=== PATIENT | female | born 1935 | race Caucasian/White ===

== ENCOUNTER 2016-12-04 13:57 | Outpatient (CLI) | payer MEDICARE ==
[~2016-12-04] VITALS: Ht 152.4 cm; Wt 69.0 kg
[~2016-12-04 13:57] MED LIST: /PANT40TA; ACET50TA PO; ACET650T12 PO; ACET650T2 PO; ACETAMINOPHEN TAB 650MG DOSE (2X325MG) PO ONE; ALLO100T PO; ALLOPURINAL; AMLO5TAB2 PO; ASPI81TA83 PO; ASPI81TA85 PO; ATEN25TA; ATEN50TA2 PO; BACITAB3 PO; BENA20TA2; BENA40TA2 PO; BISAC5TA PO; BRIN1OPH OS; CIPR500T19 PO; COLA100C PO; COLA50CA3 PO; COLC1TAB5 PO; COMB0.2S OS; DELZ400C PO; DEMA20TA6 PO; DICY10CA13 PO; FENO1TAB41 PO; FENO200C PO; FERR325T PO; FIBER LAXATIVE PO; FIRS1SOL3 PO; FLAG500T PO; FLAXOIL3 PO; FURO20TA2 PO; FURO40TA2 PO; GLIM2TAB PO; GLUC1TAB6 PO; GLUC500T; GLUC500T PO; HYDR12.56 PO; IMOD2TAB14 PO; LASI40TA PO; LATA5OPD OS; LEVO75TA3 PO; LEVO75TA4 PO; LEVOTHYROXINE; LUMIGAN OU; OMEP40CA2 PO; ONDA1TAB15 PO; ONDA4TAB6 PO; PRED20TA PO; PRED20TAB PO; PRED25TA PO; PRED5PAK PO; PRED5TA PO; PROB1TAB PO; RANI150T PO; RANITAB PO; SPIR25TA2 PO; STOO100C PO; SUCR1TA PO; TYLE500T78 PO; VANC250C2 PO; VICO5TAB; VITA100066 PO; ZYLO300T4 PO; [UNRECOGNIZED DRUG - OTHER] PO; allopurinol PO; creon PO; diphenhydrAMINE 25 MG CAP PO ONE; fenofibrate PO; motrin
[2016-12-04] MEDS ORDERED: VEDOLIZUMAB 300 MG in NS 250 ML IV ONE (14:00)
== END 2016-12-04 15:00 | disposition home or self-care (01) ==
LOC: M INFU 13:57
PROVIDERS: ATTEND Internal Medicine Gastroenterology
DX: K51.90 Ulcerative colitis, unspecified, without complications (principal); Z79.899 Other long term (current) drug therapy; Z79.82 Long term (current) use of aspirin; Z88.0 Allergy status to penicillin; Z88.2 Allergy status to sulfonamides; Z88.8 Allergy status to other drugs, medicaments and biological substances; Z79.52 Long term (current) use of systemic steroids
CPT/HCPCS: 96413; J3380

== ENCOUNTER → 2016-12-11 | Outpatient (REF) | payer MEDICARE ==
[~2016-12-11] MED LIST changes: -ACETAMINOPHEN TAB 650MG DOSE (2X325MG) PO ONE; -IMOD2TAB14 PO; +IMOD2TAB16 PO; -diphenhydrAMINE 25 MG CAP PO ONE
[2016-12-11 18:46] LABS: URIC ACID 5.8 MG/DL (2.6-6.0)
== END ==
LOC: M LAB REF 16:38
PROVIDERS: ATTEND Internal Medicine
DX: D50.9 Iron deficiency anemia, unspecified (principal); M10.9 Gout, unspecified

== ENCOUNTER 2017-01-24 12:57 | Outpatient (CLI) | payer MEDICARE ==
[~2017-01-24 12:57] MED LIST changes: +ACETAMINOPHEN TAB 650MG DOSE (2X325MG) PO ONE; +VEDOLIZUMAB 300 MG in NS 250 ML IV ONE; +diphenhydrAMINE 25 MG CAP PO ONE
== END 2017-01-24 14:00 | disposition home or self-care (01) ==
LOC: M INFU 12:57
PROVIDERS: ATTEND Internal Medicine Gastroenterology
DX: K51.90 Ulcerative colitis, unspecified, without complications (principal); Z79.899 Other long term (current) drug therapy; Z88.8 Allergy status to other drugs, medicaments and biological substances; Z88.1 Allergy status to other antibiotic agents; Z88.2 Allergy status to sulfonamides; Z91.013 Allergy to seafood; Z88.0 Allergy status to penicillin; Z91.048 Other nonmedicinal substance allergy status
CPT/HCPCS: 96365; J3380

== ENCOUNTER 2017-03-11 09:05 | Inpatient (IN) | payer MEDICARE ==
[~2017-03-11] VITALS: Ht 152.4 cm; Wt 78.0 kg
[~2017-03-11 09:05] MED LIST changes: -ACETAMINOPHEN TAB 650MG DOSE (2X325MG) PO ONE; -COLA100C PO; +COLA100C3 PO; -VEDOLIZUMAB 300 MG in NS 250 ML IV ONE; -diphenhydrAMINE 25 MG CAP PO ONE
[2017-03-11] MEDS ORDERED: RANI150T PO (09:24)
[2017-03-11] MEDS ORDERED: FURO20TA2 PO (09:24)
[2017-03-11] MEDS ORDERED: LOSA100T36 PO (09:25)
[2017-03-11] MEDS ORDERED: ZOLO25TA PO (09:26)
[2017-03-11] MEDS ORDERED: ZOFR20TA PO (09:27)
[2017-03-11] MEDS ORDERED: ENTY1INJ IV (09:29)
[2017-03-11] MEDS ORDERED: MECLIZINE 25 MG TABLET PO ONE (10:15)
[2017-03-11 10:40] LABS: BASO % 0.4 % (0.0-1.0); EOS # 0.2 K/mm3 (0.0-0.50); EOS % 2.9 % (0.0-3.0); LARGE UNSTAINED CELL # 0.1 K/mm3 (0.0-0.4); LARGE UNSTAINED CELL % 0.9 % (0.0-4.0); LYMPH # 1.6 K/mm3 (1.5-4.5); LYMPH % 17.2 % (24.0-44.0); MEAN CORPUSCULAR HEMOGLOBIN 31.4 pg (27.0-33.0); MEAN CORPUSCULAR HGB CONC 31.7 g/dl (32.0-36.5); MEAN CORPUSCULAR VOLUME 99.1 fl (80.0-96.0); MONO # 0.4 K/mm3 (0.0-0.8); MONO % 4.4 % (0.0-5.0); NEUTROPHILS # 6.4 K/mm3 (1.8-7.7); NEUTROPHILS % 74.1 % (36.0-66.0); PLATELET COUNT, AUTOMATED 222 k/mm3 (150-450); RED CELL DISTRIBUTION WIDTH 14.4 % (11.5-14.5); WHITE BLOOD COUNT 8.6 K/mm3 (4.0-10.0)
--- NOTE | 2017-03-11 11:02 | REP ---
CT HEAD WITHOUT CONTRAST: HISTORY: Dizziness. COMPARISON: 02/25/2013 An area of decreased attenuation is present in the posterior limb of the left internal capsule. This represents an old lacunar infarction. Areas of decreased attenuation are present in the periventricular and subcortical white matter. This represents small vessel ischemic disease. There is no intraparenchymal hemorrhage, mass, or midline shift. The ventricular system and cortical sulci as well as subarachnoid space in the posterior fossa are dilated consistent with mild volume loss. There is no extracerebral collection. The visualized sinuses are clear. IMPRESSION: 1. 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 2. Small vessel ischemic disease. 3. Mild volume loss. Signed by Edenilson Ellington MD 03/11/2017 11:03 A
[2017-03-11 11:03] LABS: ANION GAP 7 MEQ/L (8-16); BLOOD UREA NITROGEN 20 MG/DL (7-18); CALCIUM LEVEL 9.4 MG/DL (8.8-10.2); CARBON DIOXIDE LEVEL 31 MEQ/L (21-32); CHLORIDE LEVEL 106 MEQ/L (98-107); CREATININE FOR GFR 0.83 MG/DL (0.55-1.02); GLOMERULAR FILTRATION RATE > 60.0 (>32); GLUCOSE, FASTING 128 MG/DL (83-110); POTASSIUM SERUM 3.9 MEQ/L (3.5-5.1); SODIUM LEVEL 144 MEQ/L (136-145)
[2017-03-11] MEDS ORDERED: FUROSEMIDE 20 MG TAB PO ONE (11:15)
[2017-03-11] MEDS ORDERED: ASPIRIN 325 MG TAB PO ONE (11:15)
[2017-03-11] MEDS ORDERED: ATENOLOL 50 MG TAB PO ONE (11:15)
[2017-03-11] MEDS ORDERED: ASPIRIN 81 MG CHEW TABLET PO ONE (12:00)
[2017-03-11] MEDS ORDERED: NS 500 ML IV ONE (12:00)
[2017-03-11] MEDS ORDERED: hydrALAZINE INJ 20 MG/ML VIAL IV ONE (17:15)
[2017-03-11] MEDS ORDERED: GLUCAGON FOR INJ 1 MG VIAL (J1610) SC PRN (17:30)
[2017-03-11] MEDS: HumaLOG INSULIN (NovoLOG) PER UNIT SC SCH ×2 (17:30→21:00)
[2017-03-11] MEDS ORDERED: DEXTROSE 50% 50 ML SYRINGE IV PRN (17:30)
[2017-03-11] MEDS ORDERED: GLUCOSE 4 GM CHEW TABLET PO PRN (17:30)
[2017-03-11] MEDS ORDERED: ATEN50TA2 PO (17:32)
[2017-03-11] MEDS ORDERED: ONDANSETRON 4MG/2ML VIAL (J2405) IV PRN (18:00)
[2017-03-11] MEDS ORDERED: MECLIZINE 25 MG TABLET PO PRN (19:00)
--- NOTE | 2017-03-11 19:19 | REP ---
MR BRAIN WITHOUT CONTRAST: HISTORY: Vertigo. COMPARISON: 03/11/2017 A punctate focus of increased signal intensity on diffusion weighted images is present in the sub insular cortex of the right temporal lobe. This is decreased in signal intensity on ADC images and is consistent with an acute infarction. A small area of increased signal intensity on T2 weighted images is present in the posterior limb of the left internal capsule. This represents an old lacunar infarction. Areas of increased signal intensity on T2 weighted images are present in the periventricular and subcortical white matter, francisco and left cerebellum. This represents small vessel ischemic disease. There is no intraparenchymal hemorrhage, mass, or midline shift. The ventricular system and cortical sulci are dilated consistent with mild volume loss. There is no extracerebral collection. The sinuses are clear. IMPRESSION: 1. Small acute right temporal lobe infarction. 2. 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 3. Small vessel ischemic disease. 4. Mild volume loss. Signed by Edenilson Ellington MD 03/11/2017 07:24 P
--- NOTE | 2017-03-11 20:15 | ECGEPIP ---
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
[2017-03-11] MEDS ORDERED: ASPIRIN 81 MG ENTERIC TAB PO SCH (21:00)
[2017-03-11] MEDS: FAMOTIDINE 20 MG TAB PO SCH (21:00)
--- NOTE | 2017-03-11 22:06 | HPE ---
DATE OF ADMISSION: 03/11/2017 PRIMARY CARE PROVIDER: Gely Grewal MD CHIEF COMPLAINT: Dizziness. HISTORY OF PRESENT ILLNESS: Ms. Simons is an 82-year-old female with past medical history of dizziness and lightheadedness who presented to the emergency department (ED) this morning due to worsening dizziness compared to her baseline. States that when she got out of bed this morning, after barely walking 10 feet from her bedroom to the bathroom, she immediately felt lightheadedness and dizziness and had to hold onto the railing at home. Episode is described as more severe because it was lasting for more than 4 hours. Associated with diplopia, blurred vision, but no transient vision loss. In the ED, after being given meclizine, her dizziness improved. However, while ambulating with staff, she reported persistent dizziness along with diplopia and blurred vision. Also incidentally reported one episode of chest heaviness that started earlier today while she was lying down and attempted to sit up. Episode lasted approximately 2 minutes. No nausea, vomiting, or dizziness with the episode. Resolved on its own. In the ED was given meclizine and Valium pre-MRI. Reaction to these is unknown as she was taken to MRI after imaging. The patient recently had her losartan increased from 50 mg daily to 100 mg daily and Zoloft was added for depression, though she was only taking this three times a week. PAST MEDICAL HISTORY: 1. Clostridium (C) difficile colitis. 2. Ulcerative colitis. 3. Type 2 diabetes. 4. Gout. 5. Hypertension. 6. Hyperlipidemia. 7. Chronic kidney disease. 8. Hypothyroidism. 9. Anemia. 10. Iron deficiency anemia. 11. Depression. 12. Chronic dizziness. PAST SURGICAL HISTORY: Cholecystectomy Hysterectomy Appendectomy OUTPATIENT MEDICATIONS: - Tylenol 650 mg every 8 hours - allopurinol 200 mg twice a day - aspirin 81 mg nightly - atenolol 50 mg by mouth daily - Azopt one drop left eye daily - Azopt one drop at night - vitamin D 2000 units by mouth daily - Combivent 0.2-0.5% twice a day - Entyvio 300 mg subcutaneous - ferrous sulfate 325 mg by mouth daily - latanoprost one drop left eye nightly - Synthroid 75 mcg by mouth daily - losartan 100 mg by mouth nightly - omeprazole 40 mg by mouth daily - Zoloft 25 mg by mouth daily ALLERGIES: 1. BENZALKONIUM. 2. BRINZOLAMIDE. 3. CLAVULANIC ACID- Rash 4. IV CONTRAST. 5. DOXYCYCLINE- Rash 6. GEMFIBROZIL. 7. IODINE. 8. METOPROLOL. 9. PENICILLIN- Rash 10. SHELLFISH. 11. STATINS- Myositis 12. DILTIAZEM- Dizziness 13. PREDNISONE. 14. SULFA- Rash 15. SULFASALAZINE- Difficulty breathing. FAMILY HISTORY: Father in his 50s from complication of alcoholism. Mother at the age of 77 from alcohol disease. SOCIAL HISTORY: Patient is an ex-smoker for a 40-pack year, quit 20 years ago. No alcohol or drug use. No travel outside of the state or country. No numbness and tingling. Lives at home with and their daughter. Has one cat and one dog. REVIEW OF SYSTEMS: CONSTITUTIONAL: Positive for dizziness, lightheadedness, as mentioned above. HEENT: No difficulty with speech and swallow. No epistaxis. Eyes positive for blurred vision, diplopia, but no transient vision loss. CARDIOVASCULAR: As above. No paroxysmal nocturnal dyspnea, pillow orthopnea, lower extremity edema. PULMONARY: Denies shortness of breath, productive cough, hemoptysis. GASTROINTESTINAL (GI): Positive for ulcerative colitis and prior history of C. difficile colitis. GENITOURINARY (): No dysuria, frequency or hematuria. MUSCULOSKELETAL: Positive for chronic back pain. NEUROLOGICAL: No paralysis, paresthesia, headaches. ENDOCRINE: Positive for diabetes and thyroid disease. LYMPHATICS: No lumps, bumps, or swelling anywhere in neck, axilla, or groin. HEMATOLOGY: No abnormal bleeding or bruising. PSYCHIATRIC: Positive for depression. PHYSICAL EXAMINATION: VITAL SIGNS: Blood pressure 204/98, temperature 98.2, respiration rate 20, heart rate 70, pulse oximetry 98% on room air. GENERAL: Patient is lying in bed, flat angle, comfortable, in no acute distress. She is alert, awake, oriented times three. Very talkative. Family at bedside. HEENT: Normocephalic, atraumatic. Moist oral mucosa. Tongue is midline without asymmetry. Eyes: Extraocular movements intact, pupils equal and reactive to light. NECK: Supple, trachea midline, no jugular venous distention (JVD). CHEST: Symmetric chest rise, no accessory muscle use. HEART: Heart sounds are regular. Did not appreciate murmurs, rubs, or gallops. LUNGS: Clear to auscultation bilaterally. ABDOMEN: Soft, mildly tender to palpation left lower quadrant. No guarding. No rebound. No peritoneal signs. BACK: No costovertebral angle (CVA) tenderness. EXTREMITIES: No pedal edema. Pedal pulses present bilaterally. NEUROLOGIC: Sensory is intact. Strength is decreased on the left side compared to right which she attributes to her pain in her back. LABORATORY DATA: WBC 8.6, hemoglobin 12.6, hematocrit 39.6, platelets 222. Sodium 144, potassium 3.9, chloride 106, carbon dioxide 31, BUN 20, creatinine 0.98, fasting glucose 128, calcium 9.4. EKG showed sinus arrhythmia with ventricular rate of 66, QTc is 420. CT head reports old left internal capsule lacunar infarction, small vessel ischemic disease. IMPRESSION AND PLAN: Ms. Simons is an 82-year-old female with past medical history of hypertension who presented with severe dizziness and lightheadedness. 1. Dizziness. Likely secondary to effect of medication and/or vestibular disease. Will followup with result of MRI. Check orthostatic blood pressure. We will add meclizine. Discontinue Zoloft. Have decreased her losartan from 100 mg back to her previous dose of 50 mg. Monitor her closely in the progressive care unit (PCU). 2. Hypertensive urgency. Continue losartan 50 mg daily. Continue home dose Lasix, atenolol 50 mg daily. Have added Norvasc 10 mg daily and hydralazine 10 mg every 6 hours with hold parameters. 3. Chest pain. Etiology unclear. EKG was without evidence of ST changes. Will trend cardiac markers. 4. Type 2 diabetes. Start carbohydrate consistency. Insulin sliding scale. 5. Gout. Continue home dose allopurinol. 6. Hyperlipidemia. Patient does not appear to be on statin due to adverse effect and she is also allergic to GEMFIBROZIL. 7. Vitamin D deficiency. Continue vitamin D supplementation. 8. Chronic kidney disease. Her renal function appears to be at baseline. 9. Hypothyroidism. Continue home dose levothyroxine. Have checked her thyroid stimulating hormone (TSH). 10. Gastroesophageal reflux disease (GERD). Continue home dose ranitidine. 11. Ulcerative colitis. She receives Entyvio 300 mg IV every 3 months. 12. Deep venous thrombosis (DVT) prophylaxis. Sequential compression device (SCD), thromboembolism deterrents (TEDs) and heparin. DISPOSITION: Due to patient's condition, we expect her stay to be greater than two midnights. My preceptor for this patient encounter was Dr. Mikal Pete. The preceptor was physically present in the building during the encounter and was fully available. As needed, all aspects of the patient interview, examination, medical decision making process, and medical care plan development were reviewed and approved by the preceptor. The preceptor is aware and concurs with the plan as stated in the body of this note and will attest to such by his cosignature. PB
[2017-03-11 22:15] VITALS: BP 185/70
[2017-03-11] MEDS: ACETAMINOPHEN TAB 650MG DOSE (2X325MG) PO PRN (22:20)
[2017-03-11] MEDS: VITAMIN D 1,000 INTERNATIONAL UNITS TABLET PO SCH (22:21)
[2017-03-11] MEDS: ALLOPURINOL 100 MG TAB PO SCH (22:21)
[2017-03-11] MEDS: LATANOPROST 0.005% OPHTH SOLN 2.5 ML OS SCH (22:22)
[2017-03-11] MEDS: LOSARTAN 50 MG TAB PO SCH (22:22)
[2017-03-11] MEDS: BRINZOLAMIDE 1 % OPHTH SUSP (AZOPT) 10ML OS SCH (22:22)
[2017-03-11 23:59] VITALS: BP_SYST 133; BP_SYST 140; BP_DIAS 63; BP_DIAS 64
[2017-03-12] MEDS ORDERED: SLF 3 ML SYR IV PRN (01:00)
[2017-03-12] MEDS: ACETAMINOPHEN TAB 650MG DOSE (2X325MG) PO PRN ×2 (03:22→22:36)
[2017-03-12 04:00] VITALS: BP 141/63
[2017-03-12 05:57] LABS: MEAN CORPUSCULAR HEMOGLOBIN 30.5 pg (27.0-33.0); MEAN CORPUSCULAR HGB CONC 31.1 g/dl (32.0-36.5); MEAN CORPUSCULAR VOLUME 97.9 fl (80.0-96.0); RED CELL DISTRIBUTION WIDTH 14.6 % (11.5-14.5); WHITE BLOOD COUNT 13.1 K/mm3 (4.0-10.0)
[2017-03-12] MEDS: **hydrALAZINE** 10 MG TAB PO SCH ×2 (06:00)
[2017-03-12] MEDS: LEVOTHYROXINE 0.075 MG TAB (75 MCG) PO SCH (06:02)
[2017-03-12] MEDS: SLF 3 ML SYR IV SCH ×3 (06:04→20:40)
[2017-03-12 06:12] LABS: ANION GAP 7 MEQ/L (8-16); BLOOD UREA NITROGEN 22 MG/DL (7-18); CALCIUM LEVEL 9.3 MG/DL (8.8-10.2); CARBON DIOXIDE LEVEL 30 MEQ/L (21-32); CHLORIDE LEVEL 106 MEQ/L (98-107); CREATININE FOR GFR 1.13 MG/DL (0.55-1.02); GLOMERULAR FILTRATION RATE 49.2 (>32); GLUCOSE, FASTING 120 MG/DL (83-110); POTASSIUM SERUM 3.6 MEQ/L (3.5-5.1); SODIUM LEVEL 143 MEQ/L (136-145)
[2017-03-12 08:00] VITALS: BP 114/58
[2017-03-12] MEDS: HumaLOG INSULIN (NovoLOG) PER UNIT SC SCH ×4 (08:12→20:28)
[2017-03-12] MEDS: BRINZOLAMIDE 1 % OPHTH SUSP (AZOPT) 10ML OS SCH ×3 (08:47→20:40)
[2017-03-12] MEDS: ALLOPURINOL 100 MG TAB PO SCH ×2 (08:48→20:39)
[2017-03-12] MEDS: FAMOTIDINE 20 MG TAB PO SCH ×2 (08:49→20:39)
[2017-03-12] MEDS: FERROUS SULFATE 325MG TAB PO SCH (08:49)
[2017-03-12] MEDS: ATENOLOL 50 MG TAB PO SCH (08:49)
[2017-03-12] MEDS ORDERED: amLODIPine 10 MG TAB PO SCH (09:00)
[2017-03-12] MEDS ORDERED: ALLOPURINOL 100 MG TAB PO SCH (09:00)
[2017-03-12] MEDS ORDERED: ASPIRIN 325 MG TAB PO SCH (09:00)
[2017-03-12] MEDS ORDERED: FUROSEMIDE 40 MG TAB PO SCH (09:00)
--- NOTE | 2017-03-12 12:06 | REP ---
REASON: CVA. COMPARISON: 12/17/2013 which showed 0 to 14% stenosis internal carotid artery bilaterally. Once again, there is evidence of echogenic material along the carotid arterial [place], a small portion of which appears to cast a slight acoustic shadow. RIGHT LEFT CCA systolic 40.6 cm/s 54.9 cm/s CCA diastolic 8.5 cm/s 8.9 cm/s ICA systolic 34.0 cm/s 37.2 cm/s ICA diastolic 7.7 cm/s 9.4 cm/s ICA/CCA ratio 0.84 0.68 Analysis of the spectral wave form shows no significant spectral broadening. There is antegrade flow seen in both vertebral arteries. IMPRESSION: There is mild predominantly soft plaque formation but seen with minimal calcified plaque formation in both carotid arteries. According to the NASCET consensus criteria, there is less than 50% stenosis in both right and left internal carotid artery. Signed by Oli Hawkins DO 03/12/2017 02:43 P
[2017-03-12 12:46] VITALS: BP 144/73
[2017-03-12] MEDS: CLOPIDOGREL 75 MG TAB PO SCH (15:21)
[2017-03-12 16:01] VITALS: BP 147/70
--- NOTE | 2017-03-12 17:29 | IPN ---
DATE: 03/12/2017 SUBJECTIVE: This is an 82-year-old female who was seen and examined at bedside. Yesterday, she was admitted for dizziness. Because of diplopia, she underwent MRI, which unfortunately showed the patient to have a small acute infarct. This morning, states that her dizziness is significantly better. Nausea persists but it is improved. No longer reports diplopia. Still reports blurred vision. No chest pain, shortness of breath, palpitations, fevers, chills, diarrhea, constipation, weakness, paresthesias, paralysis. Has been ambulating to the bathroom with assistance without any difficulty. OBJECTIVE: VITAL SIGNS: Blood pressure 114/58, heart rate 79, temperature 98.1, respiration rate 16, pulse oximetry 97% on room air. Intake and output in the last 24 hours is 125 and 1575, one bowel movement documented. Weight is 72.1. GENERAL: The patient is sitting in bed comfortable. No acute distress. She is alert, awake, oriented times three. Pleasant, cooperative. HEENT: Normocephalic, atraumatic. Moist oral mucosa. Tongue is midline. No thrush or lesions appreciated. No facial weakness. CHEST: No accessory muscle use. Breath sounds are clear to auscultation bilaterally. HEART: Regular rate and rhythm. Normal S1, S2. Could not appreciate murmurs, rubs or gallops. ABDOMEN: Obese but nontender. Nondistended. Bowel sounds present. No guarding. No rebound. EXTREMITIES: No pedal edema. Pedal pulses present bilaterally. NEUROLOGIC: Sensory is intact. Strength is 5/5 in all extremities. Negative Babinski. Intact finger to nose. Did not assess gait. Otherwise, no focal deficits appreciated. PSYCHIATRIC: Normal affect. LABORATORY DATA: WBC 13.1, hemoglobin 12.6, hematocrit 40.5, platelets 458. Sodium 143, potassium 3.6, chloride 106, carbon dioxide 30, BUN 22, creatinine 1.13. Glucose 120. Cardiac markers are negative times four. MRI showed small acute right temporal lobe infarct, old left internal capsular lacunar infarct, small vessel ischemic changes, mild volume loss. Vascular ultrasound showed less than 50% stenosis in both right and left internal carotid arteries. IMPRESSION/PLAN: Ms. Simons is an 82-year-old female with a past medical history of hypertension, hyperlipidemia, multifocal atrial tachycardia, who presented to the emergency department yesterday for severe dizziness and hypertensive urgency and found to have temporal lobe infarct. 1. CVA. The patient developed CVA despite being on aspirin. Previously was on aspirin 81 mg daily. We have increased her to aspirin 325 mg daily. Have also added Plavix due to her developing CVA despite being on aspirin. Unfortunately, because of side effects from statin therapy, she could not be on statin at this time. Because of the CVA, we will allow for permissive hypertension. Have discontinued her Norvasc, hydralazine and have also held her Lasix. Her blood pressure did improve significantly overnight, but at this time, we will try to maintain her blood pressure anywhere from 140 to 180 due to new found stroke. We have also consulted Dr. Corrales. Will followup with his recommendations. Because of her stroke, we have requested for MRA of brain. Unfortunately, the patient is adamant against having this performed. She declined this offer this morning despite knowing its importance. CTA of brain also could not be performed due to her allergic reaction to contrast dye. 2. Hypertensive urgency. Blood pressure improved significantly overnight. However, because of her CVA found on MRI, we have held some of her antihypertensive regimen as discussed above. 3. History of multifocal tachycardia. This was documented in previous visits. The patient somehow believes that she has a history of atrial fibrillation though we do not have documentation of this. I have requested records from Dr. Jara' s office. 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 At this time because there is no atrial fibrillation documented in records and not observed on telemetry, it is recommended that she have an event monitor or a loop recorder whenever she is discharged. 4. Dizziness. It is significantly improved compared to admission. Have requested physical therapy (PT) to work with her, especially for vestibular rehabilitation. Dizziness is is likely secondary to an effect of medication. We will continue holding her SSRI and continue current dose of losartan at 50 mg rather than increasing losartan dose as previously scheduled outpatient. 5. Type 2 diabetes. Continue carbohydrate consistent diet and insulin sliding scale. 6. Gout. Continue home dose allopurinol. 7. Hyperlipidemia. Unfortunately, cannot be on statin due to body aches. 8. Vitamin D deficiency. Continue vitamin D supplementation. 9. Chronic kidney disease. Her renal function appears to be at baseline. No further intervention needed at this time. 10. Hypothyroidism. Continue levothyroxine. TSH level was checked and was normal. 11. Gastroesophageal reflux disease (GERD). Continue home dose of ranitidine. 12. Ulcerative colitis. She receives intravenous injections every three months , no active issues at this time. 13. Iron deficiency anemia. Continue iron supplementation. 14. Deep vein thrombosis (DVT) prophylaxis. Sequential compression device (SCD), thromboembolic compression stockings (TEDS) and heparin. My preceptor for this patient encounter was Dr. Will. The preceptor was physically present in the building during the encounter and was fully available. As needed, all aspects of the patient interview, examination, medical decision making process, and medical care plan development were reviewed and approved by the preceptor. The preceptor is aware and concurs with the plan as stated in the body of this note and will attest to such by his/her cosignature. PB
[2017-03-12 19:36] VITALS: BP 146/66
--- NOTE | 2017-03-12 19:55 | ECGEPIP ---
Stationary ECG Study 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
[2017-03-12] MEDS: LOSARTAN 50 MG TAB PO SCH (20:39)
[2017-03-12] MEDS: VITAMIN D 1,000 INTERNATIONAL UNITS TABLET PO SCH (20:39)
[2017-03-12] MEDS: HEPARIN SOD (PORCINE) 5000 UNITS/ML VIAL SQ SCH (20:40)
[2017-03-12] MEDS: LATANOPROST 0.005% OPHTH SOLN 2.5 ML OS SCH (20:40)
[2017-03-13 03:19] VITALS: BP 168/77
[2017-03-13] MEDS: LEVOTHYROXINE 0.075 MG TAB (75 MCG) PO SCH (05:23)
[2017-03-13] MEDS: SLF 3 ML SYR IV SCH ×3 (05:23→21:38)
[2017-03-13 05:54] LABS: MEAN CORPUSCULAR HEMOGLOBIN 31.7 pg (27.0-33.0); MEAN CORPUSCULAR VOLUME 99.2 fl (80.0-96.0); RED CELL DISTRIBUTION WIDTH 14.5 % (11.5-14.5); WHITE BLOOD COUNT 9.1 K/mm3 (4.0-10.0)
[2017-03-13 06:21] LABS: CALCIUM LEVEL 8.7 MG/DL (8.8-10.2); CREATININE FOR GFR 1.25 MG/DL (0.55-1.02); GLOMERULAR FILTRATION RATE 43.8 (>32); POTASSIUM SERUM 3.5 MEQ/L (3.5-5.1)
[2017-03-13] MEDS: ACETAMINOPHEN TAB 650MG DOSE (2X325MG) PO PRN ×3 (07:09→21:23)
--- NOTE | 2017-03-13 07:24 | CR ---
DATE OF CONSULTATION: 03/12/2017 REFERRING PHYSICIAN: Dr. Mikal Pete. REASON FOR CONSULTATION: Dizziness. HISTORY OF PRESENT ILLNESS: The patient is an 82-year-old woman who was admitted at [facility] due to sudden worsening of dizziness yesterday morning. The patient states that she woke up yesterday morning and felt extremely dizzy. She had incoordination and trouble walking. There was no problem with her speech, numbness, weakness of her arms and legs. She felt nauseated. She did not lose consciousness. Her blood pressure was 202/95. She came to [facility] around 10:00 a.m. yesterday morning. Her MRI scan of brain reportedly showed a small right temporal lobe ischemic stroke. I was consulted today about this patient due to presence of stroke on her MRI scan of brain. She denies any new headaches or neck pain. She has history of chronic low back pain due to spinal stenosis. PAST MEDICAL HISTORY: Ulcerative colitis. Type 2 diabetes. Gout. Hypertension. Dyslipidemia. Chronic kidney disease. Hypothyroidism. Anemia. Iron-deficiency anemia. History of Clostridium difficile colitis. HOME MEDICATIONS: - aspirin 81 mg by mouth daily - atenolol 50 mg by mouth daily - Azopt eye drops - Vitamin D2, 2000 units by mouth daily - Combivent inhaler twice daily - Entyvio mg subcutaneous - ferrous sulfate 325 mg by mouth daily - Synthroid 75 mcg by mouth daily - losartan 100 mg by mouth daily - omeprazole 40 mg by mouth daily - allopurinol 20 mg by mouth twice daily ALLERGIES: SULFA, BENZALKONIUM, ALL STATINS. FAMILY HISTORY: Father of alcoholism. Mother also of alcoholism. SOCIAL HISTORY: She is an ex-smoker. She denies alcohol or illicit drugs. REVIEW OF SYSTEMS: All systems were reviewed and were found to be noncontributory except as mentioned in history of present illness. PHYSICAL EXAMINATION: Blood pressure 204/98, temperature 98.2, respiratory 20, pulse 70. Heart: Regular rate and rhythm. Lungs: Clear to auscultation. Abdomen: Soft, nontender, nondistended. Neurologic examination: The patient is awake, alert, oriented to place, person and time. Normal speech, comprehension and interpretation. Extraocular muscles are intact. No facial weakness. Tongue and uvula are midline. 5/5 strength in all four extremities. Deep tendon flexes 1+ in arms and knees and absent at ankles. She has decreased cold, pinprick, vibration sensation in her feet. Her gait is mildly unsteady. She uses a cane for ambulation. Ear, nose, throat examination is within normal limits. There is no carotid bruit. Her pupils are 4 mm bilaterally reactive to light. There is no pedal edema. DIAGNOSTIC STUDIES: Her MRI scan of brain showed small right temporal lobe ischemic stroke. Carotid ultrasound showed less than 50% internal carotid artery stenosis. ASSESSMENT: 1. Small right temporal lobe ischemic stroke. 2. Less than 50% bilateral carotid artery stenosis. 3. History of diabetes, chronic kidney disease and hypertension. PLAN: 1. Plavix 75 mg by mouth daily. 2. Aspirin 81 mg by mouth daily for 1 week and then discontinue. Due to her ulcerative colitis, she will be at high risk of gastrointestinal bleeding with dual antiplatelet therapy. 3. She is allergic to most of the statins as they caused myalgias and muscle weakness. 4. Physical and occupational therapy. 5. Echocardiogram. 6. Follow with our office in 2 weeks after hospital discharge.
[2017-03-13 07:30] VITALS: BP 141/64
[2017-03-13] MEDS: HumaLOG INSULIN (NovoLOG) PER UNIT SC SCH ×4 (08:20→20:13)
[2017-03-13] MEDS: ALLOPURINOL 100 MG TAB PO SCH ×2 (08:21→21:20)
[2017-03-13] MEDS: ATENOLOL 50 MG TAB PO SCH (08:21)
[2017-03-13] MEDS: ASPIRIN 81 MG ENTERIC TAB PO SCH (08:21)
[2017-03-13] MEDS: FAMOTIDINE 20 MG TAB PO SCH ×2 (08:22→21:20)
[2017-03-13] MEDS: amLODIPine 5 MG TAB PO SCH (08:22)
[2017-03-13] MEDS: FERROUS SULFATE 325MG TAB PO SCH (08:22)
[2017-03-13] MEDS: CLOPIDOGREL 75 MG TAB PO SCH (08:22)
[2017-03-13] MEDS: HEPARIN SOD (PORCINE) 5000 UNITS/ML VIAL SQ SCH ×2 (08:23→21:20)
[2017-03-13] MEDS: BRINZOLAMIDE 1 % OPHTH SUSP (AZOPT) 10ML OS SCH ×3 (08:24→21:21)
[2017-03-13] MEDS ORDERED: FUROSEMIDE 40 MG TAB PO SCH (09:00)
[2017-03-13] MEDS: NS 1,000 ML IV SCH ×2 (09:23→21:00)
[2017-03-13 12:00] VITALS: BP 152/72
[2017-03-13 16:00] VITALS: BP 168/74
[2017-03-13] MEDS ORDERED: DOCUSATE SODIUM 100 MG CAP PO PRN (18:00)
--- NOTE | 2017-03-13 18:26 | IPN ---
DATE: 03/13/2017 SUBJECTIVE: This is an 82-year-old female who was seen and examined at bedside. Overnight, she was evaluated by Dr. Corrales. Yesterday, we had ordered an MRA; however, the patient refused further MR testing because of her chronic back pain. Despite our offer to give her pain medication, she continued to decline. She was evaluated by occupational therapy and was cleared from their standpoint. She was also evaluated by physical therapy and, at this time, it is recommended that the patient will require home with home services. This morning, she feels a lot better. Dizziness occurs intermittently but very short-lived, only 4-5 minutes compared to hours that prompted her admission. No nausea, vomiting, headache, lightheadedness, dizziness, blurry vision, diplopia, weakness, or paresthesia. Reports constipation which she attributes to her iron supplementation. States that despite her medication reconciliation listed as her taking iron supplementation everyday that she only takes it maybe once or twice a week. Otherwise, she feels well. OBJECTIVE: VITAL SIGNS: Blood pressure 141/64, heart rate 66, temperature 98.3, respiration rate 24, pulse oximetry 94% on room air. Intake and output in the last 24 hours is 1230 and 875, one bowel movement documented in the last 34 hours. GENERAL: The patient is sitting in the chair, comfortable, in no acute distress. She is alert, awake and oriented times three, pleasant and cooperative. HEENT: Normocephalic, atraumatic. Moist oral mucosa. Dentures in place. No facial weakness. Eyes: Extraocular movement intact. Pupils are equal and reactive to light. NECK: Supple. Trachea midline. No jugular venous distention (JVD). CHEST: Symmetric chest rise. No accessory muscle use. Breath sounds are clear to auscultation bilaterally. HEART: Regular rate and rhythm with normal S1, S2. ABDOMEN: Obese but nontender, nondistended. Bowel sounds present. No guarding. No rebound. EXTREMITIES: No pedal edema. Pedal pulses present bilaterally. NEUROLOGIC: Strength 5/5 in all extremities. Sensory intact. Negative Babinski. Intact [id number]. No focal deficits appreciated. PSYCHIATRIC: Normal affect. LABORATORY DATA: WBC 9.1, hemoglobin 11.8, hematocrit 36.8, platelets 225. Sodium 141, potassium 3.5, chloride 106, carbon dioxide 26, BUN 38, creatinine 1.25. Fasting glucose 108, calcium 8.7. Fingerstick glucoses have been ranging anywhere from 111-194. No new imaging performed. IMPRESSION AND PLAN: Ms. Simons is an 82-year-old female with a past medical history of hypertension, hyperlipidemia, multifocal atrial tachycardia, who presented to the emergency department (ED) with severe vertigo, hypertensive urgency, and found to have a temporal lobe infarct. 1. Cerebrovascular accident (CVA). She was evaluate by Dr. Corrales last night and, at this time, it is recommended that the patient continue Plavix and taper down aspirin. It is recommended that the patient be on Plavix ocean transportation intermediary. Therefore, we will continue aspirin for another week and discontinue thereafter due to concern of her history of ulcerative colitis putting her at risk for bleeding. Because she is now outside of the permissive hypertension window, we have resumed her Norvasc. Her blood pressure is reasonable at this time. 2. Hypertensive urgency. Her blood pressure is improved. We will continue with atenolol, losartan, and Norvasc. We will hold Lasix for today. She appeared to be in negative balance since admission and was given one liter hydration today. 3. History of multifocal atrial tachycardia. Oupatient records requested from supervisor home restoration service's office. In her lifetime, it appears that this is her second episode of CVA. Though she reported episodes of palpitations, there has been no documentation of atrial fibrillation. She will likely require either an event monitor or a loop recorder whenever she is discharged. 4. Dizziness. This is significantly improved compared to admission. We will continue recommending physical therapy with vestibular rehabilitation. Her symptoms are also improving now that we have held her Zoloft and decreased her losartan from 100 mg to 50 mg daily. 5. Type 2 diabetes. Continue carbohydrate consistent diet and insulin sliding scale. 6. Gout. Continue home dose allopurinol. 7. Hyperlipidemia. Cannot be on statin therapy due to body aches. 8. Vitamin D deficiency. Continue vitamin D supplementation. 9. Chronic kidney disease. Her renal function is at baseline. No further intervention needed at this time. 10. Hypothyroidism. Continue levothyroxine. 11. Gastroesophageal reflux disease (GERD). Continue ranitidine. 12. Ulcerative colitis. She receives injections with gastroenterology every three months. 13. Iron deficiency anemia. She takes iron supplementation but, per patient, she only takes this once or twice a week. We have adjusted her iron dosing. 14. Constipation. Likely secondary to iron supplementation. We have added Colace. 15. Obesity. Body mass index (BMI) of 32. Will complicate medical management. 16. Deep vein thrombosis (DVT) prophylaxis. Sequential compression device (SCD), thromboembolic compression stockings (TEDS) and heparin. DISPOSITION: If she continues to be improving and pending echocardiogram, we hope to have discharge planning within the next 24-48 hours. My preceptor for this patient encounter was Dr. Will. The preceptor was physically present in the building during the encounter and was fully available. As needed, all aspects of the patient interview, examination, medical decision making process, and medical care plan development were reviewed and approved by the preceptor. The preceptor is aware and concurs with the plan as stated in the body of this note and will attest to such by his/her cosignature. PB
[2017-03-13 20:00] VITALS: BP 165/82
[2017-03-13] MEDS: VITAMIN D 1,000 INTERNATIONAL UNITS TABLET PO SCH (21:20)
[2017-03-13] MEDS: LOSARTAN 50 MG TAB PO SCH (21:20)
[2017-03-13] MEDS: LATANOPROST 0.005% OPHTH SOLN 2.5 ML OS SCH (21:21)
[2017-03-13 23:59] VITALS: BP 157/70
[2017-03-14 04:00] VITALS: BP 168/73
[2017-03-14] MEDS: LEVOTHYROXINE 0.075 MG TAB (75 MCG) PO SCH (05:16)
[2017-03-14] MEDS: SLF 3 ML SYR IV SCH ×3 (05:17→20:49)
[2017-03-14 06:08] LABS: MEAN CORPUSCULAR HEMOGLOBIN 31.9 pg (27.0-33.0); MEAN CORPUSCULAR HGB CONC 32.3 g/dl (32.0-36.5); MEAN CORPUSCULAR VOLUME 98.5 fl (80.0-96.0); RED CELL DISTRIBUTION WIDTH 14.3 % (11.5-14.5); WHITE BLOOD COUNT 6.8 K/mm3 (4.0-10.0)
[2017-03-14 06:23] LABS: ANION GAP 6 MEQ/L (8-16); BLOOD UREA NITROGEN 29 MG/DL (7-18); CALCIUM LEVEL 8.7 MG/DL (8.8-10.2); CARBON DIOXIDE LEVEL 27 MEQ/L (21-32); CHLORIDE LEVEL 110 MEQ/L (98-107); CREATININE FOR GFR 0.89 MG/DL (0.55-1.02); GLOMERULAR FILTRATION RATE > 60.0 (>32); GLUCOSE, FASTING 107 MG/DL (83-110); POTASSIUM SERUM 3.5 MEQ/L (3.5-5.1); SODIUM LEVEL 143 MEQ/L (136-145)
[2017-03-14 08:00] VITALS: BP 158/78
[2017-03-14] MEDS: HumaLOG INSULIN (NovoLOG) PER UNIT SC SCH ×4 (09:04→20:42)
[2017-03-14] MEDS: HEPARIN SOD (PORCINE) 5000 UNITS/ML VIAL SQ SCH ×2 (09:04→20:49)
[2017-03-14] MEDS: CLOPIDOGREL 75 MG TAB PO SCH (09:04)
[2017-03-14] MEDS: ALLOPURINOL 100 MG TAB PO SCH ×2 (09:04→20:48)
[2017-03-14] MEDS: ASPIRIN 81 MG ENTERIC TAB PO SCH (09:05)
[2017-03-14] MEDS: FAMOTIDINE 20 MG TAB PO SCH ×2 (09:05→20:48)
[2017-03-14] MEDS: amLODIPine 5 MG TAB PO SCH (09:05)
[2017-03-14] MEDS: BRINZOLAMIDE 1 % OPHTH SUSP (AZOPT) 10ML OS SCH ×3 (09:05→20:48)
[2017-03-14] MEDS: ATENOLOL 50 MG TAB PO SCH (09:05)
[2017-03-14 12:00] VITALS: BP 140/74
[2017-03-14] MEDS ORDERED: amLODIPine 5 MG TAB PO ONE (15:30)
[2017-03-14] MEDS: FUROSEMIDE 20 MG TAB PO SCH (15:59)
[2017-03-14 16:00] VITALS: BP 136/76
--- NOTE | 2017-03-14 16:39 | IPN ---
DATE: 03/14/2017 SUBJECTIVE: This is an 82-year-old female who is seen and examined at bedside. Overnight, no reported acute events. She was evaluated by physical therapy and recommended home services. This morning feels well. Denies any chest pain, palpitations, shortness of breath, nausea, vomiting, fever, chills. Had one episode of dizziness after she got out of bed today which resolved immediately. OBJECTIVE: VITAL SIGNS: Blood pressure 158/78, heart rate 72, temperature 98, respiratory rate 18, pulse oximetry 97% on room air. Intake and output last 24 hours: 780 and 1525. GENERAL: The patient is sitting in bed comfortable. No acute distress. She is alert, awake, oriented times three. Pleasant, cooperative. HEENT: Normocephalic, atraumatic. Moist oral mucosa. Eyes: Extraocular movement intact. Pupils and reactive to light. NECK: Supple. Trachea midline. No jugular venous distention (JVD). CHEST: Symmetric chest rise. No accessory muscle use. Breath sounds were diminished but clear bilaterally. HEART: Regular rate and rhythm with normal S1, S2. ABDOMEN: Soft, nontender, nondistended. Bowel sounds present. No guarding, no rebound. EXTREMITIES: No pedal edema. Pedal pulses present bilaterally. NEUROLOGIC: Cranial nerves II through XII grossly intact. Strength 5/5 in all extremities. Negative Babinski. Intact [id number]. No focal deficits appreciated. PSYCHIATRIC: Normal affect, pleasant. LABORATORY DATA: WBC 6.8, hemoglobin 11.1, hematocrit 34.3, platelets 192. Sodium 143, potassium 3.5, chloride 111, carbon dioxide 27, BUN 29, creatinine 0.89 improved from yesterday 39 and 1.25. Glucose 107. Fingerstick glucose has been ranging anywhere from 163 to 214. IMPRESSION AND PLAN: Ms. Simons is a pleasant 82-year-old female with past medical history of hypertension, hyperlipidemia, multifocal atrial tachycardia, who presents to the emergency department (ED) with severe vertigo, hypertensive urgency, found to have temporal lobe infarction. 1. Cerebrovascular accident (CVA). Will continue aspirin taper for a total of one week per Dr. Corrales's recommendations. Continue Plavix 75 mg by mouth daily. 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 Blood pressure is reasonable. Continue current regimen without change. We have asked physical therapy to work with her regarding stairs as she does have stairs to enter her home. She will likely require home services. 2. Hypertensive urgency, resolved. Continue atenolol 50 mg by mouth daily, losartan 50 mg daily. Increase Norvasc to 10 mg. Will also restart her Lasix but at a decreased dose of 20 mg. 3. History of multifocal atrial tachycardia. Reportedly was recommended to be on Diltiazem but could not tolerate it. 4. Dizziness, improved significantly after holding her Zoloft and decreasing her home dose of losartan. 5. Type 2 diabetes. Continue consistent carbohydrate diet and insulin sliding scale. 6. Continue home dose of allopurinol. 7. Hyperlipidemia. 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 8. Vitamin D deficiency. Continue vitamin D supplementation. 9. Chronic kidney disease. Renal function improved today compared to yesterday. 10. Hypothyroidism. Continue levothyroxine. 11. Gastroesophageal reflux disease (GERD). Continue home dose ranitidine. 12. Ulcerative colitis. Not an active issue at this time. 13. Iron-deficiency anemia. We have adjusted her iron supplementation to twice a day, which is her home dose. 14. Obesity, body mass index (BMI) of 32 will complicate medical management. 15. Deep venous thrombosis (DVT) prophylaxis. Sequential compression devices (SCDs), thromboembolism deterrent stockings (TEDs), and heparin. DISPOSITION: Depending on physical therapy and echocardiogram results. We hope to have discharge planning within the next 24-48 hours. My preceptor for this patient encounter was Dr. Dakota Will. . The preceptor was physically present in the building during the encounter and was fully available as needed. All aspects of the patient interview, examination, medical decision making process, and medical care plan development were reviewed and approved by the preceptor. The preceptor is aware and concurs with the plan as stated in the body of this note and will attest to such by his/her co-signature. PB
[2017-03-14] MEDS ORDERED: FURO20TA2 PO (16:49)
[2017-03-14] MEDS ORDERED: CLOP75TA2 PO (16:49)
[2017-03-14] MEDS ORDERED: COZA50TA PO (16:49)
[2017-03-14] MEDS ORDERED: ASPI81TAEC PO (16:49)
[2017-03-14] MEDS ORDERED: MECL-68 PO (16:49)
[2017-03-14] MEDS ORDERED: AMLO10TA2 PO (16:49)
[2017-03-14 20:00] VITALS: BP 161/69
[2017-03-14] MEDS: VITAMIN D 1,000 INTERNATIONAL UNITS TABLET PO SCH (20:48)
[2017-03-14] MEDS: LATANOPROST 0.005% OPHTH SOLN 2.5 ML OS SCH (20:48)
[2017-03-14] MEDS: LOSARTAN 50 MG TAB PO SCH (20:48)
[2017-03-14] MEDS ORDERED: ONDANSETRON 4 MG TAB (S0181) PO PRN (21:00)
[2017-03-15] VITALS: BP 155/70
[2017-03-15 04:00] VITALS: BP 152/69
[2017-03-15] MEDS: LEVOTHYROXINE 0.075 MG TAB (75 MCG) PO SCH (05:00)
[2017-03-15 05:36] LABS: MEAN CORPUSCULAR HEMOGLOBIN 31.2 pg (27.0-33.0); MEAN CORPUSCULAR HGB CONC 31.1 g/dl (32.0-36.5); MEAN CORPUSCULAR VOLUME 100.5 fl (80.0-96.0); RED CELL DISTRIBUTION WIDTH 14.2 % (11.5-14.5)
[2017-03-15 05:44] LABS: ANION GAP 8 MEQ/L (8-16); BLOOD UREA NITROGEN 22 MG/DL (7-18); CALCIUM LEVEL 9.4 MG/DL (8.8-10.2); CARBON DIOXIDE LEVEL 28 MEQ/L (21-32); CHLORIDE LEVEL 111 MEQ/L (98-107); CREATININE FOR GFR 0.84 MG/DL (0.55-1.02); GLOMERULAR FILTRATION RATE > 60.0 (>32); GLUCOSE, FASTING 107 MG/DL (83-110); POTASSIUM SERUM 3.6 MEQ/L (3.5-5.1); SODIUM LEVEL 147 MEQ/L (136-145)
[2017-03-15] MEDS: HumaLOG INSULIN (NovoLOG) PER UNIT SC SCH ×2 (07:30→12:30)
[2017-03-15 08:00] VITALS: BP 148/72
--- NOTE | 2017-03-15 08:12 | ECHO ---
DATE OF PROCEDURE: 03/13/2017 REASON FOR THE ECHOCARDIOGRAM: Cerebrovascular accident. 2D MEASUREMENTS: IVS: 1.2 cm LV: 4.6 cm LVPW: 1.2 cm LA: 3.4 cm Aorta: 3.1 cm IVC: 1.7 cm DOPPLER MEASUREMENTS: Peak velocity across the aortic valve: 1.5 m/s Peak velocity across the LVOT: 0.66 m/s Mitral E: 0.59, mitral A 0.80 with a ratio of 0.7 Maximum tricuspid valve velocity: 2.1 m/s 2D COMMENTS: 1. Normal left ventricular size, wall thickness and left ventricular systolic function. The estimated global left ventricular systolic ejection fraction is 60-65%. 2. Normal left atrium. Normal right atrium and left ventricle. 3. The atrial septum appeared to be normal without evidence of defect or shunt. 4. Normal aortic root. 5. No pericardial effusion seen. 6. Normal aortic valve. Mildly calcified mitral annulus with normal anterior mitral valve leaflet motion. Normal tricuspid valve. The pulmonic valve and proximal pulmonary artery branches were not well visualized. 7. The inferior vena cava was mildly enlarged, central venous pressure is most likely normal. DOPPLER: It detects trace to mild tricuspid regurgitation and moderate eccentric mitral regurgitation. The calculated pulmonary artery systolic pressure was normal, less than 30 mmHg. Abnormal relaxation pattern was noted across the mitral valve leaflet consistent with grade 1 left ventricular diastolic dysfunction. IMPRESSION: 1. Normal global left ventricular systolic function. There are some features of left ventricular diastolic dysfunction manifested by abnormal relaxation. 2. Mitral annulus calcification with moderate mitral regurgitation. 3. Trace to mild tricuspid regurgitation with a normal calculated pulmonary artery systolic pressure.
[2017-03-15] MEDS ORDERED: D5W 1,000 ML IV ONE (08:30)
[2017-03-15] MEDS ORDERED: AMLO10TA2 PO (08:39)
[2017-03-15] MEDS ORDERED: CLOP75TA2 PO (08:39)
[2017-03-15] MEDS ORDERED: ASPI81TA85 PO (08:39)
[2017-03-15] MEDS ORDERED: COZA50TA PO (08:39)
[2017-03-15] MEDS ORDERED: MECL-68 PO (08:39)
[2017-03-15] MEDS: FUROSEMIDE 20 MG TAB PO SCH (09:00)
[2017-03-15] MEDS: FERROUS SULFATE 325MG TAB PO SCH ×2 (09:00→09:21)
[2017-03-15] MEDS ORDERED: amLODIPine 10 MG TAB PO SCH (09:00)
[2017-03-15] MEDS: ALLOPURINOL 100 MG TAB PO SCH (09:19)
[2017-03-15] MEDS: FAMOTIDINE 20 MG TAB PO SCH (09:19)
[2017-03-15] MEDS: ASPIRIN 81 MG ENTERIC TAB PO SCH (09:19)
[2017-03-15] MEDS: CLOPIDOGREL 75 MG TAB PO SCH (09:19)
[2017-03-15] MEDS: HEPARIN SOD (PORCINE) 5000 UNITS/ML VIAL SQ SCH (09:19)
[2017-03-15 09:21] VITALS: BP 148/72
[2017-03-15] MEDS: ATENOLOL 50 MG TAB PO SCH (09:21)
[2017-03-15] MEDS: BRINZOLAMIDE 1 % OPHTH SUSP (AZOPT) 10ML OS SCH (09:22)
[2017-03-15 12:16] LABS: ANION GAP 5 MEQ/L (8-16); BLOOD UREA NITROGEN 20 MG/DL (7-18); CALCIUM LEVEL 8.8 MG/DL (8.8-10.2); CARBON DIOXIDE LEVEL 28 MEQ/L (21-32); CHLORIDE LEVEL 107 MEQ/L (98-107); CREATININE FOR GFR 0.81 MG/DL (0.55-1.02); GLOMERULAR FILTRATION RATE > 60.0 (>32); GLUCOSE, FASTING 251 MG/DL (83-110); POTASSIUM SERUM 3.7 MEQ/L (3.5-5.1); SODIUM LEVEL 140 MEQ/L (136-145)
--- NOTE | 2017-03-15 14:58 | DSES ---
DATE OF ADMISSION: 03/11/2017 DATE OF DISCHARGE: 03/15/2017 PRIMARY CARE PROVIDER: Dr. Gely Mancera CONSULTANTS: Dr. Corrales of neurology. PROCEDURES: None. COMPLICATIONS: None. DIAGNOSTIC IMAGING: CT of the head showed old left internal capsular lacunar infarct. MRI of the brain showed small acute right temporal lobe infarct, old left internal capsular lacunar infarct. Small vessel ischemic disease. Mild volume loss. Vascular ultrasound showed less than 50% stenosis in both right and left internal carotid arteries. The patient declined MRA of the brain. Echocardiogram showed normal global left ventricular systolic function, some features of left ventricular diastolic function, mitral annulus calcification, moderate mitral regurgitation, trace to mild tricuspid regurgitation with normal pulmonary artery systolic pressure, ejection fraction of 60 to 65%. DISCHARGE DIAGNOSES: 1. Acute CVA 2. Hypertensive urgency. 3. Dizziness. 4. Hypernatremia. 5. Acute kidney injury. 6. Palpitations. SECONDARY ADMITTING DIAGNOSES: 1. Multifocal atrial tachycardia. 2. Type 2 diabetes. 3. Hyperlipidemia. 4. Vitamin D deficiency. 5. Chronic kidney disease. 6. Hypothyroidism. 7. Gastroesophageal reflux disease (GERD). 8. Ulcerative colitis. 9. Iron deficiency anemia. 10. Obesity, Body Mass Index (BMI) 32. 11. History of depression. 12. History of Clostridium (C.) difficile colitis. 13. Ulcerative colitis. 14. Gout. 15. Hypothyroidism. 16. Depression. BRIEF HOSPITAL COURSE: Ms. Simons is a pleasant 82-year-old female with a past medical history as mentioned above, who presented to the emergency department on the day of admission with complaint of worsening dizziness on the morning of admission. The patient reportedly was getting out of bed and after barely walking 10 ft from her bedroom to the bathroom she immediately felt lightheaded, dizziness. Episode lasted for more than 4 hours. Associated with diplopia, blurred vision, but no vision loss. She also reported occasional episodes of palpitations a few days prior to admission. In the emergency department, she was found to be hypertensive with a systolic as high as 204. The patient reports that recently her losartan was increased from 50 to 100 mg daily and was started on Zoloft for depression. She states that since her adjustment in her medications, noticed worsening of her dizziness. Because of her symptoms, she was admitted to telemetry for close monitoring. She was found to have a CVA. Since she had a second stroke despite Aspirin therapy, it was recommended by Dr. Corrales to taper off Aspirin and start Plavix. Combination therapy was not recommended due to concern that it will increase her risk of bleeding with her history of ulcerative colitis. Unfortunately, because of her history of allergy to statin, she could not be started on statin therapy. Also, the case was briefly discussed over the phone with feed project engineer configuration management architect and it is recommended that she undergo either an event monitor or a loop recorder to evaluate for possible underlying paroxysmal atrial fibrillation that might contribute to her ischemic CVAs. For her hypertension, her blood pressure improved with addition of Norvasc. Her dizziness was believed to be secondary to increased dose of losartan and also addition of Zoloft. Therefore, losartan was decreased back to her previous dose of 50 mg and Zoloft was discontinued. Her acute kidney injury was secondary to dehydration and she was started on gentle hydration. Lasix was held due to hypernatremia and dehydration. PHYSICAL EXAMINATION: At the time of discharge, vital signs: Blood pressure 148/72, heart rate 75, temperature 98, respiratory rate 18, pulse oximetry 98% on room air. Intake and output the last 24 hours: 1000 and 2275. GENERAL: The patient was sitting in bed comfortable. No acute distress. Alert , awake, oriented times three. Pleasant, cooperative. HEENT: Normocephalic, atraumatic. Moist oral mucosa. Dentures in place. Eyes: Extraocular movements intact. Pupils are equal and reactive to light. NECK: Supple. Trachea midline. No jugular venous distention (JVD). CHEST: Symmetric chest rise. No accessory muscle use. Breath sounds were diminished but clear bilaterally. HEART: Regular rate and rhythm. Normal S1, S2. ABDOMEN: Soft, nontender, nondistended. Bowel sounds present. No guarding. No rebound. EXTREMITIES: No pedal edema. Pedal pulses present bilaterally. NEUROLOGIC: Cranial nerves II through XII grossly intact. Strength 5/5 in all extremities. Negative Babinski. Sensory intact. No focal deficits appreciated. She walked with a steady gait using her walker. PSYCHIATRIC: Normal affect, pleasant. LABORATORY DATA: Sodium 140, potassium 3.7, chloride 107, carbon dioxide 28, BUN 20, creatinine 0.81, glucose 251, calcium 8.8. WBC 7, hemoglobin 11, hematocrit 35.5, platelets 207. DISPOSITION: Home with home services for further physical therapy (PT) training. CONDITION: Stable. ACTIVITY: As tolerated with a walker. DIET: 2 gm sodium DISCHARGE MEDICATIONS: New medications: - Norvasc 10 mg daily - Plavix 75 mg daily - meclizine 25 mg every 8 hours as needed Medication change: - aspirin 81 mg daily for another 2 days and then stop - losartan 50 mg daily Continue the following home medications: - Tylenol 650 mg every 8 hours as needed - allopurinol 200 mg by mouth twice a day - atenolol 50 mg by mouth daily - brinzolamide one drop OS three times a day - vitamin D 2000 by mouth at night - Combigan one drop OS twice a day - Entivio 300 mg IV every 3 months - ferrous sulfate 325 mg by mouth written as daily but reportedly was only taking twice a week - Latanoprost one drop both eyes at night - Synthroid 75 mcg by mouth daily - Zofran 4 mg as needed for nausea - probiotic one tablet by mouth daily - ranitidine 150 mg by mouth twice a day Stop the following home medications until evaluated by primary care provider: - Lasix 40 mg by mouth daily - sertraline 25 mg by mouth daily - Losartan 100 mg by mouth daily Patient should hold her Lasix until follow up with PCP, weigh daily and notify provider if weight is greater than [address]. [address] Mancera next week, Dr. Jara's office in 2 weeks, Dr. Corrales in 2 weeks. DISCHARGE INSTRUCTIONS: Please check blood pressure every day and weight daily. If weight is greater than 2 pounds, the patient should notify her primary care provider for recommendation in restarting her Lasix. She was instructed to return to the hospital if she has worsening recurrent symptoms or anything else concerning to the patient and family. All of this was explained to the patient at the time of discharge and all questions were answered. Time spent: 50 minutes. My preceptor for this patient encounter was Dr. Will. The preceptor was physically present in the building during the encounter and was fully available. As needed, all aspects of the patient interview, examination, medical decision making process, and medical care plan development were reviewed and approved by the preceptor. The preceptor is aware and concurs with the plan as stated in the body of this note and will attest to such by his/her cosignature. cc: Dr. Gely AMBRIZ
== END 2017-03-15 14:37 | disposition home health service (06) | DRG 65 ==
LOC: EDBD 09:05 → M ED 09:30 → M ED INP 18:28 → M PCU 21:49
PROVIDERS: ADMIT Internal Medicine; ATTEND Internal Medicine
DX: I63.59 Cerebral infarction due to unspecified occlusion or stenosis of other cerebral artery (principal); K51.90 Ulcerative colitis, unspecified, without complications; I47.1 Supraventricular tachycardia; E87.0 Hyperosmolality and hypernatremia; N17.9 Acute kidney failure, unspecified; R42 Dizziness and giddiness; E11.9 Type 2 diabetes mellitus without complications; M10.9 Gout, unspecified; I12.9 Hypertensive chronic kidney disease with stage 1 through stage 4 chronic kidney disease, or unspecified chronic kidney disease; E78.5 Hyperlipidemia, unspecified; I16.0 Hypertensive urgency; N18.9 Chronic kidney disease, unspecified; E03.9 Hypothyroidism, unspecified; R07.9 Chest pain, unspecified; K21.9 Gastro-esophageal reflux disease without esophagitis; Z66 Do not resuscitate; E66.9 Obesity, unspecified; D50.9 Iron deficiency anemia, unspecified; T44.5X5A Adverse effect of predominantly beta-adrenoreceptor agonists, initial encounter; T43.225A Adverse effect of selective serotonin reuptake inhibitors, initial encounter; F32.9 Major depressive disorder, single episode, unspecified; E86.0 Dehydration; H53.2 Diplopia; H53.8 Other visual disturbances; E55.9 Vitamin D deficiency, unspecified; Z79.899 Other long term (current) drug therapy; Z88.0 Allergy status to penicillin; Z88.8 Allergy status to other drugs, medicaments and biological substances; Z91.013 Allergy to seafood; Z88.1 Allergy status to other antibiotic agents; Z88.2 Allergy status to sulfonamides; Z87.891 Personal history of nicotine dependence; Z79.82 Long term (current) use of aspirin; Z81.1 Family history of alcohol abuse and dependence; Z68.32 Body mass index [BMI] 32.0-32.9, adult

== ENCOUNTER 2017-03-20 07:26 | Emergency (ER) | payer MEDICARE ==
[~2017-03-20] VITALS: Ht 152.4 cm; Wt 71.2 kg
[~2017-03-20 07:26] MED LIST changes: +AMLO10TA2 PO; +ASPI81TAEC PO; +CLOP75TA2 PO; +COZA50TA PO; +ENTY1INJ IV; +LOSA100T36 PO; +MECL-68 PO; +ZOFR20TA PO; +ZOLO25TA PO
[2017-03-20 08:52] LABS: MEAN CORPUSCULAR HGB CONC 32.3 g/dl (32.0-36.5); MEAN CORPUSCULAR VOLUME 99.1 fl (80.0-96.0); PLATELET COUNT, AUTOMATED 235 k/mm3 (150-450); RED CELL DISTRIBUTION WIDTH 14.3 % (11.5-14.5); WHITE BLOOD COUNT 9.8 K/mm3 (4.0-10.0)
[2017-03-20 08:53] LABS: ANION GAP 9 MEQ/L (8-16); BASO % 0.4 % (0.0-1.0); BLOOD UREA NITROGEN 19 MG/DL (7-18); CALCIUM LEVEL 9.3 MG/DL (8.8-10.2); CARBON DIOXIDE LEVEL 27 MEQ/L (21-32); CHLORIDE LEVEL 106 MEQ/L (98-107); CREATININE FOR GFR 0.95 MG/DL (0.55-1.02); EOS # 0.6 K/mm3 (0.0-0.50); EOS % 5.8 % (0.0-3.0); GLOMERULAR FILTRATION RATE > 60.0 (>32); GLUCOSE, FASTING 162 MG/DL (83-110); LYMPH # 1.8 K/mm3 (1.5-4.5); LYMPH % 18.6 % (24.0-44.0); MONO # 0.5 K/mm3 (0.0-0.8); NEUTROPHILS # 6.8 K/mm3 (1.8-7.7); NEUTROPHILS % 69.1 % (36.0-66.0); POTASSIUM SERUM 4.1 MEQ/L (3.5-5.1); SODIUM LEVEL 142 MEQ/L (136-145)
[2017-03-20 08:54] LABS: DIFF SLIDE NUMBER 143; LARGE UNSTAINED CELL # 0.1 K/mm3 (0.0-0.4)
[2017-03-20 08:57] LABS: INR 1.11
--- NOTE | 2017-03-20 09:06 | REP ---
PORTABLE CHEST: Single portable view of the chest is performed and compared to prior study of 07/16/2016. There is no acute infiltrate. There is cardiomegaly unchanged. Mediastinal silhouette is unchanged. There is some calcification and tortuosity of the thoracic aorta. There are degenerative changes of the spine. IMPRESSION: Cardiomegaly with no evidence of acute infiltrate or pulmonary edema. Signed by Balta Green MD 03/20/2017 04:47 P
--- NOTE | 2017-03-20 09:24 | REP ---
CT HEAD WITHOUT CONTRAST: HISTORY: Infarction. COMPARISON: 03/11/2017 An area of decreased attenuation is present in the posterior limb of the left internal capsule. This represents an old lacunar infarction. Areas of decreased attenuation are present in the periventricular and subcortical white matter. This represents small vessel ischemic disease. There is no intraparenchymal hemorrhage, mass or midline shift. The ventricular system and cortical sulci as well as subarachnoid space in the posterior fossa are dilated consistent with mild volume loss. There is no extracerebral collection. The visualized sinuses are clear. A 1.5 mm metallic density is present in the anterior right globe. IMPRESSION: 1. 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 2. Small vessel ischemic disease. 3. Mild volume loss. 4. There is a 1.5 mm metallic density in the anterior right globe. This patient should not undergo any type of magnetic resonance imaging. Signed by Edenilson Ellington MD 03/20/2017 09:37 A
--- NOTE | 2017-03-20 09:31 | ECGEPIP ---
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
[2017-03-20] MEDS ORDERED: LORazepam 2 MG/ML VIAL (J2060) IV STA ×2 (10:22→11:12)
[2017-03-20] MEDS ORDERED: ONDANSETRON 4MG/2ML VIAL (J2405) IV ONE (10:45)
--- NOTE | 2017-03-20 13:27 | REP ---
MRI BRAIN WITHOUT CONTRAST: HISTORY: Dizziness. COMPARISON: 03/11/2017. A small focus of increased signal intensity on diffusion and T2-weighted images is present in the insular cortex of the right temporal lobe. This is isointense in signal intensity on ADC images and is consistent with a subacute infarction. An area of increased signal intensity on T2-weighted images is present in the posterior limb of the left internal capsule. This represents an old lacunar infarction. Areas of increased signal intensity on T2-weighted images are present in the periventricular and subcortical white matter, francisco and left cerebellum. This represents small vessel ischemic disease. A punctate focus of decreased signal intensity on T2-gradient echo images is present in the francisco. This represents calcification or hemosiderin secondary to chronic microhemorrhage. There is no acute intraparenchymal hemorrhage, acute infarct, mass or midline shift. The ventricular system and cortical sulci are dilated consistent with mild volume loss. There is no extracerebral collection. IMPRESSION: 1. Small subacute right temporal lobe infarction. 2. 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 3. Small vessel ischemic disease. 4. Mild volume loss. Signed by Edenilson Ellington MD 03/20/2017 01:43 P
--- NOTE | 2017-03-20 13:35 | REP ---
MRA BRAIN WITHOUT CONTRAST: HISTORY: Dizziness. 3D [id number] MR angiography was performed at the level of the [place]. The examination is very limited secondary to motion. There is no definite aneurysm or arteriovenous malformation. Mild atherosclerotic disease involves the cavernous and supraclinoid internal carotid arteries. At least mild atherosclerotic disease involves the middle cerebral artery trifurcations, A1 segments of the anterior cerebral arteries and posterior cerebral arteries. Impression1. Very limited examination demonstrating no definite aneurysm or arteriovenous malformation.2. Atherosclerotic disease as described above. Signed by Edenilson Ellington MD 03/20/2017 01:44 P
[2017-03-20 14:18] VITALS: BP 140/64
== END 2017-03-20 14:25 | disposition home or self-care (01) ==
LOC: EDBD 07:26 → M ED 08:59
DX: R42 Dizziness and giddiness (principal); I10 Essential (primary) hypertension; I25.2 Old myocardial infarction; R06.02 Shortness of breath
CPT/HCPCS: 70450; 70544; 70551; 71010; 80048; 82550; 82553; 84484; 85025; 85610; 85730; 93005; 93041; 94760; 96374; 96375; 96376; 99285; J2060; J2405

== ENCOUNTER → 2017-04-01 | Outpatient (REF) | payer MEDICARE ==
[2017-04-01 18:48] LABS: BASO % 0.4 % (0.0-1.0); EOS # 0.6 K/mm3 (0.0-0.50); EOS % 4.9 % (0.0-3.0); LARGE UNSTAINED CELL # 0.2 K/mm3 (0.0-0.4); LARGE UNSTAINED CELL % 1.2 % (0.0-4.0); LYMPH # 2.9 K/mm3 (1.5-4.5); LYMPH % 21.2 % (24.0-44.0); MEAN CORPUSCULAR HEMOGLOBIN 32.4 pg (27.0-33.0); MEAN CORPUSCULAR HGB CONC 32.4 g/dl (32.0-36.5); MEAN CORPUSCULAR VOLUME 100.2 fl (80.0-96.0); MONO # 0.7 K/mm3 (0.0-0.8); MONO % 5.2 % (0.0-5.0); NEUTROPHILS # 8.7 K/mm3 (1.8-7.7); PLATELET COUNT, AUTOMATED 301 k/mm3 (150-450); RED CELL DISTRIBUTION WIDTH 14.4 % (11.5-14.5); WHITE BLOOD COUNT 12.9 K/mm3 (4.0-10.0)
[2017-04-01 20:35] LABS: ALBUMIN 3.5 GM/DL (3.2-5.2); ALBUMIN/GLOBULIN RATIO 1.06 (1.00-1.93); BILIRUBIN,TOTAL 0.5 MG/DL (0.2-1.0); CALCIUM LEVEL 9.8 MG/DL (8.8-10.2); CREATININE FOR GFR 0.98 MG/DL (0.55-1.02); POTASSIUM SERUM 4.4 MEQ/L (3.5-5.1); TOTAL PROTEIN 6.8 GM/DL (6.4-8.2)
== END ==
LOC: M LABNEURO 16:52
PROVIDERS: ATTEND Psychiatry & Neurology Neurology
DX: Z11.59 Encounter for screening for other viral diseases (principal)

== ENCOUNTER → 2017-04-24 | Outpatient (REF) | payer MEDICARE ==
[2017-04-29 08:07] LABS: Lyme Disease IgG Ab 18 kDa Ban Present (.); Lyme Disease IgG Ab 23 kDa Ban Absent (.); Lyme Disease IgG Ab 28 kDa Ban Absent (.); Lyme Disease IgG Ab 30 kDa Ban Absent (.); Lyme Disease IgG Ab 39 kDa Ban Absent (.); Lyme Disease IgG Ab 41 kDa Ban Present (.); Lyme Disease IgG Ab 45 kDa Ban Absent (.); Lyme Disease IgG Ab 58 kDa Ban Present (.); Lyme Disease IgG Ab 66 kDa Ban Absent (.); Lyme Disease IgG Ab 93 kDa Ban Absent (.); Lyme Disease IgG West Blot Int Negative (.); Lyme Disease IgG/IgM Antibodie 0.94 ISR (0.00-0.90); Lyme Disease IgM Ab 23 kDa Ban Present (.); Lyme Disease IgM Ab 39 kDa Ban Absent (.); Lyme Disease IgM Ab 41 kDa Ban Absent (.); Lyme Disease IgM Ab Quantitati <0.80 index (0.00-0.79); Lyme Disease IgM West Blot Int Negative (.)
== END ==
LOC: M LAB REF 16:48
PROVIDERS: ATTEND Internal Medicine
DX: A69.20 Lyme disease, unspecified (principal)

== ENCOUNTER 2017-05-21 14:58 | Outpatient (CLI) | payer MEDICARE ==
[~2017-05-21] VITALS: Ht 152.4 cm; Wt 69.0 kg
[~2017-05-21 14:58] MED LIST changes: -ACET650T2 PO; +ACET650T3 PO; +ACETAMINOPHEN TAB 650MG DOSE (2X325MG) PO ONE; +BACITAB PO; -BACITAB3 PO; -COLA100C3 PO; +COLA100C5 PO; +COLC1TAB14 PO; -COLC1TAB5 PO; +FERR1TAB8 PO; -FERR325T PO; -LATA5OPD OS; +LATA5OPD OU; -ONDA1TAB15 PO; +ONDA4TAB5 PO; +VEDOLIZUMAB 300 MG in NS 250 ML IV ONE; +diphenhydrAMINE 25 MG CAP PO ONE
== END 2017-05-21 16:00 | disposition home or self-care (01) ==
LOC: M INFU 14:58
PROVIDERS: ATTEND Internal Medicine Gastroenterology
DX: K51.90 Ulcerative colitis, unspecified, without complications (principal); Z79.899 Other long term (current) drug therapy; Z79.82 Long term (current) use of aspirin; Z88.8 Allergy status to other drugs, medicaments and biological substances; Z88.1 Allergy status to other antibiotic agents; Z91.013 Allergy to seafood; Z88.0 Allergy status to penicillin
CPT/HCPCS: 96413; J3380

== ENCOUNTER → 2017-06-19 | Outpatient (REF) | payer MEDICARE ==
[~2017-06-19] MED LIST changes: -ACETAMINOPHEN TAB 650MG DOSE (2X325MG) PO ONE; +ATEN25TA PO; +COMB0.2S OU; +LOSA50TA20 PO; +MACR100C43 PO; +MECL-86 PO; +PANT40TA2 PO; +PLAV1TAB2 PO; -VEDOLIZUMAB 300 MG in NS 250 ML IV ONE; -diphenhydrAMINE 25 MG CAP PO ONE
== END ==
LOC: M LAB REF 12:45
PROVIDERS: ATTEND Internal Medicine
DX: R42 Dizziness and giddiness (principal); R11.0 Nausea

== ENCOUNTER → 2017-07-01 | Outpatient (REF) | payer MEDICARE | LOC: M LAB REF 16:41 | PROVIDERS: ATTEND Nurse Practitioner Family | DX: N76.0 Acute vaginitis (principal) ==

== ENCOUNTER 2017-07-06 06:59 | Inpatient (IN) | payer MEDICARE ==
[~2017-07-06] VITALS: Ht 152.4 cm; Wt 73.6 kg
[2017-07-06] MEDS: LEVOTHYROXINE 75MCG TABLET (0.075MG) PO SCH (06:00)
[~2017-07-06 06:59] MED LIST changes: -ATEN25TA PO; -COMB0.2S OU; -LOSA50TA20 PO; -MACR100C43 PO; -MECL-86 PO; -PANT40TA2 PO; -PLAV1TAB2 PO
[2017-07-06] MEDS: NS 1,000 ML IV SCH ×3 (07:12→09:45)
[2017-07-06] MEDS ORDERED: GLIM2TAB PO (07:27)
[2017-07-06] MEDS ORDERED: FURO20TA2 PO (07:27)
[2017-07-06] MEDS ORDERED: ATEN25TA PO ×2 (07:27→09:05)
[2017-07-06] MEDS ORDERED: PANT40TA2 PO (07:27)
[2017-07-06] MEDS ORDERED: PLAV1TAB2 PO (07:27)
--- NOTE | 2017-07-06 07:34 | ECGEPIP ---
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
[2017-07-06 07:45] LABS: BASO # 0.1 K/mm3 (0.0-0.2); BASO % 0.5 % (0.0-1.0); EOS # 0.3 K/mm3 (0.0-0.50); EOS % 1.2 % (0.0-3.0); LARGE UNSTAINED CELL # 0.1 K/mm3 (0.0-0.4); LARGE UNSTAINED CELL % 0.2 % (0.0-4.0); LYMPH # 0.3 K/mm3 (1.5-4.5); LYMPH % 1.4 % (24.0-44.0); MEAN CORPUSCULAR HEMOGLOBIN 31.6 pg (27.0-33.0); MEAN CORPUSCULAR HGB CONC 32.3 g/dl (32.0-36.5); MEAN CORPUSCULAR VOLUME 97.7 fl (80.0-96.0); MONO # 0.3 K/mm3 (0.0-0.8); MONO % 1.6 % (0.0-5.0); NEUTROPHILS # 19.9 K/mm3 (1.8-7.7); PLATELET COUNT, AUTOMATED 266 k/mm3 (150-450); RED CELL DISTRIBUTION WIDTH 14.2 % (11.5-14.5); WHITE BLOOD COUNT 20.9 K/mm3 (4.0-10.0)
[2017-07-06 08:04] LABS: ALBUMIN 2.8 GM/DL (3.2-5.2); ALBUMIN/GLOBULIN RATIO 0.7 (1.00-1.93); BILIRUBIN,DIRECT 0.2 MG/DL (0.0-0.2); BILIRUBIN,TOTAL 0.9 MG/DL (0.2-1.0); CALCIUM LEVEL 8.6 MG/DL (8.8-10.2); CREATININE FOR GFR 1.3 MG/DL (0.55-1.02); GLOMERULAR FILTRATION RATE 41.9 (>32); POTASSIUM SERUM 4.1 MEQ/L (3.5-5.1); TOTAL PROTEIN 6.8 GM/DL (6.4-8.2)
--- NOTE | 2017-07-06 08:21 | REP ---
Acute abdominal series three views including PA chest and supine upright abdomen: Comparison is 03/28/2016. PA chest: Lung evangelista are clear. There is cardiomegaly, unchanged. The carie, mediastinum, and bony thorax are unremarkable. There is no free subdiaphragmatic air. Impression: There is no interval change. Abdomen, supine upright views: The bowel gas pattern is normal. There are no calcifications. Skeletal structures and soft tissues are otherwise unremarkable. Impression: Normal bowel gas pattern. Signed by Balta Hensley MD 07/06/2017 08:12 A
[2017-07-06] MEDS ORDERED: ACETAMINOPHEN TAB 650MG DOSE (2X325MG) PO ONE (09:00)
[2017-07-06] MEDS ORDERED: LOSA50TA20 PO (09:05)
[2017-07-06] MEDS ORDERED: MECL-86 PO (09:05)
--- NOTE | 2017-07-06 09:05 | REP ---
CT of the abdomen and pelvis without IV and oral contrast: Comparison is 2015. The visualized lung evangelista are unchanged. There are focal zones of parenchymal scarring. The unenhanced hepatic parenchyma is homogeneous. Surgical clips are again identified in the gallbladder fossa. The pancreas and spleen are normal size and unchanged. The kidneys are unchanged. There are calcifications in the renal carie bilaterally compatible with vascular atheroma. There is no hydronephrosis. There are multiple renal cysts bilaterally, unchanged. The abdominal aorta is unremarkable except for calcified atheroma. There is wall thickening of the distal descending colon and sigmoid colon, similar to the prior study. There is wall thickening of the cecum and ascending colon, similar to the prior study. This is compatible with colitis in the appropriate clinical setting. There is no ascites or adenopathy. Pelvis: There is a hysterectomy. The vaginal cuff and adnexa are unremarkable. There is no pelvic ascites or adenopathy. The bladder is unremarkable. Impression: Wall thickening of the cecum and ascending colon and wall thickening of the descending colon and sigmoid colon. The appearance is similar to the prior study and compatible with colitis in the appropriate clinical setting. There is no adenopathy or ascites. There is no bowel distension or obstruction. Multiple bilateral renal cysts are again identified. There is a cholecystectomy and hysterectomy. A fat-containing umbilical hernia is again identified, unchanged. Signed by Balta Hensley MD 07/06/2017 08:57 A
[2017-07-06] MEDS ORDERED: MACR100C43 PO (09:06)
[2017-07-06] MEDS ORDERED: COMB0.2S OU (09:06)
[2017-07-06] MEDS ORDERED: GENTAMICIN 80 MG in D5W 50 ML IV ONE (09:15)
[2017-07-06] MEDS ORDERED: GENTAMICIN 80 MG in APPROPRIATE DILUENT 1 EA IV ONE (09:15)
[2017-07-06] MEDS ORDERED: MECLIZINE 25 MG TABLET PO PRN (09:15)
--- NOTE | 2017-07-06 09:50 | HPEPDOC ---
General Date of Admission 07/06/17 Chief Complaint The patient is a 82-year-old female admitted with a reason for visit of N/V. Source: Patient Exam Limitations: No limitations Timing/Duration: Week(s) Associated Symptoms: Nausea, Vomiting History of Present Illness 82 yo female for one day history of nausea, non-bilious, non-bloody vomiting. History goes back for 2-3 weeks for UTI. Completed 7 days Cipro one week ago. Symptoms persisted. Returned to PCP on 07/01/17, repeat UA/UCx obtained, results brought in with patient. Started new antibiotic, patient does not recall name but possibly nitrofurantoin. Patient states was not able to obtain medication until 2 days ago (07/04/17). Denies any other complaints. Home Medications Scheduled (Probiotic) 1 Tab Tab, 1 TAB PO BIDPC, (Reported) (Entyvio) 300 Mg Inj, 300 MG IV ASDIRECTED, (Reported) RECEIVES EVERY 8 WEEKS, DUE ON 07/16/17 (Combigan 0.2-0.5 %) 1 Lilly Lilly, 1 DROP OU BID, (Reported) Allopurinol (Allopurinol) 100 Mg Tab, 200 MG PO BID, (Reported) Atenolol (Atenolol) 25 Mg Tab, 12.5 MG PO QAM, (Reported) Atenolol (Atenolol) 25 Mg Tab, 50 MG PO QPM, (Reported) Cholecalciferol (Vitamin D) 1,000 Unit Tab, 2,000 UNIT PO DAILY, (Reported) Clopidogrel Bisulfate (Plavix) 75 Mg Tab, 75 MG PO DAILY, (Reported) Ferrous Sulfate (Ferrous Sulfate) 325 Mg Tab, 325 MG PO 2XW, (Reported) Furosemide (Furosemide) 20 Mg Tab, 40 MG PO QAM, (Reported) Glimepiride (Glimepiride) 2 Mg Tab, 2 MG PO DAILY, (Reported) Latanoprost (Latanoprost) 50 Drop/2.5 Ml Soln, 1 DROP OU BID, (Reported) Levothyroxine Sodium (Synthroid) 75 Mcg Tab, 75 MCG PO DAILY, (Reported) Losartan Potassium (Losartan Potassium) 50 Mg Tab, 50 MG PO DAILY, (Reported) Nitrofurantoin Monohydrate Mac (Macrobid) 100 Mg Cap, 100 MG PO BID, (Reported) STARTED 07/04 FOR 7 DAYS Ranitidine HCl (Ranitidine HCl) 150 Mg Tab, 1 TAB PO BIDPC, (Reported) Scheduled PRN Acetaminophen (Acetaminophen ER) 650 Mg Tab, 650 MG PO Q8H PRN for PAIN, ( Reported) Meclizine HCl (Meclizine 25) 25 Mg Tab, 25 MG PO Q8H PRN for DIZZINESS, ( Reported) Ondansetron (Ondansetron Odt) 4 Mg Tab, 4 MG PO for NAUSEA OR VOMITING, ( Reported) Pantoprazole Sodium (Pantoprazole Sodium) 40 Mg Tab, 40 MG PO DAILY PRN for HEARTBURN, (Reported) Allergies Coded Allergies: Penicillins (Verified Allergy, Severe, SWELLING/RASH, 03/20/17) Sulfasalazine (Verified Allergy, Severe, hives, hematemesis,difficulty breathing, 12/25/15) Doxycycline (Verified Allergy, Intermediate, RASH, 03/20/17) Benzalkonium Chloride (Verified Allergy, Unknown, 08/10/14) Brinzolamide (Verified Allergy, Unknown, 08/10/14) Clavulanic Acid (Unverified Allergy, Unknown, PRURITIS, 02/25/13) Replaces AUGMENTIN Contrast Media (Verified Allergy, Unknown, 08/10/14) Shellfish Allergy (Verified Allergy, Unknown, 08/10/14) Sulfa Antibiotics (Unverified Allergy, Unknown, RASH, 07/16/16) TAPE (Verified Allergy, Unknown, BANDAIDS, 08/10/14) Timolol (Verified Allergy, Unknown, 08/10/14) Travoprost (Verified Allergy, Unknown, 08/10/14) Diltiazem (Verified Adverse Reaction, Intermediate, N/V/D, 07/21/16) Gemfibrozil (Verified Adverse Reaction, Intermediate, PAIN, 02/25/13) Prednisone (Verified Adverse Reaction, Intermediate, INCREASED EYE PRESSURE, 02/25/13) Statins (Verified Adverse Reaction, Intermediate, BODY ACHES, 02/25/13) Iodine (Verified Adverse Reaction, Mild, ABDOMINAL PAIN: ORAL GRAFIN TABS , 02/25/13) Metoprolol (Verified Adverse Reaction, Mild, DIZZINESS, 02/25/13) Past Medical History Medical History 1. History of CVA. 2. Diabetes 3. CKD 4. Hypothyroidism 5. GERD 6. Ulcerative Colitis 7. iron deficiency anemia 8. obesity 9. depression 10. gout Social History * Smoker: Denies Alcohol: Denies Drugs: denies Recent Travel/Sick Contacts: Denies: Recent travel, Recent sick contacts Review of Symptoms Constitutional: Reports: Chills, Malaise, Denies: Fever, Night Sweats, Weakness, Fatigue, Weight Loss, Lethargy, Other Eyes: Denies: Pain, Vision change, Conjunctivae inflammation, Eyelid inflammation, Redness, Other ENT: Denies: Head Aches, Ear Pain, Dysphagia, Sinus Congestion, Post Nasal Drip , Sore Throat, Epistaxis, Other Symptoms Skin: Denies: Rash, Lesions, Jaundice, Bruising, Itching, Dry, Breakdown, Nail Changes, Other Pulmonary: Denies: Dyspnea, Cough, Pleuritic Chest Pain, Other Symptoms Cardiovascular: Denies: Chest Pain, Palpitations, Orthopnea, Paroxysmal Noc. Dyspnea, Edema, Lt Headedness, Other Symptoms Gastrointestinal: Reports: Nausea, Vomiting, Denies: Abdominal Pain, Diarrhea, Constipation, Melena, Hematochezia, Other Symptoms Genitourinary: Reports: Dysuria (original symptom was dysuria but has resolved) , Denies: Frequency, Incontinence, Hematuria, Retention, Other Symptoms Physical Examination General Exam: Positive: Alert, Cooperative, No Acute Distress Eye Exam: Positive: Conjunctiva & lids normal, Negative: Sclera icteric ENT Exam: Positive: Atraumatic Chest Exam: Positive: Clear to auscultation, Normal air movement Heart Exam: Positive: Rate Normal, Regular Rhythm Telemetry: Positive: No significant arrhythmia, Sinus Abdomen Exam: Positive: Normal bowel sounds, Soft, Tenderness (suprapubic tenderness) Psych Exam: Positive: Mood NL, Oriented x 3 Vital Signs Vital Signs Date Time Temp Pulse Resp B/P (MAP) Pulse Ox O2 Delivery O2 Flow Rate FiO2 07/06/17 08:52 164/77 (106) 07/06/17 08:45 84 95 07/06/17 07:14 97.7 20 Room Air Laboratory Data Labs 24H Laboratory Tests 2 07/06/17 07:35: White Blood Count 20.9H, Red Blood Count 4.08, Hemoglobin 12.9, Hematocrit 39.9 , Mean Corpuscular Volume 97.7H, Mean Corpuscular Hemoglobin 31.6, Mean Corpuscular Hemoglobin Concent 32.3, Red Cell Distribution Width 14.2, Platelet Count 266, Neutrophils (%) (Auto) 95.0H, Lymphocytes (%) (Auto) 1.4L, Monocytes (%) (Auto) 1.6, Eosinophils (%) (Auto) 1.2, Basophils (%) (Auto) 0.5, Neutrophils # (Auto) 19.9H, Lymphocytes # (Auto) 0.3L, Monocytes # (Auto) 0.3, Eosinophils # (Auto) 0.3, Basophils # (Auto) 0.1, Large Unclassified Cells % 0.2 , Large Unclassified Cells # 0.1, Anion Gap 9, Glomerular Filtration Rate 41.9, Calcium Level 8.6L, Aspartate Amino Transf (AST/SGOT) 20, Alanine Aminotransferase (ALT/SGPT) 22, Alkaline Phosphatase 95, Total Bilirubin 0.9, Direct Bilirubin 0.2, Total Protein 6.8, Albumin 2.8L, Albumin/Globulin Ratio 0.70L, Lipase 177 07/06/17 08:33: Lactic Acid Level 2.3*H CBC/BMP Laboratory Tests 07/06/17 07:35 Red Blood Count 4.08, Mean Corpuscular Volume 97.7 H, Mean Corpuscular Hemoglobin 31.6, Mean Corpuscular Hemoglobin Concent 32.3, Red Cell Distribution Width 14.2, Neutrophils (%) (Auto) 95.0 H, Lymphocytes (%) (Auto) 1.4 L, Monocytes (%) (Auto) 1.6, Eosinophils (%) (Auto) 1.2, Basophils (%) (Auto ) 0.5, Neutrophils # (Auto) 19.9 H, Lymphocytes # (Auto) 0.3 L, Monocytes # ( Auto) 0.3, Eosinophils # (Auto) 0.3, Basophils # (Auto) 0.1 Microbiology Microbiology 07/06/17 Blood Culture, Received Pending 07/06/17 Blood Culture, Received Pending Problems (1) UTI (urinary tract infection) Status: Acute Response to Treatment: Progressing Discussed With: Patient Problem Specific Plan: Monitor Clinically, Repeat Labs, Repeat Tests (2) REID (acute kidney injury) Status: Acute Discussed With: Patient Problem Specific Plan: Monitor Clinically, Repeat Labs Problem Text: Likely secondary to UTI. IV fluids. Plan / VTE VTE Prophylaxis Ordered?: Yes Plan Plan Start azactam for UTI. Multiple drug allergies, outpatient cultures/ sensitivities noted Continue iv fluids. IVF: Continue Diet: Continue Current Activity: Continue Current Medications: Start Antibiotics Diagnostics: Obtain Cultures GLENIS ARMSTRONG MD Jul 06, 2017 09:50
[2017-07-06] MEDS: CLOPIDOGREL 75 MG TAB PO SCH (11:06)
[2017-07-06] MEDS: FUROSEMIDE 40 MG TAB PO SCH (11:06)
[2017-07-06] MEDS: HEPARIN SOD (PORCINE) 5000 UNITS/ML VIAL SQ SCH ×2 (11:06→20:07)
[2017-07-06 11:43] VITALS: BP 127/60
[2017-07-06 14:00] VITALS: BP 131/60
[2017-07-06] MEDS: ALLOPURINOL 100 MG TAB PO SCH ×2 (15:05→20:07)
[2017-07-06] MEDS: AZTREONAM 1 GM in D5W MINI-BAG PLUS 50 ML IV SCH ×2 (15:05→20:06)
[2017-07-06] MEDS: GLIMEPIRIDE 2 MG TAB PO SCH (15:06)
[2017-07-06] MEDS: ATENOLOL 12.5MG PER 1/2 TABLET PO SCH (15:06)
[2017-07-06] MEDS: LATANOPROST 0.005% OPHTH SOLN 2.5 ML OU SCH ×2 (15:06→20:11)
[2017-07-06] MEDS: LOSARTAN 50 MG TAB PO SCH (15:06)
[2017-07-06] MEDS: VITAMIN D 1,000 INTERNATIONAL UNITS TABLET PO SCH (15:07)
[2017-07-06] MEDS: ACETAMINOPHEN 650MG ER TAB (TYLENOL ARTHRITIS) PO PRN (20:07)
[2017-07-06] MEDS: ATENOLOL 50 MG TAB PO SCH (20:10)
[2017-07-06 22:00] VITALS: BP 162/70
[2017-07-07] MEDS: NS 1,000 ML IV SCH
[2017-07-07 06:00] VITALS: BP 180/72
[2017-07-07] MEDS: LEVOTHYROXINE 75MCG TABLET (0.075MG) PO SCH (06:06)
[2017-07-07] MEDS: ACETAMINOPHEN 650MG ER TAB (TYLENOL ARTHRITIS) PO PRN ×2 (06:06→22:46)
[2017-07-07] MEDS: AZTREONAM 1 GM in D5W MINI-BAG PLUS 50 ML IV SCH ×3 (06:07→21:52)
--- NOTE | 2017-07-07 07:43 | IPNPDOC ---
Subjective Date Seen The patient was seen on 07/07/17. Subjective Chief Complaint/HPI The patient is a 82-year-old female admitted with a reason for visit of UTI. General: Reports: Malaise, Denies: ROS Unobtainable, Chills, Night Sweats, Fatigue, Normal Appetite, Other Symptoms Constitutional: Reports: Malaise, Denies: Chills, Fever, Night Sweats, Weakness, Fatigue, Weight Loss, Lethargy , Other Eyes: Denies: Pain, Vision change, Conjunctivae inflammation, Eyelid inflammation, Redness, Other ENT: Denies: Head Aches, Ear Pain, Dysphagia, Sinus Congestion, Post Nasal Drip , Sore Throat, Epistaxis, Other Symptoms Skin: Denies: Rash, Lesions, Jaundice, Bruising, Itching, Dry, Breakdown, Nail Changes, Other Pulmonary: Denies: Dyspnea, Cough, Pleuritic Chest Pain, Other Symptoms Cardiovascular: Denies: Chest Pain, Palpitations, Orthopnea, Paroxysmal Noc. Dyspnea, Edema, Lt Headedness, Other Symptoms Gastrointestinal: Denies: Nausea, Vomiting, Abdominal Pain, Diarrhea, Constipation, Melena, Hematochezia, Other Symptoms Musculoskeletal: Reports: Leg Pain Objective Physical Examination General Exam: Positive: Alert, Cooperative, No Acute Distress Eye Exam: Positive: Conjunctiva & lids normal, Negative: Sclera icteric ENT Exam: Positive: Atraumatic Chest Exam: Positive: Clear to auscultation, Normal air movement Heart Exam: Positive: Rate Normal, Regular Rhythm Abdomen Exam: Positive: Normal bowel sounds, Soft, Tenderness (suprapubic tenderness) Psych Exam: Positive: Mood NL, Oriented x 3 Assessment /Plan Problems (1) UTI (urinary tract infection) Status: Acute Response to Treatment: Progressing Discussed With: Patient Problem Specific Plan: Monitor Clinically, Repeat Labs, Repeat Tests Problem Text: Continue IV antibiotics, cultures pending. (2) REID (acute kidney injury) Status: Acute Discussed With: Patient Problem Specific Plan: Monitor Clinically, Repeat Labs Problem Text: Likely secondary to UTI. Continue IV fluids pending results of BMP. Labs still pending. (3) HTN (hypertension) Status: Chronic Discussed With: Patient Problem Specific Plan: Monitor Clinically Problem Text: Consider discontinuing fluids, pending results of BMP. Plan/VTE VTE Prophylaxis Ordered?: Yes Plan IVF: Continue Diet: Advance Activity: Continue Current Medications: Start Antibiotics Diagnostics: Obtain Cultures VS, I&O, 24H, Fishbone Vital Signs/I&O Vital Signs Date Time Temp Pulse Resp B/P (MAP) Pulse Ox O2 Delivery O2 Flow Rate FiO2 07/07/17 06:00 97.7 66 18 180/72 (108) 96 Room Air I&O- Last 24 Hours up to 6 AM 07/07/17 05:59 Intake Total 1389 ml Balance 1389 ml Laboratory Data 24H LABS Laboratory Tests 2 07/06/17 08:33: Lactic Acid Level 2.3*H 07/06/17 12:45: Lactic Acid Followup at 4 Hours 1.1 Microbiology Microbiology 07/06/17 Blood Culture, Received Pending 07/06/17 Blood Culture, Received Pending GLENIS ARMSTRONG MD Jul 07, 2017 07:43
[2017-07-07 08:06] LABS: BASO % 0.1 % (0.0-1.0); EOS # 0.4 K/mm3 (0.0-0.50); EOS % 5.5 % (0.0-3.0); LARGE UNSTAINED CELL # 0.1 K/mm3 (0.0-0.4); LARGE UNSTAINED CELL % 1.3 % (0.0-4.0); LYMPH # 0.9 K/mm3 (1.5-4.5); MEAN CORPUSCULAR HEMOGLOBIN 31.3 pg (27.0-33.0); MEAN CORPUSCULAR HGB CONC 30.8 g/dl (32.0-36.5); MEAN CORPUSCULAR VOLUME 101.6 fl (80.0-96.0); MONO # 0.5 K/mm3 (0.0-0.8); MONO % 5.9 % (0.0-5.0); NEUTROPHILS # 6.3 K/mm3 (1.8-7.7); NEUTROPHILS % 77.1 % (36.0-66.0); PLATELET COUNT, AUTOMATED 228 k/mm3 (150-450); RED CELL DISTRIBUTION WIDTH 14.8 % (11.5-14.5); WHITE BLOOD COUNT 8.2 K/mm3 (4.0-10.0)
[2017-07-07 08:18] LABS: ANION GAP 9 MEQ/L (8-16); BLOOD UREA NITROGEN 24 MG/DL (7-18); CALCIUM LEVEL 7.8 MG/DL (8.8-10.2); CARBON DIOXIDE LEVEL 28 MEQ/L (21-32); CHLORIDE LEVEL 110 MEQ/L (98-107); CREATININE FOR GFR 0.95 MG/DL (0.55-1.02); GLOMERULAR FILTRATION RATE > 60.0 (>32); GLUCOSE, FASTING 77 MG/DL (83-110); POTASSIUM SERUM 3.7 MEQ/L (3.5-5.1); SODIUM LEVEL 147 MEQ/L (136-145)
[2017-07-07 08:45] VITALS: BP 146/85
[2017-07-07] MEDS: LATANOPROST 0.005% OPHTH SOLN 2.5 ML OU SCH ×2 (09:00→21:53)
[2017-07-07] MEDS: FUROSEMIDE 40 MG TAB PO SCH (09:00)
[2017-07-07] MEDS: LOSARTAN 50 MG TAB PO SCH (09:00)
[2017-07-07] MEDS: FERROUS SULFATE 325MG TAB PO SCH (09:00)
[2017-07-07] MEDS: ALLOPURINOL 100 MG TAB PO SCH ×2 (09:00→21:50)
[2017-07-07] MEDS: CLOPIDOGREL 75 MG TAB PO SCH (09:00)
[2017-07-07] MEDS: GLIMEPIRIDE 2 MG TAB PO SCH (09:00)
[2017-07-07] MEDS: HEPARIN SOD (PORCINE) 5000 UNITS/ML VIAL SQ SCH ×2 (09:00→21:52)
[2017-07-07 14:00] VITALS: BP 135/68
--- NOTE | 2017-07-07 14:50 | REP ---
Bilateral lower extremity Duplex Doppler venous ultrasound: Real time compression and duplex Doppler interrogation of the bilateral lower extremity deep venous system is performed. Bilaterally, the common femoral, superficial femoral and popliteal veins are fully compressible with transducer pressure and demonstrate normal spontaneous and phasic flow, without evidence of deep venous thrombosis. Impression: No evidence of deep venous thrombosis of the bilateral lower extremity femoral popliteal venous system. Left popliteal cyst measures 4.9 x 4.7 x 1.6 cm. Signed by Balta Green MD 07/07/2017 02:41 P
[2017-07-07] MEDS: ATENOLOL 50 MG TAB PO SCH (21:51)
[2017-07-07 22:00] VITALS: BP 144/65
[2017-07-08] MEDS: ONDANSETRON 4 MG ORAL DISINTEGRATING TAB (S0181) PO PRN (00:47)
[2017-07-08] MEDS: AZTREONAM 1 GM in D5W MINI-BAG PLUS 50 ML IV SCH ×3 (04:41→20:17)
[2017-07-08 06:00] VITALS: BP 140/64
[2017-07-08] MEDS: LEVOTHYROXINE 75MCG TABLET (0.075MG) PO SCH (06:27)
[2017-07-08 07:10] LABS: BASO % 0.4 % (0.0-1.0); EOS # 0.6 K/mm3 (0.0-0.50); EOS % 6.1 % (0.0-3.0); LARGE UNSTAINED CELL # 0.2 K/mm3 (0.0-0.4); LARGE UNSTAINED CELL % 1.6 % (0.0-4.0); LYMPH # 1.9 K/mm3 (1.5-4.5); MEAN CORPUSCULAR HEMOGLOBIN 31.8 pg (27.0-33.0); MEAN CORPUSCULAR VOLUME 102.5 fl (80.0-96.0); MONO # 0.5 K/mm3 (0.0-0.8); MONO % 5.7 % (0.0-5.0); NEUTROPHILS # 6.3 K/mm3 (1.8-7.7); NEUTROPHILS % 67.1 % (36.0-66.0); PLATELET COUNT, AUTOMATED 265 k/mm3 (150-450); RED CELL DISTRIBUTION WIDTH 14.6 % (11.5-14.5); WHITE BLOOD COUNT 9.4 K/mm3 (4.0-10.0)
[2017-07-08 07:25] LABS: ANION GAP 11 MEQ/L (8-16); BLOOD UREA NITROGEN 22 MG/DL (7-18); CALCIUM LEVEL 8.7 MG/DL (8.8-10.2); CARBON DIOXIDE LEVEL 24 MEQ/L (21-32); CHLORIDE LEVEL 113 MEQ/L (98-107); CREATININE FOR GFR 0.86 MG/DL (0.55-1.02); GLOMERULAR FILTRATION RATE > 60.0 (>32); GLUCOSE, FASTING 79 MG/DL (83-110); POTASSIUM SERUM 3.8 MEQ/L (3.5-5.1); SODIUM LEVEL 148 MEQ/L (136-145)
[2017-07-08] MEDS ORDERED: D5W 1,000 ML IV SCH (08:00)
[2017-07-08] MEDS: LOSARTAN 50 MG TAB PO SCH ×2 (10:41→10:50)
[2017-07-08] MEDS: ALLOPURINOL 100 MG TAB PO SCH ×2 (10:41→20:17)
[2017-07-08] MEDS: CLOPIDOGREL 75 MG TAB PO SCH ×2 (10:42→10:51)
[2017-07-08] MEDS: GLIMEPIRIDE 2 MG TAB PO SCH ×2 (10:42→10:51)
[2017-07-08] MEDS: HEPARIN SOD (PORCINE) 5000 UNITS/ML VIAL SQ SCH ×2 (10:42→20:22)
[2017-07-08] MEDS: VITAMIN D 1,000 INTERNATIONAL UNITS TABLET PO SCH ×2 (10:42→10:48)
[2017-07-08] MEDS: FUROSEMIDE 40 MG TAB PO SCH ×2 (10:43→10:50)
[2017-07-08] MEDS: LATANOPROST 0.005% OPHTH SOLN 2.5 ML OU SCH ×2 (10:43→20:23)
[2017-07-08] MEDS: ATENOLOL 12.5MG PER 1/2 TABLET PO SCH ×3 (10:44→10:50)
[2017-07-08 14:00] VITALS: BP 146/76
[2017-07-08 15:18] LABS: CALCIUM LEVEL 8.8 MG/DL (8.8-10.2); CREATININE FOR GFR 1.07 MG/DL (0.55-1.02); GLOMERULAR FILTRATION RATE 52.4 (>32); POTASSIUM SERUM 3.6 MEQ/L (3.5-5.1)
--- NOTE | 2017-07-08 17:48 | IPNPDOC ---
Text Note Date of Service The patient was seen on 07/08/17. NOTE Subjective: Patient is an 82 year old female with a PMHx of CVA, DM2, CKD, Hypothyroidism, UC, Iron deficiency, Depression, Gout and GERD who presented to the ER with nausea and vomiting. Patient had recently completed 7 days of Ciprofloxacin for UTI but her symptoms persisted. On 07/01 she followed up with her PCP, who performed a urine culture and started nitrofurantoin. She failed to get medications and presented to ER. Patient was seen and examined at the bedside. Currently she notes improvement in her symptoms. No nausea, vomiting, abdominal pain or dysuria. Objective: Vitals (See below) General: Lying in bed, no acute distress, comfortable, AAOx3 HEENT: NC, AT CVS: RRR, +S1S2 Lungs: Fair air entry b/l, -w/r/r Abdomen: Soft, ND, NT, +BSx4 Extremities: - Edema, - Calf tenderness Assessment and plan: 1. Urinary tract infection - Failed outpatient treatment - Clinically is improving, resolution of nausea, vomiting, and dysuira - Physical unrevealing - Urine culture 07/01: E. coli - c/w Aztreonam (Day #3) 2. Positive blood cultures - 1 of 2 bottles - likely 2/2 contaminant - Blood cultures on 07/06 1 of 2 positive: Gram positive rods - Repeat blood cultures on 07/08: currently negative 3. Elevation in Cr - Cr baseline of 0.8-1.0 - Cr has been trending down from admission (Cr of 1.30) - c/w IV fluid hydration 4. CVA - c/w Plavix 5. HTN - c/w Losartan, Furosemide and Atenolol 6. DM2 - c/w Glimepiride 7. Hypothyroidism - c/w Levothyroxine 8. Ulcerative colitis 9. Iron deficiency - c/w Ferrous sulfate 10. Depression 11. Gout - c/w Allopurinol 12. DVT prophylaxis - c/w Heparin VS,Fishbone, I+O VS, Fishbone, I+O Laboratory Tests 07/08/17 06:39 Red Blood Count 3.60 L, Mean Corpuscular Volume 102.5 H, Mean Corpuscular Hemoglobin 31.8, Mean Corpuscular Hemoglobin Concent 31.0 L, Red Cell Distribution Width 14.6 H, Neutrophils (%) (Auto) 67.1 H, Lymphocytes (%) (Auto ) 19.0 L, Monocytes (%) (Auto) 5.7 H, Eosinophils (%) (Auto) 6.1 H, Basophils (% ) (Auto) 0.4, Neutrophils # (Auto) 6.3, Lymphocytes # (Auto) 1.9, Monocytes # ( Auto) 0.5, Eosinophils # (Auto) 0.6 H, Basophils # (Auto) 0.0, Calcium Level 8.7 L 07/08/17 14:17 Calcium Level 8.8 Vital Signs Date Time Temp Pulse Resp B/P (MAP) Pulse Ox O2 Delivery O2 Flow Rate FiO2 07/08/17 10:50 140/64 07/08/17 10:50 63 07/08/17 06:00 98.3 20 91 Room Air I&O- Last 24 Hours up to 6 AM 07/08/17 06:00 Intake Total 1435 ml Output Total 3400 ml Balance -1965 ml RON ZAMORA MD Jul 08, 2017 17:48
[2017-07-08] MEDS ORDERED: D5W/0.45% SODIUM CHLORIDE 1,000 ML IV SCH (19:00)
[2017-07-08] MEDS: ATENOLOL 50 MG TAB PO SCH (20:17)
[2017-07-08] MEDS: ACETAMINOPHEN 650MG ER TAB (TYLENOL ARTHRITIS) PO PRN (20:21)
[2017-07-08 22:00] VITALS: BP 160/68
[2017-07-09] MEDS: ONDANSETRON 4 MG ORAL DISINTEGRATING TAB (S0181) PO PRN (02:47)
[2017-07-09] MEDS: AZTREONAM 1 GM in D5W MINI-BAG PLUS 50 ML IV SCH ×3 (03:39→20:55)
[2017-07-09] MEDS: LEVOTHYROXINE 75MCG TABLET (0.075MG) PO SCH (05:38)
[2017-07-09 06:00] VITALS: BP 170/64
[2017-07-09 07:14] LABS: BASO % 0.4 % (0.0-1.0); EOS # 0.5 K/mm3 (0.0-0.50); EOS % 5.1 % (0.0-3.0); LARGE UNSTAINED CELL # 0.2 K/mm3 (0.0-0.4); LARGE UNSTAINED CELL % 1.8 % (0.0-4.0); LYMPH # 2.1 K/mm3 (1.5-4.5); LYMPH % 21.8 % (24.0-44.0); MEAN CORPUSCULAR HEMOGLOBIN 31.8 pg (27.0-33.0); MEAN CORPUSCULAR HGB CONC 31.8 g/dl (32.0-36.5); MEAN CORPUSCULAR VOLUME 99.9 fl (80.0-96.0); MONO # 0.5 K/mm3 (0.0-0.8); MONO % 5.1 % (0.0-5.0); NEUTROPHILS # 5.9 K/mm3 (1.8-7.7); NEUTROPHILS % 65.8 % (36.0-66.0); PLATELET COUNT, AUTOMATED 257 k/mm3 (150-450); RED CELL DISTRIBUTION WIDTH 14.4 % (11.5-14.5)
[2017-07-09 07:33] LABS: ANION GAP 9 MEQ/L (8-16); BLOOD UREA NITROGEN 23 MG/DL (7-18); CALCIUM LEVEL 8.7 MG/DL (8.8-10.2); CARBON DIOXIDE LEVEL 25 MEQ/L (21-32); CHLORIDE LEVEL 111 MEQ/L (98-107); CREATININE FOR GFR 0.92 MG/DL (0.55-1.02); GLOMERULAR FILTRATION RATE > 60.0 (>32); GLUCOSE, FASTING 86 MG/DL (83-110); POTASSIUM SERUM 3.4 MEQ/L (3.5-5.1); SODIUM LEVEL 145 MEQ/L (136-145)
[2017-07-09] MEDS ORDERED: POTASSIUM CHLORIDE 10 MEQ SR TABLET PO ONE (07:45)
[2017-07-09] MEDS: LATANOPROST 0.005% OPHTH SOLN 2.5 ML OU SCH ×2 (09:00→21:07)
[2017-07-09] MEDS: ALLOPURINOL 100 MG TAB PO SCH ×2 (09:58→20:55)
[2017-07-09] MEDS: VITAMIN D 1,000 INTERNATIONAL UNITS TABLET PO SCH (09:59)
[2017-07-09] MEDS: ATENOLOL 12.5MG PER 1/2 TABLET PO SCH (09:59)
[2017-07-09] MEDS: GLIMEPIRIDE 2 MG TAB PO SCH (09:59)
[2017-07-09] MEDS: CLOPIDOGREL 75 MG TAB PO SCH (09:59)
[2017-07-09] MEDS: FUROSEMIDE 40 MG TAB PO SCH (10:00)
[2017-07-09] MEDS: LOSARTAN 50 MG TAB PO SCH (10:00)
[2017-07-09] MEDS: HEPARIN SOD (PORCINE) 5000 UNITS/ML VIAL SQ SCH ×2 (10:01→21:07)
[2017-07-09 14:00] VITALS: BP 152/87
--- NOTE | 2017-07-09 14:28 | IPNPDOC ---
Text Note Date of Service The patient was seen on 07/09/17. NOTE Subjective: Patient is an 82 year old female with a PMHx of CVA, DM2, CKD, Hypothyroidism, UC, Iron deficiency, Depression, Gout and GERD who presented to the ER with nausea and vomiting. Patient had recently completed 7 days of Ciprofloxacin for UTI but her symptoms persisted. On 07/01 she followed up with her PCP, who performed a urine culture and started nitrofurantoin. She failed to get medications and presented to ER. Patient was seen and examined at the bedside. She notes improvement in her symptoms. No dysuria, fever / chills. Notes no abdominal pain. Objective: Vitals (See below) General: Lying in bed, no acute distress, comfortable, AAOx3 HEENT: NC, AT CVS: RRR, +S1S2 Lungs: Fair air entry b/l, -w/r/r Abdomen: Soft, ND, NT, +BSx4 Extremities: - Edema, - Calf tenderness Assessment and plan: 1. Urinary tract infection - Failed outpatient treatment - Clinically is improving, resolution of nausea, vomiting, and dysuria - Physical unrevealing - Urine culture 07/01: E. coli - c/w Aztreonam (Day #4); will discontinue antibiotics tomorrow (07/10) 2. Positive blood cultures - 1 of 2 bottles - likely 2/2 contaminant - Blood cultures on 07/06 1 of 2 positive: Gram positive rods - Repeat blood cultures on 07/08: currently negative at 24 hours 3. Elevation in Cr - Cr baseline of 0.8-1.0 - Cr has been trending down from admission (Cr of 1.30) - c/w IV fluid hydration 4. CVA - c/w Plavix 5. HTN - c/w Losartan, Furosemide and Atenolol 6. DM2 - c/w Glimepiride 7. Hypothyroidism - c/w Levothyroxine 8. Ulcerative colitis 9. Iron deficiency - c/w Ferrous sulfate 10. Depression 11. Gout - c/w Allopurinol 12. DVT prophylaxis - c/w Heparin Disposition: - will plan on discharge tomorrow; will transition to Nitrofurantoin for home use VS,Fishbone, I+O VS, Fishbone, I+O Laboratory Tests 07/09/17 06:33 Red Blood Count 3.33 L, Mean Corpuscular Volume 99.9 H, Mean Corpuscular Hemoglobin 31.8, Mean Corpuscular Hemoglobin Concent 31.8 L, Red Cell Distribution Width 14.4, Neutrophils (%) (Auto) 65.8, Lymphocytes (%) (Auto) 21.8 L, Monocytes (%) (Auto) 5.1 H, Eosinophils (%) (Auto) 5.1 H, Basophils (%) (Auto) 0.4, Neutrophils # (Auto) 5.9, Lymphocytes # (Auto) 2.1, Monocytes # ( Auto) 0.5, Eosinophils # (Auto) 0.5, Basophils # (Auto) 0.0, Calcium Level 8.7 L Vital Signs Date Time Temp Pulse Resp B/P (MAP) Pulse Ox O2 Delivery O2 Flow Rate FiO2 07/09/17 09:59 72 170/64 07/09/17 06:00 98.3 18 99 Room Air I&O- Last 24 Hours up to 6 AM 07/09/17 06:00 Intake Total 1060 ml Output Total 2825 ml Balance -1765 ml RON ZAMORA MD Jul 09, 2017 14:28
[2017-07-09] MEDS ORDERED: MACR100C43 PO (16:24)
[2017-07-09] MEDS ORDERED: MIRALAX *UNIT DOSE* 17GM PACKET PO PRN (16:30)
[2017-07-09] MEDS: DOCUSATE SODIUM 100 MG CAP PO SCH (17:08)
[2017-07-09] MEDS: ATENOLOL 50 MG TAB PO SCH (21:06)
[2017-07-09] MEDS: ACETAMINOPHEN 650MG ER TAB (TYLENOL ARTHRITIS) PO PRN (21:08)
[2017-07-09 22:00] VITALS: BP 142/60
[2017-07-10] MEDS: AZTREONAM 1 GM in D5W MINI-BAG PLUS 50 ML IV SCH (04:59)
[2017-07-10] MEDS: LEVOTHYROXINE 75MCG TABLET (0.075MG) PO SCH (05:54)
[2017-07-10 06:00] VITALS: BP 154/70
[2017-07-10 07:13] LABS: BASO % 0.4 % (0.0-1.0); EOS # 0.5 K/mm3 (0.0-0.50); EOS % 4.8 % (0.0-3.0); LARGE UNSTAINED CELL # 0.2 K/mm3 (0.0-0.4); LARGE UNSTAINED CELL % 1.5 % (0.0-4.0); LYMPH % 24.7 % (24.0-44.0); MEAN CORPUSCULAR VOLUME 99.8 fl (80.0-96.0); MONO # 0.5 K/mm3 (0.0-0.8); MONO % 4.2 % (0.0-5.0); NEUTROPHILS # 7.3 K/mm3 (1.8-7.7); NEUTROPHILS % 64.5 % (36.0-66.0); PLATELET COUNT, AUTOMATED 275 k/mm3 (150-450); RED CELL DISTRIBUTION WIDTH 14.5 % (11.5-14.5); WHITE BLOOD COUNT 11.3 K/mm3 (4.0-10.0)
[2017-07-10 07:20] LABS: ANION GAP 9 MEQ/L (8-16); BLOOD UREA NITROGEN 27 MG/DL (7-18); CALCIUM LEVEL 8.9 MG/DL (8.8-10.2); CARBON DIOXIDE LEVEL 25 MEQ/L (21-32); CHLORIDE LEVEL 112 MEQ/L (98-107); CREATININE FOR GFR 0.91 MG/DL (0.55-1.02); GLOMERULAR FILTRATION RATE > 60.0 (>32); GLUCOSE, FASTING 89 MG/DL (83-110); POTASSIUM SERUM 3.7 MEQ/L (3.5-5.1); SODIUM LEVEL 146 MEQ/L (136-145)
[2017-07-10] MEDS: HEPARIN SOD (PORCINE) 5000 UNITS/ML VIAL SQ SCH (09:00)
[2017-07-10] MEDS: DOCUSATE SODIUM 100 MG CAP PO SCH (09:38)
[2017-07-10] MEDS: CLOPIDOGREL 75 MG TAB PO SCH (09:39)
[2017-07-10] MEDS: VITAMIN D 1,000 INTERNATIONAL UNITS TABLET PO SCH (09:39)
[2017-07-10] MEDS: ATENOLOL 12.5MG PER 1/2 TABLET PO SCH (09:39)
[2017-07-10] MEDS: FERROUS SULFATE 325MG TAB PO SCH (09:39)
[2017-07-10] MEDS: FUROSEMIDE 40 MG TAB PO SCH (09:39)
[2017-07-10] MEDS: GLIMEPIRIDE 2 MG TAB PO SCH (09:39)
[2017-07-10 09:40] VITALS: BP 159/71
[2017-07-10] MEDS: LATANOPROST 0.005% OPHTH SOLN 2.5 ML OU SCH (09:40)
[2017-07-10] MEDS: ALLOPURINOL 100 MG TAB PO SCH (09:40)
[2017-07-10] MEDS: LOSARTAN 50 MG TAB PO SCH (09:40)
--- NOTE | 2017-07-10 16:31 | DSES ---
DATE OF ADMISSION: 07/06/2017 DATE OF DISCHARGE: 07/10/2017 ATTENDING PHYSICIAN: Dr. Daniel Melara and Dr. Edenilson Ramirez PRIMARY CARE PROVIDER: Dr. Gely Mancera CONSULTING PHYSICIANS: None. CONDITION ON DISCHARGE: Stable. FINAL DIAGNOSIS: Urinary tract infection, failed outpatient therapy. PROCEDURES: None. HISTORY OF PRESENT ILLNESS: The patient is an 82-year-old female with a past medical history of cerebrovascular accident (CVA), diabetes mellitus type 2, chronic kidney disease (CKD), hypothyroidism, ulcerative colitis, iron deficiency, depression, gout, and gastroesophageal reflux disease (GERD) who presented to the emergency room (ER) with nausea and vomiting. The patient had recently completed seven days of ciprofloxacin for a urinary tract infection but her symptoms persisted. On 07/01/2017, she followed up with her primary care provider who performed a urine culture and started nitrofurantoin. She failed to get the medication and presented to the emergency room, HOSPITAL COURSE: 1. Urinary tract infection, failed outpatient therapy. Clinically has been improving throughout the hospital course. She had resolution of her nausea and vomiting and dysuria. Physical is unrevealing and her urine culture from 07/01/2017 was positive for Escherichia (E) coli. She was put on antibiotics based on susceptibilities and she has completed five days of aztreonam as an inpatient. Upon discharge, she has been given a prescription for nitrofurantoin for which she will complete an additional three days. 2. Positive blood cultures, one out of two bottles were positive, likely a contaminate. Blood cultures were positive for Gram-positive rods on 07/06/2017. Blood cultures showed that it was positive for Bacillus species which has little or no pathologic potential, common environmental contaminant but very rarely associated with disease in humans. Only one out of two bottles was positive. Repeat blood cultures done on 07/08/2017 remain negative throughout hospital course. 3. Elevation of creatinine. Creatinine baseline of 0.8 to 1.0. Creatinine has been trending down from admission. Creatinine on admission was 1.30. She has been put on IV fluid hydration. 4. Cerebrovascular accident (CVA). Continue with Plavix. 5. Hypertension. Continue with losartan, furosemide and atenolol. 6. Diabetes mellitus, type 2. Continue with glimepiride. 7. Hypothyroidism. Continue with levothyroxine. 8. Ulcerative colitis. 9. Iron deficiency. Continue with ferrous sulfate. 10. Depression. 11. Gout. Continue with allopurinol. 12. Deep vein thrombosis (DVT) prophylaxis. Continue with heparin. DISCHARGE MEDICATIONS: The patient has been discharged home with the following medication list: - acetaminophen 650 mg by mouth every eight hours as needed for pain - allopurinol 200 mg by mouth twice a day - atenolol 12.5 mg by mouth every morning - atenolol 50 mg by mouth every evening - vitamin D 2000 units by mouth daily - Plavix 75 mg daily - Combigan one drop in each eye twice a day - Entyvio 300 mg IV as directed. - ferrous sulfate 325 mg by mouth two times a week - furosemide 40 mg by mouth every morning - glimepiride 2 mg by mouth daily - latanoprost one drop in each eye twice a day - levothyroxine 75 mcg by mouth daily - losartan 50 mg by mouth daily - meclizine 25 mg by mouth every eight hours as needed for dizziness - ondansetron 4 mg by mouth as needed for nausea and vomiting - Protonix 40 mg by mouth daily as needed for heartburn - probiotic one tablet by mouth twice a day - ranitidine one tablet by mouth twice a day - nitrofurantoin has been changed to the following 100 mg by mouth twice a day for the next three days DISCHARGE INSTRUCTIONS: The patient has been advised to followup with her primary care provider within the next seven days. She has been advised to remain compliant with treatment plan and medications and return to the emergency room if she experiences any problems. TIME SPENT ON DISCHARGE: 35 minutes.
== END 2017-07-10 11:19 | disposition home or self-care (01) | DRG 690 ==
LOC: M ED 06:59 → EDBD 06:59 → M ED INP 09:14 → M MS5PR 11:33
PROVIDERS: ADMIT Internal Medicine; ATTEND Internal Medicine
DX: N39.0 Urinary tract infection, site not specified (principal); N17.9 Acute kidney failure, unspecified; K51.90 Ulcerative colitis, unspecified, without complications; R11.2 Nausea with vomiting, unspecified; E11.9 Type 2 diabetes mellitus without complications; N18.9 Chronic kidney disease, unspecified; E03.9 Hypothyroidism, unspecified; K21.9 Gastro-esophageal reflux disease without esophagitis; D50.9 Iron deficiency anemia, unspecified; E66.9 Obesity, unspecified; B96.20 Unspecified Escherichia coli [E. coli] as the cause of diseases classified elsewhere; F32.9 Major depressive disorder, single episode, unspecified; M10.9 Gout, unspecified; Z88.0 Allergy status to penicillin; Z88.2 Allergy status to sulfonamides; Z88.8 Allergy status to other drugs, medicaments and biological substances; Z91.041 Radiographic dye allergy status; Z91.013 Allergy to seafood; Z91.048 Other nonmedicinal substance allergy status; Z79.84 Long term (current) use of oral hypoglycemic drugs; Z79.899 Other long term (current) drug therapy; Z86.73 Personal history of transient ischemic attack (TIA), and cerebral infarction without residual deficits; Z68.31 Body mass index [BMI] 31.0-31.9, adult

== ENCOUNTER 2017-07-14 11:56 | Outpatient (CLI) | payer MEDICARE ==
[~2017-07-14] VITALS: Ht 152.4 cm; Wt 69.0 kg
[~2017-07-14 11:56] MED LIST changes: +ATEN25TA PO; +COMB0.2S OU; +LOSA50TA20 PO; +MACR100C43 PO; +MECL-86 PO; +PANT40TA2 PO; +PLAV1TAB2 PO
[2017-07-14] MEDS ORDERED: ACETAMINOPHEN TAB 650MG DOSE (2X325MG) PO ONE (12:00)
[2017-07-14] MEDS ORDERED: diphenhydrAMINE 25 MG CAP PO ONE (12:00)
[2017-07-14] MEDS ORDERED: VEDOLIZUMAB 300 MG in NS 250 ML IV ONE (12:00)
== END 2017-07-14 13:00 | disposition home or self-care (01) ==
LOC: M INFU 11:56
PROVIDERS: ATTEND Internal Medicine Gastroenterology
DX: K51.90 Ulcerative colitis, unspecified, without complications (principal); Z79.899 Other long term (current) drug therapy; Z79.82 Long term (current) use of aspirin; Z91.041 Radiographic dye allergy status; Z88.1 Allergy status to other antibiotic agents; Z88.2 Allergy status to sulfonamides; Z88.8 Allergy status to other drugs, medicaments and biological substances; Z91.013 Allergy to seafood; Z88.0 Allergy status to penicillin; L23.1 Allergic contact dermatitis due to adhesives
CPT/HCPCS: 96413; J3380

== ENCOUNTER → 2017-07-15 | Outpatient (REF) | payer MEDICARE | LOC: M LAB REF 13:42 | PROVIDERS: ATTEND Internal Medicine | DX: K51.90 Ulcerative colitis, unspecified, without complications (principal) ==

== ENCOUNTER → 2017-08-12 | Outpatient (REF) | payer MEDICARE | LOC: M LAB REF 16:24 | PROVIDERS: ATTEND Internal Medicine | DX: N39.0 Urinary tract infection, site not specified (principal) ==

== ENCOUNTER 2017-10-27 11:32 | Outpatient (CLI) | payer MEDICARE ==
[~2017-10-27 11:32] MED LIST changes: +ACETAMINOPHEN TAB 650MG DOSE (2X325MG) PO ONE; +VEDOLIZUMAB 300 MG in NS 250 ML IV ONE; +diphenhydrAMINE 25 MG CAP PO ONE
== END 2017-10-27 12:35 | disposition home or self-care (01) ==
LOC: M INFU 11:32
PROVIDERS: ATTEND Internal Medicine Gastroenterology
DX: K51.90 Ulcerative colitis, unspecified, without complications (principal); I10 Essential (primary) hypertension; K21.9 Gastro-esophageal reflux disease without esophagitis; E11.9 Type 2 diabetes mellitus without complications; M54.2 Cervicalgia; E07.9 Disorder of thyroid, unspecified; R06.83 Snoring; Z79.899 Other long term (current) drug therapy; Z88.0 Allergy status to penicillin; Z88.1 Allergy status to other antibiotic agents; Z88.8 Allergy status to other drugs, medicaments and biological substances; Z91.040 Latex allergy status; Z91.013 Allergy to seafood; Z91.048 Other nonmedicinal substance allergy status
CPT/HCPCS: 96365; J3380

== ENCOUNTER 2017-10-29 11:11 | Emergency (ER) | payer MEDICARE ==
[~2017-10-29] VITALS: Ht 152.4 cm; Wt 73.6 kg
[~2017-10-29 11:11] MED LIST changes: -ACETAMINOPHEN TAB 650MG DOSE (2X325MG) PO ONE; -VEDOLIZUMAB 300 MG in NS 250 ML IV ONE; -diphenhydrAMINE 25 MG CAP PO ONE
[2017-10-29] MEDS ORDERED: FUROSEMIDE 40 MG TAB PO ONE (11:30)
[2017-10-29] MEDS ORDERED: ATENOLOL 50 MG TAB PO ONE (11:30)
[2017-10-29] MEDS ORDERED: LOSARTAN 50 MG TAB PO ONE (11:30)
[2017-10-29] MEDS ORDERED: ASPI1TAB PO (11:31)
[2017-10-29] MEDS ORDERED: SERT50TA PO (11:31)
[2017-10-29] MEDS ORDERED: ENTY1INJ IV (11:31)
[2017-10-29] MEDS ORDERED: AMLO2.5T PO (11:31)
[2017-10-29 11:46] VITALS: BP 219/94
[2017-10-29 12:09] LABS: BASO % 0.3 % (0.0-1.0); EOS # 0.3 10^3/uL (0.0-0.50); EOS % 2.7 % (0.0-3.0); IMMATURE GRANULOCYTE % 0.3 % (0-0); LYMPH # 1.8 10^3/uL (1.5-4.5); LYMPH % 14.9 % (24.0-44.0); MEAN CORPUSCULAR HEMOGLOBIN 31.3 pg (27.0-33.0); MEAN CORPUSCULAR HGB CONC 31.9 g/dl (32.0-36.5); MEAN CORPUSCULAR VOLUME 98.2 fl (80.0-96.0); MONO # 0.6 10^3/uL (0.0-0.8); MONO % 5.3 % (0.0-5.0); NEUTROPHILS % 76.5 % (36.0-66.0); PLATELET COUNT, AUTOMATED 247 10^3/uL (150-450); RED CELL DISTRIBUTION WIDTH 13.9 % (11.5-14.5); WHITE BLOOD COUNT 11.7 10^3/uL (4.0-10.0)
[2017-10-29] MEDS ORDERED: ACETAMINOPHEN 325 MG TAB PO ONE (12:15)
[2017-10-29 12:32] LABS: ANION GAP 5 MEQ/L (8-16); BLOOD UREA NITROGEN 15 MG/DL (7-18); CALCIUM LEVEL 9.4 MG/DL (8.8-10.2); CARBON DIOXIDE LEVEL 33 MEQ/L (21-32); CHLORIDE LEVEL 103 MEQ/L (98-107); CREATININE FOR GFR 0.74 MG/DL (0.55-1.02); GLOMERULAR FILTRATION RATE > 60.0 (>32); GLUCOSE, FASTING 111 MG/DL (83-110); POTASSIUM SERUM 3.5 MEQ/L (3.5-5.1); SODIUM LEVEL 141 MEQ/L (136-145)
[2017-10-29 14:36] VITALS: BP 174/78
--- NOTE | 2017-10-29 19:01 | ECGEPIP ---
Stationary ECG Study [facility] - ED Test Date: 2017-10-29 Pat Name: ARTURO OCASIO Department: Room: - Gender: F [employer]: sheldon : [id number] Requested By: Monique Shau Order Number: [id number] Reading MD: Kareem Puckett Measurements Intervals [place] Rate: 75 P: 39 MN: 185 QRS: 72 QRSD: 106 T: 61 QT: 410 QTc: 459 Interpretive Statements SINUS RHYTHM NSTTW ABNORMALITIES SIMILAR TO 07/06/17 Electronically Signed On 10-29-2017 19:00:49 EST by Kareem Puckett
== END 2017-10-29 15:07 | disposition home or self-care (01) ==
LOC: EDBD 11:11 → M ED 11:11
DX: I12.9 Hypertensive chronic kidney disease with stage 1 through stage 4 chronic kidney disease, or unspecified chronic kidney disease (principal); E11.9 Type 2 diabetes mellitus without complications; N18.9 Chronic kidney disease, unspecified; Z86.73 Personal history of transient ischemic attack (TIA), and cerebral infarction without residual deficits; F41.9 Anxiety disorder, unspecified; Z79.899 Other long term (current) drug therapy; Z79.82 Long term (current) use of aspirin; Z79.01 Long term (current) use of anticoagulants; Z88.0 Allergy status to penicillin; Z88.1 Allergy status to other antibiotic agents; Z88.2 Allergy status to sulfonamides; Z88.8 Allergy status to other drugs, medicaments and biological substances; Z91.013 Allergy to seafood; Z91.041 Radiographic dye allergy status

== ENCOUNTER 2017-11-10 13:46 | Outpatient (CLI) | payer MEDICARE ==
[~2017-11-10] VITALS: Ht 152.4 cm; Wt 69.4 kg
[~2017-11-10 13:46] MED LIST changes: +AMLO2.5T PO; +ASPI1TAB PO; +SERT50TA PO
[2017-11-10] MEDS ORDERED: ACETAMINOPHEN TAB 650MG DOSE (2X325MG) PO ONE (14:00)
[2017-11-10] MEDS ORDERED: VEDOLIZUMAB 300 MG in NS 250 ML IV ONE (14:00)
[2017-11-10] MEDS ORDERED: diphenhydrAMINE 25 MG CAP PO ONE (14:00)
== END 2017-11-10 15:00 | disposition home or self-care (01) ==
LOC: M INFU 13:46
PROVIDERS: ATTEND Internal Medicine Gastroenterology
DX: K51.90 Ulcerative colitis, unspecified, without complications (principal); Z88.8 Allergy status to other drugs, medicaments and biological substances; Z88.3 Allergy status to other anti-infective agents; Z91.041 Radiographic dye allergy status; Z88.1 Allergy status to other antibiotic agents; Z88.0 Allergy status to penicillin; Z88.2 Allergy status to sulfonamides; Z91.013 Allergy to seafood; Z91.048 Other nonmedicinal substance allergy status; Z79.82 Long term (current) use of aspirin; Z79.899 Other long term (current) drug therapy
CPT/HCPCS: 96365; J3380

== ENCOUNTER 2017-12-08 12:39 | Outpatient (CLI) | payer MEDICARE ==
[2017-12-08] MEDS: diphenhydrAMINE 25 MG CAP PO (12:57)
[2017-12-08] MEDS: ACETAMINOPHEN TAB 650MG DOSE (2X325MG) PO (12:58)
[2017-12-08] MEDS: VEDOLIZUMAB 300 MG in NS 250 ML IV (12:59)
== END 2017-12-08 13:45 | disposition home or self-care (01) ==
LOC: M INFU 12:39
DX: K51.90 Ulcerative colitis, unspecified, without complications (principal); Z88.8 Allergy status to other drugs, medicaments and biological substances; Z88.2 Allergy status to sulfonamides; Z91.013 Allergy to seafood; Z88.0 Allergy status to penicillin; Z91.048 Other nonmedicinal substance allergy status; Z88.3 Allergy status to other anti-infective agents; Z79.82 Long term (current) use of aspirin; Z79.899 Other long term (current) drug therapy
CPT/HCPCS: 96365

== ENCOUNTER 2018-02-11 14:55 | Outpatient (CLI) | payer MEDICARE ==
[2018-02-11] MEDS: diphenhydrAMINE 25 MG CAP PO (15:30)
[2018-02-11] MEDS: ACETAMINOPHEN TAB 650MG DOSE (2X325MG) PO (15:35)
[2018-02-11] MEDS: VEDOLIZUMAB 300 MG in NS 250 ML IV (15:49)
== END 2018-02-11 16:30 | disposition home or self-care (01) ==
LOC: M INFU 14:55
DX: K50.90 Crohn's disease, unspecified, without complications (principal); Z91.040 Latex allergy status; Z88.8 Allergy status to other drugs, medicaments and biological substances; Z88.3 Allergy status to other anti-infective agents; Z88.2 Allergy status to sulfonamides; Z88.0 Allergy status to penicillin; Z88.1 Allergy status to other antibiotic agents; Z91.048 Other nonmedicinal substance allergy status
CPT/HCPCS: J3380

== ENCOUNTER 2018-02-16 17:07 | Emergency (ER) | payer MEDICARE ==
[2018-02-16 18:56] LABS: BASO # 0.1 10^3/uL (0.0-0.2); BASO % 0.3 % (0.0-1.0); EOS # 0.5 10^3/uL (0.0-0.50); EOS % 3.5 % (0.0-3.0); HEMATOCRIT 37.8 % (36.0-47.0); IMMATURE GRANULOCYTE % 0.3 % (0-3.0); LYMPH # 2.3 10^3/uL (1.5-4.5); LYMPH % 15.6 % (24.0-44.0); MEAN CORPUSCULAR HEMOGLOBIN 30.6 pg (27.0-33.0); MEAN CORPUSCULAR HGB CONC 31.7 g/dl (32.0-36.5); MEAN CORPUSCULAR VOLUME 96.4 fl (80.0-96.0); MONO # 0.9 10^3/uL (0.0-0.8); NEUTROPHILS # 10.7 10^3/uL (1.8-7.7); NEUTROPHILS % 74.3 % (36.0-66.0); PLATELET COUNT, AUTOMATED 304 10^3/uL (150-450); RED BLOOD COUNT 3.92 10^6/uL (4.00-5.40); RED CELL DISTRIBUTION WIDTH 14.5 % (11.5-14.5); WHITE BLOOD COUNT 14.4 10^3/uL (4.0-10.0)
[2018-02-16] MEDS: METOCLOPRAMIDE INJ 10MG/2ML VIAL (J2765) IV (19:01)
[2018-02-16 19:06] LABS: INR 1.03; PROTHROMBIN TIME 13.6 SECONDS (12.4-14.5)
[2018-02-16 19:18] LABS: ALBUMIN/GLOBULIN RATIO 0.86 (1.00-1.93); ALKALINE PHOSPHATASE 80 U/L (45-117); ALT/SGPT 18 U/L (12-78); ANION GAP 5 MEQ/L (8-16); AST/SGOT 16 U/L (7-37); BILIRUBIN,DIRECT 0.1 MG/DL (0.0-0.2); BILIRUBIN,TOTAL 0.4 MG/DL (0.2-1.0); BLOOD UREA NITROGEN 30 MG/DL (7-18); CALCIUM LEVEL 9.4 MG/DL (8.8-10.2); CARBON DIOXIDE LEVEL 30 MEQ/L (21-32); CHLORIDE LEVEL 107 MEQ/L (98-107); CPK CREATINE PHOSPHOKINASE 22 U/L (26-192); CREATININE FOR GFR 1.13 MG/DL (0.55-1.30); GLOMERULAR FILTRATION RATE 49.1 (>32); GLUCOSE, FASTING 91 MG/DL (70-100); POTASSIUM SERUM 4.6 MEQ/L (3.5-5.1); SODIUM LEVEL 142 MEQ/L (136-145); TOTAL PROTEIN 6.5 GM/DL (6.4-8.2); TROPONIN I < 0.02 NG/ML (< 0.10)
[2018-02-16 19:23] LABS: MB/CK RELATIVE INDEX 4.54 (< OR =4)
== END 2018-02-16 20:28 | disposition home or self-care (01) ==
LOC: M ED 17:07
DX: M54.12 Radiculopathy, cervical region (principal); R94.31 Abnormal electrocardiogram [ECG] [EKG]; R11.0 Nausea; R51 Headache; I10 Essential (primary) hypertension; E11.9 Type 2 diabetes mellitus without complications; K21.9 Gastro-esophageal reflux disease without esophagitis; E07.9 Disorder of thyroid, unspecified; Z88.8 Allergy status to other drugs, medicaments and biological substances; Z91.041 Radiographic dye allergy status; Z88.1 Allergy status to other antibiotic agents; Z88.2 Allergy status to sulfonamides; Z88.0 Allergy status to penicillin; Z91.013 Allergy to seafood; Z91.048 Other nonmedicinal substance allergy status; Z79.899 Other long term (current) drug therapy; Z79.02 Long term (current) use of antithrombotics/antiplatelets; Z79.82 Long term (current) use of aspirin
CPT/HCPCS: J2765

== ENCOUNTER 2018-04-08 13:46 | Outpatient (CLI) | payer MEDICARE ==
[2018-04-08] MEDS: VEDOLIZUMAB 300 MG in NS 250 ML IV (14:27)
[2018-04-08] MEDS: diphenhydrAMINE 25 MG CAP PO (15:00)
[2018-04-08] MEDS: ACETAMINOPHEN TAB 650MG DOSE (2X325MG) PO (15:00)
== END 2018-04-08 15:20 | disposition home or self-care (01) ==
LOC: M INFU 13:46
DX: K50.90 Crohn's disease, unspecified, without complications (principal); E11.9 Type 2 diabetes mellitus without complications; K21.9 Gastro-esophageal reflux disease without esophagitis; M54.2 Cervicalgia; Z79.82 Long term (current) use of aspirin; Z79.84 Long term (current) use of oral hypoglycemic drugs; Z79.899 Other long term (current) drug therapy; Z90.710 Acquired absence of both cervix and uterus
CPT/HCPCS: J3380

== ENCOUNTER → 2018-05-04 | Outpatient (REF) | payer MEDICARE ==
[2018-05-04 17:45] LABS: TOTAL PROTEIN 6.9 GM/DL (6.4-8.2)
[2018-05-04 18:39] LABS: TOTAL PROTEIN,RANDOM URINE 990.1 MG/DL (0.0-12.0); URINE TOTAL PROTEIN 990.1 MG/DL (0-12)
[2018-05-05 10:22] LABS: ALBUMIN 3.68 GM/DL (3.29-5.55); ALBUMIN % 53.4 % (55.8-66.1); ALPHA-1-GLOBULINS 0.35 GM/DL (0.17-0.41); ALPHA-2-GLOBULINS 1.21 GM/DL (0.42-0.99); ALPHA-2-GLOBULINS % 17.5 % (7.1-11.8); BETA-1-GLOBULINS 0.51 GM/DL (0.28-0.60); BETA-1-GLOBULINS % 7.4 % (4.7-7.2); BETA-2-GLOBULINS 0.42 GM/DL (0.19-0.55); BETA-2-GLOBULINS % 6.1 % (3.2-6.5); GAMMA GLOBULIN % 10.6 % (11.1-18.8); GAMMA GLOBULINS 0.73 GM/DL (0.65-1.58)
[2018-05-07 13:56] LABS: UPEP INTERPRETATION NO M-SPIKE NOTED; URINE VOLUME RANDOM ML
[2018-05-09 00:07] LABS: ANCA-ATYPICAL <1:20 titer (Neg:<1:20); ANTI DOUBLE STRAND-DNA AB <1 IU/mL (0-9); ANTI-GLOMERULAR BASEMENT MEMB 3 units (0-20); ANTINUCLEAR ANTIBODIES DIRECT Negative (Negative); CYTOPLASMIC NEUTROP AB ANCA-C <1:20 titer (Neg:<1:20); PERINUCLEAR AB ANCA-P <1:20 titer (Neg:<1:20)
== END ==
LOC: M LAB REF 16:59
DX: R80.9 Proteinuria, unspecified (principal)
CPT/HCPCS: 84165

== ENCOUNTER 2018-06-03 15:25 | Outpatient (CLI) | payer MEDICARE ==
[2018-06-03] MEDS: diphenhydrAMINE 25 MG CAP PO (15:45)
[2018-06-03] MEDS: ACETAMINOPHEN TAB 650MG DOSE (2X325MG) PO (15:45)
[2018-06-03] MEDS: VEDOLIZUMAB 300 MG in NS 250 ML IV (15:56)
== END 2018-06-03 16:45 | disposition home or self-care (01) ==
LOC: M INFU 15:25
DX: K50.90 Crohn's disease, unspecified, without complications (principal); Z91.041 Radiographic dye allergy status; Z88.8 Allergy status to other drugs, medicaments and biological substances; Z88.1 Allergy status to other antibiotic agents; Z88.2 Allergy status to sulfonamides; Z88.3 Allergy status to other anti-infective agents; Z88.0 Allergy status to penicillin; Z91.013 Allergy to seafood; Z91.048 Other nonmedicinal substance allergy status; Z79.82 Long term (current) use of aspirin; Z79.899 Other long term (current) drug therapy; Z79.84 Long term (current) use of oral hypoglycemic drugs
CPT/HCPCS: J3380

== ENCOUNTER → 2018-06-23 | Outpatient (REF) | payer MEDICARE | LOC: M LAB REF 16:51 | DX: R19.7 Diarrhea, unspecified (principal); K51.90 Ulcerative colitis, unspecified, without complications ==

== ENCOUNTER 2018-06-26 06:17 | Inpatient (IN) | payer MEDICARE ==
[2018-06-26] MEDS: LEVOTHYROXINE 75MCG TABLET (0.075MG) PO (06:00)
[2018-06-26] MEDS: ATENOLOL 50 MG TAB PO ×2 (07:45→21:13)
[2018-06-26 08:04] LABS: BASO % 0.2 % (0.0-1.0); EOS # 0.6 10^3/uL (0.0-0.50); EOS % 4.1 % (0.0-3.0); HEMATOCRIT 38.7 % (36.0-47.0); HEMOGLOBIN 12.2 g/dl (12.0-15.5); IMMATURE GRANULOCYTE % 0.6 % (0-3.0); LYMPH # 1.5 10^3/uL (1.5-4.5); LYMPH % 10.1 % (24.0-44.0); MEAN CORPUSCULAR HEMOGLOBIN 30.3 pg (27.0-33.0); MEAN CORPUSCULAR HGB CONC 31.5 g/dl (32.0-36.5); MONO # 0.6 10^3/uL (0.0-0.8); MONO % 3.8 % (0.0-5.0); NEUTROPHILS # 12.3 10^3/uL (1.8-7.7); NEUTROPHILS % 81.2 % (36.0-66.0); PLATELET COUNT, AUTOMATED 234 10^3/uL (150-450); RED BLOOD COUNT 4.03 10^6/uL (4.00-5.40); RED CELL DISTRIBUTION WIDTH 14.8 % (11.5-14.5); WHITE BLOOD COUNT 15.2 10^3/uL (4.0-10.0)
[2018-06-26 08:08] LABS: KETONE, URINE AUTO RFX NEGATIVE (NEGATIVE); LEUKOCYTE ESTERASE UR AUTO RFX NEGATIVE (NEGATIVE); NITRITE, URINE AUTO RFX NEGATIVE (NEGATIVE); RBC, URINE AUTO RFX 1 /HPF (0-3); SPECIFIC GRAVITY UR AUTO RFX 1.008 (1.002-1.035); SQUAM EPITHELIAL CELL UR AURFX 0 /HPF (0-6); WBC, URINE AUTO RFX 0 /HPF (0-3)
[2018-06-26 08:33] LABS: AMPHETAMINES LEVEL URINE NEGATIVE (NEGATIVE); BARBITURATES URINE NEGATIVE (NEGATIVE); BENZODIAZEPINES URINE NEGATIVE (NEGATIVE); CANNABINOIDS URINE NEGATIVE (NEGATIVE); COCAINE METABOLITE URINE NEGATIVE (NEGATIVE); METHADONE URINE NEGATIVE (NEGATIVE); OPIATES URINE NEGATIVE (NEGATIVE); PHENCYCLIDINE URINE NEGATIVE (NEGATIVE)
[2018-06-26] MEDS: VITAMIN D 1,000 INTERNATIONAL UNITS TABLET PO (09:00)
[2018-06-26] MEDS: ALLOPURINOL 100 MG TAB PO ×2 (09:00→21:12)
[2018-06-26] MEDS: LOSARTAN 50 MG TAB PO ×2 (09:00→21:12)
[2018-06-26] MEDS: SERTRALINE HCL 25 MG TABLET PO ×2 (09:00→21:12)
[2018-06-26 09:08] LABS: BEDSIDE GLUCOSE 213 MG/DL (83-110)
[2018-06-26 09:20] LABS: AMMONIA 16 uMOL/L (<32)
[2018-06-26 09:27] LABS: ALBUMIN 2.9 GM/DL (3.2-5.2); ALBUMIN/GLOBULIN RATIO 0.81 (1.00-1.93); ALKALINE PHOSPHATASE 82 U/L (45-117); ALT/SGPT 15 U/L (12-78); ANION GAP 7 MEQ/L (8-16); AST/SGOT 13 U/L (7-37); BILIRUBIN,DIRECT 0.2 MG/DL (0.0-0.2); BILIRUBIN,TOTAL 0.8 MG/DL (0.2-1.0); BLOOD UREA NITROGEN 20 MG/DL (7-18); CALCIUM LEVEL 9.1 MG/DL (8.8-10.2); CARBON DIOXIDE LEVEL 31 MEQ/L (21-32); CHLORIDE LEVEL 102 MEQ/L (98-107); CPK CREATINE PHOSPHOKINASE 34 U/L (26-192); CREATININE FOR GFR 1.23 MG/DL (0.55-1.30); GLOMERULAR FILTRATION RATE 44.5 (>32); GLUCOSE, FASTING 208 MG/DL (70-100); POTASSIUM SERUM 4.1 MEQ/L (3.5-5.1); SODIUM LEVEL 140 MEQ/L (136-145); TOTAL PROTEIN 6.5 GM/DL (6.4-8.2); TROPONIN I < 0.02 NG/ML (< 0.10)
[2018-06-26 09:32] LABS: CK-MB VALUE MASS < 1.0 NG/ML (<3.6); MB/CK RELATIVE INDEX 2.94 (< OR =4)
[2018-06-26 09:36] LABS: ETHYL ALCOHOL (ETHANOL) < 0.003 % (0.000-0.010)
[2018-06-26] MEDS ORDERED: DEXTROSE 50% 50 ML SYRINGE IV (10:45)
[2018-06-26] MEDS ORDERED: GLUCOSE 4 GM CHEW TABLET PO (10:45)
[2018-06-26] MEDS ORDERED: GLUCAGON FOR INJ 1 MG VIAL (J1610) SC (10:45)
[2018-06-26] MEDS: HumaLOG INSULIN (NovoLOG) PER UNIT SC ×3 (12:00→21:11)
[2018-06-26 12:15] LABS: ERYTHROCYTE SEDIMENTATION RATE 62 mm/hr (0-30)
[2018-06-26 13:33] LABS: BEDSIDE GLUCOSE 167 MG/DL (83-110)
[2018-06-26 14:09] LABS: MAGNESIUM LEVEL 1.8 MG/DL (1.8-2.4)
[2018-06-26] MEDS: FIDAXOMICIN 200 MG TAB (DIFICID) PO ×2 (14:37→21:31)
[2018-06-26] MEDS: NS 1,000 ML IV (14:37)
[2018-06-26] MEDS: HEPARIN SOD (PORCINE) 5000 UNITS/ML VIAL SC ×2 (14:39→21:11)
[2018-06-26 14:58] LABS: LACTIC ACID SEPSIS PROTOCOL 1.2 MMOL/L (0.4-2.0)
[2018-06-26 16:42] LABS: BEDSIDE GLUCOSE 128 MG/DL (83-110)
[2018-06-26 20:14] LABS: BEDSIDE GLUCOSE 102 MG/DL (83-110)
[2018-06-26] MEDS: amLODIPine 10 MG TAB PO (21:11)
[2018-06-26] MEDS: CLOPIDOGREL 75 MG TAB PO (21:12)
[2018-06-26] MEDS: LATANOPROST 0.005% OPHTH SOLN 2.5 ML OS (21:31)
[2018-06-27] MEDS: NS 1,000 ML IV (03:44)
[2018-06-27 05:34] LABS: BASO % 0.1 % (0.0-1.0); EOS # 0.8 10^3/uL (0.0-0.50); EOS % 5.5 % (0.0-3.0); HEMATOCRIT 35.6 % (36.0-47.0); HEMOGLOBIN 11.2 g/dl (12.0-15.5); IMMATURE GRANULOCYTE % 0.5 % (0-3.0); LYMPH # 3.1 10^3/uL (1.5-4.5); LYMPH % 21.3 % (24.0-44.0); MEAN CORPUSCULAR HEMOGLOBIN 30.3 pg (27.0-33.0); MEAN CORPUSCULAR HGB CONC 31.5 g/dl (32.0-36.5); MEAN CORPUSCULAR VOLUME 96.2 fl (80.0-96.0); MONO % 6.7 % (0.0-5.0); NEUTROPHILS # 9.5 10^3/uL (1.8-7.7); NEUTROPHILS % 65.9 % (36.0-66.0); PLATELET COUNT, AUTOMATED 234 10^3/uL (150-450); RED CELL DISTRIBUTION WIDTH 14.7 % (11.5-14.5); WHITE BLOOD COUNT 14.4 10^3/uL (4.0-10.0)
[2018-06-27] MEDS: HEPARIN SOD (PORCINE) 5000 UNITS/ML VIAL SC ×3 (06:02→21:00)
[2018-06-27] MEDS: LEVOTHYROXINE 75MCG TABLET (0.075MG) PO (06:02)
[2018-06-27 06:10] LABS: ALBUMIN 2.4 GM/DL (3.2-5.2); ALBUMIN/GLOBULIN RATIO 0.69 (1.00-1.93); ALKALINE PHOSPHATASE 67 U/L (45-117); ALT/SGPT 14 U/L (12-78); ANION GAP 7 MEQ/L (8-16); AST/SGOT 14 U/L (7-37); BILIRUBIN,TOTAL 0.9 MG/DL (0.2-1.0); BLOOD UREA NITROGEN 18 MG/DL (7-18); C REACTIVE PROTEIN QUANTITATIV 0.61 MG/DL (0.00-0.30); CALCIUM LEVEL 8.5 MG/DL (8.8-10.2); CARBON DIOXIDE LEVEL 29 MEQ/L (21-32); CHLORIDE LEVEL 107 MEQ/L (98-107); CREATININE FOR GFR 1.17 MG/DL (0.55-1.30); GLOMERULAR FILTRATION RATE 47.1 (>32); GLUCOSE, FASTING 107 MG/DL (70-100); MAGNESIUM LEVEL 1.6 MG/DL (1.8-2.4); POTASSIUM SERUM 3.3 MEQ/L (3.5-5.1); SODIUM LEVEL 143 MEQ/L (136-145); TOTAL PROTEIN 5.9 GM/DL (6.4-8.2)
[2018-06-27] MEDS: HumaLOG INSULIN (NovoLOG) PER UNIT SC ×4 (08:25→21:00)
[2018-06-27] MEDS: FIDAXOMICIN 200 MG TAB (DIFICID) PO ×2 (08:26→21:01)
[2018-06-27] MEDS: POTASSIUM CHLORIDE 10 MEQ SR TABLET PO (08:26)
[2018-06-27] MEDS: LOSARTAN 50 MG TAB PO ×2 (08:26→21:00)
[2018-06-27] MEDS: ALLOPURINOL 100 MG TAB PO ×2 (08:26→21:00)
[2018-06-27] MEDS: VITAMIN D 1,000 INTERNATIONAL UNITS TABLET PO (08:26)
[2018-06-27] MEDS: SERTRALINE HCL 25 MG TABLET PO ×2 (08:27→21:00)
[2018-06-27] MEDS: ATENOLOL 50 MG TAB PO ×2 (08:27→21:00)
[2018-06-27] MEDS: MAG SULF 1GM/100ML (MAG RUN) 1 GM in APPROPRIATE DILUENT 1 EA IV (08:27)
[2018-06-27] MEDS ORDERED: BISACODYL 5 MG TAB PO (09:00)
[2018-06-27] MEDS ORDERED: PERCOCET 5MG/325MG TAB PO ×2 (09:00)
[2018-06-27] MEDS ORDERED: SENOKOT S TAB PO (09:00)
[2018-06-27 11:31] LABS: BEDSIDE GLUCOSE 130 MG/DL (83-110)
[2018-06-27] MEDS: NYSTATIN 100,000 UNITS/GM TOPICAL PWD 15 GM TOP (12:42)
[2018-06-27 16:37] LABS: BEDSIDE GLUCOSE 103 MG/DL (83-110)
[2018-06-27 20:53] LABS: BEDSIDE GLUCOSE 125 MG/DL (83-110)
[2018-06-27] MEDS: amLODIPine 10 MG TAB PO (21:00)
[2018-06-27] MEDS: CLOPIDOGREL 75 MG TAB PO (21:00)
[2018-06-27] MEDS: LATANOPROST 0.005% OPHTH SOLN 2.5 ML OS (21:00)
[2018-06-28] MEDS: ONDANSETRON 4MG/2ML VIAL (J2405) IV (04:38)
[2018-06-28 05:09] LABS: BASO % 0.2 % (0.0-1.0); EOS % 7.6 % (0.0-3.0); HEMATOCRIT 35.3 % (36.0-47.0); HEMOGLOBIN 11.1 g/dl (12.0-15.5); IMMATURE GRANULOCYTE % 0.5 % (0-3.0); LYMPH # 2.4 10^3/uL (1.5-4.5); LYMPH % 18.4 % (24.0-44.0); MEAN CORPUSCULAR HEMOGLOBIN 30.8 pg (27.0-33.0); MEAN CORPUSCULAR HGB CONC 31.4 g/dl (32.0-36.5); MEAN CORPUSCULAR VOLUME 98.1 fl (80.0-96.0); MONO # 0.8 10^3/uL (0.0-0.8); MONO % 6.5 % (0.0-5.0); NEUTROPHILS # 8.6 10^3/uL (1.8-7.7); NEUTROPHILS % 66.8 % (36.0-66.0); PLATELET COUNT, AUTOMATED 235 10^3/uL (150-450); RED CELL DISTRIBUTION WIDTH 14.7 % (11.5-14.5); WHITE BLOOD COUNT 12.8 10^3/uL (4.0-10.0)
[2018-06-28 05:30] LABS: ALBUMIN 2.4 GM/DL (3.2-5.2); ALBUMIN/GLOBULIN RATIO 0.67 (1.00-1.93); ALKALINE PHOSPHATASE 68 U/L (45-117); ALT/SGPT 17 U/L (12-78); ANION GAP 9 MEQ/L (8-16); AST/SGOT 17 U/L (7-37); BILIRUBIN,TOTAL 0.6 MG/DL (0.2-1.0); BLOOD UREA NITROGEN 16 MG/DL (7-18); C REACTIVE PROTEIN QUANTITATIV 0.65 MG/DL (0.00-0.30); CALCIUM LEVEL 8.6 MG/DL (8.8-10.2); CARBON DIOXIDE LEVEL 24 MEQ/L (21-32); CHLORIDE LEVEL 110 MEQ/L (98-107); CREATININE FOR GFR 1.12 MG/DL (0.55-1.30); GLOMERULAR FILTRATION RATE 49.6 (>32); GLUCOSE, FASTING 124 MG/DL (70-100); MAGNESIUM LEVEL 2.1 MG/DL (1.8-2.4); POTASSIUM SERUM 3.7 MEQ/L (3.5-5.1); SODIUM LEVEL 143 MEQ/L (136-145)
[2018-06-28] MEDS: HEPARIN SOD (PORCINE) 5000 UNITS/ML VIAL SC ×3 (06:12→21:21)
[2018-06-28] MEDS: LEVOTHYROXINE 75MCG TABLET (0.075MG) PO (06:12)
[2018-06-28] MEDS: ALLOPURINOL 100 MG TAB PO ×2 (08:54→21:19)
[2018-06-28] MEDS: HumaLOG INSULIN (NovoLOG) PER UNIT SC ×4 (08:54→21:00)
[2018-06-28] MEDS: SERTRALINE HCL 25 MG TABLET PO ×2 (08:54→21:19)
[2018-06-28] MEDS: VITAMIN D 1,000 INTERNATIONAL UNITS TABLET PO (08:54)
[2018-06-28] MEDS: ATENOLOL 50 MG TAB PO ×2 (08:54→21:00)
[2018-06-28] MEDS: LOSARTAN 50 MG TAB PO ×2 (08:54→21:20)
[2018-06-28] MEDS ORDERED: DICYCLOMINE 10 MG CAP PO (11:00)
[2018-06-28] MEDS: FIDAXOMICIN 200 MG TAB (DIFICID) PO ×2 (11:09→21:18)
[2018-06-28] MEDS: PANTOPRAZOLE 40MG TAB (PROTONIX) PO (11:10)
[2018-06-28 12:39] LABS: BEDSIDE GLUCOSE 102 MG/DL (83-110)
[2018-06-28] MEDS: CLOPIDOGREL 75 MG TAB PO (21:19)
[2018-06-28] MEDS: FAMOTIDINE 20 MG TAB PO (21:19)
[2018-06-28] MEDS: ACETAMINOPHEN TAB 650MG DOSE (2X325MG) PO (21:20)
[2018-06-28] MEDS: amLODIPine 10 MG TAB PO (21:21)
[2018-06-28] MEDS: LATANOPROST 0.005% OPHTH SOLN 2.5 ML OS (21:54)
[2018-06-28 22:08] LABS: BEDSIDE GLUCOSE 123 MG/DL (83-110)
[2018-06-29] MEDS: LEVOTHYROXINE 75MCG TABLET (0.075MG) PO (05:27)
[2018-06-29] MEDS: HEPARIN SOD (PORCINE) 5000 UNITS/ML VIAL SC ×3 (05:27→22:40)
[2018-06-29] MEDS: HumaLOG INSULIN (NovoLOG) PER UNIT SC ×4 (07:30→21:00)
[2018-06-29 07:36] LABS: BASO % 0.4 % (0.0-1.0); EOS # 0.7 10^3/uL (0.0-0.50); EOS % 7.7 % (0.0-3.0); HEMATOCRIT 34.4 % (36.0-47.0); HEMOGLOBIN 10.6 g/dl (12.0-15.5); IMMATURE GRANULOCYTE % 0.5 % (0-3.0); LYMPH # 2.2 10^3/uL (1.5-4.5); LYMPH % 22.9 % (24.0-44.0); MEAN CORPUSCULAR HEMOGLOBIN 30.4 pg (27.0-33.0); MEAN CORPUSCULAR HGB CONC 30.8 g/dl (32.0-36.5); MEAN CORPUSCULAR VOLUME 98.6 fl (80.0-96.0); MONO # 0.7 10^3/uL (0.0-0.8); MONO % 7.4 % (0.0-5.0); NEUTROPHILS # 5.8 10^3/uL (1.8-7.7); NEUTROPHILS % 61.1 % (36.0-66.0); PLATELET COUNT, AUTOMATED 217 10^3/uL (150-450); RED BLOOD COUNT 3.49 10^6/uL (4.00-5.40); RED CELL DISTRIBUTION WIDTH 14.9 % (11.5-14.5); WHITE BLOOD COUNT 9.5 10^3/uL (4.0-10.0)
[2018-06-29 07:55] LABS: ALBUMIN 2.4 GM/DL (3.2-5.2); ALBUMIN/GLOBULIN RATIO 0.71 (1.00-1.93); ALKALINE PHOSPHATASE 65 U/L (45-117); ALT/SGPT 15 U/L (12-78); ANION GAP 7 MEQ/L (8-16); AST/SGOT 15 U/L (7-37); BILIRUBIN,TOTAL 0.5 MG/DL (0.2-1.0); BLOOD UREA NITROGEN 13 MG/DL (7-18); C REACTIVE PROTEIN QUANTITATIV 0.53 MG/DL (0.00-0.30); CALCIUM LEVEL 9.4 MG/DL (8.8-10.2); CARBON DIOXIDE LEVEL 29 MEQ/L (21-32); CHLORIDE LEVEL 108 MEQ/L (98-107); CREATININE FOR GFR 1.08 MG/DL (0.55-1.30); GLOMERULAR FILTRATION RATE 51.7 (>32); GLUCOSE, FASTING 96 MG/DL (70-100); MAGNESIUM LEVEL 2.1 MG/DL (1.8-2.4); POTASSIUM SERUM 4.1 MEQ/L (3.5-5.1); SODIUM LEVEL 144 MEQ/L (136-145); TOTAL PROTEIN 5.8 GM/DL (6.4-8.2)
[2018-06-29] MEDS: PANTOPRAZOLE 40MG TAB (PROTONIX) PO (09:46)
[2018-06-29] MEDS: SERTRALINE HCL 25 MG TABLET PO ×2 (09:46→22:39)
[2018-06-29] MEDS: LOSARTAN 50 MG TAB PO ×2 (09:47→22:38)
[2018-06-29] MEDS: VITAMIN D 1,000 INTERNATIONAL UNITS TABLET PO (09:47)
[2018-06-29] MEDS: ALLOPURINOL 100 MG TAB PO ×2 (09:47→22:39)
[2018-06-29] MEDS: ATENOLOL 50 MG TAB PO ×2 (09:47→22:38)
[2018-06-29] MEDS: FIDAXOMICIN 200 MG TAB (DIFICID) PO ×2 (10:25→22:39)
[2018-06-29 11:39] LABS: BEDSIDE GLUCOSE 134 MG/DL (83-110)
[2018-06-29 16:39] LABS: BEDSIDE GLUCOSE 137 MG/DL (83-110)
[2018-06-29 22:22] LABS: BEDSIDE GLUCOSE 136 MG/DL (83-110)
[2018-06-29] MEDS: amLODIPine 10 MG TAB PO (22:37)
[2018-06-29] MEDS: ACETAMINOPHEN TAB 650MG DOSE (2X325MG) PO (22:38)
[2018-06-29] MEDS: CLOPIDOGREL 75 MG TAB PO (22:39)
[2018-06-29] MEDS: LATANOPROST 0.005% OPHTH SOLN 2.5 ML OS (22:40)
[2018-06-30] MEDS: LEVOTHYROXINE 75MCG TABLET (0.075MG) PO (05:36)
[2018-06-30] MEDS: HEPARIN SOD (PORCINE) 5000 UNITS/ML VIAL SC ×3 (05:36→21:46)
[2018-06-30] MEDS: ACETAMINOPHEN TAB 650MG DOSE (2X325MG) PO (05:39)
[2018-06-30 06:08] LABS: BASO % 0.3 % (0.0-1.0); EOS # 0.6 10^3/uL (0.0-0.50); EOS % 6.4 % (0.0-3.0); HEMATOCRIT 36.8 % (36.0-47.0); HEMOGLOBIN 11.7 g/dl (12.0-15.5); IMMATURE GRANULOCYTE % 0.6 % (0-3.0); LYMPH # 2.6 10^3/uL (1.5-4.5); LYMPH % 26.8 % (24.0-44.0); MEAN CORPUSCULAR HEMOGLOBIN 31.1 pg (27.0-33.0); MEAN CORPUSCULAR HGB CONC 31.8 g/dl (32.0-36.5); MEAN CORPUSCULAR VOLUME 97.9 fl (80.0-96.0); MONO # 0.7 10^3/uL (0.0-0.8); MONO % 6.8 % (0.0-5.0); NEUTROPHILS # 5.6 10^3/uL (1.8-7.7); NEUTROPHILS % 59.1 % (36.0-66.0); PLATELET COUNT, AUTOMATED 211 10^3/uL (150-450); RED BLOOD COUNT 3.76 10^6/uL (4.00-5.40); RED CELL DISTRIBUTION WIDTH 14.9 % (11.5-14.5); WHITE BLOOD COUNT 9.5 10^3/uL (4.0-10.0)
[2018-06-30 06:42] LABS: ALBUMIN 2.5 GM/DL (3.2-5.2); ALBUMIN/GLOBULIN RATIO 0.68 (1.00-1.93); ALKALINE PHOSPHATASE 76 U/L (45-117); ALT/SGPT 19 U/L (12-78); ANION GAP 7 MEQ/L (8-16); AST/SGOT 37 U/L (7-37); BILIRUBIN,TOTAL 0.6 MG/DL (0.2-1.0); BLOOD UREA NITROGEN 15 MG/DL (7-18); CARBON DIOXIDE LEVEL 26 MEQ/L (21-32); CHLORIDE LEVEL 108 MEQ/L (98-107); CREATININE FOR GFR 1.28 MG/DL (0.55-1.30); GLOMERULAR FILTRATION RATE 42.5 (>32); GLUCOSE, FASTING 106 MG/DL (70-100); MAGNESIUM LEVEL 2.1 MG/DL (1.8-2.4); POTASSIUM SERUM 5.1 MEQ/L (3.5-5.1); SODIUM LEVEL 141 MEQ/L (136-145); TOTAL PROTEIN 6.2 GM/DL (6.4-8.2)
[2018-06-30] MEDS: HumaLOG INSULIN (NovoLOG) PER UNIT SC ×4 (07:30→21:00)
[2018-06-30] MEDS: ALLOPURINOL 100 MG TAB PO ×2 (08:50→21:40)
[2018-06-30] MEDS: SERTRALINE HCL 25 MG TABLET PO ×2 (08:50→21:40)
[2018-06-30] MEDS: VITAMIN D 1,000 INTERNATIONAL UNITS TABLET PO (08:50)
[2018-06-30] MEDS: FIDAXOMICIN 200 MG TAB (DIFICID) PO ×2 (08:50→21:41)
[2018-06-30] MEDS: PANTOPRAZOLE 40MG TAB (PROTONIX) PO (08:50)
[2018-06-30] MEDS: ATENOLOL 50 MG TAB PO ×2 (08:51→21:41)
[2018-06-30] MEDS: ONDANSETRON 4MG/2ML VIAL (J2405) IV (11:25)
[2018-06-30 11:38] LABS: BEDSIDE GLUCOSE 156 MG/DL (83-110)
[2018-06-30 17:36] LABS: BEDSIDE GLUCOSE 151 MG/DL (83-110)
[2018-06-30] MEDS: LATANOPROST 0.005% OPHTH SOLN 2.5 ML OS (21:41)
[2018-06-30] MEDS: amLODIPine 10 MG TAB PO (21:41)
[2018-06-30] MEDS: CLOPIDOGREL 75 MG TAB PO (21:41)
[2018-07-01] MEDS: HEPARIN SOD (PORCINE) 5000 UNITS/ML VIAL SC ×3 (05:12→21:38)
[2018-07-01] MEDS: LEVOTHYROXINE 75MCG TABLET (0.075MG) PO (05:45)
[2018-07-01 06:54] LABS: BASO # 0.1 10^3/uL (0.0-0.2); BASO % 0.4 % (0.0-1.0); EOS # 0.7 10^3/uL (0.0-0.50); EOS % 5.5 % (0.0-3.0); HEMATOCRIT 36.3 % (36.0-47.0); HEMOGLOBIN 11.4 g/dl (12.0-15.5); IMMATURE GRANULOCYTE % 0.7 % (0-3.0); LYMPH # 2.6 10^3/uL (1.5-4.5); LYMPH % 20.7 % (24.0-44.0); MEAN CORPUSCULAR HEMOGLOBIN 30.9 pg (27.0-33.0); MEAN CORPUSCULAR HGB CONC 31.4 g/dl (32.0-36.5); MEAN CORPUSCULAR VOLUME 98.4 fl (80.0-96.0); MONO # 0.8 10^3/uL (0.0-0.8); MONO % 6.3 % (0.0-5.0); NEUTROPHILS # 8.3 10^3/uL (1.8-7.7); NEUTROPHILS % 66.4 % (36.0-66.0); PLATELET COUNT, AUTOMATED 272 10^3/uL (150-450); RED BLOOD COUNT 3.69 10^6/uL (4.00-5.40); RED CELL DISTRIBUTION WIDTH 14.8 % (11.5-14.5); WHITE BLOOD COUNT 12.4 10^3/uL (4.0-10.0)
[2018-07-01 07:11] LABS: C REACTIVE PROTEIN QUANTITATIV 0.46 MG/DL (0.00-0.30)
[2018-07-01 07:20] LABS: ALBUMIN 2.8 GM/DL (3.2-5.2); ALKALINE PHOSPHATASE 78 U/L (45-117); ALT/SGPT 19 U/L (12-78); ANION GAP 8 MEQ/L (8-16); AST/SGOT 17 U/L (7-37); BILIRUBIN,TOTAL 0.4 MG/DL (0.2-1.0); BLOOD UREA NITROGEN 18 MG/DL (7-18); CALCIUM LEVEL 9.3 MG/DL (8.8-10.2); CARBON DIOXIDE LEVEL 28 MEQ/L (21-32); CHLORIDE LEVEL 106 MEQ/L (98-107); CREATININE FOR GFR 1.28 MG/DL (0.55-1.30); GLOMERULAR FILTRATION RATE 42.5 (>32); GLUCOSE, FASTING 122 MG/DL (70-100); MAGNESIUM LEVEL 1.9 MG/DL (1.8-2.4); POTASSIUM SERUM 4.4 MEQ/L (3.5-5.1); SODIUM LEVEL 142 MEQ/L (136-145); TOTAL PROTEIN 6.3 GM/DL (6.4-8.2)
[2018-07-01] MEDS: HumaLOG INSULIN (NovoLOG) PER UNIT SC ×4 (07:30→20:20)
[2018-07-01 08:18] LABS: BEDSIDE GLUCOSE 173 MG/DL (83-110)
[2018-07-01] MEDS: VITAMIN D 1,000 INTERNATIONAL UNITS TABLET PO (08:28)
[2018-07-01] MEDS: SERTRALINE HCL 25 MG TABLET PO ×2 (08:28→20:19)
[2018-07-01] MEDS: PANTOPRAZOLE 40MG TAB (PROTONIX) PO (08:28)
[2018-07-01] MEDS: ATENOLOL 50 MG TAB PO ×2 (08:28→20:20)
[2018-07-01] MEDS: ALLOPURINOL 100 MG TAB PO ×2 (08:28→20:19)
[2018-07-01] MEDS: FIDAXOMICIN 200 MG TAB (DIFICID) PO ×2 (09:21→20:18)
[2018-07-01 11:36] LABS: BEDSIDE GLUCOSE 174 MG/DL (83-110)
[2018-07-01 16:30] LABS: BEDSIDE GLUCOSE 169 MG/DL (83-110)
[2018-07-01] MEDS: amLODIPine 10 MG TAB PO (20:19)
[2018-07-01] MEDS: CLOPIDOGREL 75 MG TAB PO (20:19)
[2018-07-01] MEDS: LATANOPROST 0.005% OPHTH SOLN 2.5 ML OS (20:20)
[2018-07-01 22:03] LABS: BEDSIDE GLUCOSE 198 MG/DL (83-110)
[2018-07-02] MEDS: LEVOTHYROXINE 75MCG TABLET (0.075MG) PO (05:18)
[2018-07-02] MEDS: HEPARIN SOD (PORCINE) 5000 UNITS/ML VIAL SC ×3 (05:48→22:13)
[2018-07-02 06:18] LABS: BASO % 0.4 % (0.0-1.0); EOS # 0.7 10^3/uL (0.0-0.50); EOS % 6.5 % (0.0-3.0); HEMATOCRIT 33.7 % (36.0-47.0); HEMOGLOBIN 10.6 g/dl (12.0-15.5); IMMATURE GRANULOCYTE % 0.8 % (0-3.0); LYMPH # 2.2 10^3/uL (1.5-4.5); LYMPH % 21.1 % (24.0-44.0); MEAN CORPUSCULAR HEMOGLOBIN 30.9 pg (27.0-33.0); MEAN CORPUSCULAR HGB CONC 31.5 g/dl (32.0-36.5); MEAN CORPUSCULAR VOLUME 98.3 fl (80.0-96.0); MONO # 0.8 10^3/uL (0.0-0.8); MONO % 7.3 % (0.0-5.0); NEUTROPHILS # 6.6 10^3/uL (1.8-7.7); NEUTROPHILS % 63.9 % (36.0-66.0); PLATELET COUNT, AUTOMATED 214 10^3/uL (150-450); RED BLOOD COUNT 3.43 10^6/uL (4.00-5.40); RED CELL DISTRIBUTION WIDTH 14.7 % (11.5-14.5); WHITE BLOOD COUNT 10.4 10^3/uL (4.0-10.0)
[2018-07-02 06:41] LABS: ALBUMIN 2.4 GM/DL (3.2-5.2); ALBUMIN/GLOBULIN RATIO 0.71 (1.00-1.93); ALKALINE PHOSPHATASE 65 U/L (45-117); ALT/SGPT 17 U/L (12-78); ANION GAP 9 MEQ/L (8-16); AST/SGOT 12 U/L (7-37); BILIRUBIN,TOTAL 0.3 MG/DL (0.2-1.0); BLOOD UREA NITROGEN 20 MG/DL (7-18); CALCIUM LEVEL 8.7 MG/DL (8.8-10.2); CARBON DIOXIDE LEVEL 27 MEQ/L (21-32); CHLORIDE LEVEL 110 MEQ/L (98-107); CREATININE FOR GFR 1.35 MG/DL (0.55-1.30); GLUCOSE, FASTING 108 MG/DL (70-100); MAGNESIUM LEVEL 1.9 MG/DL (1.8-2.4); POTASSIUM SERUM 4.4 MEQ/L (3.5-5.1); SODIUM LEVEL 146 MEQ/L (136-145); TOTAL PROTEIN 5.8 GM/DL (6.4-8.2)
[2018-07-02] MEDS: HumaLOG INSULIN (NovoLOG) PER UNIT SC ×4 (08:40→21:00)
[2018-07-02] MEDS: PANTOPRAZOLE 40MG TAB (PROTONIX) PO (08:42)
[2018-07-02] MEDS: ATENOLOL 50 MG TAB PO ×2 (08:42→22:12)
[2018-07-02] MEDS: FIDAXOMICIN 200 MG TAB (DIFICID) PO ×2 (08:42→22:13)
[2018-07-02] MEDS: ALLOPURINOL 100 MG TAB PO ×2 (08:43→22:11)
[2018-07-02] MEDS: SERTRALINE HCL 25 MG TABLET PO ×2 (08:43→22:11)
[2018-07-02] MEDS: VITAMIN D 1,000 INTERNATIONAL UNITS TABLET PO (08:43)
[2018-07-02] MEDS: D5W/0.45% SODIUM CHLORIDE 1,000 ML IV ×2 (09:44→22:11)
[2018-07-02 11:55] LABS: BEDSIDE GLUCOSE 164 MG/DL (83-110)
[2018-07-02 16:55] LABS: BEDSIDE GLUCOSE 189 MG/DL (83-110)
[2018-07-02 20:05] LABS: BEDSIDE GLUCOSE 155 MG/DL (83-110)
[2018-07-02] MEDS: CLOPIDOGREL 75 MG TAB PO (22:11)
[2018-07-02] MEDS: amLODIPine 10 MG TAB PO (22:12)
[2018-07-02] MEDS: LATANOPROST 0.005% OPHTH SOLN 2.5 ML OS (22:13)
[2018-07-03] MEDS: LEVOTHYROXINE 75MCG TABLET (0.075MG) PO (05:41)
[2018-07-03] MEDS: HEPARIN SOD (PORCINE) 5000 UNITS/ML VIAL SC ×3 (05:42→20:50)
[2018-07-03] MEDS: ACETAMINOPHEN TAB 650MG DOSE (2X325MG) PO (05:44)
[2018-07-03 06:35] LABS: BASO # 0.1 10^3/uL (0.0-0.2); BASO % 0.5 % (0.0-1.0); EOS # 0.7 10^3/uL (0.0-0.50); EOS % 5.8 % (0.0-3.0); HEMATOCRIT 34.9 % (36.0-47.0); IMMATURE GRANULOCYTE % 0.8 % (0-3.0); LYMPH # 2.6 10^3/uL (1.5-4.5); LYMPH % 20.6 % (24.0-44.0); MEAN CORPUSCULAR HEMOGLOBIN 30.6 pg (27.0-33.0); MEAN CORPUSCULAR HGB CONC 31.5 g/dl (32.0-36.5); MEAN CORPUSCULAR VOLUME 97.2 fl (80.0-96.0); MONO # 0.7 10^3/uL (0.0-0.8); MONO % 5.7 % (0.0-5.0); NEUTROPHILS # 8.6 10^3/uL (1.8-7.7); NEUTROPHILS % 66.6 % (36.0-66.0); PLATELET COUNT, AUTOMATED 248 10^3/uL (150-450); RED BLOOD COUNT 3.59 10^6/uL (4.00-5.40); RED CELL DISTRIBUTION WIDTH 14.8 % (11.5-14.5); WHITE BLOOD COUNT 12.8 10^3/uL (4.0-10.0)
[2018-07-03 07:00] LABS: ALBUMIN 2.6 GM/DL (3.2-5.2); ALKALINE PHOSPHATASE 70 U/L (45-117); ALT/SGPT 19 U/L (12-78); ANION GAP 8 MEQ/L (8-16); AST/SGOT 16 U/L (7-37); BILIRUBIN,TOTAL 0.4 MG/DL (0.2-1.0); BLOOD UREA NITROGEN 19 MG/DL (7-18); CALCIUM LEVEL 8.8 MG/DL (8.8-10.2); CARBON DIOXIDE LEVEL 28 MEQ/L (21-32); CHLORIDE LEVEL 109 MEQ/L (98-107); CREATININE FOR GFR 1.27 MG/DL (0.55-1.30); GLOMERULAR FILTRATION RATE 42.9 (>32); GLUCOSE, FASTING 116 MG/DL (70-100); MAGNESIUM LEVEL 1.7 MG/DL (1.8-2.4); POTASSIUM SERUM 4.1 MEQ/L (3.5-5.1); SODIUM LEVEL 145 MEQ/L (136-145); TOTAL PROTEIN 6.3 GM/DL (6.4-8.2)
[2018-07-03] MEDS: HumaLOG INSULIN (NovoLOG) PER UNIT SC ×4 (08:51→20:52)
[2018-07-03] MEDS: FIDAXOMICIN 200 MG TAB (DIFICID) PO ×2 (08:52→20:50)
[2018-07-03] MEDS: PANTOPRAZOLE 40MG TAB (PROTONIX) PO (08:53)
[2018-07-03] MEDS: ALLOPURINOL 100 MG TAB PO ×2 (08:54→20:51)
[2018-07-03] MEDS: ATENOLOL 50 MG TAB PO ×2 (08:54→20:51)
[2018-07-03] MEDS: VITAMIN D 1,000 INTERNATIONAL UNITS TABLET PO (08:54)
[2018-07-03] MEDS: SERTRALINE HCL 25 MG TABLET PO ×2 (08:54→20:52)
[2018-07-03] MEDS: MAG SULF 1GM/100ML (MAG RUN) 1 GM in APPROPRIATE DILUENT 1 EA IV ×2 (09:15→10:44)
[2018-07-03 09:59] LABS: C REACTIVE PROTEIN QUANTITATIV 0.44 MG/DL (0.00-0.30)
[2018-07-03 11:51] LABS: BEDSIDE GLUCOSE 194 MG/DL (83-110)
[2018-07-03 16:24] LABS: BEDSIDE GLUCOSE 150 MG/DL (83-110)
[2018-07-03 20:23] LABS: BEDSIDE GLUCOSE 162 MG/DL (83-110)
[2018-07-03] MEDS: amLODIPine 10 MG TAB PO (20:51)
[2018-07-03] MEDS: CLOPIDOGREL 75 MG TAB PO (20:51)
[2018-07-03] MEDS: LATANOPROST 0.005% OPHTH SOLN 2.5 ML OS (20:52)
[2018-07-04] MEDS: ACETAMINOPHEN TAB 650MG DOSE (2X325MG) PO ×2 (03:54→21:53)
[2018-07-04] MEDS: HEPARIN SOD (PORCINE) 5000 UNITS/ML VIAL SC ×3 (06:17→21:54)
[2018-07-04] MEDS: LEVOTHYROXINE 75MCG TABLET (0.075MG) PO (06:17)
[2018-07-04 06:33] LABS: BEDSIDE GLUCOSE 108 MG/DL (83-110)
[2018-07-04] MEDS: ONDANSETRON 4MG/2ML VIAL (J2405) IV (06:58)
[2018-07-04] MEDS: HumaLOG INSULIN (NovoLOG) PER UNIT SC ×4 (07:30→21:00)
[2018-07-04 09:22] LABS: HEMATOCRIT 35.7 % (36.0-47.0); HEMOGLOBIN 11.4 g/dl (12.0-15.5); MEAN CORPUSCULAR HEMOGLOBIN 30.8 pg (27.0-33.0); MEAN CORPUSCULAR HGB CONC 31.9 g/dl (32.0-36.5); MEAN CORPUSCULAR VOLUME 96.5 fl (80.0-96.0); PLATELET COUNT, AUTOMATED 281 10^3/uL (150-450); RED CELL DISTRIBUTION WIDTH 14.8 % (11.5-14.5); WHITE BLOOD COUNT 13.8 10^3/uL (4.0-10.0)
[2018-07-04 09:55] LABS: ANION GAP 7 MEQ/L (8-16); BLOOD UREA NITROGEN 19 MG/DL (7-18); C REACTIVE PROTEIN QUANTITATIV 0.45 MG/DL (0.00-0.30); CALCIUM LEVEL 8.6 MG/DL (8.8-10.2); CARBON DIOXIDE LEVEL 27 MEQ/L (21-32); CHLORIDE LEVEL 110 MEQ/L (98-107); CREATININE FOR GFR 1.15 MG/DL (0.55-1.30); GLOMERULAR FILTRATION RATE 48.1 (>32); GLUCOSE, FASTING 148 MG/DL (70-100); POTASSIUM SERUM 4.4 MEQ/L (3.5-5.1); SODIUM LEVEL 144 MEQ/L (136-145)
[2018-07-04] MEDS: FIDAXOMICIN 200 MG TAB (DIFICID) PO ×2 (10:02→21:53)
[2018-07-04] MEDS: PANTOPRAZOLE 40MG TAB (PROTONIX) PO (10:02)
[2018-07-04] MEDS: ALLOPURINOL 100 MG TAB PO ×2 (10:03→21:52)
[2018-07-04] MEDS: SERTRALINE HCL 25 MG TABLET PO ×2 (10:03→21:54)
[2018-07-04] MEDS: VITAMIN D 1,000 INTERNATIONAL UNITS TABLET PO (10:03)
[2018-07-04] MEDS: ATENOLOL 50 MG TAB PO ×2 (10:03→21:54)
[2018-07-04 11:41] LABS: BEDSIDE GLUCOSE 138 MG/DL (83-110)
[2018-07-04 16:33] LABS: BEDSIDE GLUCOSE 136 MG/DL (83-110)
[2018-07-04 21:09] LABS: BEDSIDE GLUCOSE 148 MG/DL (83-110)
[2018-07-04] MEDS: CLOPIDOGREL 75 MG TAB PO (21:53)
[2018-07-04] MEDS: amLODIPine 10 MG TAB PO (21:54)
[2018-07-04] MEDS: LATANOPROST 0.005% OPHTH SOLN 2.5 ML OS (21:54)
[2018-07-05 06:19] LABS: BEDSIDE GLUCOSE 116 MG/DL (83-110)
[2018-07-05] MEDS: HEPARIN SOD (PORCINE) 5000 UNITS/ML VIAL SC ×2 (06:21→13:48)
[2018-07-05] MEDS: LEVOTHYROXINE 75MCG TABLET (0.075MG) PO (06:21)
[2018-07-05] MEDS: HumaLOG INSULIN (NovoLOG) PER UNIT SC ×2 (08:13→12:15)
[2018-07-05] MEDS: PANTOPRAZOLE 40MG TAB (PROTONIX) PO (08:14)
[2018-07-05] MEDS: FIDAXOMICIN 200 MG TAB (DIFICID) PO ×2 (08:14→15:25)
[2018-07-05] MEDS: ATENOLOL 50 MG TAB PO (08:17)
[2018-07-05] MEDS: ALLOPURINOL 100 MG TAB PO (08:18)
[2018-07-05] MEDS: VITAMIN D 1,000 INTERNATIONAL UNITS TABLET PO (08:18)
[2018-07-05] MEDS: SERTRALINE HCL 25 MG TABLET PO (08:18)
[2018-07-05 11:23] LABS: BEDSIDE GLUCOSE 230 MG/DL (83-110)
== END 2018-07-05 16:00 | disposition home or self-care (01) | DRG 371 ==
LOC: M MS5PR 06-28 16:36 → M ED 06:17 → M ED INP 10:41 → M PCU 12:27
PROVIDERS: Internal Medicine
DX: A04.72 Enterocolitis due to Clostridium difficile, not specified as recurrent (principal); G93.41 Metabolic encephalopathy; K51.90 Ulcerative colitis, unspecified, without complications; N18.3 Chronic kidney disease, stage 3 (moderate); I16.0 Hypertensive urgency; E11.22 Type 2 diabetes mellitus with diabetic chronic kidney disease; E03.9 Hypothyroidism, unspecified; F32.9 Major depressive disorder, single episode, unspecified; M10.9 Gout, unspecified; K21.9 Gastro-esophageal reflux disease without esophagitis; Z79.02 Long term (current) use of antithrombotics/antiplatelets; Z79.899 Other long term (current) drug therapy; Z88.0 Allergy status to penicillin; Z88.2 Allergy status to sulfonamides; Z88.1 Allergy status to other antibiotic agents; Z88.8 Allergy status to other drugs, medicaments and biological substances; Z91.041 Radiographic dye allergy status; Z91.013 Allergy to seafood; Z91.048 Other nonmedicinal substance allergy status; Z98.41 Cataract extraction status, right eye; Z98.42 Cataract extraction status, left eye; Z90.49 Acquired absence of other specified parts of digestive tract; Z90.710 Acquired absence of both cervix and uterus; Z87.891 Personal history of nicotine dependence; Z86.73 Personal history of transient ischemic attack (TIA), and cerebral infarction without residual deficits

== ENCOUNTER 2018-08-03 15:47 | Outpatient (CLI) | payer MEDICARE ==
[2018-08-03] MEDS: diphenhydrAMINE 25 MG CAP PO (16:00)
[2018-08-03] MEDS: ACETAMINOPHEN TAB 650MG DOSE (2X325MG) PO (16:00)
[2018-08-03] MEDS: VEDOLIZUMAB 300 MG in NS 250 ML IV (16:13)
== END 2018-08-03 17:10 | disposition home or self-care (01) ==
LOC: M INFU 15:47
DX: K51.90 Ulcerative colitis, unspecified, without complications (principal); K21.9 Gastro-esophageal reflux disease without esophagitis; I11.9 Hypertensive heart disease without heart failure; E78.00 Pure hypercholesterolemia, unspecified; M12.9 Arthropathy, unspecified; R10.9 Unspecified abdominal pain; E03.9 Hypothyroidism, unspecified; I49.9 Cardiac arrhythmia, unspecified; N18.9 Chronic kidney disease, unspecified; E11.9 Type 2 diabetes mellitus without complications; M54.5 Low back pain; D64.9 Anemia, unspecified; F41.9 Anxiety disorder, unspecified; F32.9 Major depressive disorder, single episode, unspecified; N39.3 Stress incontinence (female) (male); Z79.899 Other long term (current) drug therapy; Z91.041 Radiographic dye allergy status; Z88.0 Allergy status to penicillin; Z88.8 Allergy status to other drugs, medicaments and biological substances; H91.90 Unspecified hearing loss, unspecified ear; Z87.19 Personal history of other diseases of the digestive system; Z86.19 Personal history of other infectious and parasitic diseases; Z86.73 Personal history of transient ischemic attack (TIA), and cerebral infarction without residual deficits
CPT/HCPCS: J3380

== ENCOUNTER → 2018-08-19 | Outpatient (REF) | payer MEDICARE | LOC: M LAB REF 10:16 | DX: R19.7 Diarrhea, unspecified (principal) | CPT/HCPCS: 87507 ==

== ENCOUNTER → 2018-09-28 | Outpatient (CLI) | payer MEDICARE ==
[2018-09-28] MEDS: diphenhydrAMINE 25 MG CAP PO (16:22)
[2018-09-28] MEDS: ACETAMINOPHEN TAB 650MG DOSE (2X325MG) PO (16:22)
[2018-09-28] MEDS: VEDOLIZUMAB 300 MG in NS 250 ML IV (16:23)
== END ==
LOC: M INFU 15:45
DX: K50.90 Crohn's disease, unspecified, without complications (principal); Z79.899 Other long term (current) drug therapy; Z88.0 Allergy status to penicillin; Z88.3 Allergy status to other anti-infective agents; Z88.8 Allergy status to other drugs, medicaments and biological substances
CPT/HCPCS: J3380

== ENCOUNTER 2018-11-25 15:14 | Outpatient (CLI) | payer MEDICARE ==
[~2018-11-25] VITALS: Ht 152.4 cm; Wt 72.5 kg
[~2018-11-25 15:14] MED LIST changes: -AMLO10TA2 PO; +AMLO10TA5 PO; -AMLO2.5T PO; +AMLO2.5T3 PO; +AZOP0.2S OS; -COMB0.2S OU; +CYCL10TA PO; +DIFI200T PO; -FIRS1SOL3 PO; +FIRS50SO PO; +K-TA10TA2 PO; -LASI40TA PO; +LASI40TA9 PO; +LATA5OPD OS; +LOPE2CAP PO; -LOSA100T36 PO; +LOSA100T50 PO; -LOSA50TA20 PO; +LOSA50TA88 PO; +NAPR-50 PO; -PANT40TA2 PO; +PANT40TA3 PO; +SERT25TA88 PO; +SPIR-10 PO; -SPIR25TA2 PO; -ZOFR20TA PO; +ZOFR4TAB16 PO; -ZYLO300T4 PO; +ZYLO300T6 PO
[2018-11-25 15:35] VITALS: BP 160/82
[2018-11-25] MEDS ORDERED: ACETAMINOPHEN TAB 650MG DOSE (2X325MG) PO ONE (16:00)
[2018-11-25] MEDS ORDERED: diphenhydrAMINE 25 MG CAP PO ONE (16:00)
[2018-11-25] MEDS ORDERED: VEDOLIZUMAB 300 MG in NS 250 ML IV ONE (16:00)
[2018-11-25 16:57] VITALS: BP 170/80
== END 2018-11-25 17:00 | disposition home or self-care (01) ==
LOC: M INFU 15:14
PROVIDERS: ATTEND Internal Medicine Gastroenterology
DX: K50.90 Crohn's disease, unspecified, without complications (principal); Z79.82 Long term (current) use of aspirin; Z79.899 Other long term (current) drug therapy; Z88.0 Allergy status to penicillin; Z88.4 Allergy status to anesthetic agent; Z88.8 Allergy status to other drugs, medicaments and biological substances; Z91.048 Other nonmedicinal substance allergy status
CPT/HCPCS: 96365; J3380

== ENCOUNTER 2018-12-06 10:54 | Emergency (ER) | payer MEDICARE ==
[~2018-12-06] VITALS: Ht 149.9 cm; Wt 75.0 kg
[2018-12-06] MEDS ORDERED: ATENOLOL 50 MG TAB PO ONE (11:45)
[2018-12-06] MEDS ORDERED: amLODIPine 5 MG TAB PO ONE (11:45)
[2018-12-06] MEDS ORDERED: FUROSEMIDE 40 MG TAB PO ONE (11:45)
[2018-12-06] MEDS ORDERED: LOSARTAN 50 MG TAB PO ONE (11:45)
[2018-12-06 11:57] VITALS: BP 170/90
[2018-12-06] MEDS ORDERED: CEPHALEXIN 500 MG CAP PO ONE (12:00)
[2018-12-06 12:15] LABS: BASO % 0.3 % (0.0-1.0); EOS # 0.4 10^3/uL (0.0-0.50); EOS % 3.3 % (0.0-3.0); HEMATOCRIT 39.3 % (36.0-47.0); HEMOGLOBIN 12.5 g/dl (12.0-15.5); LYMPH # 1.5 10^3/uL (1.5-4.5); LYMPH % 12.2 % (24.0-44.0); MEAN CORPUSCULAR HEMOGLOBIN 29.9 pg (27.0-33.0); MEAN CORPUSCULAR HGB CONC 31.8 g/dl (32.0-36.5); MONO # 0.6 10^3/uL (0.0-0.8); MONO % 5.4 % (0.0-5.0); NEUTROPHILS # 9.4 10^3/uL (1.8-7.7); NEUTROPHILS % 78.3 % (36.0-66.0); PLATELET COUNT, AUTOMATED 283 10^3/uL (150-450); RED BLOOD COUNT 4.18 10^6/uL (4.00-5.40)
[2018-12-06 12:41] LABS: CALCIUM LEVEL 9.2 MG/DL (8.8-10.2); CREATININE FOR GFR 1.02 MG/DL (0.55-1.30); GLOMERULAR FILTRATION RATE 55.2 (>32); POTASSIUM SERUM 3.6 MEQ/L (3.5-5.1)
[2018-12-06] MEDS ORDERED: KEFL500C17 PO (13:37)
[2018-12-06 13:41] VITALS: BP 186/107
--- NOTE | 2018-12-06 13:49 | REP ---
Urinary tract sonography: History: Right flank pain. UTI. Comparison CT study July 06, 2017. Findings: Scanning at the level of the urinary bladder demonstrates that it is empty at the time of scanning. Renal cortical echogenicity pattern is increased bilaterally consistent with some degree of chronic medical renal disease. Right kidney measures 10.5 x 5.3 x 4.7 cm. Left renal dimensions are 10.4 x 5.2 x 5.3 cm. There are multiple cysts bilaterally. These include a 3.7 x 3.1 x 3.6 cm cyst at the upper pole of the right kidney and three other right renal cysts measuring up to 1.5 cm in diameter. The left kidney shows a cyst at the lower pole measuring 5.9 x 5.0 x 4.8 cm, and upper pole cyst measuring 2.1 x 1.9 x 2.9 cm, and two smaller upper pole cysts. Impression: Increased renal cortical echogenicity pattern consistent with chronic medical renal disease. No hydronephrosis is seen. Bilateral renal cysts. Electronically Signed by Phuc Bob MD 12/06/2018 03:50 P
== END 2018-12-06 14:20 | disposition home or self-care (01) ==
LOC: M ED 10:54
DX: N30.91 Cystitis, unspecified with hematuria (principal); N12 Tubulo-interstitial nephritis, not specified as acute or chronic; I12.9 Hypertensive chronic kidney disease with stage 1 through stage 4 chronic kidney disease, or unspecified chronic kidney disease; N18.9 Chronic kidney disease, unspecified; E11.9 Type 2 diabetes mellitus without complications; E07.9 Disorder of thyroid, unspecified; H40.9 Unspecified glaucoma; E78.9 Disorder of lipoprotein metabolism, unspecified; K21.9 Gastro-esophageal reflux disease without esophagitis; G89.29 Other chronic pain; M54.5 Low back pain; Z86.73 Personal history of transient ischemic attack (TIA), and cerebral infarction without residual deficits; Z87.19 Personal history of other diseases of the digestive system; Z79.899 Other long term (current) drug therapy; Z79.890 Hormone replacement therapy; Z87.891 Personal history of nicotine dependence

== ENCOUNTER 2019-01-25 14:16 | Inpatient (IN) | payer MEDICARE ==
[~2019-01-25] VITALS: Ht 152.4 cm; Wt 67.5 kg
[~2019-01-25 14:16] MED LIST changes: -AZOP0.2S OS; +AZOP0.2S OU; +KEFL500C17 PO
[2019-01-25] MEDS ORDERED: NS 1,000 ML IV ONE (17:45)
[2019-01-25 18:32] LABS: BASO % 0.3 % (0.0-1.0); EOS # 0.2 10^3/uL (0.0-0.50); EOS % 1.8 % (0.0-3.0); HEMATOCRIT 40.4 % (36.0-47.0); HEMOGLOBIN 12.7 g/dl (12.0-15.5); LYMPH # 1.9 10^3/uL (1.5-4.5); LYMPH % 13.8 % (24.0-44.0); MEAN CORPUSCULAR HEMOGLOBIN 29.4 pg (27.0-33.0); MEAN CORPUSCULAR HGB CONC 31.4 g/dl (32.0-36.5); MEAN CORPUSCULAR VOLUME 93.5 fl (80.0-96.0); MONO # 0.8 10^3/uL (0.0-0.8); MONO % 5.6 % (0.0-5.0); NEUTROPHILS # 10.6 10^3/uL (1.8-7.7); NEUTROPHILS % 78.1 % (36.0-66.0); PLATELET COUNT, AUTOMATED 251 10^3/uL (150-450); RED BLOOD COUNT 4.32 10^6/uL (4.00-5.40); WHITE BLOOD COUNT 13.5 10^3/uL (4.0-10.0)
[2019-01-25 18:42] LABS: INR 1.15; PROTHROMBIN TIME 14.9 SECONDS (12.1-14.4)
[2019-01-25 18:43] LABS: PARTIAL THROMBOPLASTIN TIME 33.6 SECONDS (25.4-37.6)
[2019-01-25 18:59] LABS: BILIRUBIN,DIRECT 0.2 MG/DL (0.0-0.2); BILIRUBIN,TOTAL 0.7 MG/DL (0.2-1.0); CALCIUM LEVEL 8.6 MG/DL (8.8-10.2); CREATININE FOR GFR 1.12 MG/DL (0.55-1.30); GLOMERULAR FILTRATION RATE 49.5 (>32); POTASSIUM SERUM 3.5 MEQ/L (3.5-5.1); TOTAL PROTEIN 6.4 GM/DL (6.4-8.2)
[2019-01-25] MEDS ORDERED: AMLO5TAB6 PO (19:14)
[2019-01-25] MEDS ORDERED: SERT-155 PO (19:14)
[2019-01-25] MEDS ORDERED: FERR325T16 PO (19:18)
[2019-01-25] MEDS ORDERED: XALA0.007 OU (19:18)
[2019-01-25] MEDS ORDERED: ONDA4TAB6 PO (19:46)
[2019-01-25] MEDS ORDERED: COMMENT ×2 (19:48→19:51)
[2019-01-25] MEDS ORDERED: LORazepam 2 MG/ML VIAL (J2060) IV STA (20:19)
[2019-01-25] MEDS ORDERED: LATANOPROST 0.005% OPHTH SOLN 2.5 ML OU ONE (21:00)
[2019-01-25] MEDS ORDERED: BRINZOLAMIDE 1 % OPHTH SUSP (AZOPT) 10ML OU ONE (22:00)
[2019-01-25] MEDS ORDERED: ALLOPURINOL 100 MG TAB PO ONE (22:00)
[2019-01-25] MEDS ORDERED: ATENOLOL 50 MG TAB PO ONE (22:00)
[2019-01-25] MEDS ORDERED: LOSARTAN 50 MG TAB PO ONE (22:00)
--- NOTE | 2019-01-25 22:06 | REPVR ---
EXAM: MR Lumbar Spine Without Contrast. EXAM DATE/TIME: 01/25/2019 9:14 PM CLINICAL HISTORY: 84 years old, female; Pain; Lumbago; Additional info: Low back pain, severe pain w walking, knownspinal stemosis TECHNIQUE: Multiplanar magnetic resonance images of the lumbar spine without intravenous contrast. COMPARISON: No relevant prior studies available. FINDINGS: Limitations: This examination is slightly limited secondary to patient motion. Vertebrae: No suspicious bone lesions are identified. Marrow: There are multiple vertebral body hemangiomas. Spinal cord: The conus terminates at the level of the mid body of L2. DISCS/SPINAL CANAL/NEURAL FORAMINA: L1-L2: No significant disc disease. No stenosis. L2-L3: No significant disc disease. No stenosis. L3-L4: Moderate bilateral facet hypertrophy. Unremarkable disc. No nerve impingement or spinal stenosis. L4-L5: Disc space height loss and decreased disc signal. Severe bilateral facet degenerative arthritis with small bilateral joint effusions and mild periarticular edema. Moderate ligamentum flavum thickening is present. Grade 1 anterolisthesis of L4 with disc uncovering. Mild posterior broad-based disc protrusion. Moderate spinal stenosis. No focal disc protrusion or nerve root impingement. L5-S1: Moderate severe bilateral facet hypertrophy and ligamentum flavum thickening. Unremarkable disc. No spinal stenosis or nerve root impingement. Kidneys and ureters: Findings consistent with left renal cyst measuring 2.4 cm. IMPRESSION: Degenerative disc disease and facet arthritis at L4-L5 with grade 1 anterolisthesis and moderate spinal stenosis. Electronically signed by: Benito Butts On 01/25/2019 22:06:02 PM
[2019-01-25] MEDS ORDERED: amLODIPine 5 MG TAB PO ONE (22:15)
[2019-01-25] MEDS ORDERED: POTASSIUM CHLORIDE 10 MEQ SR TABLET PO ONE (22:15)
[2019-01-25] MEDS ORDERED: CLOPIDOGREL 75 MG TAB PO ONE (22:15)
[2019-01-25] MEDS ORDERED: FAMOTIDINE 20 MG TAB PO ONE (22:30)
[2019-01-25] MEDS ORDERED: LOPERAMIDE 2 MG CAP PO PRN (23:00)
[2019-01-25] MEDS ORDERED: GLUCOSE 4 GM CHEW TABLET PO PRN (23:15)
[2019-01-25] MEDS ORDERED: GLUCAGON FOR INJ 1 MG VIAL (J1610) SC PRN (23:15)
[2019-01-25] MEDS ORDERED: DEXTROSE 50% 50 ML SYRINGE IV PRN (23:15)
[2019-01-25 23:50] VITALS: BP 170/84
[2019-01-26 05:26] LABS: HEMATOCRIT 35.4 % (36.0-47.0); HEMOGLOBIN 11.3 g/dl (12.0-15.5); MEAN CORPUSCULAR HEMOGLOBIN 29.7 pg (27.0-33.0); MEAN CORPUSCULAR HGB CONC 31.9 g/dl (32.0-36.5); MEAN CORPUSCULAR VOLUME 92.9 fl (80.0-96.0); PLATELET COUNT, AUTOMATED 236 10^3/uL (150-450); RED BLOOD COUNT 3.81 10^6/uL (4.00-5.40); WHITE BLOOD COUNT 11.7 10^3/uL (4.0-10.0)
[2019-01-26] MEDS: HEPARIN SOD (PORCINE) 5000 UNITS/ML VIAL SC SCH ×3 (05:45→21:58)
[2019-01-26] MEDS: LEVOTHYROXINE 75MCG TABLET (0.075MG) PO SCH (05:45)
[2019-01-26 05:58] LABS: CALCIUM LEVEL 8.4 MG/DL (8.8-10.2); CREATININE FOR GFR 1.19 MG/DL (0.55-1.30); GLOMERULAR FILTRATION RATE 46.1 (>32); POTASSIUM SERUM 3.5 MEQ/L (3.5-5.1); THYROID STIMULATING HORMONE 2.49 uIU/ML (0.358-3.740)
[2019-01-26 06:00] VITALS: BP 162/79
[2019-01-26] MEDS: HumaLOG INSULIN (NovoLOG) PER UNIT SC SCH ×3 (07:30→18:35)
--- NOTE | 2019-01-26 07:49 | HPE ---
DATE OF ADMISSION: 01/25/2019 CHIEF COMPLAINT: Worsening back pain in the left lower back radiating down to the left leg chronically worsening with difficulty ambulating. HISTORY OF PRESENT ILLNESS: The patient is an 84-year-old female. She has a significant past medical history of diastolic congestive heart failure (CHF), cerebrovascular accident (CVA) with residual weakness, diabetes, hypothyroidism, chronic kidney disease (CKD) stage III, ulcerative colitis. She appears to be on some sort of infusion every 8 weekly, this is unclear. Hypothyroidism, iron deficiency anemia, gout and gastroesophageal reflux disease (GERD). She presents to the emergency room accompanied by her daughter. She is somewhat of a poor historian. She states her memory has been somewhat poor since the stroke with complaints of worsening chronic right-sided lower back pain radiating down the right leg which has been chronically worsening for several months. Today it is to the point where she has been unable to ambulate without significant difficulty. The patient is urinary incontinent at baseline. An MRI was completed in the emergency room which showed no cord compression, just moderate spinal stenosis. She follows with an orthopedic surgeon. She states his name is Dr. Hanson. I am unclear who this is. She denies any trauma. She denies any cough, chest pain, shortness of breath. She denies dysuria and frequency. Again, she is somewhat of a poor historian. She denies any nausea, vomiting, fevers or chills. She does not appear toxic during the examination. PAST MEDICAL HISTORY: See history of the present illness (HPI). PAST SURGICAL HISTORY: 1. Cataract. 2. Cholecystectomy. 3. Hysterectomy. HOME MEDICATIONS: - Tylenol - meclizine - allopurinol - amlodipine - atenolol - Azopt - vitamin D - Plavix - Combigan - ferrous sulfate - Lasix - latanoprost - Synthroid - loperamide - losartan - Zofran - potassium chloride - ranitidine - sertraline SOCIAL HISTORY: She is a former smoker. Denies alcohol or illicit drug use. FAMILY HISTORY: Family history is noncontributory. REVIEW OF SYSTEMS: A 12-point review of systems was completed, all of which were negative except those listed in the history of the present illness. ALLERGIES: Multiple allergies: BRINZOLAMIDE, CLAVULANIC ACID, CONTRAST MEDIUM, DILTIAZEM, DOXYCYCLINE, GEMFIBROZIL, IODINE, METOPROLOL, PENICILLINS, PREDNISONE, SHELLFISH ALLERGY, STATINS, SULFA ANTIBIOTICS, SULFASALAZINE, TAPE, TIMOLOL, TRAVOPROST. VITAL SIGNS ON ADMISSION: Temperature 97, 74, 14, 184/82, saturating at 96% on room air. PHYSICAL EXAMINATION: General: She is well nourished, in no apparent distress. Head is normocephalic, atraumatic. Eyes: Extraocular movements are intact. Pupils equal, round, reactive to light. Neck is supple. No jugular venous pressure (JVP). Lungs: Good air entry in the anterior chest. No crackles or wheezes. Cardiovascular: Regular rate and rhythm. Normal S1, S2. No murmurs, gallops, or rubs. Abdomen: Soft, nontender, nondistended, positive bowel sounds. No rebound or guarding. Extremities: No pitting edema or calf tenderness. Skin: Intact. No rashes, lesions or breakdown. Neurological: She is alert and oriented (A and O) times three. No discernable focal deficits. Power seems to be diminished in the bilateral lower extremities, right worse than left but it seems to be secondary to pain. Sensation is intact to fine touch. Power and sensation intact in the bilateral upper extremities. Coordination is intact. LABORATORIES AND IMAGING COMPLETED IN THE EMERGENCY ROOM: White count of 13, hemoglobin and hematocrit (H and H) of 12/40, platelet count of 251. Coagulation panel (coags) within normal limits. Chemistry shows a BUN and creatinine of 23/1.12. Lactate within normal limits. Urinalysis (UA) shows 21 white blood cell (WBC), 5 red blood cell, 1 squamous epithelial cell. MRI of the lumbar spine showed degenerative disc disease and facet arthritis at L4-L5 with grade 1 anterolisthesis and moderate spinal stenosis. ASSESSMENT AND PLAN: 1. Intractable back pain secondary to spinal stenosis. She follows with an orthopedic surgeon outside. Will do Percocet every 12 - 5/ for pain control. Will get physical therapy (PT) evaluation to see if the patient will benefit from rehabilitation. 2. For positive urinalysis (UA) we will treat with ceftriaxone 2 to 3 days. Urine culture is sent. 3. For diastolic congestive heart failure (CHF) we will continue her Lasix as well as potassium supplements. 4. For diabetes she is not on any medications. We will do sliding scale. 5. For gout continue allopurinol. 6. For hypertension continue Norvasc, atenolol. 7. For glaucoma we will continue her eye drops. 8. For ulcerative colitis she states that she is on infusion every 8 weekly. Unclear what this is. Can continue as outpatient. Will continue loperamide as needed. 9. For gastroesophageal reflux disease (GERD) we will continue ranitidine. 10. For mood disorder we will continue sertraline. 11. Supportive deep vein thrombosis (DVT) prophylaxis: Heparin subcutaneous. 12. For stroke we will continue her Plavix. 12. Gastrointestinal (GI) prophylaxis: Not indicated. 13. Diet: Cardiac, diabetic diet. MTDD
[2019-01-26] MEDS ORDERED: FUROSEMIDE 20 MG TAB PO SCH (09:00)
[2019-01-26] MEDS: FERROUS GLUCONATE 324 MG TAB PO SCH (09:13)
[2019-01-26] MEDS: VITAMIN D 1,000 INTERNATIONAL UNITS TABLET PO SCH (09:13)
[2019-01-26] MEDS: ATENOLOL 50 MG TAB PO SCH ×2 (09:14→20:19)
[2019-01-26] MEDS: SERTRALINE HCL 50 MG TAB PO SCH ×2 (09:14→20:19)
[2019-01-26] MEDS: LOSARTAN 50 MG TAB PO SCH ×2 (09:15→20:19)
[2019-01-26] MEDS: ALLOPURINOL 100 MG TAB PO SCH ×2 (09:16→20:19)
[2019-01-26] MEDS: BRINZOLAMIDE 1 % OPHTH SUSP (AZOPT) 10ML OU SCH ×2 (09:17→20:20)
--- NOTE | 2019-01-26 11:03 | IPNPDOC ---
Date Seen The patient was seen on 01/26/19. Progress Note SUBJECTIVE: no c/o b/l le weakness, urine or bowel incontinence. c/o back pain when she stands and ambulates. OBJECTIVE: VITALS: PLS SEE BELOW PHYSICAL EXAMINATION: General: She is well nourished, in no apparent distress. Head is normocephalic, atraumatic. Eyes: Extraocular movements are intact. Pupils equal, round, reactive to light. Neck is supple. No jugular venous pressure (JVP). Lungs: Good air entry in the anterior chest. No crackles or wheezes. Cardiovascular: Regular rate and rhythm. Normal S1, S2. No murmurs, gallops, or rubs. Abdomen: Soft, nontender, nondistended, positive bowel sounds. No rebound or guarding. Extremities: No pitting edema or calf tenderness. Skin: Intact. No rashes, lesions or breakdown. Neurological: She is alert and oriented (A and O) times three. No discernable focal deficits. Power seems to be diminished in the bilateral lower extr emities, right worse than left but it seems to be secondary to pain. Sensation is intact to fine touch. Power and sensation intact in the bilateral upper extremities. Coordination is intact. LABORATORIES AND IMAGING: PLS SEE BELOW MRI of the lumbar spine showed degenerative disc disease and facet arthritis at L4-L5 with grade 1 anterolisthesis and moderate spinal stenosis. ASSESSMENT AND PLAN: The patient is an 84-year-old female. She has a significant past medical history of diastolic congestive heart failure (CHF), cerebrovascular accident (CVA) with residual weakness, diabetes, hypothyroidism, chronic kidney disease (CKD) stage III, ulcerative colitis. She appears to be on some sort of infusion every 8 weekly, this is unclear. Hypothyroidism, iron deficiency anemia, gout and gastroesophageal reflux disease (GERD). She presents to the emergency room accompanied by her daughter. She is somewhat of a poor historian. She states her memory has been somewhat poor since the stroke with complaints of worsening chronic right-sided lower back pain radiating down the right leg which has been chronically worsening for several months. Today it is to the point where she has been unable to ambulate without significant difficulty. The patient is urinary incontinent at baseline. An MRI was completed in the emergency room which showed no cord compression, just moderate spinal stenosis. She follows with an orthopedic surgeon. She states his name is Dr. Hanson. I am unclear who this is. She denies any trauma. She denies any cough, chest pain, shortness of breath. Again, she is somewhat of a poor historian. She denies any nausea, vomiting, fevers or chills. She does not appear toxic during the examination. Intractable back pain secondary to spinal stenosis. She follows with an orthopedic surgeon as outpt and was told "there is nothing they could do for me." on Percocet every - for pain control. Will get physical therapy (PT) evaluation to see if the patient will benefit from rehabilitation. Pain mgt consult UTI present on admission we will treat with ceftriaxone 2 to 3 days. Urine culture is sent. For diastolic congestive heart failure (CHF) we will continue her Lasix as well as potassium supplements. For diabetes she is not on any medications. on sliding scale. For gout continue allopurinol. For hypertension continue Norvasc, atenolol. For glaucoma we will continue her eye drops. For ulcerative colitis she states that she is on infusion every 8 weekly. Unclear what this is. Can continue as outpatient. Will continue loperamide as needed. For gastroesophageal reflux disease (GERD) we will continue ranitidine. For mood disorder we will continue sertraline. Supportive deep vein thrombosis (DVT) prophylaxis: Heparin subcutaneous. For stroke we will continue her Plavix. Gastrointestinal (GI) prophylaxis: Not indicated. Diet: Cardiac, diabetic diet. VS, I&O, 24H, Fishbone Vital Signs/I&O Vital Signs Date Time Temp Pulse Resp B/P (MAP) Pulse Ox O2 Delivery O2 Flow Rate FiO2 01/26/19 09:14 70 180/72 01/26/19 06:00 98.0 20 95 01/25/19 23:50 Room Air I&O- Last 24 Hours up to 6 AM 01/26/19 06:00 Intake Total 1060 ml Output Total 70 ml Balance 990 ml Laboratory Data 24H LABS Laboratory Tests 2 01/25/19 17:38: Anion Gap 8, Glomerular Filtration Rate 49.5, Calcium Level 8.6L, Aspartate Amino Transf (AST/SGOT) 16, Alanine Aminotransferase (ALT/SGPT) 18, Alkaline Phosphatase 80, Total Bilirubin 0.7, Direct Bilirubin 0.2, Total Protein 6.4, Albumin 3.0L, Albumin/Globulin Ratio 0.88L, Lipase 156 01/25/19 18:19: Immature Granulocyte % (Auto) 0.4, White Blood Count 13.5H, Red Blood Count 4.32, Hemoglobin 12.7, Hematocrit 40.4, Mean Corpuscular Volume 93.5, Mean Corpuscular Hemoglobin 29.4, Mean Corpuscular Hemoglobin Concent 31.4L, Red Cell Distribution Width 14.0, Platelet Count 251, Neutrophils (%) (Auto) 78.1H, Lymphocytes (%) (Auto) 13.8L, Monocytes (%) (Auto) 5.6H, Eosinophils (%) (Auto) 1.8, Basophils (%) (Auto) 0.3, Neutrophils # (Auto) 10.6H, Lymphocytes # (Auto) 1.9, Monocytes # (Auto) 0.8, Eosinophils # (Auto) 0.2, Basophils # (Auto) 0.0, Nucleated Red Blood Cells % (auto) 0.0, Prothrombin Time 14.9H, Prothromb Time International Ratio 1.15, Activated Partial Thromboplast Time 33.6, Lactic Acid Level 0.6 01/25/19 19:35: Urine Color YELLOW, Urine Appearance HAZY, Urine pH 5.0, Urine Specific [place] 1.019, Urine Protein 3+H, Urine Glucose (UA) 1+H, Urine Ketones NEGATIVE, Urine Blood NEGATIVE, Urine Nitrite NEGATIVE, Urine Bilirubin NEGATIVE, Urine Uro bilinogen 0.2, Urine Leukocyte Esterase TRACEH, Urine WBC (Auto) 31H, Urine RBC (Auto) 5H, Urine Hyaline Casts (Auto) 4, Urine Bacteria (Auto) 1+H, Urine Squamous Epithelial Cells 1, Urine Amorphous Sediment SMALLH, Urine Mucus (Auto) SMALL, Urine Sperm (Auto) 01/26/19 04:51: Anion Gap 9, Glomerular Filtration Rate 46.1, Calcium Level 8.4L, Blood Urea Nitrogen 21H, Creatinine 1.19, Sodium Level 144, Potassium Level 3.5, Chloride Level 110H, Carbon Dioxide Level 25, Thyroid Stimulating Hormone (TSH) 2.490 01/26/19 04:52: Nucleated Red Blood Cells % (auto) 0.0 CBC/BMP Laboratory Tests 01/25/19 17:38 01/25/19 18:19 Red Blood Count 4.32, Mean Corpuscular Volume 93.5, Mean Corpuscular Hemoglobin 29.4, Mean Corpuscular Hemoglobin Concent 31.4 L, Red Cell Distribution Width 14.0, Neutrophils (%) (Auto) 78.1 H, Lymphocytes (%) (Auto) 13.8 L, Monocytes (%) (Auto) 5.6 H, Eosinophils (%) (Auto) 1.8, Basophils (%) (Auto) 0.3, Neutrophils # (Auto) 10.6 H, Lymphocytes # (Auto) 1.9, Monocytes # (Auto) 0.8, Eosinophils # (Auto) 0.2, Basophils # (Auto) 0.0 01/26/19 04:51 Calcium Level 8.4 L 01/26/19 04:52 Red Blood Count 3.81 L, Mean Corpuscular Volume 92.9, Mean Corpuscular Hemoglobin 29.7, Mean Corpuscular Hemoglobin Concent 31.9 L, Red Cell Distribution Width 14.2 Microbiology Microbiology 01/25/19 Blood Culture, Received Pending 01/25/19 Blood Culture, Received Pending 01/25/19 Urine Culture, Received Pending MARIA G MCCALL MD Jan 26, 2019 11:02
[2019-01-26] MEDS: **hydrALAZINE HCL** 25 MG TAB PO SCH ×2 (12:21→18:35)
[2019-01-26] MEDS: amLODIPine 5 MG TAB PO SCH ×2 (12:21→20:20)
[2019-01-26 14:00] VITALS: BP 160/76
[2019-01-26] MEDS: PERCOCET 5MG/325MG TAB PO PRN (14:19)
--- NOTE | 2019-01-26 17:13 | CR ---
DATE OF CONSULTATION: 01/26/2019 CHIEF COMPLAINT: Low back pain. REFERRING PHYSICIAN: Dr. Sommer Marcus Went to the floor and spoke with primary care nurse. States the patient has requested pain medicine once today, which she received Percocet 5-325 and reassessment of pain 1 hour later revealed zero pain. Nurse is telling me that patient is participating with physical therapy. She would not be an interventional candidate due to her Plavix therapy. I would be glad to see Trish if her pain becomes out of control for reevaluation. CRYSTALD
[2019-01-26] MEDS ORDERED: VANCOMYCIN HCL 1,000 MG in IV FLUID PLACE HOLDER 1 EA IV SCH (20:00)
[2019-01-26] MEDS ORDERED: VANCOMYCIN HCL 750 MG, VIAL MATE ADAPTER 1 EACH in D5W 250 ML IV ONE (20:00)
[2019-01-26] MEDS: POTASSIUM CHLORIDE 10 MEQ SR TABLET PO SCH (20:18)
[2019-01-26] MEDS: CLOPIDOGREL 75 MG TAB PO SCH (20:19)
[2019-01-26] MEDS: LATANOPROST 0.005% OPHTH SOLN 2.5 ML OU SCH (20:20)
[2019-01-26] MEDS ORDERED: FAMOTIDINE 20 MG TAB PO PRN (21:00)
[2019-01-26] MEDS ORDERED: VANCOMYCIN HCL 500 MG in D5W MINI-BAG PLUS 100 ML IV ONE (21:00)
[2019-01-26] MEDS ORDERED: amLODIPine 5 MG TAB PO SCH (21:00)
--- NOTE | 2019-01-26 21:09 | PHACANCOPD ---
PHARMACY VANCOMYCIN DOSING Pt Demographics Demographics Patient Age:84 , Weight:67.500 , Gender: female Adjusted Body Weight Date: 01/26/19, Adjusted Body Weight: [54.3] Kg Events Past 24 Hours Events Past 24 Hours: NO: Dialysis, Diuretic Therapy, Change in CrCl, Fever, Elevation in WBC, Pending Diagnostics, Pending Procedures, Other Vancomycin Vancomycin indication: BACTEREMIA Vancomycin Target Ranges: 15-20 mcg/ml Vancomycin Load Y/N: Yes Load Dose Date Time Vancomycin Load Dose: 1.25G Date:01/26/19 Time: 1999 Vancomycin Dose Date: 01/26/19. Current Vancomycin Dose: [1G IV Q24H 01/27 @1999] Intermittent Dosing?: No Labs Labs Item Value Date Time White Blood Count 13.5 10^3/uL H 01/25/19 1819 White Blood Count 11.7 10^3/uL H 01/26/19 0452 Creatinine 1.12 MG/DL 01/25/19 1738 Creatinine 1.19 MG/DL 01/26/19 0451 Micro Microbiology 01/26/19 Blood Culture, Received Pending 01/26/19 Blood Culture, Received Pending 01/25/19 Blood Culture - Preliminary, Resulted 01/25/19 Blood Culture - Preliminary, Resulted No growth after 24 hours . All specim... 01/25/19 Urine Culture, Received Pending Creatinine Clearance Date:01/26/19. Creatinine Clearance: [~30ML/MIN]. Assessment and Plan Maintaining Current Dose?: Yes Reason for dose change: No Dose Change Pharmacist Note Pharmacist Note Date: 01/26/19. Pharmacist note: PT is an 84 year old female being treated for bacteremia goal trough 15-20mcg/ml. The patient last received vancomycin here at [facility] in 2014. To achieve goal a 1.25g loading dose was started 01/26/19 @ 1999. Maintenance therapy will consist of 1g iv every 24 hours starting 01/27/19 @20:00. We will continue to monitor and adjust the dose as needed. LAVELL TAFOYA PHARMACY Jan 26, 2019 21:09
[2019-01-26 22:00] VITALS: BP 168/82
[2019-01-27] MEDS: **hydrALAZINE HCL** 25 MG TAB PO SCH ×6 (00:15→20:23)
[2019-01-27] MEDS: PERCOCET 5MG/325MG TAB PO PRN ×2 (04:33→20:24)
[2019-01-27] MEDS: LEVOTHYROXINE 75MCG TABLET (0.075MG) PO SCH (05:19)
[2019-01-27] MEDS: HEPARIN SOD (PORCINE) 5000 UNITS/ML VIAL SC SCH ×2 (05:20→14:58)
[2019-01-27 05:54] LABS: HEMOGLOBIN 11.3 g/dl (12.0-15.5); MEAN CORPUSCULAR HEMOGLOBIN 29.1 pg (27.0-33.0); MEAN CORPUSCULAR HGB CONC 30.5 g/dl (32.0-36.5); MEAN CORPUSCULAR VOLUME 95.4 fl (80.0-96.0); PLATELET COUNT, AUTOMATED 262 10^3/uL (150-450); RED BLOOD COUNT 3.88 10^6/uL (4.00-5.40); WHITE BLOOD COUNT 13.4 10^3/uL (4.0-10.0)
[2019-01-27 06:00] VITALS: BP 140/67
[2019-01-27 06:08] LABS: CALCIUM LEVEL 8.5 MG/DL (8.8-10.2); CREATININE FOR GFR 1.54 MG/DL (0.55-1.30); GLOMERULAR FILTRATION RATE 34.2 (>32); POTASSIUM SERUM 3.8 MEQ/L (3.5-5.1)
[2019-01-27] MEDS: HumaLOG INSULIN (NovoLOG) PER UNIT SC SCH ×3 (07:30→17:17)
[2019-01-27] MEDS: VITAMIN D 1,000 INTERNATIONAL UNITS TABLET PO SCH (08:35)
[2019-01-27] MEDS: SERTRALINE HCL 50 MG TAB PO SCH ×2 (08:36→20:23)
[2019-01-27] MEDS: amLODIPine 5 MG TAB PO SCH ×2 (08:36→20:22)
[2019-01-27] MEDS: ATENOLOL 50 MG TAB PO SCH ×2 (08:36→20:23)
[2019-01-27] MEDS: ALLOPURINOL 100 MG TAB PO SCH ×2 (08:36→20:22)
[2019-01-27] MEDS: BRINZOLAMIDE 1 % OPHTH SUSP (AZOPT) 10ML OU SCH ×2 (08:37→20:25)
[2019-01-27] MEDS: NS 0.45% 1,000 ML IV SCH (08:38)
--- NOTE | 2019-01-27 11:38 | IPNPDOC ---
Date Seen The patient was seen on 01/27/19. Progress Note SUBJECTIVE: acute kidney injury with creatinine 1.5 . lasix and losartan discontinued. on hydralazine and isosorbide for hypertension. pain mgt for spinal stenosis: no new recommendations. Physical therapy consulted. Pt says her is home with her, but she usually manages by herself with her walker. "I know when I'm ready" blood cx: gram positive 01/26/19 final report pending. on vanco. 2sets blood cx pending. OBJECTIVE: VITALS: PLS SEE BELOW PHYSICAL EXAMINATION: General: She is well nourished, in no apparent distress. Head is normocephalic, atraumatic. Eyes: Extraocular movements are intact. Pupils equal, round, reactive to light. Neck is supple. No jugular venous pressure (JVP). Lungs: Good air entry in the anterior chest. No crackles or wheezes. Cardiovascular: Regular rate and rhythm. Normal S1, S2. No murmurs, gallops, or rubs. Abdomen: Soft, nontender, nondistended, positive bowel sounds. No rebound or guarding. Extremities: No pitting edema or calf tenderness. Skin: Intact. No rashes, lesions or breakdown. Neurological: She is alert and oriented (A and O) times three. No discernable focal deficits. Power seems to be diminished in the bilateral lower extremities, right worse than left but it seems to be secondary to pain. Sensation is intact to fine touch. Power and sensation intact in the bilateral upper extremities. Coordination is intact. LABORATORIES AND IMAGING: PLS SEE BELOW MRI of the lumbar spine showed degenerative disc disease and facet arthritis at L4-L5 with grade 1 anterolisthesis and moderate spinal stenosis. ASSESSMENT AND PLAN: The patient is an 84-year-old female. She has a significant past medical history of diastolic congestive heart failure (CHF), cerebrovascular accident (CVA) with residual weakness, diabetes, hypothyroidism, chronic kidney disease (CKD) stage III, ulcerative colitis. She appears to be on some sort of infusion every 8 weekly, this is unclear. Hypothyroidism, iron deficiency anemia, gout and gastroesophageal reflux disease (GERD). She presents to the emergency room accompanied by her daughter. She is somewhat of a poor historian. She states her memory has been somewhat poor since the stroke with complaints of worsening chronic right-sided lower back pain radiating down the right leg which has been chronically worsening for several months. Today it is to the point where she has been unable to ambulate without significant difficulty. The patient is urinary incontinent at baseline. An MRI was completed in the emergency room which showed no cord compression, just moderate spinal stenosis. She follows with an orthopedic surgeon. She states his name is Dr. Hanson. I am unclear who this is. She denies any trauma. She denies any cough, chest pain, shortness of breath. Again, she is somewhat of a poor historian. She denies any nausea, vomiting, fevers or chills. She does not appear toxic during the examination. Intractable back pain secondary to spinal stenosis. She follows with an orthopedic surgeon as outpt and was told "there is nothing they could do for me." on Percocet every - for pain control. Will get physical therapy (PT) evaluation to see if the patient will benefit from rehabilitation. Pain mgt consult (+) blood culture: gram positive, on vanco 01/26/19. most likely a contaminant UTI present on admission we will treat with ceftriaxone 2 to 3 days. Urine culture is sent. For diastolic congestive heart failure (CHF) we will continue her Lasix as well as potassium supplements. For diabetes she is not on any medications. on sliding scale. For gout continue allopurinol. For hypertension continue Norvasc, atenolol. For glaucoma we will continue her eye drops. For ulcerative colitis she states that she is on infusion every 8 weekly. Unclear what this is. Can continue as outpatient. Will continue loperamide as needed. For gastroesophageal reflux disease (GERD) we will continue ranitidine. For mood disorder we will continue sertraline. Supportive deep vein thrombosis (DVT) prophylaxis: Heparin subcutaneous. For stroke we will continue her Plavix. Gastrointestinal (GI) prophylaxis: Not indicated. Diet: Cardiac, diabetic diet. VS, I&O, 24H, Fishbone Vital Signs/I&O Vital Signs Date Time Temp Pulse Resp B/P (MAP) Pulse Ox O2 Delivery O2 Flow Rate FiO2 01/27/19 06:00 98.2 69 20 140/67 (91) 93 01/25/19 23:50 Room Air I&O- Last 24 Hours up to 6 AM 01/27/19 06:00 Intake Total 1945 ml Output Total 1000 ml Balance 945 ml Laboratory Data 24H LABS Laboratory Tests 2 01/26/19 11:37: Bedside Glucose (Misc Panel) 134H 01/26/19 18:24: Bedside Glucose (Misc Panel) 115H 01/26/19 20:41: Bedside Glucose (Misc Panel) 104 01/27/19 05:18: Nucleated Red Blood Cells % (auto) 0.0, Anion Gap 11, Glomerular Filtration Rate 34.2, Blood Urea Nitrogen 25H, Creatinine 1.54H, Sodium Level 142, Potassium Level 3.8, Chloride Level 109H, Carbon Dioxide Level 22, Calcium Level 8.5L CBC/BMP Laboratory Tests 01/27/19 05:18 Red Blood Count 3.88 L, Mean Corpuscular Volume 95.4, Mean Corpuscular Hemoglobin 29.1, Mean Corpuscular Hemoglobin Concent 30.5 L, Red Cell Distribution Width 14.3, Calcium Level 8.5 L Microbiology Microbiology 01/26/19 Blood Culture, Received Pending 01/26/19 Blood Culture, Received Pending 01/25/19 Blood Culture - Preliminary, Resulted 01/25/19 Blood Culture - Preliminary, Resulted No growth after 24 hours . All specim... 01/25/19 Urine Culture - Final, Complete Escherichia Coli MARIA G MCCALL MD Jan 27, 2019 07:23
[2019-01-27] MEDS: ISOSORBIDE DIN (ISORDIL) 10 MG TAB PO SCH ×2 (12:37→17:16)
[2019-01-27 14:00] VITALS: BP 150/70
[2019-01-27] MEDS ORDERED: VANCOMYCIN HCL 1,000 MG, VIAL MATE ADAPTER 1 EACH in D5W 250 ML IV SCH (20:00)
[2019-01-27] MEDS: CLOPIDOGREL 75 MG TAB PO SCH (20:22)
[2019-01-27] MEDS: POTASSIUM CHLORIDE 10 MEQ SR TABLET PO SCH (20:23)
[2019-01-27] MEDS: LATANOPROST 0.005% OPHTH SOLN 2.5 ML OU SCH (20:25)
[2019-01-27 22:00] VITALS: BP 162/70
[2019-01-28] MEDS: NS 0.45% 1,000 ML IV SCH (00:19)
[2019-01-28] MEDS: HEPARIN SOD (PORCINE) 5000 UNITS/ML VIAL SC SCH ×4 (00:23→21:21)
[2019-01-28 06:00] VITALS: BP 165/71
[2019-01-28 06:13] LABS: HEMATOCRIT 33.5 % (36.0-47.0); HEMOGLOBIN 10.5 g/dl (12.0-15.5); MEAN CORPUSCULAR HEMOGLOBIN 29.4 pg (27.0-33.0); MEAN CORPUSCULAR HGB CONC 31.3 g/dl (32.0-36.5); MEAN CORPUSCULAR VOLUME 93.8 fl (80.0-96.0); PLATELET COUNT, AUTOMATED 232 10^3/uL (150-450); RED BLOOD COUNT 3.57 10^6/uL (4.00-5.40); WHITE BLOOD COUNT 11.7 10^3/uL (4.0-10.0)
[2019-01-28] MEDS: ISOSORBIDE DIN (ISORDIL) 10 MG TAB PO SCH ×2 (06:39→12:23)
[2019-01-28] MEDS: LEVOTHYROXINE 75MCG TABLET (0.075MG) PO SCH (06:39)
[2019-01-28 06:42] LABS: CALCIUM LEVEL 8.5 MG/DL (8.8-10.2); CREATININE FOR GFR 1.16 MG/DL (0.55-1.30); GLOMERULAR FILTRATION RATE 47.5 (>32)
[2019-01-28] MEDS: HumaLOG INSULIN (NovoLOG) PER UNIT SC SCH ×3 (07:30→17:25)
[2019-01-28] MEDS: PERCOCET 5MG/325MG TAB PO PRN (08:24)
[2019-01-28] MEDS: amLODIPine 5 MG TAB PO SCH ×2 (08:25→21:20)
[2019-01-28] MEDS: **hydrALAZINE HCL** 25 MG TAB PO SCH ×2 (08:25→12:23)
[2019-01-28] MEDS: SERTRALINE HCL 50 MG TAB PO SCH ×2 (08:25→21:19)
[2019-01-28] MEDS: ALLOPURINOL 100 MG TAB PO SCH ×2 (08:25→21:16)
[2019-01-28] MEDS: FERROUS GLUCONATE 324 MG TAB PO SCH (08:25)
[2019-01-28] MEDS: ATENOLOL 50 MG TAB PO SCH ×2 (08:26→21:20)
[2019-01-28] MEDS: VITAMIN D 1,000 INTERNATIONAL UNITS TABLET PO SCH (08:26)
[2019-01-28] MEDS: BRINZOLAMIDE 1 % OPHTH SUSP (AZOPT) 10ML OU SCH ×2 (08:26→21:21)
[2019-01-28] MEDS: LevoFLOXacin 250 MG TABLET PO SCH (10:58)
--- NOTE | 2019-01-28 12:42 | IPNPDOC ---
Date Seen The patient was seen on 01/28/19. Progress Note SUBJECTIVE: Due to recent acute kidney injury with creatinine 1.5 . lasix and losartan discontinued. s/p hydralazine and isosorbide for hypertension. pain mgt for spinal stenosis: no new recommendations. Physical therapy consulted. Pt says her is home with her, but she usually manages by herself with her walker. "I know when I'm ready" blood cx: gram positive 01/26/19contaminant s/p vanco. 2sets blood cx no growth. Creatinine is normal today and bid home dose of losartan resumed. despite [id number]'s, no c/o headache. pt appears drowsy and per RN usually unable to work with physical therapy because she is groggy. OBJECTIVE: VITALS: PLS SEE BELOW PHYSICAL EXAMINATION: General: She is well nourished, in no apparent distress. Head is normocephalic, atraumatic. Eyes: Extraocular movements are intact. Pupils equal, round, reactive to light. Neck is supple. No jugular venous pressure (JVP). Lungs: Good air entry in the anterior chest. No crackles or wheezes. Cardiovascular: Regular rate and rhythm. Normal S1, S2. No murmurs, gallops, or rubs. Abdomen: Soft, nontender, nondistended, positive bowel sounds. No rebound or guarding. Extremities: No pitting edema or calf tenderness. Skin: Intact. No rashes, lesions or breakdown. Neurological: She is alert and oriented (A and O) times three. No discernable focal deficits. Power seems to be diminished in the bilateral lower extremities, right worse than left but it seems to be secondary to pain. Sensation is intact to fine touch. Power and sensation intact in the bilateral upper extremities. Coordination is intact. LABORATORIES AND IMAGING: PLS SEE BELOW MRI of the lumbar spine showed degenerative disc disease and facet arthritis at L4-L5 with grade 1 anterolisthesis and moderate spinal stenosis. ASSESSMENT AND PLAN: The patient is an 84-year-old female. She has a significant past medical history of diastolic congestive heart failure (CHF), cerebrovascular accident (CVA) with residual weakness, diabetes, hypothyroidism, chronic kidney disease (CKD) stage III, ulcerative colitis. She appears to be on some sort of infusion every 8 weekly, this is unclear. Hypothyroidism, iron deficiency anemia, gout and gastroesophageal reflux disease (GERD). She presents to the emergency room accompanied by her daughter. She is somewhat of a poor historian. She states her memory has been somewhat poor since the stroke with complaints of worsening chronic right-sided lower back pain radiating down the right leg which has been chronically worsening for several months. Today it is to the point where she has been unable to ambulate without significant difficulty. The patient is urinary incontinent at baseline. An MRI was completed in the emergency room which showed no cord compression, just moderate spinal stenosis. She follows with an orthopedic surgeon. She states his name is Dr. Hanson. I am unclear who this is. She denies any trauma. She denies any cough, chest pain, shortness of breath. Again, she is somewhat of a poor historian. She denies any nausea, vomiting, fevers or chills. She does not appear toxic during the examination. Intractable back pain secondary to spinal stenosis. She follows with an orthopedic surgeon as outpt and was told "there is nothing they could do for me." on Percocet every - for pain control. Will get physical therapy (PT) evaluation to see if the patient will benefit from rehabilitation. Pain mgt consult (+) blood culture: gram positive, s/p vanco 01/26/19. most likely a contaminant UTI present on admission we will treat with ceftriaxone 2 to 3 days. Urine culture is sent. For diastolic congestive heart failure (CHF) off lasix due to recent acute kidney injury. acute kidney injury held lasix temporarily, resolved. For diabetes she is not on any medications. on sliding scale. For gout continue allopurinol. For hypertension uncontrolled. since creatinine is improved, resumed losaratan bid. discontinued hydralazine and imdur. For glaucoma we will continue her eye drops. For ulcerative colitis she states that she is on infusion every 8 weekly. Unclear what this is. Can continue as outpatient. Will continue loperamide as needed. For gastroesophageal reflux disease (GERD) we will continue ranitidine. For mood disorder we will continue sertraline. Supportive deep vein thrombosis (DVT) prophylaxis: Heparin subcutaneous. For stroke we will continue her Plavix. Gastrointestinal (GI) prophylaxis: Not indicated. Diet: Cardiac, diabetic diet. disposition: await PT clearance. VS, I&O, 24H, Fishbone Vital Signs/I&O Vital Signs Date Time Temp Pulse Resp B/P (MAP) Pulse Ox O2 Delivery O2 Flow Rate FiO2 01/28/19 12:23 160/62 01/28/19 08:54 16 01/28/19 08:25 71 01/28/19 06:00 99.4 95 01/25/19 23:50 Room Air I&O- Last 24 Hours up to 6 AM 01/28/19 06:00 Intake Total 2150 ml Output Total 425 ml Balance 1725 ml Laboratory Data 24H LABS Laboratory Tests 2 01/27/19 16:37: Bedside Glucose (Misc Panel) 115H 01/27/19 18:51: Vancomycin Level Trough 8.6L 01/27/19 20:19: Bedside Glucose (Misc Panel) 106 01/28/19 05:34: Nucleated Red Blood Cells % (auto) 0.0, Anion Gap 7L, Glomerular Filtration Rate 47.5, Blood Urea Nitrogen 24H, Creatinine 1.16, Sodium Level 142, Potassium Level 4.0, Chloride Level 111H, Carbon Dioxide Level 24, Calcium Level 8.5L 01/28/19 11:47: Bedside Glucose (Misc Panel) 109 CBC/BMP Laboratory Tests 01/28/19 05:34 Red Blood Count 3.57 L, Mean Corpuscular Volume 93.8, Mean Corpuscular Hemoglobin 29.4, Mean Corpuscular Hemoglobin Concent 31.3 L, Red Cell Distr ibution Width 14.2, Calcium Level 8.5 L Microbiology Microbiology 01/26/19 Blood Culture - Preliminary, Resulted No growth after 24 hours . All specim... 01/26/19 Blood Culture - Preliminary, Resulted No growth after 24 hours . All specim... 01/25/19 Blood Culture - Final, Complete Streptococcus Mitis 01/25/19 Blood Culture - Preliminary, Resulted No Growth after 48 hours. All Specime... 01/25/19 Urine Culture - Final, Complete Escherichia Coli MARIA G MCCALL MD Jan 28, 2019 12:36
[2019-01-28 14:00] VITALS: BP 168/69
[2019-01-28] MEDS: LOSARTAN 50 MG TAB PO SCH ×2 (14:16→21:19)
[2019-01-28] MEDS: CLOPIDOGREL 75 MG TAB PO SCH (21:19)
[2019-01-28] MEDS: POTASSIUM CHLORIDE 10 MEQ SR TABLET PO SCH (21:19)
[2019-01-28] MEDS: LATANOPROST 0.005% OPHTH SOLN 2.5 ML OU SCH (21:21)
[2019-01-28] MEDS: ACETAMINOPHEN TAB 650MG DOSE (2X325MG) PO PRN (21:58)
[2019-01-28 22:00] VITALS: BP_SYST 152; BP_SYST 165; BP_DIAS 74; BP_DIAS 78
[2019-01-28] MEDS: ONDANSETRON 4 MG ORAL DISINTEGRATING TAB (Q0162 PER 1MG) PO PRN (23:03)
[2019-01-29 05:50] LABS: HEMATOCRIT 33.5 % (36.0-47.0); HEMOGLOBIN 10.6 g/dl (12.0-15.5); MEAN CORPUSCULAR HEMOGLOBIN 29.4 pg (27.0-33.0); MEAN CORPUSCULAR HGB CONC 31.6 g/dl (32.0-36.5); MEAN CORPUSCULAR VOLUME 92.8 fl (80.0-96.0); PLATELET COUNT, AUTOMATED 244 10^3/uL (150-450); RED BLOOD COUNT 3.61 10^6/uL (4.00-5.40); WHITE BLOOD COUNT 10.3 10^3/uL (4.0-10.0)
[2019-01-29 06:00] VITALS: BP 158/59
[2019-01-29 06:18] LABS: CALCIUM LEVEL 8.7 MG/DL (8.8-10.2); CREATININE FOR GFR 1.11 MG/DL (0.55-1.30); POTASSIUM SERUM 4.1 MEQ/L (3.5-5.1)
[2019-01-29] MEDS: ONDANSETRON 4 MG ORAL DISINTEGRATING TAB (Q0162 PER 1MG) PO PRN (06:47)
[2019-01-29] MEDS: LEVOTHYROXINE 75MCG TABLET (0.075MG) PO SCH (06:47)
[2019-01-29] MEDS: LevoFLOXacin 250 MG TABLET PO SCH (06:47)
[2019-01-29] MEDS: HEPARIN SOD (PORCINE) 5000 UNITS/ML VIAL SC SCH ×3 (06:48→22:35)
[2019-01-29] MEDS: HumaLOG INSULIN (NovoLOG) PER UNIT SC SCH ×3 (07:30→17:30)
[2019-01-29] MEDS: SERTRALINE HCL 50 MG TAB PO SCH ×2 (09:00→22:35)
[2019-01-29] MEDS: amLODIPine 5 MG TAB PO SCH ×2 (09:00→22:39)
[2019-01-29] MEDS: LOSARTAN 50 MG TAB PO SCH ×2 (09:00→22:38)
[2019-01-29] MEDS: ALLOPURINOL 100 MG TAB PO SCH ×2 (09:00→22:35)
[2019-01-29] MEDS: ATENOLOL 50 MG TAB PO SCH ×2 (09:00→22:39)
[2019-01-29] MEDS: VITAMIN D 1,000 INTERNATIONAL UNITS TABLET PO SCH (09:00)
[2019-01-29] MEDS: BRINZOLAMIDE 1 % OPHTH SUSP (AZOPT) 10ML OU SCH ×2 (09:00→22:40)
--- NOTE | 2019-01-29 13:56 | IPNPDOC ---
Date Seen The patient was seen on 01/29/19. Progress Note SUBJECTIVE: NO c/o headache despite uncontrolled bp. no chest pain,sob. ambualted w RN and more cooperative. percocet changed to prn bid due to increased lethargy and obtundation. pt has been refusing physical therapy because "I don't feel well. " labs unchanged. on quinolone for ecoli uti. chronic spinal stenosis. Per outpt ortho, "there's nothing we can do about it." per pain mgt, "no changes in present meds." pt encouraged to ambulate tid w nursing. OBJECTIVE: VITALS: PLS SEE BELOW PHYSICAL EXAMINATION: General: She is well nourished, in no apparent distress. Head is normocephalic, atraumatic. Eyes: Extraocular movements are intact. Pupils equal, round, reactive to light. Neck is supple. No jugular venous pressure (JVP). Lungs: Good air entry in the anterior chest. No crackles or wheezes. Cardiovascular: Regular rate and rhythm. Normal S1, S2. No murmurs, gallops, or rubs. Abdomen: Soft, nontender, nondistended, positive bowel sounds. No rebound or guarding. Extremities: No pitting edema or calf tenderness. Skin: Intact. No rashes, lesions or breakdown. Neurological: She is alert and oriented (A and O) times three. No discernable focal deficits. Power seems to be diminished in the bilateral lower extremities, right worse than left but it seems to be secondary to pain. Sensation is intact to fine touch. Power and sensation intact in the bilateral upper extremities. Coordination is intact. LABORATORIES AND IMAGING: PLS SEE BELOW MRI of the lumbar spine showed degenerative disc disease and facet arthritis at L4-L5 with grade 1 anterolisthesis and moderate spinal stenosis. ASSESSMENT AND PLAN: The patient is an 84-year-old female. She has a significant past medical history of diastolic congestive heart failure (CHF), cerebrovascular accident (CVA) with residual weakness, diabetes, hypothyroidism, chronic kidney disease (CKD) stage III, ulcerative colitis. She appears to be on some sort of infusion every 8 weekly, this is unclear. Hypothyroidism, iron deficiency anemia, gout and gastroesophageal reflux disease (GERD). She presen ts to the emergency room accompanied by her daughter. She is somewhat of a poor historian. She states her memory has been somewhat poor since the stroke with complaints of worsening chronic right-sided lower back pain radiating down the right leg which has been chronically worsening for several months. Today it is to the point where she has been unable to ambulate without significant difficulty. The patient is urinary incontinent at baseline. An MRI was completed in the emergency room which showed no cord compression, just moderate spinal stenosis. She follows with an orthopedic surgeon. She states his name is Valentin. I am unclear who this is. She denies any trauma. She denies any cough, chest pain, shortness of breath. Again, she is somewhat of a poor historian. She denies any nausea, vomiting, fevers or chills. She does not appear toxic during the examination. Intractable back pain secondary to spinal stenosis. She follows with an orthopedic surgeon as outpt and was told "there is nothing they could do for me." on Percocet every - for pain control. Will get physical therapy (PT) evaluation to see if the patient will benefit from rehabilitation. Pain mgt consult Opioid-induced AMS lethargic on scheduled percocet, disoriented to place and time changed to prn pain meds as of 01/28/19. (+) blood culture: gram positive, s/p vanco 01/26/19. most likely a contaminant UTI present on admission we will treat with ceftriaxone 2 to 3 days. Urine culture is sent. For diastolic congestive heart failure (CHF) off lasix due to recent acute kidney injury. acute kidney injury held lasix temporarily, resolved. For diabetes she is not on any medications. on sliding scale. For gout continue allopurinol. For hypertension uncontrolled. since creatinine is improved, resumed losaratan bid.on hydralazine and s/p imdur. For glaucoma we will continue her eye drops. For ulcerative colitis she states that she is on infusion every 8 weekly. Unclear what this is. Can continue as outpatient. Will continue loperamide as needed. For gastroesophageal reflux disease (GERD) we will continue ranitidine. For mood disorder we will continue sertraline. Supportive deep vein thrombosis (DVT) prophylaxis: Heparin subcutaneous. For stroke we will continue her Plavix. Gastrointestinal (GI) prophylaxis: Not indicated. Diet: Cardiac, diabetic diet. disposition: await PT clearance. VS, I&O, 24H, Fishbone Vital Signs/I&O Vital Signs Date Time Temp Pulse Resp B/P (MAP) Pulse Ox O2 Delivery O2 Flow Rate FiO2 01/29/19 06:00 98.0 61 21 158/59 (92) 95 01/25/19 23:50 Room Air I&O- Last 24 Hours up to 6 AM 01/29/19 06:00 Intake Total 930 ml Output Total 225 ml Balance 705 ml Laboratory Data 24H LABS Laboratory Tests 2 01/28/19 11:47: Bedside Glucose (Misc Panel) 109 01/29/19 05:16: Nucleated Red Blood Cells % (auto) 0.0, Anion Gap 7L, Glomerular Filtration Rate 50.0, Blood Urea Nitrogen 22H, Creatinine 1.11, Sodium Level 144, Potassium [place] 4.1, Chloride Level 112H, Carbon Dioxide Level 25, Calcium Level 8.7L CBC/BMP Laboratory Tests 01/29/19 05:16 Red Blood Count 3.61 L, Mean Corpuscular Volume 92.8, Mean Corpuscular Hemoglobin 29.4, Mean Corpuscular Hemoglobin Concent 31.6 L, Red Cell Distribution Width 14.3, Calcium Level 8.7 L Microbiology Microbiology 01/26/19 Blood Culture - Preliminary, Resulted No Growth after 48 hours. All Specime... 01/26/19 Blood Culture - Preliminary, Resulted No Growth after 48 hours. All Specime... 01/25/19 Blood Culture - Final, Complete Streptococcus Mitis 01/25/19 Blood Culture - Preliminary, Resulted No Growth after 72 hours. All specime... 01/25/19 Urine Culture - Final, Complete Escherichia Coli MARIA G MCCALL MD Jan 29, 2019 07:34
[2019-01-29 14:00] VITALS: BP 143/65
[2019-01-29] MEDS: **hydrALAZINE HCL** 25 MG TAB PO SCH ×3 (15:02→22:41)
[2019-01-29] MEDS ORDERED: COMBIGAN (PATIENT'S OWN MED) OS SCH (21:00)
[2019-01-29 22:00] VITALS: BP 152/65
[2019-01-29] MEDS: POTASSIUM CHLORIDE 10 MEQ SR TABLET PO SCH (22:35)
[2019-01-29] MEDS: CLOPIDOGREL 75 MG TAB PO SCH (22:39)
[2019-01-29] MEDS: LATANOPROST 0.005% OPHTH SOLN 2.5 ML OU SCH (22:40)
[2019-01-30] MEDS: ONDANSETRON 4 MG ORAL DISINTEGRATING TAB (Q0162 PER 1MG) PO PRN (00:21)
[2019-01-30 05:30] LABS: HEMATOCRIT 35.7 % (36.0-47.0); HEMOGLOBIN 10.9 g/dl (12.0-15.5); MEAN CORPUSCULAR HEMOGLOBIN 29.3 pg (27.0-33.0); MEAN CORPUSCULAR HGB CONC 30.5 g/dl (32.0-36.5); PLATELET COUNT, AUTOMATED 271 10^3/uL (150-450); RED BLOOD COUNT 3.72 10^6/uL (4.00-5.40); WHITE BLOOD COUNT 11.6 10^3/uL (4.0-10.0)
[2019-01-30] MEDS: LEVOTHYROXINE 75MCG TABLET (0.075MG) PO SCH (05:47)
[2019-01-30] MEDS: LevoFLOXacin 250 MG TABLET PO SCH (05:47)
[2019-01-30] MEDS: HEPARIN SOD (PORCINE) 5000 UNITS/ML VIAL SC SCH ×3 (05:48→20:57)
[2019-01-30] MEDS: **hydrALAZINE HCL** 25 MG TAB PO SCH ×3 (05:48→18:25)
[2019-01-30 05:55] LABS: CALCIUM LEVEL 8.7 MG/DL (8.8-10.2); CREATININE FOR GFR 1.35 MG/DL (0.55-1.30); GLOMERULAR FILTRATION RATE 39.9 (>32); POTASSIUM SERUM 4.3 MEQ/L (3.5-5.1)
[2019-01-30 06:00] VITALS: BP 131/85
[2019-01-30] MEDS ORDERED: NS 1,000 ML IV ONE (07:15)
[2019-01-30] MEDS: SERTRALINE HCL 50 MG TAB PO SCH ×2 (08:14→20:56)
[2019-01-30] MEDS: VITAMIN D 1,000 INTERNATIONAL UNITS TABLET PO SCH (08:14)
[2019-01-30] MEDS: FERROUS GLUCONATE 324 MG TAB PO SCH (08:14)
[2019-01-30] MEDS: ALLOPURINOL 100 MG TAB PO SCH ×2 (08:14→20:56)
[2019-01-30] MEDS: HumaLOG INSULIN (NovoLOG) PER UNIT SC SCH ×3 (08:15→17:30)
[2019-01-30] MEDS: ISOSORBIDE DIN. (ISORDIL) 20 MG TAB PO SCH ×3 (08:23→18:25)
[2019-01-30] MEDS: ATENOLOL 50 MG TAB PO SCH ×2 (08:23→20:56)
[2019-01-30] MEDS: BRINZOLAMIDE 1 % OPHTH SUSP (AZOPT) 10ML OU SCH ×2 (08:23→20:57)
--- NOTE | 2019-01-30 11:16 | IPNPDOC ---
Date Seen The patient was seen on 01/30/19. Progress Note SUBJECTIVE: NO c/o headache despite uncontrolled bp. no chest pain,sob. ambualted w RN and more cooperative.c/o bilateral leg pain without foot involvement described as deep ache. no h/o restless legs syndrome. no swelling or trauma. pt requesting bed alarms to be discontinued, but due to ams, and risk of fall, bed alarms were placed. emerson creatinine 1.3 s/p 1liter ns with repeat mp. OBJECTIVE: VITALS: PLS SEE BELOW PHYSICAL EXAMINATION: General: She is well nourished, in no apparent distress. Head is normocephalic, atraumatic. Eyes: Extraocular movements are intact. Pupils equal, round, reactive to light. Neck is supple. No jugular venous pressure (JVP). Lungs: Good air entry in the anterior chest. No crackles or wheezes. Cardiovascular: Regular rate and rhythm. Normal S1, S2. No murmurs, gallops, or rubs. Abdomen: Soft, nontender, nondistended, positive bowel sounds. No rebound or guarding. Extremities: No pitting edema or calf tenderness. Skin: Intact. No rashes, lesions or breakdown. Neurological: She is alert and oriented (A and O) times three. No discerna ble focal deficits. Power seems to be diminished in the bilateral lower extremities, right worse than left but it seems to be secondary to pain. Sensation is intact to fine touch. Power and sensation intact in the bilateral upper extremities. Coordination is intact. LABORATORIES AND IMAGING: PLS SEE BELOW MRI of the lumbar spine showed degenerative disc disease and facet arthritis at L4-L5 with grade 1 anterolisthesis and moderate spinal stenosis. ASSESSMENT AND PLAN: The patient is an 84-year-old female. She has a significant past medical history of diastolic congestive heart failure (CHF), cerebrovascular accident (CVA) with residual weakness, diabetes, hypothyroidism, chronic kidney disease (CKD) stage III, ulcerative colitis. She appears to be on some sort of infusion every 8 weekly, this is unclear. Hypothyroidism, iron deficiency anemia, gout and gastroesophageal reflux disease (GERD). She presents to the emergency room accompanied by her daughter. She is somewhat of a poor historian. She states her memory has been somewhat poor since the stroke with complaints of worsening chronic right-sided lower back pain radiating down the right leg which has been chronically worsening for several months. Today it is to the point where she has been unable to ambulate without significant difficulty. The patient is urinary incontinent at baseline. An MRI was completed in the emergency room which showed no cord compression, just moderate spinal stenosis. She follows with an orthopedic surgeon. She states his name is Valentin. I am unclear who this is. She denies any trauma. She denies any cough, chest pain, shortness of breath. Again, she is somewhat of a poor historian. She denies any nausea, vomiting, fevers or chills. She does not appear toxic during the examination. Intractable back pain secondary to spinal stenosis. She follows with an orthopedic surgeon as outpt and was told "there is nothing they could do for me." on Percocet every - for pain control. Will get physical therapy (PT) evaluation to see if the patient will benefit from rehabilitation. Pain mgt consult Opioid-induced AMS lethargic on scheduled percocet, disoriented to place and time changed to prn pain meds as of 01/28/19. (+) blood culture: gram positive, s/p vanco 01/26/19. most likely a contaminant UTI present on admission s/p ceftriaxone on cipro Urine culture is sent. For diastolic congestive heart failure (CHF) off lasix due to recent acute kidney injury. acute kidney injury held lasix temporarily, trial of 1liter ivfluids. For diabetes she is not on any medications. on sliding scale. For gout continue allopurinol. For hypertension uncontrolled. since creatinine is improved, resumed losaratan bid.on hydralazine and s/p imdur. For glaucoma we will continue her eye drops. For ulcerative colitis she states that she is on infusion every 8 weekly. Unclear what this is. Can continue as outpatient. Will continue loperamide as needed. For gastroesophageal reflux disease (GERD) we will continue ranitidine. For mood disorder we will continue sertraline. Supportive deep vein thrombosis (DVT) prophylaxis: Heparin subcutaneous. For stroke we will continue her Plavix. Gastrointestinal (GI) prophylaxis: Not indicated. Diet: Cardiac, diabetic diet. disposition:rehab VS, I&O, 24H, Fishbone Vital Signs/I&O Vital Signs Date Time Temp Pulse Resp B/P (MAP) Pulse Ox O2 Delivery O2 Flow Rate FiO2 01/30/19 06:00 96.7 64 18 131/85 (100) 96 01/25/19 23:50 Room Air I&O- Last 24 Hours up to 6 AM 01/30/19 06:00 Intake Total 860 ml Output Total 325 ml Balance 535 ml Laboratory Data 24H LABS Laboratory Tests 2 01/29/19 12:01: Bedside Glucose (Misc Panel) 98 01/29/19 17:01: Bedside Glucose (Misc Panel) 89 01/29/19 20:46: Bedside Glucose (Misc Panel) 173H 01/30/19 05:12: Nucleated Red Blood Cells % (auto) 0.0, Anion Gap 5L, Glomerular Filtration Rate 39.9, Blood Urea Nitrogen 22H, Creatinine 1.35H, Sodium Level 142, Potassium Level 4.3, Chloride Level 112H, Carbon Dioxide Level 25, Calcium Level 8.7L CBC/BMP Laboratory Tests 01/30/19 05:12 Red Blood Count 3.72 L, Mean Corpuscular Volume 96.0, Mean Corpuscular Hemoglobin 29.3, Mean Corpuscular Hemoglobin Concent 30.5 L, Red Cell Distribution Width 14.5, Calcium Level 8.7 L Microbiology Microbiology 01/26/19 Blood Culture - Preliminary, Resulted No Growth after 72 hours. All specime... 01/26/19 Blood Culture - Preliminary, Resulted No Growth after 72 hours. All specime... 01/25/19 Blood Culture - Final, Complete Streptococcus Mitis 01/25/19 Blood Culture - Preliminary, Resulted No Growth after 72 hours. All specime... 01/25/19 Urine Culture - Final, Complete Escherichia Coli MARIA G MCCALL MD Jan 30, 2019 07:17
[2019-01-30 12:23] LABS: CALCIUM LEVEL 8.7 MG/DL (8.8-10.2); CREATININE FOR GFR 1.1 MG/DL (0.55-1.30); GLOMERULAR FILTRATION RATE 50.5 (>32); POTASSIUM SERUM 4.5 MEQ/L (3.5-5.1)
[2019-01-30 14:00] VITALS: BP 164/73
[2019-01-30] MEDS: ACETAMINOPHEN TAB 650MG DOSE (2X325MG) PO PRN (16:44)
[2019-01-30] MEDS: CLOPIDOGREL 75 MG TAB PO SCH (20:56)
[2019-01-30] MEDS: POTASSIUM CHLORIDE 10 MEQ SR TABLET PO SCH (20:56)
[2019-01-30] MEDS: LATANOPROST 0.005% OPHTH SOLN 2.5 ML OU SCH (20:57)
[2019-01-30 22:00] VITALS: BP 152/79
[2019-01-31] MEDS: HEPARIN SOD (PORCINE) 5000 UNITS/ML VIAL SC SCH ×3 (05:32→21:42)
[2019-01-31] MEDS: LevoFLOXacin 250 MG TABLET PO SCH (05:32)
[2019-01-31] MEDS: ISOSORBIDE DIN. (ISORDIL) 20 MG TAB PO SCH ×4 (05:33→17:18)
[2019-01-31] MEDS: LEVOTHYROXINE 75MCG TABLET (0.075MG) PO SCH (05:33)
[2019-01-31] MEDS: **hydrALAZINE HCL** 25 MG TAB PO SCH ×4 (05:34→17:17)
[2019-01-31 06:00] VITALS: BP 142/84
[2019-01-31 06:01] LABS: HEMATOCRIT 33.9 % (36.0-47.0); HEMOGLOBIN 10.5 g/dl (12.0-15.5); MEAN CORPUSCULAR HEMOGLOBIN 29.6 pg (27.0-33.0); MEAN CORPUSCULAR VOLUME 95.5 fl (80.0-96.0); PLATELET COUNT, AUTOMATED 261 10^3/uL (150-450); RED BLOOD COUNT 3.55 10^6/uL (4.00-5.40); WHITE BLOOD COUNT 11.8 10^3/uL (4.0-10.0)
[2019-01-31 06:28] LABS: CALCIUM LEVEL 8.7 MG/DL (8.8-10.2); CREATININE FOR GFR 1.33 MG/DL (0.55-1.30); GLOMERULAR FILTRATION RATE 40.6 (>32); POTASSIUM SERUM 4.3 MEQ/L (3.5-5.1)
[2019-01-31] MEDS: HumaLOG INSULIN (NovoLOG) PER UNIT SC SCH ×3 (07:26→17:17)
[2019-01-31] MEDS: SERTRALINE HCL 50 MG TAB PO SCH ×2 (10:34→21:38)
[2019-01-31] MEDS: VITAMIN D 1,000 INTERNATIONAL UNITS TABLET PO SCH (10:34)
[2019-01-31] MEDS: ALLOPURINOL 100 MG TAB PO SCH ×2 (10:35→21:39)
[2019-01-31] MEDS: BRINZOLAMIDE 1 % OPHTH SUSP (AZOPT) 10ML OU SCH ×2 (10:36→21:39)
[2019-01-31] MEDS: ATENOLOL 50 MG TAB PO SCH ×2 (10:39→21:38)
--- NOTE | 2019-01-31 13:29 | IPNPDOC ---
Date Seen The patient was seen on 01/31/19. Progress Note SUBJECTIVE: despite iv fluids, still with acute kidney injury. hypo thermic overnight with temp 96.7 with persistent leukocytosis despite po quinolone for UTI. c/o b/l rest pain in lower extremities concerning for peripheral arterial disease and moderate spinal stenosis. no weakness. rehab placement. OBJECTIVE: VITALS: PLS SEE BELOW PHYSICAL EXAMINATION: General: She is well nourished, in no apparent distress. Head is normocephalic, atraumatic. Eyes: Extraocular movements are intact. Pupils equal, round, reactive to light. Neck is supple. No jugular venous pressure (JVP). Lungs: Good air entry in the anterior chest. No crackles or wheezes. Cardiovascular: Regular rate and rhythm. Normal S1, S2. No murmurs, gallops, or rubs. Abdomen: Soft, nontender, nondistended, positive bowel sounds. No rebound or guarding. Extremities: No pitting edema or calf tenderness. Skin: Intact. No rashes, lesions or breakdown. Neurological: She is alert and oriented (A and O) times three. No discernable focal deficits. Power seems to be diminished in the bilateral lower extremitie s, right worse than left but it seems to be secondary to pain. Sensation is intact to fine touch. Power and sensation intact in the bilateral upper extremities. Coordination is intact. LABORATORIES AND IMAGING: PLS SEE BELOW MRI of the lumbar spine showed degenerative disc disease and facet arthritis at L4-L5 with grade 1 anterolisthesis and moderate spinal stenosis. ASSESSMENT AND PLAN: The patient is an 84-year-old female. She has a significant past medical history of diastolic congestive heart failure (CHF), cerebrovascular accident (CVA) with residual weakness, diabetes, hypothyroidism, chronic kidney disease (CKD) stage III, ulcerative colitis. She appears to be on some sort of infusion every 8 weekly, this is unclear. Hypothyroidism, iron deficiency anemia, gout and gastroesophageal reflux disease (GERD). She presents to the emergency room accompanied by her daughter. She is somewhat of a poor historian. She states her memory has been somewhat poor since the stroke with complaints of worsening chronic right-sided lower back pain radiating down the right leg which has been chronically worsening for several months. Today it is to the point where she has been unable to ambulate without significant difficulty. The patient is urinary incontinent at baseline. An MRI was completed in the emergency room which showed no cord compression, just moderate spinal stenosis. She follows with an orthopedic surgeon. She states his name is Dr. Hanson. I am unclear who this is. She denies any trauma. She denies any cough, chest pain, shortness of breath. Again, she is somewhat of a poor historian. She denies any nausea, vomiting, fevers or chills. She does not appear toxic during the examination. Intractable back pain secondary to spinal stenosis. She follows with an orthopedic surgeon as outpt and was told "there is nothing they could do for me." on Percocet every - for pain control. Will get physical therapy (PT) evaluation to see if the patient will benefit from rehabilitation. Pain mgt consult Opioid-induced AMS lethargic on scheduled percocet, disoriented to place and time changed to prn pain meds as of 01/28/19. (+) blood culture: gram positive, s/p vanco 01/26/19. most likely a contaminant UTI present on admission s/p ceftriaxone on cipro Urine culture is sent. For diastolic congestive heart failure (CHF) off lasix due to recent acute kidney injury. acute kidney injury held lasix temporarily, trial of ivfluids. For diabetes she is not on any medications. on sliding scale. For gout continue allopurinol. For hypertension uncontrolled. since creatinine is improved, titrating bp meds b/l le pain r/o pad hallie, vascular consult. arterial doppler study. For glaucoma we will continue her eye drops. For ulcerative colitis she states that she is on infusion every 8 weekly. Unclear what this is. Can continue as outpatient. Will continue loperamide as needed. For gastroesophageal reflux disease (GERD) we will continue ranitidine. For mood disorder we will continue sertraline. Supportive deep vein thrombosis (DVT) prophylaxis: Heparin subcutaneous. For stroke we will continue her Plavix. Gastrointestinal (GI) prophylaxis: Not indicated. Diet: Cardiac, diabetic diet. disposition:rehab VS, I&O, 24H, Fishbone Vital Signs/I&O Vital Signs Date Time Temp Pulse Resp B/P (MAP) Pulse Ox O2 Delivery O2 Flow Rate FiO2 01/31/19 06:00 97.4 67 18 142/84 (103) 96 01/25/19 23:50 Room Air I&O- Last 24 Hours up to 6 AM 01/31/19 06:00 Intake Total 1690 ml Output Total 950 ml Balance 740 ml Laboratory Data 24H LABS Laboratory Tests 2 01/30/19 11:36: Anion Gap 6L, Glomerular Filtration Rate 50.5, Blood Urea Nitrogen 23H, Creatinine 1.10, Sodium Level 144, Potassium Level 4.5, Chloride Level 111H, Carbon Dioxide Level 27, Calcium Level 8.7L 01/30/19 11:50: Bedside Glucose (Misc Panel) 131H 01/30/19 16:40: Bedside Glucose (Misc Panel) 97 01/30/19 20:47: Bedside Glucose (Misc Panel) 107 01/31/19 05:15: Nucleated Red Blood Cells % (auto) 0.0, Anion Gap 8, Glomerular Filtration Rate 40.6, Blood Urea Nitrogen 26H, Creatinine 1.33H, Sodium Level 142, Potassium Level 4.3, Chloride Level 111H, Carbon Dioxide Level 23, Calcium Level 8.7L CBC/BMP Laboratory Tests 01/30/19 11:36 Calcium Level 8.7 L 01/31/19 05:15 Calcium Level 8.7 L, Red Blood Count 3.55 L, Mean Corpuscular Volume 95.5, Mean Corpuscular Hemoglobin 29.6, Mean Corpuscular Hemoglobin Concent 31.0 L, Red Cell Distribution Width 14.3 Microbiology Microbiology 01/26/19 Blood Culture - Preliminary, Resulted No Growth after 72 hours. All specime... 01/26/19 Blood Culture - Preliminary, Resulted No Growth after 72 hours. All specime... 01/25/19 Blood Culture - Final, Complete Streptococcus Mitis 01/25/19 Blood Culture - Final, Complete NO GROWTH AFTER 5 DAYS 01/25/19 Urine Culture - Final, Complete Escherichia Coli MARIA G MCCALL MD Jan 31, 2019 10:26
[2019-01-31] MEDS: ONDANSETRON 4MG/2ML VIAL (J2405) IV PRN (15:29)
[2019-01-31] MEDS: CLOPIDOGREL 75 MG TAB PO SCH (21:37)
[2019-01-31] MEDS: POTASSIUM CHLORIDE 10 MEQ SR TABLET PO SCH (21:39)
[2019-01-31] MEDS: LATANOPROST 0.005% OPHTH SOLN 2.5 ML OU SCH (21:39)
[2019-01-31 22:00] VITALS: BP 146/52
[2019-01-31] MEDS: ACETAMINOPHEN TAB 650MG DOSE (2X325MG) PO PRN (22:34)
[2019-02-01] MEDS: ONDANSETRON 4 MG ORAL DISINTEGRATING TAB (Q0162 PER 1MG) PO PRN (02:00)
[2019-02-01 06:00] VITALS: BP 132/62
[2019-02-01] MEDS: ISOSORBIDE DIN. (ISORDIL) 20 MG TAB PO SCH ×5 (06:00→23:15)
[2019-02-01] MEDS: **hydrALAZINE HCL** 25 MG TAB PO SCH ×5 (06:00→23:16)
[2019-02-01 06:25] LABS: HEMATOCRIT 32.6 % (36.0-47.0); MEAN CORPUSCULAR HEMOGLOBIN 29.8 pg (27.0-33.0); MEAN CORPUSCULAR HGB CONC 30.7 g/dl (32.0-36.5); PLATELET COUNT, AUTOMATED 248 10^3/uL (150-450); RED BLOOD COUNT 3.36 10^6/uL (4.00-5.40); WHITE BLOOD COUNT 10.4 10^3/uL (4.0-10.0)
[2019-02-01] MEDS: LEVOTHYROXINE 75MCG TABLET (0.075MG) PO SCH (06:35)
[2019-02-01] MEDS: LevoFLOXacin 250 MG TABLET PO SCH (06:35)
[2019-02-01] MEDS: HEPARIN SOD (PORCINE) 5000 UNITS/ML VIAL SC SCH ×3 (06:36→21:53)
[2019-02-01 06:43] LABS: CALCIUM LEVEL 8.6 MG/DL (8.8-10.2); CREATININE FOR GFR 1.39 MG/DL (0.55-1.30); GLOMERULAR FILTRATION RATE 38.5 (>32); POTASSIUM SERUM 4.5 MEQ/L (3.5-5.1)
[2019-02-01] MEDS ORDERED: NS 1,000 ML IV ONE (09:00)
--- NOTE | 2019-02-01 10:47 | REP ---
CHEST AP LATERAL: 02/01/2019. Comparison: 06/26/2018, 01/29/2013. Clinical history: Dyspnea, evaluate for edema. Findings: Cardiomegaly with left atrial ventricular enlargement, unchanged. Calcified tortuous aorta with ectasia. I see no celio edema, dense consolidation or definite effusion. There is no pneumothorax or pneumomediastinum. Thoracic trachea unremarkable. Bones demineralized. Degenerative changes in the spine without acute compression deformity. No free air under the diaphragm. Impression: 1. Cardiomegaly with left atrial and ventricular enlargement but without celio edema, pleural effusion or dense consolidation. 2. Tortuous calcified ectatic aorta unchanged. 3. Degenerative changes in the spine and demineralization. Electronically Signed by Man Camacho MD 02/01/2019 07:40 P
--- NOTE | 2019-02-01 11:12 | REP ---
BILATERAL LOWER EXTREMITY ARTERIAL DOPPLER ULTRASOUND: 02/01/2019 CLINICAL HISTORY: Bilateral lower leg pain, right greater than left. Evaluate for arterial stenosis. Right and left brachial pressures were 184 and 182. The patient could not tolerate cuff on the lower legs for ANGELINE. RIGHT Lower Extremity Peak Systolic Velocity Phasicity FURNITURE MECHANIC 100.8 cm/s BiphasicProfunda 103.3 cm/s BiphasicSFA proximal 92 cm/s BiphasicSFA mid 217.2 cm/s monophasic SFA distal 111.4 cm/s BiphasicPopliteal 48.6 cm/s BiphasicATA proximal 22 cm/s TriphasicTibioperoneal trunk 58.9 cm/s BiphasicPTA proximal 29.3 cm/s BiphasicPTA distal 45.6 cm/s BiphasicATA distal 51.2 cm/s Biphasic. LEFT Lower Extremity Peak Systolic Velocity Phasicity FURNITURE MECHANIC 118.5 cm/s Biphasic Profunda 78.3 cm/s Biphasic SFA proximal 92.5 cm/s BiphasicSFA mid 274.6 cm/s BiphasicSFA distal 84.8 cm/s BiphasicPopliteal 73 cm/s BiphasicATA proximal 24.1 cm/s BiphasicTibioperoneal trunk 2.5 cm/s BiphasicPTA proximal 48.1 cm/s BiphasicPTA distal 26.3 cm/s MonophasicAT distal 73.7 cm/s Biphasic. Atherosclerotic disease is noted bilaterally with calcific plaque. There is mild stenosis in the mid right SFA and in the mid to distal SFA another stenosis is noted at that level, PSV equals 384 0.1 cm/s. There is stenosis noted on the left at the mid SFA. Biphasic waveforms are noted bilaterally except at the points of stenosis with monophasic waveforms in the right and left mid SFA. ABIs could not be obtained due to the patient's inability to tolerate blood pressure cuff on the lower legs. Electronically Signed by Man Camacho MD 02/01/2019 07:46 P
[2019-02-01] MEDS: HumaLOG INSULIN (NovoLOG) PER UNIT SC SCH ×3 (11:32→17:46)
[2019-02-01] MEDS: ALLOPURINOL 100 MG TAB PO SCH ×2 (11:33→21:53)
[2019-02-01] MEDS: ATENOLOL 50 MG TAB PO SCH ×2 (11:34→21:53)
[2019-02-01] MEDS: BRINZOLAMIDE 1 % OPHTH SUSP (AZOPT) 10ML OU SCH ×2 (11:37→21:52)
[2019-02-01] MEDS: FERROUS GLUCONATE 324 MG TAB PO SCH (11:39)
[2019-02-01] MEDS: SERTRALINE HCL 50 MG TAB PO SCH ×2 (11:39→21:53)
[2019-02-01] MEDS: VITAMIN D 1,000 INTERNATIONAL UNITS TABLET PO SCH (11:40)
[2019-02-01 14:00] VITALS: BP 159/78
--- NOTE | 2019-02-01 17:45 | IPNPDOC ---
Date Seen The patient was seen on 02/01/19. Progress Note SUBJECTIVE: Pt still c/o rest lower extremity pain even when sleeping. ANGELINE could not be done due to pt discomfort. arterial doppler: could not be completed. pt has not ambulated but is much more awake now. She admits to decreased oral intake and creatinine remains elevated. no c/o sob. OBJECTIVE: VITALS: PLS SEE BELOW PHYSICAL EXAMINATION: General: She is well nourished, in no apparent distress. Head is normocephalic, atraumatic. Eyes: Extraocular movements are intact. Pupils equal, round, reactive to light. Neck is supple. No jugular venous pressure (JVP). Lungs: Good air entry in the anterior chest. No crackles or wheezes. Cardiovascular: Regular rate and rhythm. Normal S1, S2. No murmurs, gallops, or rubs. Abdomen: Soft, nontender, nondistended, positive bowel sounds. No rebound or guarding. Extremities: No pitting edema or calf tenderness. Skin: Intact. No rashes, lesions or breakdown. Neurological: She is alert and oriented (A and O) times three. No discern able focal deficits. Power seems to be diminished in the bilateral lower extremities, right worse than left but it seems to be secondary to pain. Sensation is intact to fine touch. Power and sensation intact in the bilateral upper extremities. Coordination is intact. LABORATORIES AND IMAGING: PLS SEE BELOW MRI of the lumbar spine showed degenerative disc disease and facet arthritis at L4-L5 with grade 1 anterolisthesis and moderate spinal stenosis. ASSESSMENT AND PLAN: The patient is an 84-year-old female. She has a significant past medical history of diastolic congestive heart failure (CHF), cerebrovascular accident (CVA) with residual weakness, diabetes, hypothyroidism, chronic kidney disease (CKD) stage III, ulcerative colitis. She appears to be on some sort of infusion every 8 weekly, this is unclear. Hypothyroidism, iron deficiency anemia, gout and gastroesophageal reflux disease (GERD). She presents to the emergency room accompanied by her daughter. She is somewhat of a poor historian. She states her memory has been somewhat poor since the stroke with complaints of worsening chronic right-sided lower back pain radiating down the right leg which has been chronically worsening for several months. Today it is to the point where she has been unable to ambulate without significant difficulty. The patient is urinary incontinent at baseline. An MRI was completed in the emergency room which showed no cord compression, just moderate spinal stenosis. She follows with an orthopedic surgeon. She states his name is Dr. Hanson. I am unclear who this is. She denies any trauma. She denies any cough, chest pain, shortness of breath. Again, she is somewhat of a poor historian. She denies any nausea, vomiting, fevers or chills. She does not appear toxic during the examination. Intractable back pain secondary to spinal stenosis. She follows with an orthopedic surgeon as outpt and was told "there is nothing they could do for me." on Percocet every - for pain control. Will get physical therapy (PT) evaluation to see if the patient will benefit from rehabilitation. Pain mgt consult Opioid-induced AMS, resolved lethargic on scheduled percocet, disoriented to place and time changed to prn pain meds as of 01/28/19. (+) blood culture: gram positive, s/p vanco 01/26/19. most likely a contaminant UTI present on admission s/p ceftriaxone on cipro Urine culture is sent. For diastolic congestive heart failure (CHF) off lasix due to recent acute kidney injury. acute kidney injury held lasix temporarily, trial of ivfluids. For diabetes she is not on any medications. on sliding scale. For gout continue allopurinol. For hypertension uncontrolled. since creatinine is improved, titrating bp meds b/l le pain r/o pad angeline, vascular consult. arterial doppler study could not completed due to pt discomfort. on plavix. For glaucoma we will continue her eye drops. For ulcerative colitis she states that she is on infusion every 8 weekly. Unclear what this is. Can continue as outpatient. Will continue loperamide as needed. For gastroesophageal reflux disease (GERD) we will continue ranitidine. For mood disorder we will continue sertraline. Supportive deep vein thrombosis (DVT) prophylaxis: Heparin subcutaneous. For stroke we will continue her Plavix. Gastrointestinal (GI) prophylaxis: Not indicated. Diet: Cardiac, diabetic diet. disposition:rehab VS, I&O, 24H, Fishbone Vital Signs/I&O Vital Signs Date Time Temp Pulse Resp B/P (MAP) Pulse Ox O2 Delivery O2 Flow Rate FiO2 02/01/19 14:00 97.9 66 16 159/78 (105) 97 I&O- Last 24 Hours up to 6 AM 02/01/19 06:00 Intake Total 780 ml Output Total 1000 ml Balance -220 ml Laboratory Data 24H LABS Laboratory Tests 2 01/31/19 20:33: Bedside Glucose (Misc Panel) 131H 02/01/19 06:01: Nucleated Red Blood Cells % (auto) 0.0, Anion Gap 8, Glomerular Filtration Rate 38.5, Blood Urea Nitrogen 31H, Creatinine 1.39H, Sodium Level 143, Potassium Level 4.5, Chloride Level 112H, Carbon Dioxide Level 23, Calcium Level 8.6L, TA-Tko-T-Type Natriuretic Peptide 846H 02/01/19 11:04: Bedside Glucose (Misc Panel) 168H 02/01/19 16:40: Bedside Glucose (Misc Panel) 116H CBC/BMP Laboratory Tests 02/01/19 06:01 Red Blood Count 3.36 L, Mean Corpuscular Volume 97.0 H, Mean Corpuscular Hemoglobin 29.8, Mean Corpuscular Hemoglobin Concent 30.7 L, Red Cell Distribution Width 14.7 H, Calcium Level 8.6 L Microbiology Microbiology 01/26/19 Blood Culture - Final, Complete NO GROWTH AFTER 5 DAYS 01/26/19 Blood Culture - Final, Complete NO GROWTH AFTER 5 DAYS 01/25/19 Blood Culture - Final, Complete Streptococcus Mitis 01/25/19 Blood Culture - Final, Complete NO GROWTH AFTER 5 DAYS 01/25/19 Urine Culture - Final, Complete Escherichia Coli MARIA G MCCALL MD Feb 01, 2019 17:45
[2019-02-01] MEDS: LATANOPROST 0.005% OPHTH SOLN 2.5 ML OU SCH (21:52)
[2019-02-01] MEDS: CLOPIDOGREL 75 MG TAB PO SCH (21:52)
[2019-02-01] MEDS: POTASSIUM CHLORIDE 10 MEQ SR TABLET PO SCH (21:53)
[2019-02-01 22:00] VITALS: BP 177/75
[2019-02-01] MEDS: ACETAMINOPHEN TAB 650MG DOSE (2X325MG) PO PRN (23:17)
[2019-02-02] MEDS: ONDANSETRON 4MG/2ML VIAL (J2405) IV PRN (02:23)
[2019-02-02] MEDS: **hydrALAZINE HCL** 25 MG TAB PO SCH ×3 (05:53→17:35)
[2019-02-02] MEDS: ISOSORBIDE DIN. (ISORDIL) 20 MG TAB PO SCH ×3 (05:53→17:35)
[2019-02-02] MEDS: LEVOTHYROXINE 75MCG TABLET (0.075MG) PO SCH (05:53)
[2019-02-02] MEDS: HEPARIN SOD (PORCINE) 5000 UNITS/ML VIAL SC SCH ×3 (05:54→21:21)
[2019-02-02 06:00] VITALS: BP 150/57
[2019-02-02] MEDS: HumaLOG INSULIN (NovoLOG) PER UNIT SC SCH ×3 (07:30→17:36)
[2019-02-02] MEDS ORDERED: NS 1,000 ML IV SCH (07:45)
[2019-02-02] MEDS: VITAMIN D 1,000 INTERNATIONAL UNITS TABLET PO SCH (08:20)
[2019-02-02] MEDS: ATENOLOL 50 MG TAB PO SCH ×2 (08:20→21:20)
[2019-02-02] MEDS: SERTRALINE HCL 50 MG TAB PO SCH ×2 (08:21→21:21)
[2019-02-02] MEDS: ALLOPURINOL 100 MG TAB PO SCH ×2 (08:21→21:20)
[2019-02-02] MEDS: BRINZOLAMIDE 1 % OPHTH SUSP (AZOPT) 10ML OU SCH ×2 (08:23→21:18)
[2019-02-02 11:29] LABS: HEMATOCRIT 33.2 % (36.0-47.0); HEMOGLOBIN 10.2 g/dl (12.0-15.5); MEAN CORPUSCULAR HEMOGLOBIN 29.6 pg (27.0-33.0); MEAN CORPUSCULAR HGB CONC 30.7 g/dl (32.0-36.5); MEAN CORPUSCULAR VOLUME 96.2 fl (80.0-96.0); PLATELET COUNT, AUTOMATED 256 10^3/uL (150-450); RED BLOOD COUNT 3.45 10^6/uL (4.00-5.40); WHITE BLOOD COUNT 10.8 10^3/uL (4.0-10.0)
[2019-02-02 12:14] LABS: CALCIUM LEVEL 8.8 MG/DL (8.8-10.2); CREATININE FOR GFR 1.16 MG/DL (0.55-1.30); GLOMERULAR FILTRATION RATE 47.5 (>32); MAGNESIUM LEVEL 2.1 MG/DL (1.8-2.4); POTASSIUM SERUM 4.5 MEQ/L (3.5-5.1)
[2019-02-02 14:00] VITALS: BP 187/76
--- NOTE | 2019-02-02 14:54 | IPNPDOC ---
Text Note Date of Service The patient was seen on 02/02/19. NOTE Subjective: Patient was seen and examined at the bedside. Patient was seen ambulating in the hallway. She denies any CP, SOB or palpitations. Denies any abdominal pain, C/D, or dysuria. Objective: Vitals (See below) General: Lying in bed, no acute distress, comfortable, Awake / Alert HEENT: NC, AT CVS: RRR, +S1S2 Lungs: Fair air entry b/l, -w/r/r Abdomen: Soft, ND, NT Extremities: - Edema, - Calf tenderness Neuro: 5/5 strength at upper / lower extremities bilaterally Assessment and plan: Intractable back pain 2/2 spinal stenosis - c/w pain regimen as ordered - pain management on consult - c/w physical therapy; awaiting clearance Bilateral LE pain; possibly 2/2 above, possibly 2/2 PAD - No evidence of ischemia - Arterial US 02/01: Biphasic waveforms are noted bilaterally except at the points of stenosis with monophasic waveforms in the right and left mid SFA. ABIs could not be obtained due to the patient's inability to tolerate blood pressure cuff on the lower legs. - c/w Plavix - Will have outpatient f/u with vascular surgery s/p Opioid-induced AMS - c/w Percocet PRN only, not scheduled Positive blood cultures - likely 2/2 contaminant - Blood cultures 01/25: Strep Mitis (1 of 2) - Blood cultures 01/26: No growth at 5 days - s/p vancomycin 01/26/19 UTI present on admission - Urine cultures 01/25: E. coli - c/w Ciprofloxacin, s/p Ceftriaxone s/p REID - Will DC IV fluids - Will continue to hold diuretics Diastolic CHF, - No evidence of exacerbation - Will hold Furosemide Hx of CVA - c/w Plavix NIDDM2 - c/w ISS Gout - c/w Allopurinol HTN - c/w Hydralazine, Atenolol, Glaucoma - c/w eye drops UC - Patient receives outpatient infusion every 8 weeks - c/w Loperamide as ordered Mood disorder - c/w Sertraline GERD - c/w Ranitidine DVT prophylaxis - c/w Heparin VS,Fishbone, I+O VS, Fishbone, I+O Laboratory Tests 02/02/19 10:58 Red Blood Count 3.45 L, Mean Corpuscular Volume 96.2 H, Mean Corpuscular Hemoglobin 29.6, Mean Corpuscular Hemoglobin Concent 30.7 L, Red Cell Distribution Width 14.7 H, Calcium Level 8.8 Vital Signs Date Time Temp Pulse Resp B/P (MAP) Pulse Ox O2 Delivery O2 Flow Rate FiO2 02/02/19 12:50 152/64 02/02/19 08:20 88 02/02/19 06:00 98.3 18 96 I&O- Last 24 Hours up to 6 AM 02/02/19 06:00 Intake Total 2500 ml Output Total 1850 ml Balance 650 ml RON ZAMORA MD Feb 02, 2019 14:54
[2019-02-02] MEDS: LATANOPROST 0.005% OPHTH SOLN 2.5 ML OU SCH (21:18)
[2019-02-02] MEDS: POTASSIUM CHLORIDE 10 MEQ SR TABLET PO SCH (21:20)
[2019-02-02] MEDS: CLOPIDOGREL 75 MG TAB PO SCH (21:21)
[2019-02-02 22:00] VITALS: BP 146/63
[2019-02-03] MEDS: **hydrALAZINE HCL** 25 MG TAB PO SCH ×3 (00:16→12:43)
[2019-02-03] MEDS: ISOSORBIDE DIN. (ISORDIL) 20 MG TAB PO SCH ×3 (00:16→12:43)
[2019-02-03] MEDS: LEVOTHYROXINE 75MCG TABLET (0.075MG) PO SCH (05:48)
[2019-02-03] MEDS: HEPARIN SOD (PORCINE) 5000 UNITS/ML VIAL SC SCH ×2 (05:49→13:53)
[2019-02-03] MEDS: HumaLOG INSULIN (NovoLOG) PER UNIT SC SCH ×2 (07:30→12:44)
[2019-02-03 08:27] LABS: HEMATOCRIT 32.1 % (36.0-47.0); HEMOGLOBIN 9.8 g/dl (12.0-15.5); MEAN CORPUSCULAR HEMOGLOBIN 29.3 pg (27.0-33.0); MEAN CORPUSCULAR HGB CONC 30.5 g/dl (32.0-36.5); MEAN CORPUSCULAR VOLUME 96.1 fl (80.0-96.0); PLATELET COUNT, AUTOMATED 253 10^3/uL (150-450); RED BLOOD COUNT 3.34 10^6/uL (4.00-5.40); WHITE BLOOD COUNT 11.2 10^3/uL (4.0-10.0)
[2019-02-03 08:48] LABS: CALCIUM LEVEL 8.6 MG/DL (8.8-10.2); CREATININE FOR GFR 1.13 MG/DL (0.55-1.30); POTASSIUM SERUM 4.5 MEQ/L (3.5-5.1)
[2019-02-03] MEDS: FERROUS GLUCONATE 324 MG TAB PO SCH (09:28)
[2019-02-03] MEDS: VITAMIN D 1,000 INTERNATIONAL UNITS TABLET PO SCH (09:29)
[2019-02-03] MEDS: ATENOLOL 50 MG TAB PO SCH (09:29)
[2019-02-03] MEDS: SERTRALINE HCL 50 MG TAB PO SCH (09:29)
[2019-02-03] MEDS: BRINZOLAMIDE 1 % OPHTH SUSP (AZOPT) 10ML OU SCH (09:29)
[2019-02-03] MEDS: ALLOPURINOL 100 MG TAB PO SCH (09:29)
[2019-02-03] MEDS: ACETAMINOPHEN TAB 650MG DOSE (2X325MG) PO PRN (09:30)
[2019-02-03] MEDS ORDERED: HYDR25TA PO (11:54)
[2019-02-03] MEDS ORDERED: PERCOCET PO (11:54)
[2019-02-03] MEDS ORDERED: ISOS20TAB PO (11:54)
[2019-02-03 12:43] VITALS: BP 160/74
[2019-02-03] MEDS ORDERED: LOSA50TA88 PO (13:22)
--- NOTE | 2019-02-03 17:56 | DS.PDOC ---
Discharge Summary General Date of Admission Jan 25, 2019 at 22:51 Date of Discharge 02/03/2019 Discharge Summary PROCEDURES PERFORMED DURING STAY: [None]. ADMITTING DIAGNOSES / DISCHARGE DIAGNOSES: Intractable back pain 2/2 spinal stenosis Bilateral LE pain; possibly 2/2 above, possibly 2/2 PAD s/p Opioid-induced AMS Positive blood cultures - likely 2/2 contaminant UTI present on admission s/p REID Diastolic CHF Hx of CVA NIDDM2 Gout HTN Glaucoma UC Mood disorder GERD DVT prophylaxis COMPLICATIONS/CHIEF COMPLAINT: Severe back pain HISTORY OF PRESENT ILLNESS: Patient is an 84-year-old female with a PMHx Diastolic CHF, CVA with residual weakness, diabetes, hypothyroidism, chronic kidney disease (CKD) stage III, ulcerative colitis (She appears to be on some sort of infusion every 8 wee kly, this is unclear), Hypothyroidism, iron deficiency anemia, gout and gastroesophageal reflux disease (GERD) who presented to the ER with worsening chronic right-sided lower back pain radiating down her right leg. Patient was admitted to hospice service for debility 2/2 spinal stenosis. HOSPITAL COURSE: Intractable back pain 2/2 spinal stenosis - c/w pain regimen as ordered - pain management on consult - c/w physical therapy; will be going to acute rehabilitation unit for continued physiatry Bilateral LE pain; possibly 2/2 above, possibly 2/2 PAD - No evidence of ischemia - Arterial US 02/01: Biphasic waveforms are noted bilaterally except at the points of stenosis with monophasic waveforms in the right and left mid SFA. ABIs could not be obtained due to the patient's inability to tolerate blood pressure cuff on the lower legs. - c/w Plavix - Will have outpatient f/u with vascular surgery s/p Opioid-induced AMS - c/w Percocet PRN only, not scheduled Positive blood cultures - likely 2/2 contaminant - Blood cultures 01/25: Strep Mitis (1 of 2) - Blood cultures 01/26: No growth at 5 days - s/p vancomycin 01/26/19 UTI present on admission - Urine cultures 01/25: E. coli - s/p Ciprofloxacin, s/p Ceftriaxone s/p REID - Will DC IV fluids - Will continue to hold diuretics Diastolic CHF, - No evidence of exacerbation - Will hold Furosemide Hx of CVA - c/w Plavix NIDDM2 - c/w ISS Gout - c/w Allopurinol HTN - c/w Hydralazine & Atenolol Glaucoma - c/w eye drops UC - Patient receives outpatient infusion every 8 weeks - c/w Loperamide as ordered Mood disorder - c/w Sertraline GERD - c/w Ranitidine DVT prophylaxis - c/w Heparin DISCHARGE MEDICATIONS: Please see below. ALLERGIES: Please see below. PHYSICAL EXAMINATION ON DISCHARGE: Vitals (See below) General: Lying in bed, no acute distress, comfortable, AAOx3 HEENT: NC, AT CVS: +S1S2 Lungs: Fair air entry b/l, no evidence of wheezing, rhonchi or rales Abdomen: Soft, nondistended, without tenderness Extremities: No evidence of edema, - Calf tenderness LABORATORY DATA: Please see below. ACTIVITY: [As tolerated]. DISCHARGE PLAN: Transfer to acute rehabilitation unit DISPOSITION: Transfer to ARU DISCHARGE CONDITION: [Stable]. TIME SPENT ON DISCHARGE: Greater than [35] minutes. Vital Signs/I&Os Vital Signs Date Time Temp Pulse Resp B/P (MAP) Pulse Ox O2 Delivery O2 Flow Rate FiO2 02/03/19 12:43 160/74 02/03/19 09:29 64 02/02/19 22:00 98.4 18 91 I&O- Last 24 Hours up to 6 AM 02/03/19 06:00 Intake Total 1320 ml Output Total 1500 ml Balance -180 ml Laboratory Data Labs 24H Laboratory Tests 2 02/02/19 20:07: Bedside Glucose (Misc Panel) 118H 02/03/19 05:30: Bedside Glucose (Misc Panel) 90 02/03/19 07:39: Nucleated Red Blood Cells % (auto) 0.0, Anion Gap 6L, Glomerular Filtration Rate 49.0, Blood Urea Nitrogen 26H, Creatinine 1.13, Sodium Level 144, Potassium Level 4.5, Chloride Level 114H, Carbon Dioxide Level 24, Calcium Level 8.6L, Magnesium Level 2.0 02/03/19 11:10: Bedside Glucose (Misc Panel) 124H CBC/BMP Laboratory Tests 02/03/19 07:39 Red Blood Count 3.34 L, Mean Corpuscular Volume 96.1 H, Mean Corpuscular Hemoglobin 29.3, Mean Corpuscular Hemoglobin Concent 30.5 L, Red Cell Distribution Width 14.8 H, Calcium Level 8.6 L FSBS Laboratory Tests Test 02/02/19 20:07 02/03/19 05:30 02/03/19 11:10 Range/Units Bedside Glucose (Misc Panel) 118 90 124 83-110 MG/DL Microbiology Microbiology 01/26/19 Blood Culture - Final, Complete NO GROWTH AFTER 5 DAYS 01/26/19 Blood Culture - Final, Complete NO GROWTH AFTER 5 DAYS 01/25/19 Blood Culture - Final, Complete Streptococcus Mitis 01/25/19 Blood Culture - Final, Complete NO GROWTH AFTER 5 DAYS 01/25/19 Urine Culture - Final, Complete Escherichia Coli Discharge Medications Scheduled (Combigan 0.2-0.5 %) 1 Lilly Lilly, 1 DROP OS BID, (Reported) (Sertraline HCl) 50 Mg Tab, 50 MG PO BID, (Reported) Allopurinol (Allopurinol) 100 Mg Tab, 100 MG PO BID, (Reported) Atenolol (Atenolol) 50 Mg Tab, 50 MG PO BID, (Reported) Brinzolamide (Azopt) 1 % Melissa, 1 DROP OU BID, (Reported) Cholecalciferol (Vitamin D) 1,000 Unit Tab, 2,000 UNIT PO DAILY, (Reported) Clopidogrel Bisulfate (Plavix) 75 Mg Tab, 75 MG PO QHS, (Reported) Ferrous Gluconate (Ferrous Gluconate) 324 Mg Tab, 324 MG PO Q2D, (Reported) Latanoprost (Xalatan) 0.005 % Lilly, 1 DROP OU QHS, (Reported) Levothyroxine Sodium (Synthroid) 75 Mcg Tab, 75 MCG PO DAILY, (Reported) Losartan Potassium (Losartan Potassium) 50 Mg Tab, 50 MG PO BID Scheduled PRN Acetaminophen (Acetaminophen ER) 650 Mg Tab, 650 MG PO Q8H PRN for PAIN, (R eported) Loperamide HCl (Loperamide HCl) 2 Mg Tab, 2 MG PO PRN PRN for DIARRHEA, (Reported) Meclizine HCl (Meclizine 25) 25 Mg Tab, 25 MG PO Q8H PRN for DIZZINESS, (Reported) Ondansetron (Ondansetron Odt) 4 Mg Tab, 4 MG PO TID PRN for NAUSEA, (Reported) Oxycodone/Acetaminophen (Percocet 5MG/325MG Tablet) 1 Tab Tab, 1 TAB PO Q12HP PRN for MILD/MODERATE PAIN (PS 1-7) Ranitidine HCl (Ranitidine HCl) 150 Mg Tab, 1 TAB PO QHS PRN for HEARTBURN, (Reported) Allergies Coded Allergies: Penicillins (Verified Allergy, Severe, SWELLING/RASH, 03/20/17) Sulfasalazine (Verified Allergy, Severe, hives, hematemesis,difficulty breathing, 12/25/15) Doxycycline (Verified Allergy, Intermediate, RASH, 03/20/17) Benzalkonium Chloride (Verified Allergy, Unknown, 08/10/14) Clavulanic Acid (Unverified Allergy, Unknown, PRURITIS, 02/25/13) Replaces AUGMENTIN Contrast Media (Verified Allergy, Unknown, 08/10/14) Shellfish Allergy (Verified Allergy, Unknown, 08/10/14) Sulfa Antibiotics (Unverified Allergy, Unknown, RASH, 07/16/16) TAPE (Verified Allergy, Unknown, BANDAIDS, 08/10/14) Timolol (Verified Allergy, Unknown, 08/10/14) Travoprost (Verified Allergy, Unknown, 08/10/14) Diltiazem (Verified Adverse Reaction, Intermediate, N/V/D, 07/21/16) Gemfibrozil (Verified Adverse Reaction, Intermediate, PAIN, 02/25/13) Prednisone (Verified Adverse Reaction, Intermediate, INCREASED EYE PRESSURE, 02/25/13) Statins (Verified Adverse Reaction, Intermediate, BODY ACHES, 02/25/13) Iodine (Verified Adverse Reaction, Mild, ABDOMINAL PAIN: ORAL GRAFIN TABS, 02/25/13) Metoprolol (Verified Adverse Reaction, Mild, DIZZINESS, 02/25/13) RON ZAMORA MD Feb 03, 2019 17:56
== END 2019-02-03 14:30 | DRG 552 ==
LOC: M ED 14:16 → M ED INP 22:51 → M MSPAV 23:52 → M PM&R 02-03 14:34 → M MSPAV 02-03 14:34
PROVIDERS: ADMIT General Practice; ATTEND Internal Medicine
DX: M48.061 Spinal stenosis, lumbar region without neurogenic claudication (principal); I50.32 Chronic diastolic (congestive) heart failure; K51.90 Ulcerative colitis, unspecified, without complications; I13.0 Hypertensive heart and chronic kidney disease with heart failure and stage 1 through stage 4 chronic kidney disease, or unspecified chronic kidney disease; N17.9 Acute kidney failure, unspecified; N39.0 Urinary tract infection, site not specified; E11.22 Type 2 diabetes mellitus with diabetic chronic kidney disease; E03.9 Hypothyroidism, unspecified; N18.3 Chronic kidney disease, stage 3 (moderate); R41.82 Altered mental status, unspecified; M10.9 Gout, unspecified; K21.9 Gastro-esophageal reflux disease without esophagitis; F39 Unspecified mood [affective] disorder; I69.311 Memory deficit following cerebral infarction; B96.20 Unspecified Escherichia coli [E. coli] as the cause of diseases classified elsewhere; R32 Unspecified urinary incontinence; T40.2X5A Adverse effect of other opioids, initial encounter; H40.9 Unspecified glaucoma; Z98.49 Cataract extraction status, unspecified eye; Z90.49 Acquired absence of other specified parts of digestive tract; Z90.710 Acquired absence of both cervix and uterus; Z79.02 Long term (current) use of antithrombotics/antiplatelets; Z79.899 Other long term (current) drug therapy; Z87.891 Personal history of nicotine dependence; Z88.0 Allergy status to penicillin; Z88.2 Allergy status to sulfonamides; Z88.1 Allergy status to other antibiotic agents; Z88.8 Allergy status to other drugs, medicaments and biological substances; Z91.013 Allergy to seafood; Z91.048 Other nonmedicinal substance allergy status

== ENCOUNTER 2019-02-03 13:43 | Inpatient (IN) | payer MEDICARE ==
[~2019-02-03] VITALS: Ht 152.4 cm; Wt 70.1 kg
[~2019-02-03 13:43] MED LIST changes: +AMLO5TAB6 PO; +COMMENT; +FERR325T16 PO; +HYDR25TA PO; +ISOS20TAB PO; +PERCOCET PO; +SERT-155 PO; +XALA0.007 OU
[2019-02-03 14:35] VITALS: BP 152/67
[2019-02-03] MEDS ORDERED: DEXTROSE 50% 50 ML SYRINGE IV PRN (16:00)
[2019-02-03] MEDS ORDERED: oxyCODONE 5MG TAB PO PRN (16:00)
[2019-02-03] MEDS ORDERED: BISACODYL 10 MG SUPP PR PRN (16:00)
[2019-02-03] MEDS ORDERED: GLUCAGON FOR INJ 1 MG VIAL (J1610) SC PRN (16:00)
[2019-02-03] MEDS ORDERED: GLUCOSE 4 GM CHEW TABLET PO PRN (16:00)
[2019-02-03] MEDS ORDERED: MOM 30ML SUSPENSION UDC PO PRN (16:00)
[2019-02-03] MEDS ORDERED: MAALOX 30 ML SUSP *UDC PO PRN (16:00)
[2019-02-03] MEDS: HumaLOG INSULIN (NovoLOG) PER UNIT SC SCH ×2 (17:32→21:00)
[2019-02-03 20:00] VITALS: BP_SYST 146; BP_SYST 184; BP_DIAS 90; BP_DIAS 93
[2019-02-03] MEDS: COMBIGAN OS SCH (21:00)
[2019-02-03] MEDS: OPTH OS SCH (21:00)
[2019-02-03] MEDS: POTASSIUM CHLORIDE 10 MEQ SR TABLET PO SCH (21:08)
[2019-02-03] MEDS: ALLOPURINOL 100 MG TAB PO SCH (21:08)
[2019-02-03] MEDS: CLOPIDOGREL 75 MG TAB PO SCH (21:08)
[2019-02-03] MEDS: DOCUSATE SODIUM 100 MG CAP PO SCH (21:08)
[2019-02-03] MEDS: FAMOTIDINE 20 MG TAB PO SCH (21:08)
[2019-02-03] MEDS: SERTRALINE HCL 50 MG TAB PO SCH (21:08)
[2019-02-03] MEDS: ATENOLOL 50 MG TAB PO SCH (21:11)
[2019-02-03] MEDS: HEPARIN SOD (PORCINE) 5000 UNITS/ML VIAL SC SCH (21:12)
[2019-02-03] MEDS: LOSARTAN 50 MG TAB PO SCH (21:12)
[2019-02-03] MEDS: BRINZOLAMIDE 1 % OPHTH SUSP (AZOPT) 10ML OU SCH (21:13)
[2019-02-03] MEDS: LATANOPROST 0.005% OPHTH SOLN 2.5 ML OU SCH (21:13)
[2019-02-04] MEDS: HEPARIN SOD (PORCINE) 5000 UNITS/ML VIAL SC SCH ×3 (05:19→21:20)
[2019-02-04] MEDS: LEVOTHYROXINE 75MCG TABLET (0.075MG) PO SCH (05:19)
[2019-02-04] MEDS: ACETAMINOPHEN TAB 650MG DOSE (2X325MG) PO PRN ×2 (05:23→21:25)
[2019-02-04 06:00] VITALS: BP 180/76
[2019-02-04 06:10] VITALS: BP 156/82
[2019-02-04 07:10] LABS: BASO # 0.1 10^3/uL (0.0-0.2); BASO % 0.5 % (0.0-1.0); EOS # 0.6 10^3/uL (0.0-0.50); EOS % 4.8 % (0.0-3.0); HEMATOCRIT 34.7 % (36.0-47.0); HEMOGLOBIN 10.8 g/dl (12.0-15.5); LYMPH # 2.1 10^3/uL (1.5-4.5); LYMPH % 18.2 % (24.0-44.0); MEAN CORPUSCULAR HEMOGLOBIN 30.1 pg (27.0-33.0); MEAN CORPUSCULAR HGB CONC 31.1 g/dl (32.0-36.5); MEAN CORPUSCULAR VOLUME 96.7 fl (80.0-96.0); MONO # 0.7 10^3/uL (0.0-0.8); MONO % 6.5 % (0.0-5.0); NEUTROPHILS # 7.8 10^3/uL (1.8-7.7); NEUTROPHILS % 68.9 % (36.0-66.0); PLATELET COUNT, AUTOMATED 279 10^3/uL (150-450); RED BLOOD COUNT 3.59 10^6/uL (4.00-5.40); WHITE BLOOD COUNT 11.4 10^3/uL (4.0-10.0)
[2019-02-04 07:28] LABS: ALBUMIN 2.6 GM/DL (3.2-5.2); BILIRUBIN,TOTAL 0.3 MG/DL (0.2-1.0); CREATININE FOR GFR 1.17 MG/DL (0.55-1.30); POTASSIUM SERUM 4.6 MEQ/L (3.5-5.1); TOTAL PROTEIN 6.1 GM/DL (6.4-8.2)
[2019-02-04] MEDS: ATENOLOL 50 MG TAB PO SCH ×2 (08:14→21:00)
[2019-02-04] MEDS: COMBIGAN OS SCH ×2 (09:00→21:00)
[2019-02-04] MEDS ORDERED: SPIRONOLACTONE 25 MG TAB PO SCH (09:00)
[2019-02-04] MEDS: OPTH OS SCH ×2 (09:00→21:00)
[2019-02-04] MEDS: VITAMIN D 1,000 INTERNATIONAL UNITS TABLET PO SCH (09:40)
[2019-02-04] MEDS: SERTRALINE HCL 50 MG TAB PO SCH (09:40)
[2019-02-04] MEDS: LOSARTAN 50 MG TAB PO SCH ×2 (09:40→21:23)
[2019-02-04] MEDS: FUROSEMIDE 20 MG TAB PO SCH (09:40)
[2019-02-04] MEDS: ALLOPURINOL 100 MG TAB PO SCH ×2 (09:40→21:20)
[2019-02-04] MEDS: BRINZOLAMIDE 1 % OPHTH SUSP (AZOPT) 10ML OU SCH ×2 (09:41→21:26)
[2019-02-04] MEDS: HumaLOG INSULIN (NovoLOG) PER UNIT SC SCH ×4 (09:41→20:07)
[2019-02-04] MEDS: DOCUSATE SODIUM 100 MG CAP PO SCH ×2 (09:41→21:00)
--- NOTE | 2019-02-04 12:40 | IPNPDOC ---
Date Seen The patient was seen on 02/04/19. Progress Note HPI: Patient is an 84-year-old female with a PMHx Diastolic CHF, CVA with residual weakness, diabetes, hypothyroidism, chronic kidney disease (CKD) stage III, ulcerative colitis (She appears to be on some sort of infusion every 8 weekly, this is unclear), Hypothyroidism, iron deficiency anemia, gout and gastroesophageal reflux disease (GERD) who presented to the ER with worsening c hronic right-sided lower back pain radiating down her right leg. Patient was admitted for debility 2/2 spinal stenosis. The pt was transferred to ARU, Dr Travis, 02/03/19. No acute medical complaints today. Pt is in bed resting, she states she was OOB this Am with therapy and feels tired. Denies any fevers, chills, weakness, fatigue, Headache, Chest Pain, Shortness of breath, cough, palpitations, abdominal pain, N/V/D or changes in bowel or bladder habits. PE: GEN: 84yoF, appears stated age. No acute distress. Alert and oriented x 3. HEENT: Normocephalic, atraumatic. Sclera are nonicteric. Conjunctiva without injection. Moist mucous membranes. CHEST: Regular rate and rhythm, +S1, +S2 LUNGS: Clear to auscultation bilaterally. No wheezes, rales, or rhonchi. B reathing appears symmetric and easy. ABD: Round, soft, non-tender, non-distended. +Bowel sounds throughout. No rebound or guarding. EXT: No lower extremity edema appreciated. SKIN: [place], dry, warm. No rashes. NEURO: Alert and oriented x 3. No focal deficits appreciated. A&P: Patient is an 84-year-old female with a PMHx Diastolic CHF, CVA with residual weakness, diabetes, hypothyroidism, chronic kidney disease (CKD) stage III, ulcerative colitis (She appears to be on some sort of infusion every 8 weekly, this is unclear), Hypothyroidism, iron deficiency anemia, gout and gastroesophageal reflux disease (GERD) who presented to the ER with worsening chronic right-sided lower back pain radiating down her right leg. Patient was admitted for debility 2/2 spinal stenosis. The pt was transferred to ARU, Dr Travis, 02/03/19. Intractable back pain 2/2 spinal stenosis Mgmt as per Dr Travis. PT/OT/ST as per Dr Travis. Pain control as per Dr Travis. Consider pain management consultation if needed. Bowel care as per Dr Travis. DVT prophylaxis as per Dr Travis. SQ Heparin. Bilateral LE pain; possibly 2/2 above, possibly 2/2 PAD No evidence of ischemia Arterial US 02/01: Biphasic waveforms are noted bilaterally except at the points of stenosis with monophasic waveforms in the right and left mid SFA. ABIs could not be obtained due to the patient's inability to tolerate blood pressure cuff on the lower legs. Cont Plavix Outpatient f/u with vascular surgery s/p Opioid-induced AMS Recommend PRN med only, not scheduled. Percocet is currently on hold. Monitor Positive blood cultures - likely 2/2 contaminant Blood cultures 01/25: Strep Mitis (1 of 2) Blood cultures 01/26: No growth at 5 days s/p vancomycin 01/26/19 UTI present on admission Urine cultures 01/25: E. coli s/p s/p Ceftriaxone, Levaquin. UA/UC pending s/p REID/CKD SCr 1.17. Monitor. Diastolic CHF. Low NA diet Continue Lasix 20 mg daily, Aldactone, KCL. No evidence of decompensation. Monitor. Hx of CVA Plavix NIDDM2 CC diet SSI Gout Allopurinol HTN Atenolol/Cozaar. Glaucoma Cont eye drop outpt regimen. UC Patient receives outpatient infusion every 8 weeks Loperamide as ordered Mood disorder Sertraline GERD Ranitidine VS, I&O, 24H, Fishbone Vital Signs/I&O Vital Signs Date Time Temp Pulse Resp B/P (MAP) Pulse Ox O2 Delivery O2 Flow Rate FiO2 02/04/19 09:40 156/82 02/04/19 08:14 60 02/04/19 06:00 98.3 18 95 I&O- Last 24 Hours up to 6 AM 02/04/19 06:00 Intake Total 120 ml Output Total 0 ml Balance 120 ml Laboratory Data 24H LABS Laboratory Tests 2 02/03/19 16:56: Bedside Glucose (Misc Panel) 141H 02/03/19 20:01: Bedside Glucose (Misc Panel) 116H 02/04/19 06:52: Immature Granulocyte % (Auto) 1.1, White Blood Count 11.4H, Red Blood Count 3.59L, Hemoglobin 10.8L, Hematocrit 34.7L, Mean Corpuscular Volume 96.7H, Mean Corpuscular Hemoglobin 30.1, Mean Corpuscular Hemoglobin Concent 31.1L, Red Cell Distribution Width 14.8H, Platelet Count 279, Neutrophils (%) (Auto) 68.9H, Lymphocytes (%) (Auto) 18.2L, Monocytes (%) (Auto) 6.5H, Eosinophils (%) (Auto) 4.8H, Basophils (%) (Auto) 0.5, Neutrophils # (Auto) 7.8H, Lymphocytes # (Auto) 2.1, Monocytes # (Auto) 0.7, Eosinophils # (Auto) 0.6H, Basophils # (Auto) 0.1, Nucleated Red Blood Cells % (auto) 0.0, Anion Gap 8, Glomerular Filtration Rate 47.0, Blood Urea Nitrogen 25H, Creatinine 1.17, Sodium Level 143, Potassium Level 4.6, Chloride Level 112H, Carbon Dioxide Level 23, Calcium Level 9.0, Aspartate Amino Transf (AST/SGOT) 21, Alanine Aminotransferase (ALT/SGPT) 20, Alkaline Phosphatase 68, Total Bilirubin 0.3, Total Protein 6.1L, Albumin 2.6L, Albumin/Globulin Ratio 0.74L 02/04/19 12:02: Bedside Glucose (Misc Panel) 126H CBC/BMP Laboratory Tests 02/04/19 06:52 Red Blood Count 3.59 L, Mean Corpuscular Volume 96.7 H, Mean Corpuscular Hemoglobin 30.1, Mean Corpuscular Hemoglobin Concent 31.1 L, Red Cell Distribution Width 14.8 H, Neutrophils (%) (Auto) 68.9 H, Lymphocytes (%) (Auto) 18.2 L, Monocytes (%) (Auto) 6.5 H, Eosinophils (%) (Auto) 4.8 H, Basophils (%) (Auto) 0.5, Neutrophils # (Auto) 7.8 H, Lymphocytes # (Auto) 2.1, Monocytes # (Auto) 0.7, Eosinophils # (Auto) 0.6 H, Basophils # (Auto) 0.1, Calcium Level 9.0, Aspartate Amino Transf (AST/SGOT) 21, Alanine Aminotransferase (ALT/SGPT) 20, Alkaline Phosphatase 68, Total Bilirubin 0.3, Total Protein 6.1 L, Albumin 2.6 L Kika Rizvi Feb 04, 2019 12:40
[2019-02-04 13:47] LABS: APPEARANCE, URINE CLEAR (CLEAR); BACTERIA, URINE AUTO NEGATIVE (NEGATIVE); BILIRUBIN, URINE AUTO NEGATIVE (NEGATIVE); BLOOD, URINE BLOOD NEGATIVE (NEGATIVE); COLOR, URINE YELLOW (YELLOW); GLUCOSE, URINE (UA) AUTO NEGATIVE (NEGATIVE); KETONE, URINE AUTO NEGATIVE (NEGATIVE); LEUKOCYTE ESTERASE, URINE AUTO NEGATIVE (NEGATIVE); MUCUS, URINE SMALL (NEGATIVE); NITRITE, URINE AUTO NEGATIVE (NEGATIVE); PROTEIN, URINE AUTO 2+ mg/dL (NEGATIVE); RBC, URINE AUTO 2 /HPF (0-3); SQUAMOUS EPITHELIAL CELL UR AU 0 /HPF (0-6); UROBILINOGEN, URINE AUTO 0.2 mg/dL (0.0-2.0); WBC, URINE AUTO 2 /HPF (0-3)
[2019-02-04 14:00] VITALS: BP 145/58
--- NOTE | 2019-02-04 16:03 | HPEPDOC ---
[facility] Note DATE OF ADMISSION: Feb 03, 2019 at 14:35 SOURCE OF ADMISSION INFORMATION: patient, family and [facility] records CHIEF COMPLAINT: intractable low back pain with lower extremity weakness in setting of UTI HISTORY OF PRESENT ILLNESS: 84F pmh chronic diastolic CHF, CVA with residual weakness, DM, Hypothryoidism, CKD 3, Ulcerative colitis, iron deficiency anemia, gout, GERD, who presented to [facility] ED on 01/25/19 with intractable low back pain radiating down the right leg with decreased ability to walk and fatigue. MRI of her lumbar spine was performed which revealed, Degenerative disc disease and facet arthritis at L4- L5 with grade 1 anterolisthesis and moderate spinal stenosis. No orthopedic intervention was recommended and pain management was consulted who determined she was not a good candidate for spinal injection given she was on Plavix. Her urine culture grew E.coli for which she was started on antibiotics and one blood culture grew Strep Mitis which was thought to be contaminated. She developed AMS thought to be from opioids in setting of UTI and later had REID on setting of CKD. Her Lasix and losartan were held and she received gentle hydration. She was evaluated by therapy and deemed to have needs in ADLs and gait and deemed medically appropriate for discharge to ARU on 02/03/19. REVIEW OF SYSTEMS: The following is a completed review of systems and has been reviewed. Review of systems otherwise unremarkable. PAIN: Patient self reports right LBP EYES: negative for recent vision changes EARS, NOSE, & THROAT: +[place], dysphagia CARDIOVASCULAR: +CHF, denies chest pain/palpitations PULMONARY: Negative. Denies shortness of breath GASTROINTESTINAL: +loose stools GENITOURINARY: +incontinence (chronic) MUSCULOSKELETAL: right LE weakness HEMATOLOGICAL:+ anemia PSYCHIATRIC: Unremarkable All other review of systems found to be negative. PAST MEDICAL HISTORY: as per HPI PAST SURGICAL HISTORY: Cholecystectomy, Cataract, Hysterectomy. ALLERGIES: Please see below. MEDICATIONS: Please see below. 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 GENERAL: Pleasant and cooperative. No acute distress. HEENT: PERRL. Extraocular movements intact. Clear conjunctiva CARDIOVASCULAR: Regular rate and rhythm. No murmurs, rubs, or gallops LUNGS: Clear to auscultation bilaterally. No wheezes. No rhonchi ABDOMEN: Soft, nontender, nondistended. Positive bowel sounds. Normal active bowel sounds NEUROLOGICAL: Alert and oriented to self and place, not time, Cranial nerves II through XII grossly intact. Sensation grossly intact (-) Phalens (-) SLR bilat (+) pain with lateral and oblique extension of lumbo-sacral joint (+) TTP right SI joint EXTREMITIES: 5\5 strength bilateral upper extremities. 5-\5 strength right lower extremity. 5/5 strength in left lower extremity. SKIN: intact IMAGING: Imaging documentation personally reviewed by record. FUNCTIONAL STATUS: Premorbid: Independent with all activities of daily life as well as mobility On Admission: Contact Guard for ambulation with RW, Stand by assist for functional transfers and toileting. GOALS: Modified Independent with RW for ambulation, stairs, dressing, bathing, fall prevention, medical optimization, family training, assess for DMEs or home modifications. ASSESSMENT:84-year-old F with past medical history of HTN and diastolic CHF who presents status post lower extremity weakness due to spinal stenosis. PLAN: 1. Rehab: PT, OT, [employer] for cognition 2. Neuro: cognitive deficits, monitor and avoid deliriogenic drugs 3. Cardio: pmh diastolic CHF, will add back lasix and losartan and monitor Medical I D Sales in setting of recent REID- medicine consulted -c/u Plavix 4. Resp: stable, encourage incentive spiromtry, monitor for infection 5. GI: pmh ulcerative colitis, symptoms imporved after recent Ciprofloxacin treatement for UTI, will discuss management with Dr. Chew per family request -[id number]-pepcid 6. Endo: pmh DM c/u insulin and Synthroid for hypothryoidism 7. : s/p treatment UTI, f/u admisison UA and Ucx, monitor PVRS 8. Psych: depression c/u Sertraline 9. DIspo: TBD POST ADMISSION PHYSICIAN EVALUATION: Medical and functional status: Description of medical status, medical assessment: As above. Rehabilitation diagnosis and current and prior cold morbid medical conditions as above. Risk of complications and plans to mitigate them as above. Description of functional status current status is as above. Prior status as above. Status compared to preadmission: There are no clinically significant differences between the patient's current status and the information described on the preadmission screening document. Treatment plan anticipated: Treatment plan is as described above. Required disciplines including physical therapy, occupational therapy, others as noted above. Intensity of services: 3 hours a day, 6 days a week. Special considerations: There are no specific special or safety considerations that would likely preclude immediate implementation of an intensive rehabilitation program or subsequently influence the plan of care. ATTESTATION: Considering all the information above, it is my best judgment that this patient requires intensive rehabilitation therapy as described above and an inpatient hospital environment due to the complexity of nursing, medical, and rehabilitation needs required by the patient. Furthermore, this patient can reasonably be expected to participate in an benefit from an inpatient rehabilitation stay with an interdisciplinary team approach to the delivery of rehabilitation care under the direction and supervision of rehabilitation physician. PROGNOSIS: Excellent. ESTIMATED LENGTH OF STAY:7-10 days. PROJECTED DISCHARGE DESTINATION: Home with family support and any durable medical equipment required to increase functional safety and mobility. TIME SPENT COUNSELING AND COORDINATING INITIAL CARE: Greater than 70 minutes. Vital Signs Vital Sign - Last 24 Hours 02/03/19 02/03/19 02/04/19 02/04/19 20:00 21:11 06:00 06:10 Temp 97.5 98.3 Pulse 76 76 60 Resp 15 18 B/P (MAP) 146/90 (108) 146/90 180/76 (110) 156/82 (106) Pulse Ox 94 95 02/04/19 02/04/19 02/04/19 08:14 09:40 14:00 Temp 97.6 Pulse 60 66 Resp 15 B/P (MAP) 156/82 156/82 145/58 (87) Pulse Ox 97 Laboratory Data CBC/BMP Laboratory Tests 02/04/19 06:52 Red Blood Count 3.59 L, Mean Corpuscular Volume 96.7 H, Mean Corpuscular Hemoglobin 30.1, Mean Corpuscular Hemoglobin Concent 31.1 L, Red Cell Distribution Width 14.8 H, Neutrophils (%) (Auto) 68.9 H, Lymphocytes (%) (Auto) 18.2 L, Monocytes (%) (Auto) 6.5 H, Eosinophils (%) (Auto) 4.8 H, Basophils (%) (Auto) 0.5, Neutrophils # (Auto) 7.8 H, Lymphocytes # (Auto) 2.1, Monocytes # (Auto) 0.7, Eosinophils # (Auto) 0.6 H, Basophils # (Auto) 0.1, Calcium Level 9.0, Aspartate Amino Transf (AST/SGOT) 21, Alanine Aminotransferase (ALT/SGPT) 20, Alkaline Phosphatase 68, Total Bilirubin 0.3, Total Protein 6.1 L, Albumin 2.6 L Labs 24H Laboratory Tests 2 02/03/19 16:56: Bedside Glucose (Misc Panel) 141H 02/03/19 20:01: Bedside Glucose (Misc Panel) 116H 02/04/19 06:52: Immature Granulocyte % (Auto) 1.1, White Blood Count 11.4H, Red Blood Count 3.59L, Hemoglobin 10.8L, Hematocrit 34.7L, Mean Corpuscular Volume 96.7H, Mean Corpuscular Hemoglobin 30.1, Mean Corpuscular Hemoglobin Concent 31.1L, Red Cell Distribution Width 14.8H, Platelet Count 279, Neutrophils (%) (Auto) 68.9H, Lymphocytes (%) (Auto) 18.2L, Monocytes (%) (Auto) 6.5H, Eosinophils (%) (Auto) 4.8H, Basophils (%) (Auto) 0.5, Neutrophils # (Auto) 7.8H, Lymphocytes # (Auto) 2.1, Monocytes # (Auto) 0.7, Eosinophils # (Auto) 0.6H, Basophils # (Auto) 0.1, Nucleated Red Blood Cells % (auto) 0.0, Anion Gap 8, Glomerular Filtration Rate 47.0, Blood Urea Nitrogen 25H, Creatinine 1.17, Sodium Level 143, Potassium Level 4.6, Chloride Level 112H, Carbon Dioxide Level 23, Calcium Level 9.0, Aspartate Amino Transf (AST/SGOT) 21, Alanine Aminotransferase (ALT/SGPT) 20, Alkaline Phosphatase 68, Total Bilirubin 0.3, Total Protein 6.1L, Albumin 2.6L, Albumin/Globulin Ratio 0.74L 02/04/19 12:02: Bedside Glucose (Misc Panel) 126H 02/04/19 13:20: Urine Appearance CLEAR, Urine Color YELLOW, Urine pH 5.0, Urine Specific [place] 1.010, Urine Protein 2+H, Urine Glucose (UA) NEGATIVE, Urine Ketones NEGATIVE, Urine Urobilinogen 0.2, Urine Bilirubin NEGATIVE, Urine Leukocyte Esterase NEGATIVE, Urine Blood NEGATIVE, Urine Nitrite NEGATIVE, Urine WBC (Auto) 2, Urine RBC (Auto) 2, Urine Hyaline Casts (Auto) 1, Urine Bacteria (Auto) NEGATIVE, Urine Squamous Epithelial Cells 0, Urine Mucus (Auto) SMALL, Urine Sperm (Auto) FSBS Laboratory Tests Test 02/03/19 16:56 02/03/19 20:01 02/04/19 12:02 Range/Units Bedside Glucose (Misc Panel) 141 116 126 83-110 MG/DL Microbiology Microbiology 02/04/19 Urine Culture, Received Pending Home Medications Scheduled (Combigan 0.2-0.5 %) 1 Lilly Lilly, 1 DROP OS BID, (Reported) (Sertraline HCl) 50 Mg Tab, 50 MG PO BID, (Reported) Allopurinol (Allopurinol) 100 Mg Tab, 100 MG PO BID, (Reported) Atenolol (Atenolol) 50 Mg Tab, 50 MG PO BID, (Reported) Brinzolamide (Azopt) 1 % Melissa, 1 DROP OU BID, (Reported) Cholecalciferol (Vitamin D) 1,000 Unit Tab, 2,000 UNIT PO DAILY, (Reported) Clopidogrel Bisulfate (Plavix) 75 Mg Tab, 75 MG PO QHS, (Reported) Ferrous Gluconate (Ferrous Gluconate) 324 Mg Tab, 324 MG PO Q2D, (Reported) Latanoprost (Xalatan) 0.005 % Lilly, 1 DROP OU QHS, (Reported) Levothyroxine Sodium (Synthroid) 75 Mcg Tab, 75 MCG PO DAILY, (Reported) Losartan Potassium (Losartan Potassium) 50 Mg Tab, 50 MG PO BID Scheduled PRN Acetaminophen (Acetaminophen ER) 650 Mg Tab, 650 MG PO Q8H PRN for PAIN, (Reported) Loperamide HCl (Loperamide HCl) 2 Mg Tab, 2 MG PO PRN PRN for DIARRHEA, (Reported) Meclizine HCl (Meclizine 25) 25 Mg Tab, 25 MG PO Q8H PRN for DIZZINESS, (Reported) Ondansetron (Ondansetron Odt) 4 Mg Tab, 4 MG PO TID PRN for NAUSEA, (Reported) Oxycodone/Acetaminophen (Percocet 5MG/325MG Tablet) 1 Tab Tab, 1 TAB PO Q12HP PRN for MILD/MODERATE PAIN (PS 1-7) Ranitidine HCl (Ranitidine HCl) 150 Mg Tab, 1 TAB PO QHS PRN for HEARTBURN, (Reported) Allergies Coded Allergies: Penicillins (Verified Allergy, Severe, SWELLING/RASH, 03/20/17) Sulfasalazine (Verified Allergy, Severe, hives, hematemesis,difficulty breathing, 12/25/15) Doxycycline (Verified Allergy, Intermediate, RASH, 03/20/17) Benzalkonium Chloride (Verified Allergy, Unknown, 08/10/14) Clavulanic Acid (Unverified Allergy, Unknown, PRURITIS, 02/25/13) Replaces AUGMENTIN Contrast Media (Verified Allergy, Unknown, 08/10/14) Shellfish Allergy (Verified Allergy, Unknown, 08/10/14) Sulfa Antibiotics (Unverified Allergy, Unknown, RASH, 07/16/16) TAPE (Verified Allergy, Unknown, BANDAIDS, 08/10/14) Timolol (Verified Allergy, Unknown, 08/10/14) Travoprost (Verified Allergy, Unknown, 08/10/14) Diltiazem (Verified Adverse Reaction, Intermediate, N/V/D, 07/21/16) Gemfibrozil (Verified Adverse Reaction, Intermediate, PAIN, 02/25/13) Prednisone (Verified Adverse Reaction, Intermediate, INCREASED EYE PRESSURE, 02/25/13) Statins (Verified Adverse Reaction, Intermediate, BODY ACHES, 02/25/13) Iodine (Verified Adverse Reaction, Mild, ABDOMINAL PAIN: ORAL GRAFIN TABS, 02/25/13) Metoprolol (Verified Adverse Reaction, Mild, DIZZINESS, 02/25/13) FRAN ADEN MD Feb 04, 2019 16:03
[2019-02-04 20:00] VITALS: BP 168/78
[2019-02-04] MEDS: SERTRALINE HCL 25 MG TABLET PO SCH (21:20)
[2019-02-04] MEDS: CLOPIDOGREL 75 MG TAB PO SCH (21:20)
[2019-02-04] MEDS: FAMOTIDINE 20 MG TAB PO SCH (21:20)
[2019-02-04] MEDS: POTASSIUM CHLORIDE 10 MEQ SR TABLET PO SCH (21:20)
[2019-02-04] MEDS: LATANOPROST 0.005% OPHTH SOLN 2.5 ML OU SCH (21:26)
[2019-02-05 05:49] VITALS: BP 127/72
[2019-02-05] MEDS: ACETAMINOPHEN TAB 650MG DOSE (2X325MG) PO PRN ×2 (05:50→23:56)
[2019-02-05] MEDS: HEPARIN SOD (PORCINE) 5000 UNITS/ML VIAL SC SCH ×3 (05:51→22:00)
[2019-02-05] MEDS: LEVOTHYROXINE 75MCG TABLET (0.075MG) PO SCH (05:51)
[2019-02-05 07:17] LABS: BASO # 0.1 10^3/uL (0.0-0.2); BASO % 0.5 % (0.0-1.0); EOS # 0.6 10^3/uL (0.0-0.50); EOS % 5.2 % (0.0-3.0); HEMATOCRIT 36.9 % (36.0-47.0); HEMOGLOBIN 11.5 g/dl (12.0-15.5); LYMPH # 2.6 10^3/uL (1.5-4.5); LYMPH % 22.7 % (24.0-44.0); MEAN CORPUSCULAR HEMOGLOBIN 29.9 pg (27.0-33.0); MEAN CORPUSCULAR HGB CONC 31.2 g/dl (32.0-36.5); MEAN CORPUSCULAR VOLUME 96.1 fl (80.0-96.0); MONO # 0.7 10^3/uL (0.0-0.8); MONO % 6.3 % (0.0-5.0); NEUTROPHILS # 7.5 10^3/uL (1.8-7.7); NEUTROPHILS % 64.4 % (36.0-66.0); PLATELET COUNT, AUTOMATED 264 10^3/uL (150-450); RED BLOOD COUNT 3.84 10^6/uL (4.00-5.40); WHITE BLOOD COUNT 11.6 10^3/uL (4.0-10.0)
[2019-02-05 07:46] LABS: CALCIUM LEVEL 9.3 MG/DL (8.8-10.2); CREATININE FOR GFR 1.25 MG/DL (0.55-1.30); GLOMERULAR FILTRATION RATE 43.6 (>32); POTASSIUM SERUM 4.5 MEQ/L (3.5-5.1)
[2019-02-05] MEDS: FERROUS GLUCONATE 324 MG TAB PO SCH (08:38)
[2019-02-05] MEDS: DULoxetine 30 MG CAP (CYMBALTA) PO SCH (08:39)
[2019-02-05] MEDS: ATENOLOL 50 MG TAB PO SCH ×2 (08:39→22:00)
[2019-02-05] MEDS: BRINZOLAMIDE 1 % OPHTH SUSP (AZOPT) 10ML OU SCH ×2 (08:40→22:00)
[2019-02-05] MEDS: VITAMIN D 1,000 INTERNATIONAL UNITS TABLET PO SCH (08:40)
[2019-02-05] MEDS: SERTRALINE HCL 25 MG TABLET PO SCH ×2 (08:40→22:00)
[2019-02-05] MEDS: LOSARTAN 50 MG TAB PO SCH ×2 (08:40→21:00)
[2019-02-05] MEDS: FUROSEMIDE 20 MG TAB PO SCH (08:40)
[2019-02-05] MEDS: ALLOPURINOL 100 MG TAB PO SCH ×2 (08:40→22:00)
[2019-02-05] MEDS: DOCUSATE SODIUM 100 MG CAP PO SCH ×2 (08:41→22:00)
[2019-02-05] MEDS: OPTH OS SCH ×2 (08:41→22:00)
[2019-02-05] MEDS: HumaLOG INSULIN (NovoLOG) PER UNIT SC SCH ×4 (08:41→21:00)
[2019-02-05] MEDS: COMBIGAN OS SCH ×2 (08:41→22:00)
--- NOTE | 2019-02-05 12:07 | NUR ---
Pt w/ memory impairment from prior CVA. Cognitive tx for compensatory strategy training & safety training w/ ADL's. Addendum: 02/05/19 at 1209 by ARIANA GAR [facility] Amended: Links added.
--- NOTE | 2019-02-05 13:03 | IPNPDOC ---
Date Seen The patient was seen on 02/05/19. Progress Note HPI: Patient is an 84-year-old female with a PMHx Diastolic CHF, CVA with residual weakness, diabetes, hypothyroidism, chronic kidney disease (CKD) stage III, ulcerative colitis (She appears to be on some sort of infusion every 8 weekly, this is unclear), Hypothyroidism, iron deficiency anemia, gout and gastroesophageal reflux disease (GERD) who presented to the ER with worsening chronic right-sided lower back pain radiating down her right leg. Patient was admitted for debility 2/2 spinal stenosis. The pt was transferred to ARU, Dr Travis, 02/03/19. No acute medical complaints today. Pt is OOB to chair. States pain has been controlled. Denies any fevers, chills, weakness, fatigue, Headache, Chest Pain, Shortness of breath, cough, palpitations, abdominal pain, N/V/D or changes in bowel or bladder habits. PE: GEN: 84yoF, appears stated age. No acute distress. Alert and oriented x 3. HEENT: Normocephalic, atraumatic. Sclera are nonicteric. Conjunctiva without injection. Moist mucous membranes. CHEST: Regular rate and rhythm, +S1, +S2 LUNGS: Clear to auscultation bilaterally. No wheezes, rales, or rhonchi. Breathing appears symmetric and easy. ABD: Round, soft, non-tender, non-distended. +Bowel sounds throughout. No rebound or guarding. EXT: No lower extremity edema appreciated. SKIN: [place], dry, warm. No rashes. NEURO: Alert and oriented x 3. No focal deficits appreciated. A&P: Patient is an 84-year-old female with a PMHx Diastolic CHF, CVA with residual weakness, diabetes, hypothyroidism, chronic kidney disease (CKD) stage III, ulcerative colitis (She appears to be on some sort of infusion every 8 weekly, this is unclear), Hypothyroidism, iron deficiency anemia, gout and gastroesophageal reflux disease (GERD) who presented to the ER with worsening chronic right-sided lower back pain radiating down her right leg. Patient was admitted for debility 2/2 spinal stenosis. The pt was transferred to ARU, Dr Travis, 02/03/19. Intractable back pain 2/2 spinal stenosis Mgmt as per Dr Travis. PT/OT/ST as per Dr Travis. Pain control as per Dr Travis. Consider pain management consultation if needed. Bowel care as per Dr Travis. DVT prophylaxis as per Dr Travis. SQ Heparin. Bilateral LE pain; possibly 2/2 above, possibly 2/2 PAD No evidence of ischemia Arterial US 02/01: Biphasic waveforms are noted bilaterally except at the points of stenosis with monophasic waveforms in the right and left mid SFA. ABIs could not be obtained due to the patient's inability to tolerate blood pressure cuff on the lower legs. Cont Plavix Outpatient f/u with vascular surgery s/p Opioid-induced AMS Recommend PRN med only, not scheduled. Percocet is currently on hold. Monitor Positive blood cultures - likely 2/2 contaminant Blood cultures 01/25: Strep Mitis (1 of 2) Blood cultures 01/26: No growth at 5 days s/p vancomycin 01/26/19 UTI present on admission Urine cultures 01/25: E. coli s/p Ceftriaxone, po Levaquin. UC 02/04/19 neg s/p REID/CKD SCr 1.25. Monitor. Diastolic CHF. Low NA diet Continue Lasix 20 mg daily, Aldactone, KCL. Appears compensated. Monitor. Hx of CVA Plavix NIDDM2 CC diet SSI Gout Allopurinol HTN Atenolol/Cozaar. Glaucoma Cont eye drop outpt regimen. UC Patient receives outpatient infusion every 8 weeks Loperamide as ordered Mood disorder Sertraline GERD Ranitidine VS, I&O, 24H, Fishbone Vital Signs/I&O Vital Signs Date Time Temp Pulse Resp B/P (MAP) Pulse Ox O2 Delivery O2 Flow Rate FiO2 02/05/19 08:40 127/72 02/05/19 08:39 67 02/05/19 05:49 96.8 20 97 I&O- Last 24 Hours up to 6 AM 02/05/19 06:00 Intake Total 1380 ml Output Total 1200 ml Balance 180 ml Laboratory Data 24H LABS Laboratory Tests 2 02/04/19 13:20: Urine Appearance CLEAR, Urine Color YELLOW, Urine pH 5.0, Urine Specific [place] 1.010, Urine Protein 2+H, Urine Glucose (UA) NEGATIVE, Urine Ketones NEGATIVE, Urine Urobilinogen 0.2, Urine Bilirubin NEGATIVE, Urine Leukocyte Esterase NEGATIVE, Urine Blood NEGATIVE, Urine Nitrite NEGATIVE, Urine WBC (Auto) 2, Urine RBC (Auto) 2, Urine Hyaline Casts (Auto) 1, Urine Bacteria (Auto) NEGATIVE, Urine Squamous Epithelial Cells 0, Urine Mucus (Auto) SMALL, Urine Sperm (Auto) 02/04/19 16:43: Bedside Glucose (Misc Panel) 131H 02/04/19 19:59: Bedside Glucose (Misc Panel) 155H 02/05/19 06:59: Immature Granulocyte % (Auto) 0.9, White Blood Count 11.6H, Red Blood Count 3.84L, Hemoglobin 11.5L, Hematocrit 36.9, Mean Corpuscular Volume 96.1H, Mean Corpuscular Hemoglobin 29.9, Mean Corpuscular Hemoglobin Concent 31.2L, Red Cell Distribution Width 15.0H, Platelet Count 264, Neutrophils (%) (Auto) 64.4, Lymphocytes (%) (Auto) 22.7L, Monocytes (%) (Auto) 6.3H, Eosinophils (%) (Auto) 5.2H, Basophils (%) (Auto) 0.5, Neutrophils # (Auto) 7.5, Lymphocytes # (Auto) 2.6, Monocytes # (Auto) 0.7, Eosinophils # (Auto) 0.6H, Basophils # (Auto) 0.1, Nucleated Red Blood Cells % (auto) 0.0, Anion Gap 8, Glomerular Filtration Rate 43.6, Blood Urea Nitrogen 28H, Creatinine 1.25, Sodium Level 142, Potassium Level 4.5, Chloride Level 112H, Carbon Dioxide Level 22, Calcium Level 9.3 02/05/19 11:47: Bedside Glucose (Misc Panel) 140H CBC/BMP Laboratory Tests 02/05/19 06:59 Red Blood Count 3.84 L, Mean Corpuscular Volume 96.1 H, Mean Corpuscular Hemoglobin 29.9, Mean Corpuscular Hemoglobin Concent 31.2 L, Red Cell Distribution Width 15.0 H, Neutrophils (%) (Auto) 64.4, Lymphocytes (%) (Auto) 22.7 L, Monocytes (%) (Auto) 6.3 H, Eosinophils (%) (Auto) 5.2 H, Basophils (%) (Auto) 0.5, Neutrophils # (Auto) 7.5, Lymphocytes # (Auto) 2.6, Monocytes # (Auto) 0.7, Eosinophils # (Auto) 0.6 H, Basophils # (Auto) 0.1, Calcium Level 9.3 Microbiology Microbiology 02/04/19 Urine Culture - Final, Complete Kika Rizvi Feb 05, 2019 13:03
[2019-02-05 14:00] VITALS: BP 180/78
[2019-02-05 20:00] VITALS: BP 158/88
[2019-02-05] MEDS: CLOPIDOGREL 75 MG TAB PO SCH (22:00)
[2019-02-05] MEDS: LATANOPROST 0.005% OPHTH SOLN 2.5 ML OU SCH (22:00)
[2019-02-05] MEDS: POTASSIUM CHLORIDE 10 MEQ SR TABLET PO SCH (22:00)
[2019-02-05] MEDS: FAMOTIDINE 20 MG TAB PO SCH (22:00)
[2019-02-06] MEDS ORDERED: **hydrALAZINE HCL** 25 MG TAB PO ONE (00:30)
[2019-02-06 01:40] VITALS: BP 140/60
[2019-02-06] MEDS: ONDANSETRON 4 MG TAB (S0181) PO PRN (05:23)
[2019-02-06 06:00] VITALS: BP 160/70
[2019-02-06] MEDS: LEVOTHYROXINE 75MCG TABLET (0.075MG) PO SCH (06:00)
[2019-02-06] MEDS: HEPARIN SOD (PORCINE) 5000 UNITS/ML VIAL SC SCH ×3 (06:18→22:27)
[2019-02-06] MEDS: HumaLOG INSULIN (NovoLOG) PER UNIT SC SCH ×4 (07:30→22:32)
[2019-02-06] MEDS: DOCUSATE SODIUM 100 MG CAP PO SCH ×2 (08:16→22:24)
[2019-02-06] MEDS: FUROSEMIDE 20 MG TAB PO SCH (08:17)
[2019-02-06] MEDS: ATENOLOL 50 MG TAB PO SCH ×2 (08:17→22:24)
[2019-02-06] MEDS: SERTRALINE HCL 25 MG TABLET PO SCH ×2 (08:17→22:24)
[2019-02-06] MEDS: ALLOPURINOL 100 MG TAB PO SCH ×2 (08:18→22:23)
[2019-02-06] MEDS: OPTH OS SCH ×2 (08:18→22:25)
[2019-02-06] MEDS: VITAMIN D 1,000 INTERNATIONAL UNITS TABLET PO SCH (08:18)
[2019-02-06] MEDS: COMBIGAN OS SCH ×2 (08:18→22:25)
[2019-02-06] MEDS: LOSARTAN 50 MG TAB PO SCH ×2 (08:18→22:24)
[2019-02-06] MEDS: BRINZOLAMIDE 1 % OPHTH SUSP (AZOPT) 10ML OU SCH ×2 (08:18→22:25)
[2019-02-06] MEDS: DULoxetine 30 MG CAP (CYMBALTA) PO SCH (08:19)
[2019-02-06 14:00] VITALS: BP 174/76
--- NOTE | 2019-02-06 15:53 | IPNPDOC ---
Text Note Date of Service The patient was seen on 02/06/19. NOTE Subjective: Patient is an 84-year-old female with a PMHx Diastolic CHF, CVA with residual weakness, DM2, Hypothyroidism, CKD3, UC (appears to be on infusion every 8 weekly, this is unclear), LAQUITA, gout and GERD who presented to the ER wit h worsening chronic right-sided lower back pain radiating down her right leg. Patient was admitted to hospice service for debility 2/2 spinal stenosis. The pt was transferred to ARU, Dr Travis, 02/03/19. Patient was seen and examined at the bedside. Patient continues to work with physical therapy. She denies any chest pain, shortness of breath or palpitations. She still notes pain. She radiating down her right leg. Denies any nausea, vomiting, abdominal pain, constipation or diarrhea. Denies any discomfo rt or difficulty with urination. Objective: Vitals (See below) General: Lying in bed, no acute distress, comfortable, Awake / Alert HEENT: NC, AT CVS: RRR, +S1S2 Lungs: Fair air entry b/l, auscultation is without wheezing, rhonchi or rales Abdomen: Soft, remains nondistended without tenderness Extremities: No evidence of lower extremity edema, - Calf tenderness Neuro: 5/5 strength at upper / lower extremities bilaterally Assessment and plan: Intractable back pain 2/2 spinal stenosis - c/w pain regimen, bowel care and physical therapy as per Dr. Thaddeus DUDLEY Bilateral LE pain; possibly 2/2 above, possibly 2/2 PAD - No evidence of ischemia - Arterial US 02/01: Biphasic waveforms are noted bilaterally except at the points of stenosis with monophasic waveforms in the right and left mid SFA. ABIs could not be obtained due to the patient's inability to tolerate blood pressure cuff on the lower legs. - c/w Plavix - Will have outpatient f/u with vascular surgery s/p Opioid-induced AMS - c/w Percocet - on Hold Positive blood cultures - likely 2/2 contaminant - Blood cultures 01/25: Strep Mitis (1 of 2) - Blood cultures 01/26: No growth at 5 days - s/p vancomycin 01/26/19 UTI present on admission - Urine cultures 01/25: E. coli - s/p Ciprofloxacin, s/p Ceftriaxone s/p REID - s/p IV fluids - Has been resumed on diuretics Diastolic CHF, Compensated - No evidence of exacerbation - c/w Furosemide / Spironolactone Hx of CVA - c/w Plavix NIDDM2 - c/w ISS Gout - c/w Allopurinol HTN - c/w Hydralazine & Atenolol Glaucoma - c/w eye drops from outpatient regimen UC - Patient receives outpatient infusion every 8 weeks - c/w Loperamide as ordered Mood disorder - c/w Sertraline GERD - c/w Ranitidine DVT prophylaxis - As per Dr. Thaddeus DUDLEY VS,Terrybone, I+O VS, Manne, I+O Vital Signs Date Time Temp Pulse Resp B/P (MAP) Pulse Ox O2 Delivery O2 Flow Rate FiO2 02/06/19 14:00 98.4 63 16 174/76 (108 93 I&O- Last 24 Hours up to 6 AM 02/06/19 06:00 Intake Total 1020 ml Output Total 1100 ml Balance -80 ml RON ZAMORA MD Feb 06, 2019 15:53
[2019-02-06] MEDS: **hydrALAZINE HCL** 25 MG TAB PO SCH (16:19)
[2019-02-06 20:00] VITALS: BP 152/64
[2019-02-06] MEDS: CLOPIDOGREL 75 MG TAB PO SCH (22:23)
[2019-02-06] MEDS: POTASSIUM CHLORIDE 10 MEQ SR TABLET PO SCH (22:24)
[2019-02-06] MEDS: FAMOTIDINE 20 MG TAB PO SCH (22:24)
[2019-02-06] MEDS: LATANOPROST 0.005% OPHTH SOLN 2.5 ML OU SCH (22:25)
[2019-02-06] MEDS: ACETAMINOPHEN TAB 650MG DOSE (2X325MG) PO PRN (22:28)
[2019-02-07] MEDS: **hydrALAZINE HCL** 25 MG TAB PO SCH ×3 (00:12→16:01)
[2019-02-07] MEDS: LEVOTHYROXINE 75MCG TABLET (0.075MG) PO SCH (05:14)
[2019-02-07] MEDS: HEPARIN SOD (PORCINE) 5000 UNITS/ML VIAL SC SCH ×3 (05:14→20:53)
[2019-02-07] MEDS: ONDANSETRON 4 MG TAB (S0181) PO PRN (05:16)
[2019-02-07 06:00] VITALS: BP 158/86
[2019-02-07] MEDS: HumaLOG INSULIN (NovoLOG) PER UNIT SC SCH ×4 (07:00→20:45)
[2019-02-07] MEDS: FUROSEMIDE 20 MG TAB PO SCH (08:39)
[2019-02-07] MEDS: LOSARTAN 50 MG TAB PO SCH ×2 (08:39→20:52)
[2019-02-07] MEDS: FERROUS GLUCONATE 324 MG TAB PO SCH (08:39)
[2019-02-07] MEDS: VITAMIN D 1,000 INTERNATIONAL UNITS TABLET PO SCH (08:39)
[2019-02-07] MEDS: ATENOLOL 50 MG TAB PO SCH ×2 (08:39→20:56)
[2019-02-07] MEDS: ALLOPURINOL 100 MG TAB PO SCH ×2 (08:40→20:53)
[2019-02-07] MEDS: DOCUSATE SODIUM 100 MG CAP PO SCH ×2 (08:40→20:16)
[2019-02-07] MEDS: SERTRALINE HCL 25 MG TABLET PO SCH ×2 (08:40→20:53)
[2019-02-07] MEDS: DULoxetine 30 MG CAP (CYMBALTA) PO SCH (08:40)
[2019-02-07] MEDS: BRINZOLAMIDE 1 % OPHTH SUSP (AZOPT) 10ML OU SCH ×2 (08:42→20:54)
[2019-02-07] MEDS: COMBIGAN OS SCH ×2 (08:42→20:54)
[2019-02-07] MEDS: OPTH OS SCH ×2 (08:42→20:54)
[2019-02-07 14:00] VITALS: BP 148/66
--- NOTE | 2019-02-07 16:45 | IPNPDOC ---
Text Note Date of Service The patient was seen on 02/07/19. NOTE Subjective: Patient is an 84-year-old female with a PMHx Diastolic CHF, CVA with residual weakness, DM2, Hypothyroidism, CKD3, UC (appears to be on infusion every 8 weekly, this is unclear), LAQUITA, gout and GERD who presented to the ER wit h worsening chronic right-sided lower back pain radiating down her right leg. Patient was admitted to hospice service for debility 2/2 spinal stenosis. The pt was transferred to ARU, Dr Travis, 02/03/19. Patient was seen and examined at the bedside. She was sleeping when I went to go see her and awoke upon my arrival. Patient has reported to me that she still experiences right leg pain. However, it has significantly improved compared to when she first arrived. Denies chest pain, shortness breath, palpitations. Has had regular bowel movements. Denies abdominal pain. Objective: Vitals (See below) General: Lying in bed, no acute distress, comfortable, Awake / Alert HEENT: NC, AT CVS: RRR, +S1S2 Lungs: Fair air entry b/l, no evidence of rhonchi, wheezing or rales on auscultation Abdomen: Soft, nontender without distention Extremities: Lower extremities are free of edema, - Calf tenderness Neuro: 5/5 strength at upper / lower extremities bilaterally Assessment and plan: Intractable back pain 2/2 spinal stenosis - c/w pain regimen, bowel care and physical therapy as per Dr. Thaddeus DUDLEY - Continue with physical therapy as directed Bilateral LE pain; possibly 2/2 above, possibly 2/2 PAD - No evidence of ischemia - Arterial US 02/01: Biphasic waveforms are noted bilaterally except at the points of stenosis with monophasic waveforms in the right and left mid SFA. ABIs could not be obtained due to the patient's inability to tolerate blood pressure cuff on the lower legs. - c/w Plavix - Will have outpatient f/u with vascular surgery s/p Opioid-induced AMS - c/w Percocet - on Hold Positive blood cultures - likely 2/2 contaminant - Blood cultures 01/25: Strep Mitis (1 of 2) - Blood cultures 01/26: No growth at 5 days - s/p vancomycin 01/26/19 UTI present on admission - Urine cultures 01/25: E. coli - s/p Ciprofloxacin, s/p Ceftriaxone s/p REID - s/p IV fluids - Has been resumed on diuretics Diastolic CHF, Compensated - No evidence of exacerbation - c/w Furosemide / Spironolactone Hx of CVA - c/w Plavix NIDDM2 - c/w ISS Gout - c/w Allopurinol HTN - c/w Hydralazine & Atenolol Glaucoma - c/w eye drops from outpatient regimen UC - Patient receives outpatient infusion every 8 weeks - c/w Loperamide as ordered Mood disorder - c/w Sertraline GERD - c/w Ranitidine DVT prophylaxis - As per Dr. Thaddeus DUDLEY Disposition: - Patient reports that she may be discharged within the next few days - I have advised her that we will leave this decision up to acute rehabilitation unit VS,Alex, I+O VS, Alex, I+O Vital Signs Date Time Temp Pulse Resp B/P (MAP) Pulse Ox O2 Delivery O2 Flow Rate FiO2 02/07/19 16:01 148/66 02/07/19 14:00 97.1 64 18 95 I&O- Last 24 Hours up to 6 AM 02/07/19 06:00 Intake Total 700 ml Output Total 400 ml Balance 300 ml RON ZAMORA MD Feb 07, 2019 16:45
[2019-02-07 20:00] VITALS: BP 144/75
--- NOTE | 2019-02-07 20:26 | IPNPDOC ---
PM&R Progress Note DATE OF SERVICE: Feb 04, 2019 Primary Care Pediatrician Progress Note Subjective: Patient reports she feels much better and believes she is walking well. REVIEW OF SYSTEMS: The following is a completed review of systems and has been reviewed. Review of systems otherwise unremarkable. PAIN: Patient self reports right LBP EYES: negative for recent vision changes EARS, NOSE, & THROAT: +[place], dysphagia CARDIOVASCULAR: +CHF, denies chest pain/palpitations PULMONARY: Negative. Denies shortness of breath GASTROINTESTINAL: +loose stools GENITOURINARY: +incontinence (chronic) MUSCULOSKELETAL: right LE weakness HEMATOLOGICAL:+ anemia PSYCHIATRIC: Unremarkable All other review of systems found to be negative. PHYSICAL EXAMINATION: VITAL SIGNS: Please see below. GENERAL: Pleasant and cooperative. No acute distress. HEENT: PERRL. Extraocular movements intact. Clear conjunctiva CARDIOVASCULAR: Regular rate and rhythm. No murmurs, rubs, or gallops LUNGS: Clear to auscultation bilaterally. No wheezes. No rhonchi ABDOMEN: Soft, nontender, nondistended. Positive bowel sounds. Normal active bowel sounds NEUROLOGICAL: Alert and oriented to self and place, not time, Cranial nerves II through XII grossly intact. Sensation grossly intact (-) Phalens (-) SLR bilat (+) pain with lateral and oblique extension of lumbo-sacral joint (+) TTP right SI joint EXTREMITIES: 5\5 strength bilateral upper extremities. 5-\5 strength right lower extremity. 5/5 strength in left lower extremity. SKIN: intact ASSESSMENT:84-year-old F with past medical history of HTN and diastolic CHF who presents status post lower extremity weakness due to spinal stenosis. PLAN: 1. Rehab: PT, OT, DESIGN CHIEF for cognition 2. Neuro: cognitive deficits, monitor and avoid deliriogenic drugs 3. Cardio: pmh diastolic CHF, c/u lasix and losartan and monitor [place] in setting of recent REID- medicine consulted -c/u Plavix 4. Resp: stable, encourage incentive spiromtry, monitor for infection 5. GI: pmh ulcerative colitis, symptoms imporved after recent Ciprofloxacin treatement for UTI, will discuss management with Dr. Chew per family reques t -ppx-pepcid 6. Endo: pmh DM c/u insulin and Synthroid for hypothryoidism 7. : s/p treatment UTI, f/u admisison UA and Ucx, monitor PVRS 8. Psych: depression c/u Sertraline 9. DIspo: TBD Allergies Coded Allergies: Penicillins (Verified Allergy, Severe, SWELLING/RASH, 03/20/17) Sulfasalazine (Verified Allergy, Severe, hives, hematemesis,difficulty breathing, 12/25/15) Doxycycline (Verified Allergy, Intermediate, RASH, 03/20/17) Benzalkonium Chloride (Verified Allergy, Unknown, 08/10/14) Clavulanic Acid (Unverified Allergy, Unknown, PRURITIS, 02/25/13) Replaces AUGMENTIN Contrast Media (Verified Allergy, Unknown, 08/10/14) Shellfish Allergy (Verified Allergy, Unknown, 08/10/14) Sulfa Antibiotics (Unverified Allergy, Unknown, RASH, 07/16/16) TAPE (Verified Allergy, Unknown, BANDAIDS, 08/10/14) Timolol (Verified Allergy, Unknown, 08/10/14) Travoprost (Verified Allergy, Unknown, 08/10/14) Diltiazem (Verified Adverse Reaction, Intermediate, N/V/D, 07/21/16) Gemfibrozil (Verified Adverse Reaction, Intermediate, PAIN, 02/25/13) Prednisone (Verified Adverse Reaction, Intermediate, INCREASED EYE PRESSURE, 02/25/13) Statins (Verified Adverse Reaction, Intermediate, BODY ACHES, 02/25/13) Iodine (Verified Adverse Reaction, Mild, ABDOMINAL PAIN: ORAL GRAFIN TABS, 02/25/13) Metoprolol (Verified Adverse Reaction, Mild, DIZZINESS, 02/25/13) Vital Signs Vital Signs Date Time Temp Pulse Resp B/P (MAP) Pulse Ox O2 Delivery O2 Flow Rate FiO2 02/07/19 16:01 148/66 02/07/19 14:00 97.1 64 18 95 Laboratory Data Labs 24H Laboratory Tests 2 02/07/19 05:45: Bedside Glucose (Misc Panel) 90 02/07/19 11:46: Bedside Glucose (Misc Panel) 120H 02/07/19 16:30: Bedside Glucose (Misc Panel) 152H 02/07/19 20:12: Bedside Glucose (Misc Panel) 151H Microbiology Microbiology 02/04/19 Urine Culture - Final, Complete Current Medications Current Medications Current Medications Acetaminophen (Tylenol Tab) 650 mg Q4HP PRN PO fever/MILD PAIN (PS 1-4) Last administered on 02/06/19 22:28; Start 02/03/19 at 16:00 Al Hydrox/Mg Hydrox/Simethicone (Mylanta) 30 ml Q4HP PRN PO DYSPEPSIA; Start 02/03/19 at 16:00 Allopurinol (Zyloprim) 100 mg BID PO Last administered on 02/07/19 08:40; Start 02/03/19 at 21:00 Atenolol (Tenormin) 50 mg BID PO Last administered on 02/07/19 08:39; Start 02/03/19 at 21:00 Bisacodyl (Dulcolax Suppository) 10 mg DAILYPRN PRN SC CONSTIPATION; Start 02/03/19 at 16:00 Brinzolamide (Azopt) 1 drop BID OU Last administered on 02/07/19 08:42; Start 02/03/19 at 21:00 Clopidogrel Bisulfate (PLAVix) 75 mg QHS PO Last administered on 02/06/19 22:23; Start 02/03/19 at 21:00 Dextrose (Dextrose 50%) 25 ml ASDIRECTED PRN IV SEE LABEL COMMENTS; Start 02/03/19 at 16:00 Docusate Sodium (Colace) 100 mg BID PO Last administered on 02/06/19 22:24; Start 02/03/19 at 21:00 Duloxetine HCl (Cymbalta) 30 mg DAILY PO Last administered on 02/07/19 08:40; Start 02/05/19 at 09:00 Famotidine (Pepcid) 20 mg QHS PO Last administered on 02/06/19 22:24; Start 02/03/19 at 21:00 Ferrous Gluconate (Fergon) 324 mg Q2D PO Last administered on 02/07/19 08:39; Start 02/05/19 at 09:00 Furosemide (Lasix) 20 mg DAILY PO Last administered on 02/07/19 08:39; Start 02/04/19 at 09:00 Glucagon (Glucagon) 1 mg ASDIRECTED PRN SC SEE LABEL COMMENTS; Start 02/03/19 at 16:00 Glucose (Glucose) 16 GM ASDIRECTED PRN PO SEE LABEL COMMENTS; Start 02/03/19 at 16:00 Heparin Sodium (Porcine) (Heparin) 5,000 units Q8H SC Last administered on 02/07/19at 14:32; Start 02/03/19 at 22:00 Hydralazine HCl (Apresoline) 25 mg Q8H PO Last administered on 02/07/19at 16:01; Start 02/06/19 at 16:00 Insulin Human Lispro (HumaLOG INSULIN) SEE PROTOCOL TABLE AC SC Last administered on 02/07/19at 17:27; Start 02/03/19 at 17:30 Insulin Human Lispro (HumaLOG INSULIN) SEE PROTOCOL TABLE QHS SC ; Start 02/03/19 at 21:00 Latanoprost (Xalatan 0.005% Op Soln) 1 drop QHS OU Last administered on 02/06/19 22:25; Start 02/03/19 at 21:00 Levothyroxine Sodium (Synthroid) 75 mcg DAILY@06 PO Last administered on 02/07/19at 05:14; Start 02/04/19 at 06:00 Losartan Potassium (Cozaar) 50 mg BID PO Last administered on 02/07/19at 08:39; Start 02/03/19 at 21:00 Magnesium Hydroxide (Milk Of Magnesia) 30 ml DAILYPRN PRN PO CONSTIPATION; Sta rt 02/03/19 at 16:00 Miscellaneous (Unresolved Patient Own Med Order) SEE LABEL COMMENTS DAILY XX ; Start 02/03/19 at 09:00; Stop 02/05/19 at 00:58; Status DC Ondansetron HCl (Zofran) 4 mg Q6HP PRN PO NAUSEA Last administered on 02/07/19at 05:16; Start 02/03/19 at 16:00 Oxycodone HCl (Roxicodone, Oxyir) 5 mg Q8H PRN PO PAIN (7-10); Start 02/03/19 at 16:00; Stop 02/03/19 at 16:55; Status DC Patient Own Medication (Patient'S Own Med) Combigan 0.2-0.5% OPTH ... BID OS Last administered on 02/07/19at 08:42; Start 02/03/19 at 21:00 Potassium Chloride (Micro-K Extencaps) 10 meq QHS PO Last administered on 02/06/19at 22:24; Start 02/03/19 at 21:00 Sertraline HCl (Zoloft) 25 mg BID PO Last administered on 02/07/19at 08:40; Start 02/04/19 at 21:00 Sertraline HCl (Zoloft) 50 mg BID PO Last administered on 02/04/19at 09:40; Start 02/03/19 at 21:00; Stop 02/04/19 at 16:54; Status DC Spironolactone (Aldactone) 25 mg QAM PO ; Start 02/04/19 at 09:00; Stop 02/04/19 at 09:00; Status DC Vitamin D (Vitamin D) 2,000 units DAILY PO Last administered on 02/07/19at 08:39; Start 02/04/19 at 09:00 FRAN ADEN MD Feb 07, 2019 20:26
--- NOTE | 2019-02-07 20:28 | IPNPDOC ---
PM&R Progress Note DATE OF SERVICE: Feb 05, 2019 [employer] Progress Note Subjective: Patient seen in therapy walking comfortable at good speed. REVIEW OF SYSTEMS: The following is a completed review of systems and has been reviewed. Review of systems otherwise unremarkable. PAIN: Patient self reports right LBP EYES: negative for recent vision changes EARS, NOSE, & THROAT: +[place], dysphagia CARDIOVASCULAR: +CHF, denies chest pain/palpitations PULMONARY: Negative. Denies shortness of breath GASTROINTESTINAL: +loose stools GENITOURINARY: +incontinence (chronic) MUSCULOSKELETAL: right LE weakness HEMATOLOGICAL:+ anemia PSYCHIATRIC: Unremarkable All other review of systems found to be negative. PHYSICAL EXAMINATION: VITAL SIGNS: Please see below. GENERAL: Pleasant and cooperative. No acute distress. HEENT: PERRL. Extraocular movements intact. Clear conjunctiva CARDIOVASCULAR: Regular rate and rhythm. No murmurs, rubs, or gallops LUNGS: Clear to auscultation bilaterally. No wheezes. No rhonchi ABDOMEN: Soft, nontender, nondistended. Positive bowel sounds. Normal active bowel sounds NEUROLOGICAL: Alert and oriented to self and place, not time, Cranial nerves II through XII grossly intact. Sensation grossly intact (-) Phalens (-) SLR bilat (+) pain with lateral and oblique extension of lumbo-sacral joint (+) TTP right SI joint EXTREMITIES: 5\5 strength bilateral upper extremities. 5-\5 strength right lower extremity. 5/5 strength in left lower extremity. SKIN: intact ASSESSMENT:84-year-old F with past medical history of HTN and diastolic CHF who presents status post lower extremity weakness due to spinal stenosis. PLAN: 1. Rehab: PT, OT, METAL CHECKER for cognition, ambulating well, will focus on household tasks and dynamic balance 2. Neuro: cognitive deficits, monitor and avoid deliriogenic drugs 3. 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 Resp: stable, encourage incentive spiromtry, monitor for infection 5. GI: pmh ulcerative colitis, symptoms imporved after recent Ciprofloxacin treatment for UTI, will discuss management with Dr. Chew per family request -ppx-pepcid 6. Endo: pmh DM c/u insulin and Synthroid for hypothryoidism 7. : s/p treatment UTI, admission UA and Ucx negative, monitor PVRS 8. Psych: depression c/u Sertraline 9. DIspo: 02/09/19 to home, progressing towards goals Allergies Coded Allergies: Penicillins (Verified Allergy, Severe, SWELLING/RASH, 03/20/17) Sulfasalazine (Verified Allergy, Severe, hives, hematemesis,difficulty breathing, 12/25/15) Doxycycline (Verified Allergy, Intermediate, RASH, 03/20/17) Benzalkonium Chloride (Verified Allergy, Unknown, 08/10/14) Clavulanic Acid (Unverified Allergy, Unknown, PRURITIS, 02/25/13) Replaces AUGMENTIN Contrast Media (Verified Allergy, Unknown, 08/10/14) Shellfish Allergy (Verified Allergy, Unknown, 08/10/14) Sulfa Antibiotics (Unverified Allergy, Unknown, RASH, 07/16/16) TAPE (Verified Allergy, Unknown, BANDAIDS, 08/10/14) Timolol (Verified Allergy, Unknown, 08/10/14) Travoprost (Verified Allergy, Unknown, 08/10/14) Diltiazem (Verified Adverse Reaction, Intermediate, N/V/D, 07/21/16) Gemfibrozil (Verified Adverse Reaction, Intermediate, PAIN, 02/25/13) Prednisone (Verified Adverse Reaction, Intermediate, INCREASED EYE PRESSURE, 02/25/13) Statins (Verified Adverse Reaction, Intermediate, BODY ACHES, 02/25/13) Iodine (Verified Adverse Reaction, Mild, ABDOMINAL PAIN: ORAL GRAFIN TABS, 02/25/13) Metoprolol (Verified Adverse Reaction, Mild, DIZZINESS, 02/25/13) Vital Signs Vital Signs Date Time Temp Pulse Resp B/P (MAP) Pulse Ox O2 Delivery O2 Flow Rate FiO2 02/07/19 16:01 148/66 02/07/19 14:00 97.1 64 18 95 Laboratory Data Labs 24H Laboratory Tests 2 02/07/19 05:45: Bedside Glucose (Misc Panel) 90 02/07/19 11:46: Bedside Glucose (Misc Panel) 120H 02/07/19 16:30: Bedside Glucose (Misc Panel) 152H 02/07/19 20:12: Bedside Glucose (Misc Panel) 151H Microbiology Microbiology 02/04/19 Urine Culture - Final, Complete Current Medications Current Medications Current Medications Acetaminophen (Tylenol Tab) 650 mg Q4HP PRN PO fever/MILD PAIN (PS 1-4) Last administered on 02/06/19 22:28; Start 02/03/19 at 16:00 Al Hydrox/Mg Hydrox/Simethicone (Mylanta) 30 ml Q4HP PRN PO DYSPEPSIA; Start 02/03/19 at 16:00 Allopurinol (Zyloprim) 100 mg BID PO Last administered on 02/07/19 08:40; Start 02/03/19 at 21:00 Atenolol (Tenormin) 50 mg BID PO Last administered on 02/07/19 08:39; Start 02/03/19 at 21:00 Bisacodyl (Dulcolax Suppository) 10 mg DAILYPRN PRN MD CONSTIPATION; Start 02/03/19 at 16:00 Brinzolamide (Azopt) 1 drop BID OU Last administered on 02/07/19at 08:42; Start 02/03/19 at 21:00 Clopidogrel Bisulfate (PLAVix) 75 mg QHS PO Last administered on 02/06/19at 22:23; Start 02/03/19 at 21:00 Dextrose (Dextrose 50%) 25 ml ASDIRECTED PRN IV SEE LABEL COMMENTS; Start 02/03/19 at 16:00 Docusate Sodium (Colace) 100 mg BID PO Last administered on 02/06/19 22:24; Start 02/03/19 at 21:00 Duloxetine HCl (Cymbalta) 30 mg DAILY PO Last administered on 02/07/19 08:40; Start 02/05/19 at 09:00 Famotidine (Pepcid) 20 mg QHS PO Last administered on 02/06/19 22:24; Start 02/03/19 at 21:00 Ferrous Gluconate (Fergon) 324 mg Q2D PO Last administered on 02/07/19 08:39; Start 02/05/19 at 09:00 Furosemide (Lasix) 20 mg DAILY PO Last administered on 02/07/19 08:39; Start 02/04/19 at 09:00 Glucagon (Glucagon) 1 mg ASDIRECTED PRN SC SEE LABEL COMMENTS; Start 02/03/19 at 16:00 Glucose (Glucose) 16 GM ASDIRECTED PRN PO SEE LABEL COMMENTS; Start 02/03/19 at 16:00 Heparin Sodium (Porcine) (Heparin) 5,000 units Q8H SC Last administered on 02/07/19at 14:32; Start 02/03/19 at 22:00 Hydralazine HCl (Apresoline) 25 mg Q8H PO Last administered on 02/07/19at 16:01; Start 02/06/19 at 16:00 Insulin Human Lispro (HumaLOG INSULIN) SEE PROTOCOL TABLE AC SC Last administered on 02/07/19at 17:27; Start 02/03/19 at 17:30 Insulin Human Lispro (HumaLOG INSULIN) SEE PROTOCOL TABLE QHS SC ; Start 02/03/19 at 21:00 Latanoprost (Xalatan 0.005% Op Soln) 1 drop QHS OU Last administered on 02/06/19at 22:25; Start 02/03/19 at 21:00 Levothyroxine Sodium (Synthroid) 75 mcg DAILY@06 PO Last administered on 02/07/19 05:14; Start 02/04/19 at 06:00 Losartan Potassium (Cozaar) 50 mg BID PO Last administered on 02/07/19 08:39; Start 02/03/19 at 21:00 Magnesium Hydroxide (Milk Of Magnesia) 30 ml DAILYPRN PRN PO CONSTIPATION; Start 02/03/19 at 16:00 Miscellaneous (Unresolved Patient Own Med Order) SEE LABEL COMMENTS DAILY XX ; Start 02/03/19 at 09:00; Stop 02/05/19 at 00:58; Status DC Ondansetron HCl (Zofran) 4 mg Q6HP PRN PO NAUSEA Last administered on 02/07/19 05:16; Start 02/03/19 at 16:00 Oxycodone HCl (Roxicodone, Oxyir) 5 mg Q8H PRN PO PAIN (7-10); Start 02/03/19 at 16:00; Stop 02/03/19 at 16:55; Status DC Patient Own Medication (Patient'S Own Med) Combigan 0.2-0.5% OPTH ... BID OS Last administered on 02/07/19at 08:42; Start 02/03/19 at 21:00 Potassium Chloride (Micro-K Extencaps) 10 meq QHS PO Last administered on 3/16/19at 22:24; Start 02/03/19 at 21:00 Sertraline HCl (Zoloft) 25 mg BID PO Last administered on 02/07/19at 08:40; Start 02/04/19 at 21:00 Sertraline HCl (Zoloft) 50 mg BID PO Last administered on 02/04/19at 09:40; Start 02/03/19 at 21:00; Stop 02/04/19 at 16:54; Status DC Spironolactone (Aldactone) 25 mg QAM PO ; Start 02/04/19 at 09:00; Stop 02/04/19 at 09:00; Status DC Vitamin D (Vitamin D) 2,000 units DAILY PO Last administered on 02/07/19at 08:39; Start 02/04/19 at 09:00 FRAN ADEN MD Feb 07, 2019 20:28
[2019-02-07] MEDS: ACETAMINOPHEN TAB 650MG DOSE (2X325MG) PO PRN (20:52)
[2019-02-07] MEDS: FAMOTIDINE 20 MG TAB PO SCH (20:52)
[2019-02-07] MEDS: POTASSIUM CHLORIDE 10 MEQ SR TABLET PO SCH (20:52)
[2019-02-07] MEDS: CLOPIDOGREL 75 MG TAB PO SCH (20:52)
[2019-02-07] MEDS: LATANOPROST 0.005% OPHTH SOLN 2.5 ML OU SCH (20:54)
[2019-02-08] MEDS: **hydrALAZINE HCL** 25 MG TAB PO SCH ×4 (00:11→23:58)
[2019-02-08] MEDS: ACETAMINOPHEN TAB 650MG DOSE (2X325MG) PO PRN (05:38)
[2019-02-08] MEDS: HEPARIN SOD (PORCINE) 5000 UNITS/ML VIAL SC SCH ×3 (05:38→21:37)
[2019-02-08] MEDS: LEVOTHYROXINE 75MCG TABLET (0.075MG) PO SCH (05:38)
[2019-02-08 06:00] VITALS: BP 158/72
[2019-02-08] MEDS: ALLOPURINOL 100 MG TAB PO SCH ×2 (08:29→21:37)
[2019-02-08] MEDS: LOSARTAN 50 MG TAB PO SCH ×2 (08:29→21:38)
[2019-02-08] MEDS: DULoxetine 30 MG CAP (CYMBALTA) PO SCH (08:29)
[2019-02-08] MEDS: VITAMIN D 1,000 INTERNATIONAL UNITS TABLET PO SCH (08:29)
[2019-02-08] MEDS: DOCUSATE SODIUM 100 MG CAP PO SCH ×2 (08:30→21:37)
[2019-02-08] MEDS: SERTRALINE HCL 25 MG TABLET PO SCH ×2 (08:30→21:39)
[2019-02-08] MEDS: FUROSEMIDE 20 MG TAB PO SCH (08:30)
[2019-02-08] MEDS: ATENOLOL 50 MG TAB PO SCH ×2 (08:30→21:39)
[2019-02-08] MEDS: BRINZOLAMIDE 1 % OPHTH SUSP (AZOPT) 10ML OU SCH ×2 (08:31→21:36)
[2019-02-08] MEDS: HumaLOG INSULIN (NovoLOG) PER UNIT SC SCH ×4 (08:31→21:00)
[2019-02-08] MEDS: COMBIGAN OS SCH ×2 (08:31→21:36)
[2019-02-08] MEDS: OPTH OS SCH ×2 (08:31→21:36)
[2019-02-08 10:49] LABS: BASO # 0.1 10^3/uL (0.0-0.2); BASO % 0.5 % (0.0-1.0); EOS # 0.7 10^3/uL (0.0-0.50); EOS % 6.3 % (0.0-3.0); HEMATOCRIT 35.8 % (36.0-47.0); HEMOGLOBIN 10.9 g/dl (12.0-15.5); LYMPH # 1.5 10^3/uL (1.5-4.5); LYMPH % 13.7 % (24.0-44.0); MEAN CORPUSCULAR HEMOGLOBIN 29.5 pg (27.0-33.0); MEAN CORPUSCULAR HGB CONC 30.4 g/dl (32.0-36.5); MONO # 0.7 10^3/uL (0.0-0.8); MONO % 6.7 % (0.0-5.0); PLATELET COUNT, AUTOMATED 254 10^3/uL (150-450); RED BLOOD COUNT 3.69 10^6/uL (4.00-5.40); WHITE BLOOD COUNT 11.1 10^3/uL (4.0-10.0)
[2019-02-08 11:05] LABS: CALCIUM LEVEL 8.7 MG/DL (8.8-10.2); CREATININE FOR GFR 1.5 MG/DL (0.55-1.30); GLOMERULAR FILTRATION RATE 35.3 (>32); POTASSIUM SERUM 4.7 MEQ/L (3.5-5.1)
--- NOTE | 2019-02-08 12:46 | IPNPDOC ---
Date Seen The patient was seen on 02/08/19. Progress Note HPI: Patient is an 84-year-old female with a PMHx Diastolic CHF, CVA with residual weakness, diabetes, hypothyroidism, chronic kidney disease (CKD) stage III, ulcerative colitis (She appears to be on some sort of infusion every 8 weekly, this is unclear), Hypothyroidism, iron deficiency anemia, gout and gastroesophageal reflux disease (GERD) who presented to the ER with worsening chronic right-sided lower back pain radiating down her right leg. Patient was admitted for debility 2/2 spinal stenosis. The pt was transferred to ARU, Dr Travis, 02/03/19. No acute medical complaints today. Pt is OOB to chair. States pain has been controlled. Denies any fevers, chills, weakness, fatigue, Headache, Chest Pain, Shortness of breath, cough, palpitations, abdominal pain, N/V/D or changes in bowel or bladder habits. PE: GEN: 84yoF, appears stated age. No acute distress. Alert and oriented x 3. HEENT: Normocephalic, atraumatic. Sclera are nonicteric. Conjunctiva without injection. Moist mucous membranes. CHEST: Regular rate and rhythm, +S1, +S2 LUNGS: Clear to auscultation bilaterally. No wheezes, rales, or rhonchi. Breathing appears symmetric and easy. ABD: Round, soft, non-tender, non-distended. +Bowel sounds throughout. No rebound or guarding. EXT: No lower extremity edema appreciated. SKIN: [place], dry, warm. No rashes. NEURO: Alert and oriented x 3. No focal deficits appreciated. A&P: Patient is an 84-year-old female with a PMHx Diastolic CHF, CVA with residual weakness, diabetes, hypothyroidism, chronic kidney disease (CKD) stage III, ulcerative colitis (She appears to be on some sort of infusion every 8 weekly, this is unclear), Hypothyroidism, iron deficiency anemia, gout and gastroesophageal reflux disease (GERD) who presented to the ER with worsening chronic right-sided lower back pain radiating down her right leg. Patient was admitted for debility 2/2 spinal stenosis. The pt was transferred to ARU, Dr Travis, 02/03/19. Intractable back pain 2/2 spinal stenosis Mgmt as per Dr Travis. PT/OT/ST as per Dr Travis. Pain control as per Dr Travis. Consider pain management consultation if needed. Bowel care as per Dr Travis. DVT prophylaxis as per Dr Travis. SQ Heparin. Bilateral LE pain; possibly 2/2 above, possibly 2/2 PAD No evidence of ischemia Arterial US 02/01: Biphasic waveforms are noted bilaterally except at the points of stenosis with monophasic waveforms in the right and left mid SFA. ABIs could not be obtained due to the patient's inability to tolerate blood pressure cuff on the lower legs. Cont Plavix Outpatient f/u with vascular surgery s/p Opioid-induced AMS Recommend PRN med only, not scheduled. Percocet is currently on hold. Monitor Positive blood cultures - likely 2/2 contaminant Blood cultures 01/25: Strep Mitis (1 of 2) Blood cultures 01/26: No growth at 5 days s/p vancomycin 01/26/19 UTI present on admission Urine cultures 01/25: E. coli s/p Ceftriaxone, po Levaquin. UC 02/04/19 neg s/p REID/CKD SCr 1.5. Monitor. BMP in AM. HTN/Diastolic CHF. Low NA diet Continue Lasix 20 mg daily, Aldactone, KCL. Hydralazine with hold parameters. Appears compensated. Monitor. Hx of CVA Plavix NIDDM2 CC diet SSI Gout Allopurinol HTN Atenolol/Cozaar. Glaucoma Cont eye drop outpt regimen. UC Patient receives outpatient infusion every 8 weeks Loperamide as ordered Mood disorder Sertraline GERD Ranitidine VS, I&O, 24H, Fishbone Vital Signs/I&O Vital Signs Date Time Temp Pulse Resp B/P (MAP) Pulse Ox O2 Delivery O2 Flow Rate FiO2 02/08/19 08:30 68 158/72 02/08/19 06:00 97.7 18 94 I&O- Last 24 Hours up to 6 AM 02/08/19 06:00 Intake Total 1260 ml Output Total 1400 ml Balance -140 ml Laboratory Data 24H LABS Laboratory Tests 2 02/07/19 16:30: Bedside Glucose (Misc Panel) 152H 02/07/19 20:12: Bedside Glucose (Misc Panel) 151H 02/08/19 06:16: Bedside Glucose (Misc Panel) 123H 02/08/19 10:27: Immature Granulocyte % (Auto) 0.8, White Blood Count 11.1H, Red Blood Count 3.69L, Hemoglobin 10.9L, Hematocrit 35.8L, Mean Corpuscular Volume 97.0H, Mean Corpuscular Hemoglobin 29.5, Mean Corpuscular Hemoglobin Concent 30.4L, Red Cell Distribution Width 15.2H, Platelet Count 254, Neutrophils (%) (Auto) 72.0H, Lymphocytes (%) (Auto) 13.7L, Monocytes (%) (Auto) 6.7H, Eosinophils (%) (Auto) 6.3H, Basophils (%) (Auto) 0.5, Neutrophils # (Auto) 8.0H, Lymphocytes # (Auto) 1.5, Monocytes # (Auto) 0.7, Eosinophils # (Auto) 0.7H, Basophils # (Auto) 0.1, Nucleated Red Blood Cells % (auto) 0.0, Anion Gap 4L, Glomerular Filtration Rate 35.3, Blood Urea Nitrogen 33H, Creatinine 1.50H, Sodium Level 141, Potassium Level 4.7, Chloride Level 108H, Carbon Dioxide Level 29, Calcium Level 8.7L 02/08/19 12:11: Bedside Glucose (Misc Panel) 100 CBC/BMP Laboratory Tests 02/08/19 10:27 Red Blood Count 3.69 L, Mean Corpuscular Volume 97.0 H, Mean Corpuscular Hemoglobin 29.5, Mean Corpuscular Hemoglobin Concent 30.4 L, Red Cell Distribution Width 15.2 H, Neutrophils (%) (Auto) 72.0 H, Lymphocytes (%) (Auto) 13.7 L, Monocytes (%) (Auto) 6.7 H, Eosinophils (%) (Auto) 6.3 H, Basophils (%) (Auto) 0.5, Neutrophils # (Auto) 8.0 H, Lymphocytes # (Auto) 1.5, Monocytes # (Auto) 0.7, Eosinophils # (Auto) 0.7 H, Basophils # (Auto) 0.1, Calcium Level 8.7 L Microbiology Microbiology 02/04/19 Urine Culture - Final, Complete Kika Rizvi Feb 08, 2019 12:46
[2019-02-08 14:00] VITALS: BP 157/62
--- NOTE | 2019-02-08 15:44 | IPNPDOC ---
PM&R Progress Note DATE OF SERVICE: Feb 08, 2019 Director Strategy Progress Note Subjective: Patient seen in therapy reports she is considering a fecal transplant, but needs more time to think it over. REVIEW OF SYSTEMS: The following is a completed review of systems and has been reviewed. Review of systems otherwise unremarkable. PAIN: Patient self reports right LBP EYES: negative for recent vision changes EARS, NOSE, & THROAT: +KNIK, dysphagia CARDIOVASCULAR: +CHF, denies chest pain/palpitations PULMONARY: Negative. Denies shortness of breath GASTROINTESTINAL: +loose stools GENITOURINARY: +incontinence (chronic) MUSCULOSKELETAL: right LE weakness HEMATOLOGICAL:+ anemia PSYCHIATRIC: Unremarkable All other review of systems found to be negative. PHYSICAL EXAMINATION: VITAL SIGNS: Please see below. GENERAL: Pleasant and cooperative. No acute distress. HEENT: PERRL. Extraocular movements intact. Clear conjunctiva CARDIOVASCULAR: Regular rate and rhythm. No murmurs, rubs, or gallops LUNGS: Clear to auscultation bilaterally. No wheezes. No rhonchi ABDOMEN: Soft, nontender, nondistended. Positive bowel sounds. Normal active bowel sounds NEUROLOGICAL: Alert and oriented to self and place, not time, Cranial nerves II through XII grossly intact. Sensation grossly intact (-) Phalens (-) SLR bilat (+) pain with lateral and oblique extension of lumbo-sacral joint (+) TTP right SI joint EXTREMITIES: 5\5 strength bilateral upper extremities. 5-\5 strength right lower extremity. 5/5 strength in left lower extremity. SKIN: intact ASSESSMENT:84-year-old F with past medical history of HTN and diastolic CHF who presents status post lower extremity weakness due to spinal stenosis. PLAN: 1. Rehab: PT, OT, RESOURCE TECHNICIAN for cognition, ambulating well, will focus on household tasks and dynamic balance 2. Neuro: cognitive deficits, monitor and avoid deliriogenic drugs 3. Cardio: pmh diastolic CHF, c/u lasix and losartan and monitor Dental Technician in setting of recent REID- medicine consulted -c/u Plavix 4. Resp: stable, encourage incentive spirometry, monitor for infection 5. GI: pmh ulcerative colitis, symptoms Improved after recent Ciprofloxacin treatment for UTI, will discuss management with Dr. Chew per family request possibility of prophylactic Cipro -ppx-pepcid 6. Endo: pmh DM c/u insulin and Synthroid for hypothryoidism 7. : s/p treatment UTI, admission UA and Ucx negative, monitor PVRS 8. Psych: depression c/u Sertraline 9. DIspo: 02/09/19 to home, progressing towards goals Allergies Coded Allergies: Penicillins (Verified Allergy, Severe, SWELLING/RASH, 03/20/17) Sulfasalazine (Verified Allergy, Severe, hives, hematemesis,difficulty breathing, 12/25/15) Doxycycline (Verified Allergy, Intermediate, RASH, 03/20/17) Benzalkonium Chloride (Verified Allergy, Unknown, 08/10/14) Clavulanic Acid (Unverified Allergy, Unknown, PRURITIS, 02/25/13) Replaces AUGMENTIN Contrast Media (Verified Allergy, Unknown, 08/10/14) Shellfish Allergy (Verified Allergy, Unknown, 08/10/14) Sulfa Antibiotics (Unverified Allergy, Unknown, RASH, 07/16/16) TAPE (Verified Allergy, Unknown, BANDAIDS, 08/10/14) Timolol (Verified Allergy, Unknown, 08/10/14) Travoprost (Verified Allergy, Unknown, 08/10/14) Diltiazem (Verified Adverse Reaction, Intermediate, N/V/D, 07/21/16) Gemfibrozil (Verified Adverse Reaction, Intermediate, PAIN, 02/25/13) Prednisone (Verified Adverse Reaction, Intermediate, INCREASED EYE PRESSURE, 02/25/13) Statins (Verified Adverse Reaction, Intermediate, BODY ACHES, 02/25/13) Iodine (Verified Adverse Reaction, Mild, ABDOMINAL PAIN: ORAL GRAFIN TABS, 02/25/13) Metoprolol (Verified Adverse Reaction, Mild, DIZZINESS, 02/25/13) Vital Signs Vital Signs Date Time Temp Pulse Resp B/P (MAP) Pulse Ox O2 Delivery O2 Flow Rate FiO2 02/08/19 14:00 97.2 69 17 157/62 (93) 97 Laboratory Data CBC/BMP Laboratory Tests 02/08/19 10:27 Red Blood Count 3.69 L, Mean Corpuscular Volume 97.0 H, Mean Corpuscular Hemoglobin 29.5, Mean Corpuscular Hemoglobin Concent 30.4 L, Red Cell Distribution Width 15.2 H, Neutrophils (%) (Auto) 72.0 H, Lymphocytes (%) (Auto) 13.7 L, Monocytes (%) (Auto) 6.7 H, Eosinophils (%) (Auto) 6.3 H, Basophils (%) (Auto) 0.5, Neutrophils # (Auto) 8.0 H, Lymphocytes # (Auto) 1.5, Monocytes # (Auto) 0.7, Eosinophils # (Auto) 0.7 H, Basophils # (Auto) 0.1, Calcium Level 8.7 L Labs 24H Laboratory Tests 2 02/07/19 16:30: Bedside Glucose (Misc Panel) 152H 02/07/19 20:12: Bedside Glucose (Misc Panel) 151H 02/08/19 06:16: Bedside Glucose (Misc Panel) 123H 02/08/19 10:27: Immature Granulocyte % (Auto) 0.8, White Blood Count 11.1H, Red Blood Count 3.69L, Hemoglobin 10.9L, Hematocrit 35.8L, Mean Corpuscular Volume 97.0H, Mean Corpuscular Hemoglobin 29.5, Mean Corpuscular Hemoglobin Concent 30.4L, Red Cell Distribution Width 15.2H, Platelet Count 254, Neutrophils (%) (Auto) 72.0H, Lymphocytes (%) (Auto) 13.7L, Monocytes (%) (Auto) 6.7H, Eosinophils (%) (Auto) 6.3H, Basophils (%) (Auto) 0.5, Neutrophils # (Auto) 8.0H, Lymphocytes # (Auto) 1.5, Monocytes # (Auto) 0.7, Eosinophils # (Auto) 0.7H, Basophils # (Auto) 0.1, Nucleated Red Blood Cells % (auto) 0.0, Anion Gap 4L, Glomerular Filtration Rate 35.3, Blood Urea Nitrogen 33H, Creatinine 1.50H, Sodium Level 141, Potassium Level 4.7, Chloride Level 108H, Carbon Dioxide Level 29, Calcium Level 8.7L 02/08/19 12:11: Bedside Glucose (Misc Panel) 100 Microbiology Microbiology 02/04/19 Urine Culture - Final, Complete Current Medications Current Medications Current Medications Acetaminophen (Tylenol Tab) 650 mg Q4HP PRN PO fever/MILD PAIN (PS 1-4) Last administered on 02/08/19at 05:38; Start 02/03/19 at 16:00 Al Hydrox/Mg Hydrox/Simethicone (Mylanta) 30 ml Q4HP PRN PO DYSPEPSIA; Start 02/03/19 at 16:00 Allopurinol (Zyloprim) 100 mg BID PO Last administered on 02/08/19 08:29; Start 02/03/19 at 21:00 Atenolol (Tenormin) 50 mg BID PO Last administered on 02/07/19at 20:56; Start 02/03/19 at 21:00 Bisacodyl (Dulcolax Suppository) 10 mg DAILYPRN PRN VT CONSTIPATION; Start 02/03/19 at 16:00 Brinzolamide (Azopt) 1 drop BID OU Last administered on 02/08/19 08:31; Start 02/03/19 at 21:00 Clopidogrel Bisulfate (PLAVix) 75 mg QHS PO Last administered on 02/07/19 20:52; Start 02/03/19 at 21:00 Dextrose (Dextrose 50%) 25 ml ASDIRECTED PRN IV SEE LABEL COMMENTS; Start 02/03/19 at 16:00 Docusate Sodium (Colace) 100 mg BID PO Last administered on 02/06/19 22:24; Start 02/03/19 at 21:00 Duloxetine HCl (Cymbalta) 30 mg DAILY PO Last administered on 02/08/19 08:29; Start 02/05/19 at 09:00 Famotidine (Pepcid) 20 mg QHS PO Last administered on 02/07/19 20:52; Start 02/03/19 at 21:00 Ferrous Gluconate (Fergon) 324 mg Q2D PO Last administered on 02/07/19 08:39; Start 02/05/19 at 09:00 Furosemide (Lasix) 20 mg DAILY PO Last administered on 02/08/19 08:30; Start 02/04/19 at 09:00 Glucagon (Glucagon) 1 mg ASDIRECTED PRN SC SEE LABEL COMMENTS; Start 02/03/19 at 16:00 Glucose (Glucose) 16 GM ASDIRECTED PRN PO SEE LABEL COMMENTS; Start 02/03/19 at 16:00 Heparin Sodium (Porcine) (Heparin) 5,000 units Q8H SC Last administered on 02/08/19at 05:38; Start 02/03/19 at 22:00 Hydralazine HCl (Apresoline) 25 mg Q8H PO Last administered on 02/08/19 08:29; Start 02/06/19 at 16:00 Insulin Human Lispro (HumaLOG INSULIN) SEE PROTOCOL TABLE AC SC Last administered on 02/08/19 08:31; Start 02/03/19 at 17:30 Insulin Human Lispro (HumaLOG INSULIN) SEE PROTOCOL TABLE QHS SC ; Start 02/03/19 at 21:00 Latanoprost (Xalatan 0.005% Op Soln) 1 drop QHS OU Last administered on 02/07/19 20:54; Start 02/03/19 at 21:00 Levothyroxine Sodium (Synthroid) 75 mcg DAILY@06 PO Last administered on 02/08/19 05:38; Start 02/04/19 at 06:00 Losartan Potassium (Cozaar) 50 mg BID PO Last administered on 02/08/19 08:29; Start 02/03/19 at 21:00 Magnesium Hydroxide (Milk Of Magnesia) 30 ml DAILYPRN PRN PO CONSTIPATION; Sta rt 02/03/19 at 16:00 Miscellaneous (Unresolved Patient Own Med Order) SEE LABEL COMMENTS DAILY XX ; Start 02/03/19 at 09:00; Stop 02/05/19 at 00:58; Status DC Ondansetron HCl (Zofran) 4 mg Q6HP PRN PO NAUSEA Last administered on 02/07/19 05:16; Start 02/03/19 at 16:00 Oxycodone HCl (Roxicodone, Oxyir) 5 mg Q8H PRN PO PAIN (7-10); Start 02/03/19 at 16:00; Stop 02/03/19 at 16:55; Status DC Patient Own Medication (Patient'S Own Med) Combigan 0.2-0.5% OPTH ... BID OS Last administered on 02/08/19 08:31; Start 02/03/19 at 21:00 Potassium Chloride (Micro-K Extencaps) 10 meq QHS PO Last administered on 02/07/19at 20:52; Start 02/03/19 at 21:00 Sertraline HCl (Zoloft) 25 mg BID PO Last administered on 02/08/19 08:30; Start 02/04/19 at 21:00 Sertraline HCl (Zoloft) 50 mg BID PO Last administered on 02/04/19at 09:40; Start 02/03/19 at 21:00; Stop 02/04/19 at 16:54; Status DC Spironolactone (Aldactone) 25 mg QAM PO ; Start 02/04/19 at 09:00; Stop 02/04/19 at 09:00; Status DC Vitamin D (Vitamin D) 2,000 units DAILY PO Last administered on 02/08/19at 08:29; Start 02/04/19 at 09:00 FRAN ADEN MD Feb 08, 2019 15:44
[2019-02-08 15:57] VITALS: BP 165/78
[2019-02-08 20:00] VITALS: BP 135/73
[2019-02-08] MEDS: LATANOPROST 0.005% OPHTH SOLN 2.5 ML OU SCH (21:36)
[2019-02-08] MEDS: CLOPIDOGREL 75 MG TAB PO SCH (21:37)
[2019-02-08] MEDS: FAMOTIDINE 20 MG TAB PO SCH (21:37)
[2019-02-08] MEDS: POTASSIUM CHLORIDE 10 MEQ SR TABLET PO SCH (21:38)
[2019-02-09] MEDS: LEVOTHYROXINE 75MCG TABLET (0.075MG) PO SCH (05:55)
[2019-02-09] MEDS: HEPARIN SOD (PORCINE) 5000 UNITS/ML VIAL SC SCH (05:55)
[2019-02-09 06:00] VITALS: BP 160/74
[2019-02-09 07:16] LABS: CALCIUM LEVEL 8.7 MG/DL (8.8-10.2); CREATININE FOR GFR 1.26 MG/DL (0.55-1.30); GLOMERULAR FILTRATION RATE 43.2 (>32); POTASSIUM SERUM 4.8 MEQ/L (3.5-5.1)
[2019-02-09] MEDS: HumaLOG INSULIN (NovoLOG) PER UNIT SC SCH ×2 (07:30→12:00)
[2019-02-09] MEDS: VITAMIN D 1,000 INTERNATIONAL UNITS TABLET PO SCH (08:16)
[2019-02-09] MEDS: LOSARTAN 50 MG TAB PO SCH (08:17)
[2019-02-09] MEDS: DULoxetine 30 MG CAP (CYMBALTA) PO SCH (08:17)
[2019-02-09] MEDS: FUROSEMIDE 20 MG TAB PO SCH (08:17)
[2019-02-09] MEDS: FERROUS GLUCONATE 324 MG TAB PO SCH (08:17)
[2019-02-09] MEDS: SERTRALINE HCL 25 MG TABLET PO SCH (08:17)
[2019-02-09] MEDS: ATENOLOL 50 MG TAB PO SCH (08:17)
[2019-02-09 08:18] VITALS: BP 160/74
[2019-02-09] MEDS: OPTH OS SCH (08:18)
[2019-02-09] MEDS: **hydrALAZINE HCL** 25 MG TAB PO SCH (08:18)
[2019-02-09] MEDS: BRINZOLAMIDE 1 % OPHTH SUSP (AZOPT) 10ML OU SCH (08:18)
[2019-02-09] MEDS: DOCUSATE SODIUM 100 MG CAP PO SCH (08:18)
[2019-02-09] MEDS: COMBIGAN OS SCH (08:18)
[2019-02-09] MEDS: ALLOPURINOL 100 MG TAB PO SCH (08:18)
[2019-02-09] MEDS ORDERED: DULO30CA PO (10:10)
[2019-02-09] MEDS ORDERED: SERT25TA PO (10:10)
[2019-02-09] MEDS ORDERED: KLOR10TA76 PO (10:10)
[2019-02-09] MEDS ORDERED: FURO20TA2 PO (10:10)
== END 2019-02-09 13:35 | disposition home health service (06) | DRG 552 ==
LOC: M PM&R 14:35
PROVIDERS: ADMIT Physical Medicine & Rehabilitation; ATTEND Physical Medicine & Rehabilitation
DX: M48.061 Spinal stenosis, lumbar region without neurogenic claudication (principal); I50.32 Chronic diastolic (congestive) heart failure; I13.0 Hypertensive heart and chronic kidney disease with heart failure and stage 1 through stage 4 chronic kidney disease, or unspecified chronic kidney disease; K51.90 Ulcerative colitis, unspecified, without complications; I69.351 Hemiplegia and hemiparesis following cerebral infarction affecting right dominant side; E11.22 Type 2 diabetes mellitus with diabetic chronic kidney disease; E03.9 Hypothyroidism, unspecified; N18.3 Chronic kidney disease, stage 3 (moderate); F32.9 Major depressive disorder, single episode, unspecified; D50.9 Iron deficiency anemia, unspecified; R26.89 Other abnormalities of gait and mobility; R13.10 Dysphagia, unspecified; R32 Unspecified urinary incontinence; R41.89 Other symptoms and signs involving cognitive functions and awareness; K21.9 Gastro-esophageal reflux disease without esophagitis; M10.9 Gout, unspecified; H91.93 Unspecified hearing loss, bilateral; H40.9 Unspecified glaucoma; E11.51 Type 2 diabetes mellitus with diabetic peripheral angiopathy without gangrene; R53.81 Other malaise; Z90.49 Acquired absence of other specified parts of digestive tract; Z98.49 Cataract extraction status, unspecified eye; Z90.710 Acquired absence of both cervix and uterus; Z79.4 Long term (current) use of insulin; Z79.899 Other long term (current) drug therapy; Z88.0 Allergy status to penicillin; Z88.1 Allergy status to other antibiotic agents; Z88.2 Allergy status to sulfonamides; Z88.8 Allergy status to other drugs, medicaments and biological substances; Z91.041 Radiographic dye allergy status; Z91.048 Other nonmedicinal substance allergy status; Z79.02 Long term (current) use of antithrombotics/antiplatelets

== ENCOUNTER → 2019-02-17 | Outpatient (REF) | payer MEDICARE ==
[~2019-02-17] MED LIST changes: +DULO30CA PO; +KLOR10TA76 PO; +SERT25TA PO
[2019-02-19 08:20] LABS: LDL DIRECT 123 mg/dL (0-99)
== END ==
LOC: M LAB REF 16:39
PROVIDERS: ATTEND Internal Medicine
DX: E78.5 Hyperlipidemia, unspecified (principal)

== ENCOUNTER 2019-03-17 16:44 | Outpatient (CLI) | payer MEDICARE ==
[~2019-03-17] VITALS: Ht 152.4 cm; Wt 72.6 kg
[~2019-03-17 16:44] MED LIST changes: -/PANT40TA; -ACET50TA PO; -ASPI1TAB PO; +ASPI81TA26 PO; -DULO30CA PO; +DULO30CA9 PO; +LATA0.0013 OS; +LATA0.0013 OU; -LATA5OPD OS; -LATA5OPD OU; +MAPA500T17 PO; -NAPR-50 PO; +NAPR-837 PO; +PROT1TAB2; +SERT-141 PO; -SERT25TA PO; +SERT25TA85 PO; -SERT50TA PO; -VANC250C2 PO; +VANC250C3 PO
[2019-03-17 16:45] VITALS: BP 154/69
[2019-03-17] MEDS ORDERED: ACETAMINOPHEN TAB 650MG DOSE (2X325MG) PO ONE (17:00)
[2019-03-17] MEDS ORDERED: diphenhydrAMINE 25 MG CAP PO ONE (17:00)
[2019-03-17] MEDS ORDERED: VEDOLIZUMAB 300 MG in NS 250 ML IV ONE (17:00)
[2019-03-17 18:26] VITALS: BP 170/81
== END 2019-03-17 18:30 | disposition home or self-care (01) ==
LOC: M INFU 16:44
PROVIDERS: ATTEND Internal Medicine Gastroenterology
DX: K50.90 Crohn's disease, unspecified, without complications (principal); Z88.0 Allergy status to penicillin; Z88.8 Allergy status to other drugs, medicaments and biological substances
CPT/HCPCS: 96365; J3380

== ENCOUNTER → 2019-06-01 | Outpatient (CLI) | payer MEDICARE ==
[~2019-06-01] VITALS: Ht 152.4 cm; Wt 72.6 kg
[~2019-06-01] MED LIST changes: +ACETAMINOPHEN TAB 650MG DOSE (2X325MG) PO ONE; +VEDOLIZUMAB 300 MG in NS 250 ML IV ONE; +diphenhydrAMINE 25 MG CAP PO ONE
[2019-06-01 15:00] VITALS: BP 164/67
[2019-06-01 16:45] VITALS: BP 167/80
== END ==
LOC: M INFU 14:51
PROVIDERS: ATTEND Internal Medicine Gastroenterology
DX: K50.90 Crohn's disease, unspecified, without complications (principal)
CPT/HCPCS: 96365; J3380

== ENCOUNTER 2019-07-05 10:11 | Inpatient (IN) | payer MEDICARE ==
[~2019-07-05] VITALS: Ht 152.4 cm; Wt 69.1 kg
[~2019-07-05 10:11] MED LIST changes: -ACETAMINOPHEN TAB 650MG DOSE (2X325MG) PO ONE; -VEDOLIZUMAB 300 MG in NS 250 ML IV ONE; +amLODIPine 5 MG TAB PO SCH; -diphenhydrAMINE 25 MG CAP PO ONE
[2019-07-05 11:18] LABS: BASO % 0.3 % (0.0-1.0); EOS # 0.4 10^3/uL (0.0-0.50); EOS % 3.1 % (0.0-3.0); HEMATOCRIT 37.2 % (36.0-47.0); HEMOGLOBIN 11.8 g/dl (12.0-15.5); LYMPH # 1.6 10^3/uL (1.5-4.5); LYMPH % 13.6 % (24.0-44.0); MEAN CORPUSCULAR HEMOGLOBIN 31.7 pg (27.0-33.0); MEAN CORPUSCULAR HGB CONC 31.7 g/dl (32.0-36.5); MONO # 0.6 10^3/uL (0.0-0.8); MONO % 5.3 % (0.0-5.0); NEUTROPHILS % 77.4 % (36.0-66.0); PLATELET COUNT, AUTOMATED 264 10^3/uL (150-450); RED BLOOD COUNT 3.72 10^6/uL (4.00-5.40); WHITE BLOOD COUNT 11.7 10^3/uL (4.0-10.0)
[2019-07-05] MEDS ORDERED: CYMB60CA3 PO (11:19)
[2019-07-05] MEDS ORDERED: CVS1CAP2 PO (11:19)
[2019-07-05] MEDS ORDERED: POTA10CA32 PO (11:19)
[2019-07-05] MEDS ORDERED: LOPE1CAP5 PO (11:19)
[2019-07-05] MEDS ORDERED: GLIP10TA PO ×2 (11:19)
[2019-07-05] MEDS ORDERED: VITAD1000T PO (11:19)
[2019-07-05] MEDS ORDERED: AMLO5TAB6 PO (11:19)
[2019-07-05] MEDS ORDERED: FERR325T3 PO (11:19)
--- NOTE | 2019-07-05 11:26 | REP ---
PORTABLE CHEST X-RAY: Single view. HISTORY: Chest pain. COMPARISON CHEST X-RAY: February 01, 2019. FINDINGS: EKG monitoring electrodes overlie the chest. Lungs are well inflated and free of infiltrate. Cardiomegaly is observed unchanged. The aorta is calcific and somewhat tortuous. Pulmonary vasculature is not increased. IMPRESSION: Mild cardiomegaly. Otherwise no acute disease. Electronically Signed by Phuc Bob MD 07/05/2019 04:48 P
[2019-07-05 11:52] LABS: BLOOD UREA NITROGEN 26 MG/DL (7-18); CALCIUM LEVEL 9.3 MG/DL (8.8-10.2); CARBON DIOXIDE LEVEL 28 MEQ/L (21-32); CHLORIDE LEVEL 110 MEQ/L (98-107); CK-MB VALUE MASS 1.1 NG/ML (<3.6); CPK CREATINE PHOSPHOKINASE 20 U/L (26-192); CREATININE FOR GFR 1.24 MG/DL (0.55-1.30); GLUCOSE, FASTING 159 MG/DL (70-100); POTASSIUM SERUM 3.7 MEQ/L (3.5-5.1); SODIUM LEVEL 142 MEQ/L (136-145); TROPONIN I < 0.02 NG/ML (< 0.10)
[2019-07-05] MEDS ORDERED: LOSARTAN 50 MG TAB PO ONE (12:15)
[2019-07-05] MEDS ORDERED: FUROSEMIDE 20 MG TAB PO ONE (12:15)
[2019-07-05] MEDS ORDERED: ATENOLOL 50 MG TAB PO ONE (12:15)
[2019-07-05] MEDS ORDERED: amLODIPine 5 MG TAB PO ONE ×2 (12:15→17:00)
[2019-07-05 12:28] LABS: ALBUMIN 2.8 GM/DL (3.2-5.2); ALT/SGPT 16 U/L (12-78); BILIRUBIN,DIRECT 0.2 MG/DL (0.0-0.2); BILIRUBIN,TOTAL 0.4 MG/DL (0.2-1.0); LIPASE 183 U/L (73-393); TOTAL PROTEIN 6.3 GM/DL (6.4-8.2)
[2019-07-05 14:27] LABS: CK-MB VALUE MASS < 1.0 NG/ML (<3.6); CPK CREATINE PHOSPHOKINASE 50 U/L (26-192); TROPONIN I < 0.02 NG/ML (< 0.10)
--- NOTE | 2019-07-05 15:28 | REP ---
REASON FOR EXAM: Abdominal pain. C difficile positive stool. COMPARISON: 07/06/2017 The lack of intravenous contrast and the lack of oral bowel preparatory contrast significantly decreases the sensitivity of the exam. There is no change in the lung bases. Limited evaluation of the solid intra-abdominal organs show no gross abnormalities or significant changes from the prior exam. Limited evaluation of the pancreas and adrenal glands show them to be unchanged. There is nodular thickening of the left adrenal glands status quo. There are surgical clips in the gallbladder fossa from previous cholecystectomy. Limited evaluation of the kidneys again show numerable cysts, some having water Hounsfield unit readings, others having near water Hounsfield unit readings and others, hyperdense but all unchanged. There are bilateral renovascular calcifications status quo. There is calcific atherosclerotic change seen in the abdominal aorta status quo. There is no para-aortic adenopathy. Limited evaluation of the bowel loops and their mesenteries show no significant changes from the prior exam. There is descending colon diverticulosis. There is no free fluid or free air. There is a ventral hernia, which is unchanged. CT PELVIS: The bowel loops and their mesenteries are essentially unchanged. There is sigmoid colon diverticulosis. There is no free fluid or free air. There is no pelvic mass or adenopathy. Bone window technique throughout the exam shows no change in the osseous structures. The bones are demineralized and there is mild degenerative changes status quo. IMPRESSION: No significant change from the prior exam. Chronic changes as described above. No acute intra-abdominal or intrapelvic disease is noted on this limited noncontrast enhanced exam. Electronically Signed by Oli Hawkins DO 07/05/2019 04:49 P
[2019-07-05] MEDS ORDERED: GLIP5TAB20 PO (16:52)
[2019-07-05] MEDS ORDERED: FURO20TA2 PO (16:52)
[2019-07-05] MEDS ORDERED: LOSA50TA88 PO (16:52)
[2019-07-05] MEDS ORDERED: ONDANSETRON 4MG/2ML VIAL (J2405) IV PRN (17:00)
[2019-07-05] MEDS ORDERED: DICYCLOMINE 10 MG CAP PO PRN (17:00)
[2019-07-05] MEDS ORDERED: ACETAMINOPHEN 650MG ER TAB (TYLENOL ARTHRITIS) PO PRN (17:15)
[2019-07-05] MEDS ORDERED: NORCO, ANEXSIA 5/325MG TABLET (HYDROcodone/ACETAMINOPHEN) PO PRN (17:30)
[2019-07-05 17:49] VITALS: BP 197/77
[2019-07-05] MEDS: **hydrALAZINE** 10 MG TAB PO PRN (18:00)
[2019-07-05] MEDS: FUROSEMIDE 20 MG TAB PO SCH (18:01)
[2019-07-05] MEDS: DULoxetine 30 MG CAP (CYMBALTA) PO SCH (18:01)
[2019-07-05 18:02] VITALS: BP 166/111
[2019-07-05] MEDS ORDERED: GLUCOSE 4 GM CHEW TABLET PO PRN (18:30)
[2019-07-05] MEDS ORDERED: DEXTROSE 50% 50 ML SYRINGE IV PRN (18:30)
[2019-07-05] MEDS ORDERED: GLUCAGON FOR INJ 1 MG VIAL (J1610) SC PRN (18:30)
[2019-07-05 19:00] VITALS: BP 172/74
[2019-07-05 20:00] VITALS: BP 153/67
[2019-07-05] MEDS: HumaLOG INSULIN (NovoLOG) PER UNIT SC SCH (20:44)
--- NOTE | 2019-07-05 20:45 | ECGEPIP ---
[facility] - ED Test Date: 2019-07-05 Pat Name: ARTURO OCASIO Department: Room: - Gender: Female Hotel Office Manager: saurav : 1935 Requested By: Kareem Boothe Order Number: [id number] Reading MD: Kareem Puckett Measurements Intervals [place] Rate: 92 P: 6 CA: 171 QRS: 66 QRSD: 97 T: 65 QT: 346 QTc: 430 Interpretive Statements SINUS RHYTHM BENIGN EARLY REPOLARIZATION SIMILAR TO 06/26/18 Electronically Signed on 07-05-2019 20:45:14 EDT by Kareem Puckett
[2019-07-05] MEDS: ALLOPURINOL 100 MG TAB PO SCH (20:47)
[2019-07-05] MEDS: CLOPIDOGREL 75 MG TAB PO SCH (20:47)
[2019-07-05] MEDS: FIDAXOMICIN 200 MG TAB (DIFICID) PO SCH (20:47)
[2019-07-05] MEDS: ATENOLOL 50 MG TAB PO SCH (20:48)
--- NOTE | 2019-07-05 20:48 | ECGEPIP ---
[facility] - ED Test Date: 2019-07-05 Pat Name: ARTURO OCASIO Department: Room: [place] [id number] Gender: Female Environmental Quality Analyst: lina : 1935 Requested By: Kareem Boothe Order Number: [id number] Reading MD: Kareem Puckett Measurements Intervals [place] Rate: 77 P: 35 DC: 201 QRS: 63 QRSD: 95 T: 70 QT: 401 QTc: 454 Interpretive Statements SINUS RHYTHM BENIGN EARLY REPOLARIZATION SIMILAR TO PRIOR ON SAME DATE Electronically Signed on 07-05-2019 20:48:17 EDT by Kareem Puckett
--- NOTE | 2019-07-05 21:23 | HPE ---
DATE OF ADMISSION: 07/05/2019 PRIMARY CARE PROVIDER: Dr. Gely Mancera CHIEF COMPLAINT: High blood pressure and watery diarrhea. 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 The patient states that she has been having diarrhea for the last couple of months but noted in the last couple of days that her diarrhea has become more watery and more profuse. She is unable to quantify how much diarrhea she is currently having, but she does state that it is watery in nature. She does complain for the last two days that she is having abdominal discomfort in the lower abdomen and it has not improved. She does complain of nausea but no vomiting episodes. She states that she is currently on Entyvio for ulcerative colitis and her next dose was due to today but she has not gotten it. She states that this morning when she woke up she did have some sharp chest pain. She had tight chest pain in the middle of the chest and when she took her blood pressure, her systolic blood pressure was 198. She called her primary care provider, who recommended that she come to the emergency room for further evaluation. She does admit that she does have a history of high blood pressure when she was getting evaluated in the emergency room, but once she was up on the floor her blood pressure does improve and her medications she takes at home controls it adequately. In the emergency room on admission, her blood pressure was 177/80 with a heart rate of 97. She was given losartan 100 mg times one, furosemide 20 mg times one, atenolol 50 mg times one, and amlodipine 5 mg times one. Her laboratories showed that she had a leukocytosis of 11.7 with a hemoglobin of 11.8 with a normal platelet count. Chemistry showed her electrolytes within normal limits with BUN of 26 and creatinine 1.24. Her troponin times two was negative. Her electrocardiogram (EKG) reviewed by me showed that she was in sinus rhythm with a WY interval of 201 milliseconds, normal axis with no ST changes. Her gastrointestinal panel was positive for C difficile A and B. CT of the abdomen in the ER did show no acute intraabdominal or intrapelvic diseases noted, but it was limited because of noncontrast enhanced examination. Chest x-ray was negative for acute disease but did show mild cardiomegaly. The hospitalist team was then called for management for recurrent C difficile. PAST MEDICAL HISTORY: 1. Diastolic congestive heart failure. 2. CVA with residual weakness. 3. Diabetes. 4. Hypothyroidism. 5. Chronic kidney disease stage III. 6. Ulcerative colitis. 7. Iron deficiency anemia. 8. Gout. 9. Gastroesophageal reflux disease (GERD). 10. Hypothyroidism. 11. 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 PAST SURGICAL HISTORY: 1. Cataract. 2. Cholecystectomy. 3. Hysterectomy. FAMILY HISTORY: Noncontributory. SOCIAL HISTORY: Former smoker but does alcohol or illicit drug use. HOME MEDICATIONS: - acetaminophen 650 mg as needed for pain - allopurinol 100 mg by mouth twice a day - amlodipine 5 mg by mouth daily - atenolol 50 mg by mouth daily - brimonidine tartrate one drop OS twice a day - Azopt one drop OU twice a day - Plavix 75 mg by mouth at night - Cymbalta 60 mg by mouth daily - iron supplementation 325 mg by mouth every 3 days - furosemide 20 mg by mouth daily - glipizide 5 mg by mouth daily extended release - probiotic one tablet by mouth daily - latanoprost one drop OU at night - levothyroxine 75 mcg by mouth daily - losartan 50 mg by mouth twice a day - meclizine 25 mg by mouth as needed for dizziness - Zofran 4 mg by mouth as needed for nausea - potassium 10 mEq by mouth daily - ranitidine one tablet by mouth as needed for heartburn - vitamin D3 1000 units by mouth daily ALLERGIES: The patient has multiple allergies. CEPHAZOLIN, PENICILLIN, SULFA, CLODRONIC ACID, DOXYCYCLINE, CONTRAST MEDIA, TAPE, BENZALKONIUM CHLORIDE, SHELLFISH, TIMOLOL, TRAVOPROST, STATINS, OXYCODONE, PREDNISONE, GASTROGRAFIN, DILTIAZEM, GEMFIBROZIL, METOPROLOL. REVIEW OF SYSTEMS: : CONSTITUTIONAL: No weight changes. No fevers, chills, night sweats, fatigue, malaise. HEENT: Denies eye pain, change in vision, dizziness, ear pain, nasal congestion, sinus pain, hoarseness, sore throat, rhinorrhea. CARDIOVASCULAR: Admits to chest discomfort but no shortness of breath, dyspnea on exertion, orthopnea, claudication. RESPIRATORY: Denies cough, sputum, wheezing, but admits to being a former smoker. GASTROINTESTINAL: Denies nausea or vomiting. Admits to watery diarrhea. Denies constipation. Admits to abdominal pain. Admits to heartburn, currently managed with ranitidine. Denies anorexia or weight changes. GENITOURINARY: Denies dysuria, urinary frequency. MUSCULOSKELETAL: Admits to low back pain. Denies joint swelling, back stiffness. NEUROLOGIC: Denies any new weakness. Does have residual weakness from CVA. No insomnia or depression. HEMATOLOGIC: Denies bleeding, bruising. ENDOCRINE: Denies polyuria or polydipsia. PHYSICAL EXAMINATION: VITAL SIGNS: Temperature 96.1, pulse 72, respirations 18, blood pressure 206/93 (130), pulse oximetry of 98% on room air. GENERAL: This is a very pleasant 84-year-old female sitting up in bed. Does not appear in acute distress. Appropriately answering questions. No accessory muscle use. Can complete sentences. HEENT: Atraumatic, normocephalic. Pupils are equal, round and reactive. Sclerae anicteric. No jaundice noted. No increased jugular venous distention (JVD) noted as well. LUNGS: Clear to auscultation bilaterally. No crackles, wheezing or rhonchi appreciated. CARDIOVASCULAR: Regular rate and rhythm. Normal S1, S2. No murmurs, rubs or gallops. ABDOMEN: Soft, nontender, nondistended. Positive bowel sounds in all four quadrants. No rebound. No guarding appreciated. She does have an obese abdomen. No tenderness with deep palpation. EXTREMITIES: No lower extremity edema. No calf tenderness noted. SKIN: Intact. No rash. No lesions. No obvious breakdown noted as well. NEUROLOGIC: Alert and oriented times three. No obvious focal deficits noted. Muscle strength in the lower extremities was actually 5/5 and equal bilaterally. Deep tendon reflex was diminished in the left and nonexistent in the right patella. Sensation was intact bilaterally in the upper extremities and lower extremities. LABORATORY DATA: Hematology: WBC 11.6, hemoglobin 11.8, hematocrit 37.2, platelets 264. Chemistries: Sodium 142, potassium 3.7, chloride 110, carbon dioxide 28, anion gap 4, BUN 26, creatinine 1.24, GFR of 44.0, fasting glucose of 159, calcium 9.3, total bilirubin 0.4, direct bilirubin 0.2, AST 13, ALT 16, alkaline phosphatase 86, total CK 20 and repeat 50, CK-MB 1.1 and repeat less than 1.0. Troponin less than 0.2 times two. Total protein 6.3, albumin 2.8, lipase 183. IMAGING: Chest x-ray showed mild cardiomegaly. Otherwise, no acute disease. Abdomen and pelvis CT showed no significant from prior examination. Chronic changes. No acute intraabdominal or intrapelvic disease is noted. This is limited because of the noncontrast enhanced study. EKG in the emergency room showed sinus rhythm with a ventricular rate of 77 beats per minute, WY interval 201 milliseconds, QRS 95 milliseconds with a QTC of 432 milliseconds. She has a normal axis with no ST changes noted. ASSESSMENT AND PLAN: This is an 84-year-old female with a pertinent past medical history of ulcerative colitis on Entyvio and recurrent Clostridium (C.) difficile, hypertension, and diastolic heart failure who is presenting today for diarrhea secondary to C difficile and elevated blood pressure. 1. Watery diarrhea secondary to C difficile. GI panel was positive for Clostridium (C.) difficile A and B. We will start her on Dificid 200 mg twice a day for the next [address] the patient on a clear liquid diet and advance her as tolerated. Because this is a recurrent history for the patient, once she gets discharged, she will need to discuss with her editorial cartoonist, Dr. Chew, about possible stool transplant. She states that they were having discussions about this but it has not been set in stone. As of right now, we do not have GI coverage this week. We will continue with the Dificid and treat her appropriately. 2. Hypertension, white coat syndrome. Blood pressure in the emergency room when evaluated showed a systolic blood pressure of 230. When reviewing her old records, the patient does have a history of having elevated blood pressures in the ER when she is around providers. She states that she does have a history of "white coat syndrome," and when she has been stable on the floor her blood pressure does improve and is usually controlled with her home medications. We have continued all of her home medications, such as the furosemide 20 mg daily, atenolol 50 mg by mouth twice a day, amlodipine 5 mg daily, and losartan 50 mg by mouth twice a day. We have placed hydralazine 10 mg every 6 hours as needed for a blood pressure greater than 180. We will monitor her appropriately. 3. History of diastolic congestive heart failure. We will continue her on Lasix and potassium supplementation. 4. History of diabetes. We have held her glipizide and will place her on insulin sliding scale and her diet currently is clear liquid diet. When we do advance her, we will place her on consistent carbohydrate diet. 5. History of gout. Continue with allopurinol. 6. History of ulcerative colitis. We will hold her Entyvio. Her next dose was today but once she gets discharge we will have her followup with her GI doctor. 7. History of gastroesophageal reflux disease (GERD). Continue with as needed ranitidine. 8. History of stroke. We will continue her on Plavix. 9. Deep vein thrombosis (DVT) prophylaxis. Thromboembolic compression stockings (TEDS). 10. Diet. Clear liquid diet and will advance to consistent carbohydrate as tolerated.
[2019-07-06] VITALS (8 sets, daily range): BP systolic 133–181; BP diastolic 60–81
[2019-07-06] MEDS: **hydrALAZINE** 10 MG TAB PO PRN (02:33)
[2019-07-06 04:47] LABS: HEMATOCRIT 36.4 % (36.0-47.0); HEMOGLOBIN 11.7 g/dl (12.0-15.5); MEAN CORPUSCULAR HEMOGLOBIN 30.7 pg (27.0-33.0); MEAN CORPUSCULAR HGB CONC 32.1 g/dl (32.0-36.5); MEAN CORPUSCULAR VOLUME 95.5 fl (80.0-96.0); PLATELET COUNT, AUTOMATED 275 10^3/uL (150-450); RED BLOOD COUNT 3.81 10^6/uL (4.00-5.40); WHITE BLOOD COUNT 12.2 10^3/uL (4.0-10.0)
[2019-07-06 05:02] LABS: BLOOD UREA NITROGEN 27 MG/DL (7-18); CALCIUM LEVEL 9.8 MG/DL (8.8-10.2); CARBON DIOXIDE LEVEL 29 MEQ/L (21-32); CHLORIDE LEVEL 107 MEQ/L (98-107); CREATININE FOR GFR 1.34 MG/DL (0.55-1.30); GLOMERULAR FILTRATION RATE 40.2 (>32); GLUCOSE, FASTING 130 MG/DL (70-100); POTASSIUM SERUM 3.8 MEQ/L (3.5-5.1); SODIUM LEVEL 143 MEQ/L (136-145)
[2019-07-06] MEDS: LEVOTHYROXINE 75MCG TABLET (0.075MG) PO SCH (05:45)
[2019-07-06] MEDS: HumaLOG INSULIN (NovoLOG) PER UNIT SC SCH ×4 (08:30→20:25)
[2019-07-06] MEDS: ALLOPURINOL 100 MG TAB PO SCH ×2 (08:30→20:25)
[2019-07-06] MEDS: FUROSEMIDE 20 MG TAB PO SCH (08:30)
[2019-07-06] MEDS: ATENOLOL 50 MG TAB PO SCH ×2 (08:31→20:24)
[2019-07-06] MEDS: DULoxetine 30 MG CAP (CYMBALTA) PO SCH (08:31)
[2019-07-06] MEDS: amLODIPine 5 MG TAB PO SCH (08:31)
[2019-07-06] MEDS: FIDAXOMICIN 200 MG TAB (DIFICID) PO SCH ×2 (08:31→20:24)
[2019-07-06] MEDS: LOSARTAN 50 MG TAB PO SCH ×2 (08:32→20:25)
[2019-07-06 08:40] LABS: TROPONIN I < 0.02 NG/ML (< 0.10)
[2019-07-06] MEDS ORDERED: DIFI200T PO (13:57)
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
[2019-07-06] MEDS: CLOPIDOGREL 75 MG TAB PO SCH (20:24)
[2019-07-06] MEDS ORDERED: rOPINIRole 0.25 MG TAB(REQUIP) PO SCH (21:00)
[2019-07-07 03:00] VITALS: BP 153/66
[2019-07-07 04:22] LABS: HEMOGLOBIN 10.9 g/dl (12.0-15.5); MEAN CORPUSCULAR HEMOGLOBIN 31.3 pg (27.0-33.0); MEAN CORPUSCULAR HGB CONC 32.1 g/dl (32.0-36.5); MEAN CORPUSCULAR VOLUME 97.7 fl (80.0-96.0); PLATELET COUNT, AUTOMATED 266 10^3/uL (150-450); RED BLOOD COUNT 3.48 10^6/uL (4.00-5.40); WHITE BLOOD COUNT 12.1 10^3/uL (4.0-10.0)
[2019-07-07 04:41] LABS: CALCIUM LEVEL 8.6 MG/DL (8.8-10.2); CREATININE FOR GFR 1.49 MG/DL (0.55-1.30); GLOMERULAR FILTRATION RATE 35.6 (>32); POTASSIUM SERUM 3.7 MEQ/L (3.5-5.1)
[2019-07-07] MEDS: LEVOTHYROXINE 75MCG TABLET (0.075MG) PO SCH (05:29)
[2019-07-07 08:00] VITALS: BP 136/65
[2019-07-07] MEDS: HumaLOG INSULIN (NovoLOG) PER UNIT SC SCH (08:32)
[2019-07-07] MEDS: DULoxetine 30 MG CAP (CYMBALTA) PO SCH (08:33)
[2019-07-07 08:34] VITALS: BP 136/65
[2019-07-07] MEDS: LOSARTAN 50 MG TAB PO SCH (08:34)
[2019-07-07] MEDS: FIDAXOMICIN 200 MG TAB (DIFICID) PO SCH (08:34)
[2019-07-07] MEDS: ALLOPURINOL 100 MG TAB PO SCH (08:34)
[2019-07-07] MEDS: amLODIPine 5 MG TAB PO SCH (08:34)
[2019-07-07] MEDS: ATENOLOL 50 MG TAB PO SCH (08:34)
[2019-07-07] MEDS: FUROSEMIDE 20 MG TAB PO SCH (08:35)
[2019-07-07] MEDS ORDERED: REQU1TAB14 PO (09:53)
[2019-07-07] MEDS ORDERED: VANC125C3 PO (10:53)
--- NOTE | 2019-07-07 12:47 | DS.PDOC ---
Discharge Summary General Date of Admission Jul 05, 2019 at 16:21 Date of Discharge 07/07/19 Primary Care Physician: Gely Mancera Discharge Summary PROCEDURES PERFORMED DURING STAY:None. ADMITTING/ DISCHARGE DIAGNOSES: Watery diarrhea secondary to C difficile vs irritable bowel syndrome Hypertension White coat syndrome Diabetes Gout Ulcerative colitis on Entyvio Gastroesophageal reflux disease History of stroke Restless Leg Syndrome COMPLICATIONS/CHIEF COMPLAINT: Clostridium Difficile Colitis. 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 The patient states that she has been having diarrhea for the last couple of months but noted in the last couple of days that her diarrhea has become more watery and more profuse. She is unable to quantify how much diarrhea she is currently having, but she does state that it is watery in nature. She does complain for the last two days that she is having abdominal discomfort in the lower abdomen and it has not improved. She does complain of nausea but no vomiting episodes. She states that she is currently on Entyvio for ulcerative colitis and her next dose was due to today but she has not gotten it. She states that this morning when she woke up she did have some sharp chest pain. She had tight chest pain in the middle of the chest and when she took her blood pressure, her systolic blood pressure was 198. She called her primary care provider, who recommended that she come to the emergency room for further evaluation. She does admit that she does have a history of high blood pressure when she was getting evaluated in the emergency room, but once she was up on the floor her blood pressure does improve and her medications she takes at home controls it adequately. In the emergency room on admission, her blood pressure was 177/80 with a heart rate of 97. She was given losartan 100 mg times one, furosemide 20 mg times one, atenolol 50 mg times one, and amlodipine 5 mg times one. Her laboratories showed that she had a leukocytosis of 11.7 with a hemoglobin of 11.8 with a normal platelet count. Chemistry showed her electrolytes within normal limits with BUN of 26 and creatinine 1.24. Her troponin times two was negative. Her electrocardiogram (EKG) reviewed by me showed that she was in sinus rhythm with a CT interval of 201 milliseconds, normal axis with no ST changes. Her gastrointestinal panel was positive for C. difficile A and B. CT of the abdomen in the ER did show no acute intraabdominal or intrapelvic diseases noted, but it was limited because of non-contrast enhanced examination. Chest x-ray was negative for acute disease but did show mild cardiomegaly. The hospitalist team was then called for management for recurrent C difficile. HOSPITAL COURSE: She was admitted on the floor. Her GI panel came back positive for C. difficile a and B toxin she is started on Deficid. Her blood pressure was controlled with her home medication with a supplement of hydralazine 5 mg PRN if needed. She did have a complaint of having involuntary movements of her lower extremity while she is sleeping and she did request having medication that can help, therefore requip 0.25mg qhs was added. On the day of discharge the patient was stable go home. No additional medications were prescribed the day of discharge for blood pressure control. The only medication is adjustment was when Deficid was changed to vancomycin 125 mg PO QID because of cost. Advised her to follows up with her primary care provider and check her WBC, BUN and creatinine levels. She was agreeable to this plan. DISCHARGE MEDICATIONS: Please see below. ALLERGIES: Please see below. PHYSICAL EXAMINATION ON DISCHARGE: VITAL SIGNS: Please see below. GENERAL: This is a very pleasant 84-year-old female sitting up in bed. Does not appear in acute distress. Appropriately answering questions in complete sentence No accessory muscle use. HEENT: Atraumatic, normocephalic. Pupils are equal, round and reactive. Sclerae anicteric. No jaundice noted. No increased jugular venous distention (JVD) noted as well. Moist mucous membranes LUNGS: Clear to auscultation bilaterally. No crackles, wheezing or rhonchi appreciated. CARDIOVASCULAR: Regular rate and rhythm. Normal S1, S2. No murmurs, rubs or gallops. ABDOMEN: Soft, nontender, nondistended. Positive bowel sounds in all four quadrants. No rebound. No guarding appreciated. She does have an obese abdomen. No tenderness with deep palpation. EXTREMITIES: No lower extremity edema. No calf tenderness noted. SKIN: Intact. No rash. No lesions. No obvious breakdown noted as well. NEUROLOGIC: Alert and oriented times three. No obvious focal deficits noted. Muscle strength in the lower extremities was actually 5/5 and equal bilaterally. Deep tendon reflex was diminished in the left and nonexistent in the right patella. Sensation was intact bilaterally in the upper extremities and lower extremities. LABORATORY DATA: Please see below. IMAGING: IMAGING: Chest x-ray showed mild cardiomegaly. Otherwise,no acute disease. Abdomen and pelvis CT showed no significant from prior examination. Chronic changes. No acute intraabdominal or intrapelvic disease is noted. This is limited because of the noncontrast enhanced study. EKG in the emergency room showed sinus rhythm with a ventricular rate of 77 beats per minute, CT interval 201 milliseconds, QRS 95 milliseconds with a QTC of 432 milliseconds. She has a normal axis with no ST changes noted PROGNOSIS: Fair ACTIVITY: As tolerated. DIET: Consistent Carbohydrate DISPOSITION: 01 Home, Self-Care. DISCHARGE INSTRUCTIONS: 1. Follow-up with primary care provider in 7-10 days 2. Follow-up with PCP about resolution of WBC and to follow BUN and creatinine levels 3. Complete Vancomycin as prescribed prescription sent to her pharmacy DISCHARGE CONDITION: Stable. TIME SPENT ON DISCHARGE: Greater than 35 minutes. Vital Signs/I&Os Vital Signs Date Time Temp Pulse Resp B/P (MAP) Pulse Ox O2 Delivery O2 Flow Rate FiO2 07/07/19 08:34 70 136/65 07/07/19 08:00 97.6 16 95 07/05/19 17:24 Room Air I&O- Last 24 Hours up to 6 AM 07/07/19 06:00 Intake Total 1140 ml Output Total 1000 ml Balance 140 ml Laboratory Data Labs 24H Laboratory Tests 2 07/06/19 17:02: Bedside Glucose (Misc Panel) 160H 07/06/19 20:23: Bedside Glucose (Misc Panel) 176H 07/07/19 02:38: Bedside Glucose (Misc Panel) 121H 07/07/19 03:52: Nucleated Red Blood Cells % (auto) 0.0, Anion Gap 11, Glomerular Filtration Rate 35.6, Blood Urea Nitrogen 33H, Creatinine 1.49H, Sodium Level 144, Potassium Level 3.7, Chloride Level 107, Carbon Dioxide Level 26, Calcium Level 8.6L CBC/BMP Laboratory Tests 07/07/19 03:52 Red Blood Count 3.48 L, Mean Corpuscular Volume 97.7 H, Mean Corpuscular Hemoglobin 31.3, Mean Corpuscular Hemoglobin Concent 32.1, Red Cell Distribution Width 13.5, Calcium Level 8.6 L FSBS Laboratory Tests Test 07/06/19 17:02 07/06/19 20:23 07/07/19 02:38 Range/Units Bedside Glucose (Misc Panel) 160 176 121 83-110 MG/DL Microbiology Microbiology 07/05/19 Gastrointestinal Tract Panel (PCR) - Final, Complete Clostridium Difficile A/B Discharge Medications Scheduled Allopurinol (Allopurinol) 100 Mg Tab, 100 MG PO BID, (Reported) Amlodipine Besylate (Amlodipine Besylate) 5 Mg Tablet, 5 MG PO DAILY, (Reported) Atenolol (Atenolol) 50 Mg Tab, 50 MG PO BID, (Reported) Brimonidine Tartrate/Timolol (Combigan 0.2%-0.5% Eye Drops) 1 Lilly Lilly, 1 DROP OS BID, (Reported) Brinzolamide (Azopt) 1 % Melissa, 1 DROP OU BID, (Reported) Clopidogrel Bisulfate (Plavix) 75 Mg Tab, 75 MG PO QHS, (Reported) Duloxetine Hcl (Cymbalta) 60 Mg Capsule.dr, 60 MG PO DAILY, (Reported) Ferrous Sulfate (Ferrous Sulfate) 325 Mg Tablet.dr, 325 MG PO Q3RD, (Reported) Furosemide (Furosemide) 20 Mg Tablet, 20 MG PO DAILY, (Reported) Glipizide (Glipizide ER) 5 Mg Tab.er.24, 5 MG PO DAILY, (Reported) Lactobacillus Combo No.10 (Probiotic) 1 Each Capsule, 1 TAB PO DAILY, (Reported) Latanoprost (Xalatan) 0.005 % Lilly, 1 DROP OU QHS, (Reported) Levothyroxine Sodium (Levothyroxine Sodium) 75 Mcg Tab, 75 MCG PO DAILY, (Reported) Losartan Potassium (Losartan Potassium) 50 Mg Tablet, 50 MG PO BID, (Reported) Potassium Chloride (Potassium Chloride) 10 Meq Capsule.er, 10 MEQ PO DAILY, (Reported) Ropinirole HCl (Requip) 0.25 Mg Tablet, 0.25 MG PO QHS Vancomycin Hcl (Vancomycin HCl) 125 Mg Capsule, 125 MG PO QID Vitamin D (Vitamin D3) 1,000 Unit Tablet, 1,000 UNIT PO DAILY, (Reported) Scheduled PRN Acetaminophen (Pain Reliever) 650 Mg Tab, 650 MG PO Q8H PRN for PAIN, (Reported) Meclizine HCl (Meclizine HCl) 25 Mg Tab, 25 MG PO Q8H PRN for DIZZINESS, (Reported) Ondansetron (Ondansetron Odt) 4 Mg Tab, 4 MG PO TID PRN for NAUSEA, (Reported) Ranitidine HCl (Ranitidine HCl) 150 Mg Tab, 1 TAB PO QHS PRN for HEARTBURN, (Reported) Allergies Coded Allergies: sulfasalazine (Verified Allergy, Severe, hives, hematemesis,difficulty breathing, 03/17/19) Penicillins (Verified Allergy, Intermediate, SWELLING/RASH, 03/17/19) Sulfa (Sulfonamide Antibiotics) (Verified Allergy, Mild, RASH, 03/17/19) clavulanic acid (Verified Allergy, Mild, PRURITIS, 03/17/19) doxycycline (Verified Allergy, Mild, RASH, 03/17/19) Contrast Media (Verified Allergy, Unknown, 08/10/14) TAPE (Verified Allergy, Unknown, BANDAIDS, 08/10/14) benzalkonium chloride (Verified Allergy, Unknown, 03/17/19) shellfish derived (Verified Allergy, Unknown, 03/17/19) timolol (Verified Allergy, Unknown, OPTHALMIC DROPS, 03/17/19) travoprost (Verified Allergy, Unknown, 03/17/19) Wifkvwq-Hea-Pem Reductase Inhibitor (Verified Adverse Reaction, Intermediate, MUSCLE ACHES, 03/17/19) oxycodone (Verified Adverse Reaction, Intermediate, HX OF AMS W/FALL ON SCHEDULED PERCOCET 5/325, 03/09/19) HX OF AMS W/FALL ON SCHEDULED PERCOCET 5/325 IN JANUARY 2019 prednisone (Verified Adverse Reaction, Intermediate, INCREASED INTRAOC CULAR PRESSURES, 03/17/19) diatrizoate meglumine (Verified Adverse Reaction, Mild, ABDOMINAL PAIN, 03/17/19) diatrizoate sodium (Verified Adverse Reaction, Mild, ABDOMINAL PAIN, 03/17/19) diltiazem (Verified Adverse Reaction, Mild, N,V,D, 03/17/19) gemfibrozil (Verified Adverse Reaction, Mild, PAIN, 03/17/19) metoprolol (Verified Adverse Reaction, Mild, DIZZINESS, 03/17/19) NANY POST DO Jul 07, 2019 12:47
== END 2019-07-07 11:42 | disposition home or self-care (01) | DRG 372 ==
LOC: M ED 10:11 → M ED INP 16:21 → M ICU 17:43
PROVIDERS: ADMIT Internal Medicine; ATTEND Internal Medicine
DX: A04.72 Enterocolitis due to Clostridium difficile, not specified as recurrent (principal); I50.32 Chronic diastolic (congestive) heart failure; K51.90 Ulcerative colitis, unspecified, without complications; I13.0 Hypertensive heart and chronic kidney disease with heart failure and stage 1 through stage 4 chronic kidney disease, or unspecified chronic kidney disease; E11.9 Type 2 diabetes mellitus without complications; M10.9 Gout, unspecified; G25.81 Restless legs syndrome; Z86.73 Personal history of transient ischemic attack (TIA), and cerebral infarction without residual deficits; K21.9 Gastro-esophageal reflux disease without esophagitis; Z79.899 Other long term (current) drug therapy; Z88.0 Allergy status to penicillin; Z88.2 Allergy status to sulfonamides; N18.3 Chronic kidney disease, stage 3 (moderate); E03.9 Hypothyroidism, unspecified; Z87.891 Personal history of nicotine dependence; D50.9 Iron deficiency anemia, unspecified

== ENCOUNTER → 2019-07-14 | Outpatient (REF) | payer MEDICARE ==
[~2019-07-14] MED LIST changes: +CVS1CAP2 PO; +CYMB60CA3 PO; +FERR325T3 PO; +GLIP10TA PO; +GLIP5TAB20 PO; +LOPE1CAP5 PO; +POTA10CA32 PO; +REQU1TAB14 PO; +VANC125C3 PO; +VITAD1000T PO; -amLODIPine 5 MG TAB PO SCH
== END ==
LOC: M LAB REF 16:28
PROVIDERS: ATTEND Internal Medicine
DX: N39.0 Urinary tract infection, site not specified (principal)

== ENCOUNTER 2019-08-06 15:20 | Outpatient (CLI) | payer MEDICARE ==
[~2019-08-06] VITALS: Ht 152.4 cm; Wt 72.6 kg
[~2019-08-06 15:20] MED LIST changes: +CHOL100029 PO; -VITAD1000T PO
[2019-08-06 15:25] VITALS: BP 145/63
[2019-08-06] MEDS ORDERED: VEDOLIZUMAB 300 MG in NS 250 ML IV ONE (16:00)
[2019-08-06] MEDS ORDERED: diphenhydrAMINE 25 MG CAP PO ONE (16:00)
[2019-08-06] MEDS ORDERED: ACETAMINOPHEN TAB 650MG DOSE (2X325MG) PO ONE (16:00)
[2019-08-06 17:10] VITALS: BP 159/72
== END 2019-08-06 17:10 | disposition home or self-care (01) ==
LOC: M INFU 15:20
PROVIDERS: ATTEND Internal Medicine Gastroenterology
DX: K50.90 Crohn's disease, unspecified, without complications (principal); Z88.0 Allergy status to penicillin; Z88.3 Allergy status to other anti-infective agents; Z88.8 Allergy status to other drugs, medicaments and biological substances
CPT/HCPCS: 96365; J3380

== ENCOUNTER 2019-09-06 16:00 | Outpatient (CLI) | payer MEDICARE ==
[~2019-09-06] VITALS: Ht 152.4 cm; Wt 72.5 kg
[2019-09-06 16:00] VITALS: BP 141/64
[~2019-09-06 16:00] MED LIST changes: -GLIM2TAB PO; +GLIM2TAB2 PO; -OMEP40CA2 PO; +OMEP40CA97 PO; -SERT-155 PO; +SERT25TA21 PO; -SERT25TA88 PO; +SERT50TA29 PO
[2019-09-06] MEDS ORDERED: VEDOLIZUMAB 300 MG in NS 250 ML IV ONE (17:00)
[2019-09-06] MEDS ORDERED: ACETAMINOPHEN TAB 650MG DOSE (2X325MG) PO ONE (17:00)
[2019-09-06] MEDS ORDERED: diphenhydrAMINE 25 MG CAP PO ONE (17:00)
[2019-09-06 17:15] VITALS: BP 156/70
== END 2019-09-06 17:15 | disposition home or self-care (01) ==
LOC: M INFU 16:00
PROVIDERS: ATTEND Internal Medicine Gastroenterology
DX: K50.90 Crohn's disease, unspecified, without complications (principal); Z88.0 Allergy status to penicillin; Z88.3 Allergy status to other anti-infective agents; Z88.8 Allergy status to other drugs, medicaments and biological substances
CPT/HCPCS: 96365; J3380

== ENCOUNTER 2019-11-05 18:53 | Inpatient (IN) | payer MEDICARE ==
[~2019-11-05] VITALS: Ht 152.4 cm; Wt 73.0 kg
--- NOTE | 2019-11-05 19:40 | REPVR ---
PROCEDURE INFORMATION: Exam: CT Head Without Contrast Exam date and time: 11/05/2019 7:25 PM Age: 84 years old Clinical history: Altered mental status/memory loss; Confusion or disorientation TECHNIQUE: Imaging protocol: Computed tomography of the head without contrast. Radiation optimization: All CT scans at this facility use at least one of these dose optimization techniques: automated exposure control; mA and/or kV adjustment per patient size (includes targeted exams where dose is matched to clinical indication); or iterative reconstruction. COMPARISON: CT Head without contrast 06/26/2018 7:12 AM FINDINGS: Brain: There is moderate age related parenchymal volume loss. White matter changes are demonstrated in the subcortical, centrum semiovale and periventricular white matter consistent with age related small vessel white matter angiopathic gliosis. Ventricles: The degree of ventricular dilatation is normal for age and/or degree of atrophy present. Bones/joints: There is hyperostosis frontalis interna. Sinuses: Visualized sinuses are unremarkable. No fluid levels. Mastoid air cells: Visualized mastoid air cells are well aerated. Soft tissues: Unremarkable. IMPRESSION: 1. There is moderate age related parenchymal volume loss. White matter changes are demonstrated in the subcortical, centrum semiovale and periventricular white matter consistent with age related small vessel white matter angiopathic gliosis. 2. The degree of ventricular dilatation is normal for age and/or degree of atrophy present. 3. No significant interval change. Electronically signed by: Brennan Lorenzo On 11/05/2019 19:40:23 PM
--- NOTE | 2019-11-05 20:04 | REP ---
Chest x-ray: Single view. History: Altered mental status. Comparison chest x-ray: July 05, 2019. Findings: The lungs are symmetrically aerated and free of infiltrate. Pleural angles are sharp. Heart is enlarged unchanged. Pulmonary vasculature is not increased. Impression: Cardiomegaly unchanged. Otherwise no acute disease. Electronically Signed by Phuc Bob MD 11/05/2019 07:55 P
[2019-11-05 20:06] LABS: BASO # 0.1 10^3/uL (0.0-0.2); BASO % 0.5 % (0.0-1.0); EOS # 0.4 10^3/uL (0.0-0.5); EOS % 3.9 % (0.0-3.0); HEMATOCRIT 39.4 % (36.0-47.0); HEMOGLOBIN 12.1 g/dl (12.0-15.5); LYMPH # 2.2 10^3/uL (1.5-5.0); LYMPH % 20.3 % (24.0-44.0); MEAN CORPUSCULAR HEMOGLOBIN 30.3 pg (27.0-33.0); MEAN CORPUSCULAR HGB CONC 30.7 g/dl (32.0-36.5); MEAN CORPUSCULAR VOLUME 98.5 fl (80.0-96.0); MONO # 0.7 10^3/uL (0.0-0.8); MONO % 6.3 % (0.0-5.0); NEUTROPHILS # 7.6 10^3/uL (1.5-8.5); NEUTROPHILS % 68.6 % (36.0-66.0); PLATELET COUNT, AUTOMATED 281 10^3/uL (150-450)
--- NOTE | 2019-11-05 20:23 | ECGEPIP ---
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
[2019-11-05 20:41] LABS: ALBUMIN 2.9 GM/DL (3.2-5.2); ALT/SGPT 13 U/L (12-78); BILIRUBIN,DIRECT 0.1 MG/DL (0.0-0.2); BLOOD UREA NITROGEN 22 MG/DL (7-18); CALCIUM LEVEL 9.4 MG/DL (8.8-10.2); CARBON DIOXIDE LEVEL 31 MEQ/L (21-32); CHLORIDE LEVEL 104 MEQ/L (98-107); CK-MB VALUE MASS < 1.0 NG/ML (<3.6); CPK CREATINE PHOSPHOKINASE 21 U/L (26-192); CREATININE FOR GFR 1.35 MG/DL (0.55-1.30); GLOMERULAR FILTRATION RATE 39.9 (>32); GLUCOSE, FASTING 119 MG/DL (70-100); MB/CK RELATIVE INDEX 4.76 (< OR =4); POTASSIUM SERUM 4.3 MEQ/L (3.5-5.1); SODIUM LEVEL 141 MEQ/L (136-145); TOTAL PROTEIN 6.5 GM/DL (6.4-8.2); TROPONIN I < 0.02 NG/ML (< 0.10)
[2019-11-05] MEDS ORDERED: GABA-1171 PO (22:00)
[2019-11-05] MEDS ORDERED: D32000TA PO (22:00)
[2019-11-05] MEDS ORDERED: LOPE1CAP5 PO (22:00)
--- NOTE | 2019-11-05 22:14 | HPEPDOC ---
[facility] Medical History & Physical Date of Admission Nov 05, 2019 Date of Service: Nov 05, 2019 Primary Care Physician: Gely Mancera Attending Physician: BRYAN PARISH MD History and Physical TIME OF SERVICE: 9:45 PM CHIEF COMPLAINT: "my kids made me come to the hospital" HISTORY OF PRESENT ILLNESS: This is an 84-year-old female who entered possible because her's kids insisted that she came to the hospital because she has been argumentative and the thought she might have a UTI. She admits to having an argument with her and her children because she is concerned that they have been stealing her checks and withholding her Social Security papers. The patient does not want to go home to her family and is requesting assistance with placement in assisted living fac [facility]. I called the patient's daughter who corroborated this story and reported that her mother has been more irritable over the last two weeks. Currently the patient denies having abdominal pain, chest pain, shortness of breath, fever, chills, nausea, vomiting, diarrhea, or pain in any part of her body. At her baseline she has an unsteady gait and walks with a walker. She has hearing aids and reports that they're not working very well; she was supposed to have another hearing test and new hearing aids but the appointment was deferred to a later date because she had a URI . REVIEW OF SYSTEMS: 12 point review of systems negative except as listed in HPI PAST MEDICAL/ SURGICAL HISTORY: Cva-vsvasel-[id number] Diabetes. Hearing Loss (current hearing aides not working) Unsteady gait, uses a walker Hypothyroidism Chronic hypertension Gout. Ulcerative colitis GERD History of CVA Restless leg syndrome Status post resection of adenomatous colonic polyp Status post cholecystectomy Status post rectocele repair SOCIAL HISTORY: She does not smoke She has been for over 65 years She doesn't drink FAMILY HISTORY: Testicular cancer. ALLERGIES: Please see below HOME MEDICATIONS: Please see below PHYSICAL EXAMINATION: VITAL SIGNS: Please see below GEN: well nourished / well developed/ NAD HEENT: normocephalic / atraumatic /mucus membranes moist and pink / sclera anicteric CVS: RRR/NMRG/ no JVP / radial and dorsalis pedis pulses intact / no lower extremity edema LUNGS: able to speak full sentences without stopping to take a breath / no coughing / lungs are clear to auscultation bilaterally on room air ABDOMEN: the abdomen is tympanic on percussion, soft & not tender with palpation NEURO: CN 2-12 are grossly intact except auditory / speech is not dysarthric PSYCH: alert and oriented to person place and time/ she is able to name the president, and understand and follow all commands LABORATORY DATA: See below IMAGING: CT head " IMPRESSION: 1. There is moderate age related parenchymal volume loss. White matter changes are demonstrated in the subcortical, centrum semiovale and periventricular white matter consistent with age related small vessel white matter angiopathic gliosis. 2. The degree of ventricular dilatation is normal for age and/or degree of atrophy present. 3. No significant interval change. " Chest x-ray "Impression: Cardiomegaly unchanged. Otherwise no acute disease." MICROBIOLOGY: Please see below. ASSESSMENT: is an 81-year-old with a past medical history of COPD, diabetes, RLS, ulcerative colitis, hypothyroidism, chronic hypertension, and unsteady gait who came to the ER because her children felt that she was acting abnormally and thought she may have a UTI; both the patient and her family are requesting assistance with placement in an assisted living facility. PLAN: 1. Irritability/Anger She has been arguing with her family. She has hearing aids, which are not working properly; this makes it difficult for her to communicate. Per discussion with the patient's daughter she doesn't have a formal diagnosis of dementia therefore I can't assume that she needs to be started on meds for dementia or put on antipsychotics for dementia with behavioral disturbance. She is currently alert and oriented person, place and time, remembers the events that transpired prior to her arrival in the ER and is able to make decisions. Her CBC, CMP, CT of the head, chest x-ray were unremarkable. The UA is dirty but she does not have abdominal pain I explained to the patient that she does not have any acute medical problems that require inpatient admission, and that if she chooses to stay, she will be admitted under observation, and her insurance may not not cover the admission. The patient reported that she does want to go home. Plan:admit to general medical floor/follow-up with PFS for assistance with placement per patient's request/ she can follow-up with a Sprinkler Installer or Neuropsychiatrist for neurocognitive testing (ie B12, B1, and TSH & MoCA +/- referal to a Psychiatrist for a Comprehensive Neurocognitive Evaluation) on an outpatient basis 2. Asymptomatic bacteriuria Plan:will not treat because she is asymptomatic and not undergoing instrumentation 3. Mild leukocytosis. Plan: Monitor vitals & follow up repeat CBC in the morning 4.Other chronic medical problems Plan: Continue home meds / follow-up, Accu-Cheks/hypoglycemia protocol 5.Obesity BMI 30.3 DVT prophylaxis with SCDs Disposition likely home after less than 2 midnight's stay Vital Signs Vital Signs Date Time Temp Pulse Resp B/P (MAP) Pulse Ox O2 Delivery O2 Flow Rate FiO2 11/05/19 19:18 97.3 68 18 165/71 (102) 98 Room Air Laboratory Data Labs 24H Laboratory Tests 2 11/05/19 19:54: Immature Granulocyte % (Auto) 0.4, Neutrophils (%) (Auto) 68.6H, Lymphocytes (%) (Auto) 20.3L, Monocytes (%) (Auto) 6.3H, Eosinophils (%) (Auto) 3.9H, Basophils (%) (Auto) 0.5, Neutrophils # (Auto) 7.6, Lymphocytes # (Auto) 2.2, Monocytes # (Auto) 0.7, Eosinophils # (Auto) 0.4, Basophils # (Auto) 0.1, Nucleated Red Blood Cells % (auto) 0.0, Anion Gap 6L, Glomerular Filtration Rate 39.9, Calcium Level 9.4, Total Bilirubin 1.0, Direct Bilirubin 0.1, Aspartate Amino Transf (AST/SGOT) 15, Alanine Aminotransferase (ALT/SGPT) 13, Alkaline Phosphatase 94, Total Creatine Kinase 21L, Creatine Kinase MB < 1.0, Creatine Kinase MB Relative Index 4.76H, Troponin I < 0.02, Total Protein 6.5, Albumin 2.9L, Albumin/Globulin Ratio 0.81L 11/05/19 20:17: Urine Color YELLOW, Urine Appearance CLEAR, Urine pH 5.0, Urine Specific [place] 1.016, Urine Protein 3+H, Urine Glucose (UA) 1+H, Urine Ketones NEGATIVE, Urine Blood NEGATIVE, Urine Nitrite NEGATIVE, Urine Bilirubin NEGATIVE, Urine Urobilinogen 0.2, Urine Leukocyte Esterase TRACEH, Urine WBC (Auto) 32H, Urine RBC (Auto) 3, Urine Hyaline Casts (Auto) 4, Urine Bacteria (Auto) NEGATIVE, Urine Squamous Epithelial Cells 0, Urine Transitional Epithelial Cells 2, Urine Sperm (Auto) CBC/BMP Laboratory Tests 11/05/19 19:54 Microbiology Microbiology 11/05/19 Urine Culture, Received Pending Home Medications Scheduled Allopurinol (Allopurinol) 100 Mg Tab, 100 MG PO BID Amlodipine Besylate (Amlodipine Besylate) 5 Mg Tablet, 5 MG PO DAILY Atenolol (Atenolol) 50 Mg Tab, 50 MG PO BID Brimonidine Tartrate/Timolol (Combigan 0.2%-0.5% Eye Drops) 1 Lilly Lilly, 1 DROP OS BID Brinzolamide (Azopt) 1 % Melissa, 1 DROP OU BID Cholecalciferol (Vitamin D3) (Vitamin D3) 2,000 Unit Tablet, 1,000 UNIT PO DAILY Clopidogrel Bisulfate (Plavix) 75 Mg Tab, 75 MG PO QHS Duloxetine Hcl (Cymbalta) 60 Mg Capsule.dr, 60 MG PO DAILY Furosemide (Furosemide) 20 Mg Tablet, 20 MG PO DAILY Gabapentin (Gabapentin) 100 Mg Capsule, 100 MG PO QHS Glipizide (Glipizide ER) 5 Mg Tab.er.24, 5 MG PO DAILY Lactobacillus Combo No.10 (Probiotic) 1 Each Capsule, 1 TAB PO DAILY Latanoprost (Xalatan) 0.005 % Lilly, 1 DROP OU QHS Levothyroxine Sodium (Levothyroxine Sodium) 75 Mcg Tab, 75 MCG PO DAILY Losartan Potassium (Losartan Potassium) 50 Mg Tablet, 50 MG PO BID Potassium Chloride (Potassium Chloride) 10 Meq Capsule.er, 10 MEQ PO DAILY Scheduled PRN Acetaminophen (Pain Reliever) 650 Mg Tab, 650 MG PO Q8H PRN for PAIN Loperamide HCl (Loperamide) 2 Mg Capsule, 2 MG PO Q4H PRN for AFTER EACH LOOSE STOOL Meclizine HCl (Meclizine HCl) 25 Mg Tab, 25 MG PO Q8H PRN for DIZZINESS Ondansetron (Ondansetron Odt) 4 Mg Tab, 4 MG PO TID PRN for NAUSEA Allergies Coded Allergies: sulfasalazine (Verified Allergy, Severe, hives, hematemesis,difficulty breathing, 03/17/19) Penicillins (Verified Allergy, Intermediate, SWELLING/RASH, 03/17/19) Sulfa (Sulfonamide Antibiotics) (Verified Allergy, Mild, RASH, 03/17/19) clavulanic acid (Verified Allergy, Mild, PRURITIS, 03/17/19) doxycycline (Verified Allergy, Mild, RASH, 03/17/19) Contrast Media (Verified Allergy, Unknown, 08/10/14) TAPE (Verified Allergy, Unknown, BANDAIDS, 08/10/14) benzalkonium chloride (Verified Allergy, Unknown, 03/17/19) shellfish derived (Verified Allergy, Unknown, 03/17/19) timolol (Verified Allergy, Unknown, OPTHALMIC DROPS, 03/17/19) travoprost (Verified Allergy, Unknown, 03/17/19) Hon[place]vy-Aao-Wmn Reductase Inhibitor (Verified Adverse Reaction, Intermediate, MUSCLE ACHES, 03/17/19) oxycodone (Verified Adverse Reaction, Intermediate, HX OF AMS W/FALL ON SCHEDULED PERCOCET 5/325, 03/09/19) HX OF AMS W/FALL ON SCHEDULED PERCOCET 5/325 IN JANUARY 2019 prednisone (Verified Adverse Reaction, Intermediate, INCREASED INTRAOCCULAR PRESSURES, 03/17/19) diatrizoate meglumine (Verified Adverse Reaction, Mild, ABDOMINAL PAIN, 03/17/19) diatrizoate sodium (Verified Adverse Reaction, Mild, ABDOMINAL PAIN, 02/23 03/12) diltiazem (Verified Adverse Reaction, Mild, N,V,D, 03/17/19) gemfibrozil (Verified Adverse Reaction, Mild, PAIN, 03/17/19) metoprolol (Verified Adverse Reaction, Mild, DIZZINESS, 03/17/19) A-FIB/CHADSVASC A-FIB History Current/History of A-Fib/PAF?: No Current PO Anticoag Therapy: No BRYAN PARISH MD Nov 05, 2019 22:14
[2019-11-05] MEDS ORDERED: MOM 30ML SUSPENSION UDC PO PRN (22:15)
[2019-11-05] MEDS ORDERED: MAALOX 30 ML SUSP *UDC PO PRN (22:15)
[2019-11-05] MEDS ORDERED: ACETAMINOPHEN TAB 650MG DOSE (2X325MG) PO PRN (22:15)
[2019-11-05 23:40] VITALS: BP 127/87
[2019-11-05] MEDS ORDERED: MECLIZINE 25 MG TABLET PO PRN (23:45)
[2019-11-06] MEDS ORDERED: LOPERAMIDE 2 MG CAPLET PO PRN
[2019-11-06] MEDS: atenoloL 50 MG TAB PO SCH ×3 (01:27→20:21)
[2019-11-06] MEDS: GABAPENTIN 100 MG CAP PO SCH ×2 (01:28→20:18)
[2019-11-06] MEDS: CLOPIDOGREL 75 MG TAB PO SCH ×2 (01:28→20:18)
[2019-11-06] MEDS: allopurinoL 100 MG TAB PO SCH ×3 (01:28→20:21)
[2019-11-06] MEDS: LOSARTAN 50 MG TAB PO SCH ×3 (01:28→20:20)
[2019-11-06] MEDS: BRINZOLAMIDE 1 % OPHTH SUSP (AZOPT) 10ML OU SCH ×3 (01:28→20:21)
[2019-11-06] MEDS: LATANOPROST 0.005% OPHTH SOLN 2.5 ML OU SCH ×2 (01:29→20:24)
[2019-11-06] MEDS: LEVOTHYROXINE 75MCG TABLET (0.075MG) PO SCH (05:34)
[2019-11-06] MEDS: ONDANSETRON 4 MG ORAL DISINTEGRATING TAB (Q0162 PER 1MG) PO PRN ×2 (05:51→12:14)
[2019-11-06 06:00] VITALS: BP 136/61
[2019-11-06 07:04] LABS: HEMATOCRIT 36.9 % (36.0-47.0); MEAN CORPUSCULAR HEMOGLOBIN 29.6 pg (27.0-33.0); MEAN CORPUSCULAR HGB CONC 29.8 g/dl (32.0-36.5); MEAN CORPUSCULAR VOLUME 99.2 fl (80.0-96.0); PLATELET COUNT, AUTOMATED 264 10^3/uL (150-450); RED BLOOD COUNT 3.72 10^6/uL (4.00-5.40); WHITE BLOOD COUNT 10.4 10^3/uL (4.0-10.0)
[2019-11-06 07:19] LABS: CREATININE FOR GFR 1.37 MG/DL (0.55-1.30)
[2019-11-06 07:20] LABS: GLOMERULAR FILTRATION RATE 39.2 (>32); POTASSIUM SERUM 3.7 MEQ/L (3.5-5.1)
[2019-11-06] MEDS: FUROSEMIDE 20 MG TAB PO SCH (09:22)
[2019-11-06] MEDS: DULoxetine 30 MG CAP (CYMBALTA) PO SCH (09:22)
[2019-11-06] MEDS: VITAMIN D 1,000 INTERNATIONAL UNITS TABLET PO SCH (09:22)
[2019-11-06] MEDS: POTASSIUM CHLORIDE 10 MEQ SR TABLET PO SCH (09:23)
[2019-11-06] MEDS: amLODIPine 5 MG TAB PO SCH ×2 (09:23→09:41)
[2019-11-06] MEDS: glipiZIDE XL 5 MG TABCR PO SCH (09:23)
[2019-11-06] MEDS: DOCUSATE SODIUM 100 MG CAP PO SCH ×2 (09:24→20:21)
[2019-11-06 14:00] VITALS: BP 131/54
--- NOTE | 2019-11-06 14:53 | IPNPDOC ---
Text Note Date of Service The patient was seen on 11/06/19. NOTE SUBJECTIVE: -Feels nauseous this morning, and reports that she always feels this poorly in the morning and gets better as the day goes by -No issues overnight OBJECTIVE: VITAL SIGNS: Please see below GEN: well nourished / well developed/ NAD HEENT: normocephalic / atraumatic /mucus membranes moist and pink / sclera anicteric CVS: RRR/NMRG/ no JVP / radial and dorsalis pedis pulses intact / no lower extremity edema LUNGS: able to speak full sentences without stopping to take a breath / no coughing / lungs are clear to auscultation bilaterally on room air ABDOMEN: the abdomen is tympanic on percussion, soft & not tender with palpation NEURO: CN 2-12 are grossly intact except auditory / speech is not dysarthric PSYCH: AOx3 LABORATORY DATA: See below IMAGING: CT head " IMPRESSION: 1. There is moderate age related parenchymal volume loss. White matter changes are demonstrated in the subcortical, centrum semiovale and periventricular white matter consistent with age related small vessel white matter angiopathic gliosis. 2. The degree of ventricular dilatation is normal for age and/or degree of atrophy present. 3. No significant interval change. " Chest x-ray "Impression: Cardiomegaly unchanged. Otherwise no acute disease." MICROBIOLOGY: Please see below. ASSESSMENT: 81-year-old woman with a history of COPD, diabetes, RLS, ulcerative colitis, hypothyroidism, chronic hypertension, and unsteady gait who came to the ER because her children felt that she was acting abnormally and thought she may have a UTI; both the patient and her family are requesting assistance with placement in an assisted living facility. PLAN: 1. Irritability/Anger -She has been arguing with her family. She has hearing aids, which are not working properly; this makes it difficult for her to communicate. -Per discussion with the patient's daughter she doesn't have a formal diagnosis of dementia therefore I can't assume that she needs to be started on meds for dementia or put on antipsychotics for dementia with behavioral disturbance. -She is currently alert and oriented person, place and time, remembers the events that transpired prior to her arrival in the ER and is able to make decisions. -Her CBC, CMP, CT of the head, chest x-ray were unremarkable. Her UA was positive but is asymptomatic thus not treated, with monitoring. It was explained to the patient at admission that she does not have any acute medical problems that require inpatient admission, and that if she chooses to stay, she will be admitted under observation, and her insurance may not not cov er the admission. The patient reported that she does want to go home. -PFS consult for assistance with placement per patient's request/ she can follow-up with a Chief Gauger or Neuropsychiatrist for neurocognitive testing (ie B12, B1, and TSH & MoCA +/- referal to a Psychiatrist for a Comprehensive Neurocognitive Evaluation) on an outpatient basis 2. Asymptomatic bacteriuria -will not treat because she is asymptomatic, monitor 3. Mild leukocytosis. Plan: Monitor vitals & follow up repeat CBC in the morning 4.Other chronic medical problems Plan: Continue home meds / follow-up, Accu-Cheks/hypoglycemia protocol 5.Obesity BMI 30.3 DVT prophylaxis with SCDs Disposition likely home after less than 2 midnight's stay VS,Fishbone, I+O VS, Fishbone, I+O Laboratory Tests 11/05/19 19:54 11/06/19 06:23 Vital Signs Date Time Temp Pulse Resp B/P (MAP) Pulse Ox O2 Delivery O2 Flow Rate FiO2 11/06/19 09:00 56 125/62 11/06/19 06:00 98.4 18 94 Room Air I&O- Last 24 Hours up to 6 AM 11/06/19 06:00 Intake Total 360 ml Output Total 500 ml Balance -140 ml PARVIZ EDWARD MD Nov 06, 2019 14:53
[2019-11-06 22:00] VITALS: BP 132/63
[2019-11-07] MEDS ORDERED: DOCUSATE SODIUM 100 MG CAP PO PRN (00:15)
[2019-11-07] MEDS: LEVOTHYROXINE 75MCG TABLET (0.075MG) PO SCH (06:00)
[2019-11-07] MEDS: amLODIPine 5 MG TAB PO SCH (08:24)
[2019-11-07] MEDS: glipiZIDE XL 5 MG TABCR PO SCH (08:25)
[2019-11-07] MEDS: atenoloL 50 MG TAB PO SCH ×2 (08:25→22:20)
[2019-11-07] MEDS: DULoxetine 30 MG CAP (CYMBALTA) PO SCH (08:25)
[2019-11-07] MEDS: VITAMIN D 1,000 INTERNATIONAL UNITS TABLET PO SCH (08:25)
[2019-11-07] MEDS: FUROSEMIDE 20 MG TAB PO SCH (08:25)
[2019-11-07] MEDS: allopurinoL 100 MG TAB PO SCH ×2 (08:25→22:20)
[2019-11-07] MEDS: LOSARTAN 50 MG TAB PO SCH ×2 (08:25→22:19)
[2019-11-07] MEDS: BRINZOLAMIDE 1 % OPHTH SUSP (AZOPT) 10ML OU SCH ×2 (08:26→22:18)
[2019-11-07] MEDS: POTASSIUM CHLORIDE 10 MEQ SR TABLET PO SCH (08:26)
--- NOTE | 2019-11-07 11:27 | IPNPDOC ---
Text Note Date of Service The patient was seen on 11/07/19. NOTE SUBJECTIVE: -No issues overnight. OBJECTIVE: VITAL SIGNS: Please see below GEN: well nourished / well developed/ NAD HEENT: normocephalic / atraumatic /mucus membranes moist and pink / sclera anicteric CVS: RRR/NMRG/ no JVP / no lower extremity edema LUNGS: CTAB ABDOMEN: the abdomen is tympanic on percussion, soft & not tender with palpation NEURO: CN 2-12 are grossly intact except auditory / speech is not dysarthric PSYCH: AOx3 LABORATORY DATA: See below IMAGING: CT head " IMPRESSION: 1. There is moderate age related parenchymal volume loss. White matter changes are demonstrated in the subcortical, centrum semiovale and periventricular white matter consistent with age related small vessel white matter angiopathic gliosis. 2. The degree of ventricular dilatation is normal for age and/or degree of atrophy present. 3. No significant interval change. " Chest x-ray "Impression: Cardiomegaly unchanged. Otherwise no acute disease." MICROBIOLOGY: Please see below. ASSESSMENT: 81-year-old woman with a history of COPD, diabetes, RLS, ulcerative colitis, hypothyroidism, chronic hypertension, and unsteady gait who came to the ER becau se her children felt that she was acting abnormally and thought she may have a UTI; both the patient and her family are requesting assistance with placement in an assisted living facility. PLAN: 1. Irritability/Anger -She has been arguing with her family. She has hearing aids, which are not working properly; this makes it difficult for her to communicate. -Per discussion with the patient's daughter she doesn't have a formal diagnosis of dementia therefore I can't assume that she needs to be started on meds for dementia or put on antipsychotics for dementia with behavioral disturbance. -She is currently alert and oriented person, place and time, remembers the events that transpired prior to her arrival in the ER and is able to make decisions. -Her CBC, CMP, CT of the head, chest x-ray were unremarkable. Her UA was positive but is asymptomatic thus not treated, with monitoring. It was explained to the patient at admission that she does not have any acute medical problems that require inpatient admission, and that if she chooses to stay, she will be admitted under observation, and her insurance may not not cover the admission. The patient reported that she does want to go home. -PFS consult for assistance with placement per patient's request/ she can follow-up with a Food Science Professor or Neuropsychiatrist for neurocognitive testing (ie B12, B1, and TSH & MoCA +/-Referral to a Psychiatrist for a Comprehensive Neurocognitive Evaluation) on an outpatient basis 2. Mild leukocytosis: monitor 3.Other chronic medical problems Plan: Continue home meds / follow-up, Accu-Cheks/hypoglycemia protocol DVT prophylaxis with SCDs Disposition likely home after 2 nights as she is requesting placement VS,Fishbone, I+O VS, Fishbone, I+O Vital Signs Date Time Temp Pulse Resp B/P (MAP) Pulse Ox O2 Delivery O2 Flow Rate FiO2 11/07/19 06:00 97.8 70 19 97 Room Air 11/06/19 22:00 132/63 (86) I&O- Last 24 Hours up to 6 AM 11/07/19 06:00 Intake Total 1170 ml Output Total 675 ml Balance 495 ml PARVIZ EDWARD MD Nov 07, 2019 07:49
[2019-11-07 14:00] VITALS: BP 133/62
--- NOTE | 2019-11-07 21:47 | IPNPDOC ---
Text Note Date of Service The patient was seen on 11/07/19. NOTE The patient will be changed from observation to in patient status. For PFSH and ROS please see the H&P from Nov 05 located in the patient's chart VS,Fishbone, I+O VS, Fishbone, I+O Vital Signs Date Time Temp Pulse Resp B/P (MAP) Pulse Ox O2 Delivery O2 Flow Rate FiO2 11/07/19 14:00 98.5 62 18 133/62 (85) 95 Room Air I&O- Last 24 Hours up to 6 AM 11/07/19 06:00 Intake Total 1170 ml Output Total 675 ml Balance 495 ml BRYAN PARISH MD Nov 07, 2019 21:47
[2019-11-07] MEDS: LATANOPROST 0.005% OPHTH SOLN 2.5 ML OU SCH (22:18)
[2019-11-07] MEDS: GABAPENTIN 100 MG CAP PO SCH (22:18)
[2019-11-07] MEDS: CLOPIDOGREL 75 MG TAB PO SCH (22:19)
[2019-11-08] MEDS: LEVOTHYROXINE 75MCG TABLET (0.075MG) PO SCH (05:39)
[2019-11-08 06:00] VITALS: BP 141/49
[2019-11-08] MEDS: atenoloL 50 MG TAB PO SCH (09:00)
[2019-11-08] MEDS: LOSARTAN 50 MG TAB PO SCH (09:22)
[2019-11-08] MEDS: DULoxetine 30 MG CAP (CYMBALTA) PO SCH (09:22)
[2019-11-08 09:23] VITALS: BP 141/49
[2019-11-08] MEDS: POTASSIUM CHLORIDE 10 MEQ SR TABLET PO SCH (09:23)
[2019-11-08] MEDS: amLODIPine 5 MG TAB PO SCH (09:23)
[2019-11-08] MEDS: glipiZIDE XL 5 MG TABCR PO SCH (09:23)
[2019-11-08] MEDS: VITAMIN D 1,000 INTERNATIONAL UNITS TABLET PO SCH (09:24)
[2019-11-08] MEDS: allopurinoL 100 MG TAB PO SCH (09:24)
[2019-11-08] MEDS: FUROSEMIDE 20 MG TAB PO SCH (09:24)
[2019-11-08] MEDS: BRINZOLAMIDE 1 % OPHTH SUSP (AZOPT) 10ML OU SCH (09:24)
[2019-11-08] MEDS: ONDANSETRON 4 MG ORAL DISINTEGRATING TAB (Q0162 PER 1MG) PO PRN (09:26)
--- NOTE | 2019-11-08 13:01 | DS.PDOC ---
Discharge Summary General Date of Admission Nov 07, 2019 at 21:40 Date of Discharge 11/08/2019 Attending Physician: PARVIZ EDWARD MD Discharge Summary PROCEDURES PERFORMED DURING STAY: None ADMITTING DIAGNOSES: 1. Anxiety DISCHARGE DIAGNOSES: Anxiety with psychosocial stressors Mbk-gztvbln-mmeqhjnom Diabetes. Unsteady gait, uses a walker Hypothyroidism Chronic hypertension Gout. Ulcerative colitis GERD History of CVA Restless leg syndrome Hearing Loss (current hearing aides not working) COMPLICATIONS/CHIEF COMPLAINT: Anxiety. HISTORY OF PRESENT ILLNESS: 84-year-old woman who presented per the urging of her family to the hospital because she has been argumentative and the thought she might have a UTI. She admitted to having an argument with her and her children because she was concerned that they had been stealing her checks and withholding her Social Security papers. The patient does not want to go home to her family and requested assistance with placement in an assisted living facility. She was otherwise without abdominal pain, chest pain, shortness of breath, fever, chills, nausea, vomiting, diarrhea, or pain in any part of her body. At her baseline she has an unsteady gait and walks with a walker. She has hearing aids and reports that they're not working very well with a pending hearing test and new hearing aids. HOSPITAL COURSE: After admission, she did well without acute complaints. She had a grossly negative work up including a bland UA with no evidence of a UTI and she was continued on her regular home medications. After discussion with patient family services and her family, she finally agreed to discharge home as the family was making arrangements to change her living arrangements so that she would be more agreeable to discharge home. She is now being discharged home where she will continue to follow with her PCP who will refer her neurocognitive testing for suspicion of early dementia. She was otherwise AOx3 with adequate insight to deem her with full capacity at this time. DISCHARGE MEDICATIONS: Please see below. ALLERGIES: Please see below. PHYSICAL EXAMINATION ON DISCHARGE: VITAL SIGNS: Please see below. VITAL SIGNS: Please see below GEN: well nourished / well developed/ NAD HEENT: normocephalic / atraumatic /mucus membranes moist and pink / sclera anicteric CVS: RRR/NMRG/ no JVP / no lower extremity edema LUNGS: CTAB ABDOMEN: the abdomen is tympanic on percussion, soft & not tender with palpation NEURO: CN 2-12 are grossly intact except auditory / speech is not dysarthric PSYCH: AOx3 LABORATORY DATA: Please see below. IMAGING: CT head " IMPRESSION: 1. There is moderate age related parenchymal volume loss. White matter changes are demonstrated in the subcortical, centrum semiovale and periventricular white matter consistent with age related small vessel white matter angiopathic gliosis. 2. The degree of ventricular dilatation is normal for age and/or degree of atrophy present. 3. No significant interval change. " Chest x-ray "Impression: Cardiomegaly unchanged. Otherwise no acute disease." PROGNOSIS: Good ACTIVITY: As tolerated DIET: Consistent carb DISCHARGE PLAN: Home with PCP follow up DISPOSITION: Home with family DISCHARGE INSTRUCTIONS: 1. To see PCP within 1-2 weeks of admission ITEMS TO FOLLOWUP ON ON OUTPATIENT: 1. Behavioral changes towards family and investigation of possible mental capacities early decline DISCHARGE CONDITION: Stable TIME SPENT ON DISCHARGE: 40 minutes. Vital Signs/I&Os Vital Signs Date Time Temp Pulse Resp B/P (MAP) Pulse Ox O2 Delivery O2 Flow Rate FiO2 11/08/19 09:23 58 141/49 11/08/19 06:00 97.9 18 94 Room Air I&O- Last 24 Hours up to 6 AM 11/08/19 06:00 Intake Total 1140 ml Output Total 0 ml Balance 1140 ml Microbiology Microbiology 11/05/19 Urine Culture - Final, Complete Discharge Medications Scheduled Allopurinol (Allopurinol) 100 Mg Tab, 100 MG PO BID, (Reported) Amlodipine Besylate (Amlodipine Besylate) 5 Mg Tablet, 5 MG PO DAILY, (Reported) Atenolol (Atenolol) 50 Mg Tab, 50 MG PO BID, (Reported) Brimonidine Tartrate/Timolol (Combigan 0.2%-0.5% Eye Drops) 1 Lilly Lilly, 1 DROP OS BID, (Reported) Brinzolamide (Azopt) 1 % Melissa, 1 DROP OU BID, (Reported) Cholecalciferol (Vitamin D3) (Vitamin D3) 2,000 Unit Tablet, 1,000 UNIT PO DAILY, (Reported) Clopidogrel Bisulfate (Plavix) 75 Mg Tab, 75 MG PO QHS, (Reported) Duloxetine Hcl (Cymbalta) 60 Mg Capsule.dr, 60 MG PO DAILY, (Reported) Furosemide (Furosemide) 20 Mg Tablet, 20 MG PO DAILY, (Reported) Gabapentin (Gabapentin) 100 Mg Capsule, 100 MG PO QHS, (Reported) Glipizide (Glipizide ER) 5 Mg Tab.er.24, 5 MG PO DAILY, (Reported) Lactobacillus Combo No.10 (Probiotic) 1 Each Capsule, 1 TAB PO DAILY, (Reported) Latanoprost (Xalatan) 0.005 % Lilly, 1 DROP OU QHS, (Reported) Levothyroxine Sodium (Levothyroxine Sodium) 75 Mcg Tab, 75 MCG PO DAILY, (Reported) Losartan Potassium (Losartan Potassium) 50 Mg Tablet, 50 MG PO BID, (Reported) Potassium Chloride (Potassium Chloride) 10 Meq Capsule.er, 10 MEQ PO DAILY, (Reported) Scheduled PRN Acetaminophen (Pain Reliever) 650 Mg Tab, 650 MG PO Q8H PRN for PAIN, (Reported) Loperamide HCl (Loperamide) 2 Mg Capsule, 2 MG PO Q4H PRN for AFTER EACH LOOSE STOOL, (Reported) Meclizine HCl (Meclizine HCl) 25 Mg Tab, 25 MG PO Q8H PRN for DIZZINESS, (Reported) Ondansetron (Ondansetron Odt) 4 Mg Tab, 4 MG PO TID PRN for NAUSEA, (Reported) Allergies Coded Allergies: sulfasalazine (Verified Allergy, Severe, hives, hematemesis,difficulty breathing, 03/17/19) Penicillins (Verified Allergy, Intermediate, SWELLING/RASH, 03/17/19) Sulfa (Sulfonamide Antibiotics) (Verified Allergy, Mild, RASH, 03/17/19) clavulanic acid (Verified Allergy, Mild, PRURITIS, 03/17/19) doxycycline (Verified Allergy, Mild, RASH, 03/17/19) Contrast Media (Verified Allergy, Unknown, 08/10/14) TAPE (Verified Allergy, Unknown, BANDAIDS, 08/10/14) benzalkonium chloride (Verified Allergy, Unknown, 03/17/19) shellfish derived (Verified Allergy, Unknown, 03/17/19) timolol (Verified Allergy, Unknown, OPTHALMIC DROPS, 03/17/19) travoprost (Verified Allergy, Unknown, 03/17/19) Gthmpoc-Ydt-Fzl Reductase Inhibitor (Verified Adverse Reaction, Intermediate, MUSCLE ACHES, 03/17/19) oxycodone (Verified Adverse Reaction, Intermediate, HX OF AMS W/FALL ON SCHEDULED PERCOCET 5/325, 03/09/19) HX OF AMS W/FALL ON SCHEDULED PERCOCET 5/325 IN JANUARY 2019 prednisone (Verified Adverse Reaction, Intermediate, INCREASED INTRAOCCULAR PRESSURES, 03/17/19) diatrizoate meglumine (Verified Adverse Reaction, Mild, ABDOMINAL PAIN, 03/17/19) diatrizoate sodium (Verified Adverse Reaction, Mild, ABDOMINAL PAIN, 03/17/19) diltiazem (Verified Adverse Reaction, Mild, N,V,D, 03/17/19) gemfibrozil (Verified Adverse Reaction, Mild, PAIN, 03/17/19) metoprolol (Verified Adverse Reaction, Mild, DIZZINESS, 03/17/19) PARVIZ EDWARD MD Nov 08, 2019 13:01
== END 2019-11-08 14:00 | disposition home or self-care (01) | DRG 880 ==
LOC: M ED 18:53 → M ED INP 18:54 → M MS5PR 23:20 → OBSVTOIN 11-07 21:40
PROVIDERS: ADMIT Internal Medicine; ATTEND Internal Medicine
DX: F41.9 Anxiety disorder, unspecified (principal); K51.90 Ulcerative colitis, unspecified, without complications; R45.4 Irritability and anger; H91.93 Unspecified hearing loss, bilateral; R26.81 Unsteadiness on feet; E03.9 Hypothyroidism, unspecified; I10 Essential (primary) hypertension; M10.9 Gout, unspecified; K21.9 Gastro-esophageal reflux disease without esophagitis; G25.81 Restless legs syndrome; Z86.010 Personal history of colon polyps; Z90.49 Acquired absence of other specified parts of digestive tract; Z86.73 Personal history of transient ischemic attack (TIA), and cerebral infarction without residual deficits; J44.9 Chronic obstructive pulmonary disease, unspecified; E11.9 Type 2 diabetes mellitus without complications; E66.9 Obesity, unspecified; Z68.30 Body mass index [BMI] 30.0-30.9, adult; Z79.84 Long term (current) use of oral hypoglycemic drugs; Z79.899 Other long term (current) drug therapy; Z88.0 Allergy status to penicillin; Z88.1 Allergy status to other antibiotic agents; Z97.4 Presence of external hearing-aid; Z88.2 Allergy status to sulfonamides; Z88.5 Allergy status to narcotic agent; Z88.8 Allergy status to other drugs, medicaments and biological substances; Z91.041 Radiographic dye allergy status; Z91.013 Allergy to seafood; Z91.048 Other nonmedicinal substance allergy status

== ENCOUNTER 2019-11-08 14:05 | Outpatient (CLI) | payer MEDICARE ==
[~2019-11-08] VITALS: Ht 152.4 cm; Wt 72.6 kg
[~2019-11-08 14:05] MED LIST changes: +D32000TA PO; +GABA-1171 PO
[2019-11-08 14:10] VITALS: BP 149/67
[2019-11-08 14:15] VITALS: BP 149/67
[2019-11-08] MEDS ORDERED: ACETAMINOPHEN TAB 650MG DOSE (2X325MG) PO ONE (15:30)
[2019-11-08] MEDS ORDERED: VEDOLIZUMAB 300 MG in NS 250 ML IV ONE (15:30)
[2019-11-08] MEDS ORDERED: diphenhydrAMINE 25 MG CAP PO ONE (15:30)
[2019-11-08 16:15] VITALS: BP 138/66
== END 2019-11-08 16:15 | disposition home or self-care (01) ==
LOC: M INFU 14:05
PROVIDERS: ATTEND Internal Medicine Gastroenterology
DX: K50.90 Crohn's disease, unspecified, without complications (principal); Z88.0 Allergy status to penicillin; Z88.2 Allergy status to sulfonamides; Z88.8 Allergy status to other drugs, medicaments and biological substances; Z91.041 Radiographic dye allergy status; Z91.048 Other nonmedicinal substance allergy status
CPT/HCPCS: 96365; J3380

== ENCOUNTER 2020-01-10 16:18 | Outpatient (CLI) | payer MEDICARE ==
[~2020-01-10] VITALS: Ht 152.4 cm; Wt 72.6 kg
[~2020-01-10 16:18] MED LIST changes: -GLIM2TAB2 PO; +GLIM2TAB4 PO; -MECL-68 PO; +MECL1TAB31 PO; +ONDA-83 PO; -ONDA4TAB5 PO
[2020-01-10 16:30] VITALS: BP 176/98
[2020-01-10] MEDS ORDERED: diphenhydrAMINE 25 MG CAP PO ONE (16:30)
[2020-01-10] MEDS ORDERED: ACETAMINOPHEN TAB 650MG DOSE (2X325MG) PO ONE (16:30)
[2020-01-10] MEDS ORDERED: VEDOLIZUMAB 300 MG in NS 250 ML IV ONE (17:00)
[2020-01-10 18:00] VITALS: BP 158/90
== END 2020-01-10 18:00 | disposition home or self-care (01) ==
LOC: M INFU 16:18
PROVIDERS: ATTEND Internal Medicine Gastroenterology
DX: K50.90 Crohn's disease, unspecified, without complications (principal); Z88.0 Allergy status to penicillin; Z88.2 Allergy status to sulfonamides; Z88.8 Allergy status to other drugs, medicaments and biological substances; Z91.041 Radiographic dye allergy status; Z91.048 Other nonmedicinal substance allergy status
CPT/HCPCS: 96365; J3380

== ENCOUNTER 2020-01-30 15:31 | Inpatient (IN) | payer MEDICARE ==
[~2020-01-30] VITALS: Ht 152.4 cm; Wt 67.0 kg
[~2020-01-30 15:31] MED LIST changes: +AZOP0.2S OS; -AZOP0.2S OU; +XALA0.007 OS; -XALA0.007 OU
[2020-01-30] MEDS ORDERED: NS 500 ML IV ONE ×2 (16:00→18:45)
[2020-01-30 16:13] LABS: BASO # 0.1 10^3/uL (0.0-0.2); BASO % 0.4 % (0.0-1.0); EOS # 0.4 10^3/uL (0.0-0.5); EOS % 2.4 % (0.0-3.0); HEMATOCRIT 37.9 % (36.0-47.0); HEMOGLOBIN 12.2 g/dl (12.0-15.5); LYMPH # 2.5 10^3/uL (1.5-5.0); LYMPH % 16.7 % (24.0-44.0); MEAN CORPUSCULAR HEMOGLOBIN 30.4 pg (27.0-33.0); MEAN CORPUSCULAR HGB CONC 32.2 g/dl (32.0-36.5); MEAN CORPUSCULAR VOLUME 94.5 fl (80.0-96.0); MONO # 0.9 10^3/uL (0.0-0.8); MONO % 5.8 % (0.0-5.0); NEUTROPHILS % 74.3 % (36.0-66.0); PLATELET COUNT, AUTOMATED 292 10^3/uL (150-450); RED BLOOD COUNT 4.01 10^6/uL (4.00-5.40); WHITE BLOOD COUNT 14.8 10^3/uL (4.0-10.0)
[2020-01-30 16:25] LABS: INR 1.21
[2020-01-30 16:26] LABS: PARTIAL THROMBOPLASTIN TIME 29.8 SECONDS (25.0-38.4)
[2020-01-30 16:40] LABS: ALBUMIN 3.1 GM/DL (3.2-5.2); ALT/SGPT 16 U/L (12-78); AMYLASE 74 U/L (25-115); BILIRUBIN,DIRECT 0.1 MG/DL (0.0-0.2); BILIRUBIN,TOTAL 0.4 MG/DL (0.2-1.0); BLOOD UREA NITROGEN 31 MG/DL (7-18); CALCIUM LEVEL 9.2 MG/DL (8.8-10.2); CARBON DIOXIDE LEVEL 25 MEQ/L (21-32); CHLORIDE LEVEL 110 MEQ/L (98-107); CK-MB VALUE MASS < 1.0 NG/ML (<3.6); CPK CREATINE PHOSPHOKINASE 21 U/L (26-192); CREATININE FOR GFR 1.54 MG/DL (0.55-1.30); GLOMERULAR FILTRATION RATE 34.2 (>32); GLUCOSE, FASTING 94 MG/DL (70-100); LIPASE 230 U/L (73-393); MB/CK RELATIVE INDEX 4.76 (< OR =4); POTASSIUM SERUM 3.6 MEQ/L (3.5-5.1); SODIUM LEVEL 143 MEQ/L (136-145); TOTAL PROTEIN 6.7 GM/DL (6.4-8.2); TROPONIN I < 0.02 NG/ML (< 0.10)
--- NOTE | 2020-01-30 17:09 | REP ---
Portable chest x-ray: Single view. History: Altered mental status. Comparison study: November 05, 2019. Findings: Monitoring electrodes are seen. A small electronic device overlies the right heart. The heart is enlarged unchanged. Aorta is calcific and tortuous. Pleural angles are sharp. No infiltrate is seen in the lung evangelista. Pulmonary vasculature is not increased. Impression: Cardiomegaly. Otherwise no acute disease. Electronically Signed by Phuc Bob MD 01/30/2020 05:00 P
--- NOTE | 2020-01-30 18:34 | ECGEPIP ---
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
[2020-01-30] MEDS ORDERED: VITAD1000T PO (18:57)
--- NOTE | 2020-01-30 19:29 | HPEPDOC ---
[facility] Medical History & Physical Date of Admission Jan 30, 2020 Date of Service: Jan 30, 2020 Primary Care Physician: Gely Mancera Attending Physician: BRYAN PARISH MD History and Physical TIME OF SERVICE: 8:10 PM CHIEF COMPLAINT: Difficulty walking HISTORY OF PRESENT ILLNESS: This is an 85-year-old female who came to the hospital because of difficulty walking. This afternoon while walking around the store. She reports suddenly being unable to walk. She didn't fall because strangers rushed around her and helped her to her car. Her daughter drove her home and another stranger along with her daughter helped her sit in her rolling walker and the cautery to the house. EMS helped her get to the hospital. She is also complaining of bilateral 8 out of 10 in severity, aching, leg pain and numbness along with abdominal pain. She has a history of chronic leg and back pain but this has been this bad in the past. REVIEW OF SYSTEMS: 12 point review of systems negative except as listed in HPI PAST MEDICAL/ SURGICAL HISTORY: Xsr-hqqpkhp-lxkfcrbkl Diabetes. Hearing Loss (current hearing aides not working) Unsteady gait, uses a walker Hypothyroidism Chronic hypertension Gout. Ulcerative colitis GERD History of CVA Restless leg syndrome Resection of adenomatous colonic polyp Cholecystectomy Hysterectomy Rectocele repair SOCIAL HISTORY: She is a former smoker She has been for over 65 years She doesn't drink FAMILY HISTORY: Testicular cancer.ALLERGIES: Please see below. HOME MEDICATIONS: Please see below. Vital Signs Date Time Temp Pulse Resp B/P (MAP) Pulse Ox O2 Delivery O2 Flow Rate FiO2 01/30/20 15:49 97.7 67 17 160/90 (113) 98 Room Air PHYSICAL EXAMINATION: GEN: Obese / well developed/ NAD HEENT: normocephalic / atraumatic /mucus membranes moist and pink / sclera anicteric CVS: RRR/NMRG/ radial pulses intact / has trace lower extremity edema LUNGS: able to speak full sentences without stopping to take a breath / no coughing / lungs are clear to auscultation bilaterally on room air ABDOMEN: the abdomen is soft & not tender with palpation MSK: Negative straight leg test bilaterally / negative FLY test on the right and left but she reports having more lower back pain on the right while performing these tests NEURO: CN 2-12 are grossly intact except auditory / speech is not dysarthric PSYCH: alert and oriented to person place and time/ she is able to name the president, and understand and follow all commands LABORATORY DATA: Prothrombin Time 15.0H, Prothromb Time International Ratio 1.21, Activated Partial Thromboplast Time 29.8, Urine Color YELLOW, Urine Appearance HAZY, Urine pH 5.0, Urine Specific [place] 1.017, Urine Protein 3+H, Urine Glucose (UA) 1+H, Urine Ketones NEGATIVE, Urine Blood NEGATIVE, Urine Nitrite NEGATIVE, Urine Bilirubin NEGATIVE, Urine Urobilinogen 0.2, Urine Leukocyte Esterase NEGATIVE, Urine WBC (Auto) 4H, Urine RBC (Auto) 1, Urine Hyaline Casts (Auto) 3, Urine Bacteria (Auto) NEGATIVE, Urine Squamous Epithelial Cells 0, Urine Granular Casts (Auto) 4, Urine Mucus (Auto) SMALL, Urine Sperm (Auto) , Anion Gap 8, Glomerular Filtration Rate 34.2, Calcium Level 9.2, Total Bilirubin 0.4, Direct Bilirubin 0.1, Aspartate Amino Transf (AST/SGOT) 15, Alanine Aminotransferase (ALT/SGPT) 16, Alkaline Phosphatase 84, Total Creatine Kinase 21L, Creatine Kinase MB < 1.0, Creatine Kinase MB Relative Index 4.76H, Troponin I < 0.02, Total Protein 6.7, Albumin 3.1L, Albumin/Globulin Ratio 0.86L, Amylase Level 74, Lipase 230 Lactic Acid Level 0.7 IMAGING: Chest x-ray " Impression: Cardiomegaly. Otherwise no acute disease." CT head " IMPRESSION: 1. There is moderate age related global parenchymal volume loss. White matter changes are demonstrated in the subcortical, centrum semiovale and periventricular white matter consistent with age related small vessel white matter angiopathic gliosis. 2. The degree of ventricular dilatation is normal for age and/or degree of atrophy present. 3. No acute intracranial findings. " CT abdomen and pelvis " IMPRESSION: 1. There has been a cholecystectomy. 2. There is diffuse pancreatic atrophy. 3. High density lesions demonstrated in both kidneys as described above measuring up to 1.9 cm in the left kidney. These likely represent hyperdense cysts. Ultrasound correlation is recommended to exclude solid masses. 4. There has been a hysterectomy. 5. Complex mid ventral anterior abdominal wall hernia containing fat with no protrusion of bowel into the hernia. 6. Mild diverticulosis is present in the left colon. No diverticulitis. 7. Mural stratification in the distal left colon demonstrating a haustral appearance, findings which may be related to incomplete distention or changes secondary to chronic colitis. No acute inflammation demonstrated at this time. " MICROBIOLOGY: 01/30/20 Blood Culture, Received Pending 01/30/20 Blood Culture, Received Pending ASSESSMENT: is an 81-year-old with a history of COPD, diabetes, RLS, ulcerative colitis, hypothyroidism, chronic hypertension, history of CVA and unsteady gait who presented with complaints of inability to walk and bilateral leg pain of unclear cause. PLAN: 1. Difficulty walking/lower back and leg pain The cause unclear at this time. CT of the abdomen and pelvis showed "Bones/joints: The spine demonstrates mild degenerative changes. The mild anterolisthesis of L4 on L5. Severe central spinal stenosis L4-L5. Bulging annulus L5-S1." Plan: admit to medical floor/will ask RN to perform bladder scan and insert Cuello to assess for loss of catheter sensation pending results we may call Ortho and or order MRI of the lumbar spine / Tylenol and lidocaine for pain/PT eval/fall precautions 2. Leukocytosis. Cause to be determined. Chest x-ray and UA are unremarkable - Monitor vitals 3. Abdominal pain. Possibly due to ventral hernia. UA is unremarkable - Follow- up with surgery in an outpatient basis 4. Renal cysts - Follow-up renal ultrasound 5. Ylx-xpbutsz-kzztobzvo 2 Diabetes with A1c of 7 - diabetic diet / f/u accuchecks & A1C / hypoglycemia protocol / sliding scale insulin / hold oral anti-glycemics 6. Hypothyroidism - levothyroxine 7. Chronic hypertension - amlodipine, atenolol, losartan 8. Gout - allopurinol 9. Ulcerative colitis - loperamide and lactobacillus DVT PROPHYLAXIS: Lovenox DISPOSITION: She will need at least two midnight's stay. A PFS consult has been placed for assistance with temporary placement in inpatient rehabilitation versus senior care. LATE ENTRY Per JOSSY Garcia the patient had 500ml on bladder scan but was able to feel the catheter insertion and removal therefore it is unlikely that her weakness is due to cauda equina syndrome. Home Medications Scheduled Allopurinol (Allopurinol) 100 Mg Tab, 100 MG PO QHS Amlodipine Besylate (Amlodipine Besylate) 5 Mg Tablet, 5 MG PO QHS Atenolol (Atenolol) 50 Mg Tab, 50 MG PO BID Brimonidine Tartrate/Timolol (Combigan 0.2%-0.5% Eye Drops) 1 Lilly Lilly, 1 DROP OS BID Brinzolamide (Azopt) 1 % Melissa, 1 DROP OS BID Cholecalciferol (Vitamin D3) (Vitamin D3) 1,000 Unit Tablet, 2,000 UNITS PO QHS Duloxetine Hcl (Cymbalta) 60 Mg Capsule.dr, 60 MG PO QHS Glipizide (Glipizide ER) 5 Mg Tab.er.24, 5 MG PO QHS Lactobacillus Combo No.10 (Probiotic) 1 Each Capsule, 1 TAB PO QHS Latanoprost (Xalatan) 0.005 % Lilly, 1 DROP OS QHS Levothyroxine Sodium (Levothyroxine Sodium) 75 Mcg Tab, 75 MCG PO QHS Losartan Potassium (Losartan Potassium) 50 Mg Tablet, 50 MG PO BID Scheduled PRN Acetaminophen (Pain Reliever) 650 Mg Tab, 650 MG PO Q8H PRN for PAIN Loperamide HCl (Loperamide) 2 Mg Capsule, 2 MG PO Q4H PRN for AFTER EACH LOOSE STOOL Meclizine HCl (Meclizine HCl) 25 Mg Tab, 25 MG PO Q8H PRN for DIZZINESS Ondansetron (Ondansetron Odt) 4 Mg Tab, 4 MG PO TID PRN for NAUSEA Allergies Coded Allergies: sulfasalazine (Verified Allergy, Severe, hives, hematemesis,difficulty breathing, 03/17/19) Penicillins (Verified Allergy, Intermediate, SWELLING/RASH, 03/17/19) Sulfa (Sulfonamide Antibiotics) (Verified Allergy, Mild, RASH, 03/17/19) clavulanic acid (Verified Allergy, Mild, PRURITIS, 03/17/19) doxycycline (Verified Allergy, Mild, RASH, 03/17/19) Contrast Media (Verified Allergy, Unknown, 08/10/14) TAPE (Verified Allergy, Unknown, BANDAIDS, 08/10/14) benzalkonium chloride (Verified Allergy, Unknown, 03/17/19) shellfish derived (Verified Allergy, Unknown, 03/17/19) timolol (Verified Allergy, Unknown, OPTHALMIC DROPS, 03/17/19) travoprost (Verified Allergy, Unknown, 03/17/19) Ncqrmjm-Dif-Afu Reductase Inhibitor (Verified Adverse Reaction, Intermediate, MUSCLE ACHES, 03/17/19) oxycodone (Verified Adverse Reaction, Intermediate, HX OF AMS W/FALL ON SCHEDULED PERCOCET 5/325, 03/09/19) HX OF AMS W/FALL ON SCHEDULED PERCOCET 5/325 IN JANUARY 2019 prednisone (Verified Adverse Reaction, Intermediate, INCREASED INTRAOCCULAR PRESSURES, 03/17/19) diatrizoate meglumine (Verified Adverse Reaction, Mild, ABDOMINAL PAIN, 03/17/19) diatrizoate sodium (Verified Adverse Reaction, Mild, ABDOMINAL PAIN, 03/17/19) diltiazem (Verified Adverse Reaction, Mild, N,V,D, 03/17/19) gemfibrozil (Verified Adverse Reaction, Mild, PAIN, 03/17/19) metoprolol (Verified Adverse Reaction, Mild, DIZZINESS, 03/17/19) A-FIB/CHADSVASC A-FIB History Current/History of A-Fib/PAF?: No Current PO Anticoag Therapy: No BRYAN PARISH MD Jan 30, 2020 19:29
--- NOTE | 2020-01-30 19:29 | REPVR ---
PROCEDURE INFORMATION: Exam: CT Head Without Contrast Exam date and time: 01/30/2020 6:51 PM Age: 85 years old Clinical indication: Weakness, extremity TECHNIQUE: Imaging protocol: Computed tomography of the head without contrast. Radiation optimization: All CT scans at this facility use at least one of these dose optimization techniques: automated exposure control; mA and/or kV adjustment per patient size (includes targeted exams where dose is matched to clinical indication); or iterative reconstruction. COMPARISON: CT Head without contrast 11/05/2019 7:23 PM FINDINGS: Brain: There is moderate age related global parenchymal volume loss. White matter changes are demonstrated in the subcortical, centrum semiovale and periventricular white matter consistent with age related small vessel white matter angiopathic gliosis. Ventricles: The degree of ventricular dilatation is normal for age and/or degree of atrophy present. Bones/joints: There is hyperostosis frontalis interna. Sinuses: Mild inflammatory changes left sphenoid sinus. Mastoid air cells: Visualized mastoid air cells are well aerated. Soft tissues: Unremarkable. IMPRESSION: 1. There is moderate age related global parenchymal volume loss. White matter changes are demonstrated in the subcortical, centrum semiovale and periventricular white matter consistent with age related small vessel white matter angiopathic gliosis. 2. The degree of ventricular dilatation is normal for age and/or degree of atrophy present. 3. No acute intracranial findings. Electronically signed by: Brennan Lorenzo On 01/30/2020 19:29:53 PM
[2020-01-30] MEDS ORDERED: NS 1,000 ML IV SCH (19:30)
[2020-01-30] MEDS ORDERED: MOM 30ML SUSPENSION UDC PO PRN (19:30)
[2020-01-30] MEDS ORDERED: MAALOX 30 ML SUSP *UDC PO PRN (19:30)
[2020-01-30] MEDS ORDERED: ACETAMINOPHEN TAB 650MG DOSE (2X325MG) PO PRN (19:30)
--- NOTE | 2020-01-30 19:37 | REPVR ---
PROCEDURE INFORMATION: Exam: CT Abdomen And Pelvis Without Contrast Exam date and time: 01/30/2020 6:51 PM Age: 85 years old Clinical indication: Abdominal pain; Generalized; Additional info: Llq abd pain TECHNIQUE: Imaging protocol: Computed tomography of the abdomen and pelvis without contrast. Radiation optimization: All CT scans at this facility use at least one of these dose optimization techniques: automated exposure control; mA and/or kV adjustment per patient size (includes targeted exams where dose is matched to clinical indication); or iterative reconstruction. COMPARISON: CT ABD PELVIS W/O CONTRAST 07/05/2019 1:32 PM FINDINGS: Liver: Normal. No mass. Gallbladder and bile ducts: There has been a cholecystectomy. Pancreas: There is diffuse pancreatic atrophy. Spleen: Normal. No splenomegaly. Adrenals: Bilateral adrenal hyperplasia. No follow-up suggested. Kidneys and ureters: Multiple bilateral simple renal cysts measure up to 5.6 cm in the lower pole of the left kidney. No follow-up suggested. High density lesion projects exophytically off of the anterior aspect of the left kidney measuring 1.9 cm, a 7.3 mm hyperdense lesion demonstrated in the lateral aspect of the left kidney., a 1.3 cm hypodense lesion in the lateral inferior aspect of the left kidney and a 1.4 cm exophytic high-density focus seen in the lower pole of the right kidney. These likely represent hyperdense cysts. Ultrasound correlation is recommended to exclude solid masses. Stomach and bowel: Mild diverticulosis is present in the left colon. No diverticulitis. Mural stratification in the distal left colon demonstrating a haustral appearance, findings which may be related to incomplete distention or changes secondary to chronic colitis. No acute inflammation demonstrated at this time. Appendix: No evidence of appendicitis. Intraperitoneal space: Unremarkable. No free air. No significant fluid collection. Vasculature: The aorta demonstrates moderate atherosclerotic calcification. Lymph nodes: Unremarkable. No enlarged lymph nodes. Bladder: Unremarkable as visualized. Reproductive: There has been a hysterectomy. Bones/joints: The spine demonstrates mild degenerative changes. The mild anterolisthesis of L4 on L5. Severe central spinal stenosis L4-L5. Bulging annulus L5-S1. Soft tissues: Complex mid ventral anterior abdominal wall hernia containing fat with no protrusion of bowel into the hernia. IMPRESSION: 1. There has been a cholecystectomy. 2. There is diffuse pancreatic atrophy. 3. High density lesions demonstrated in both kidneys as described above measuring up to 1.9 cm in the left kidney. These likely represent hyperdense cysts. Ultrasound correlation is recommended to exclude solid masses. 4. There has been a hysterectomy. 5. Complex mid ventral anterior abdominal wall hernia containing fat with no protrusion of bowel into the hernia. 6. Mild diverticulosis is present in the left colon. No diverticulitis. 7. Mural stratification in the distal left colon demonstrating a haustral appearance, findings which may be related to incomplete distention or changes secondary to chronic colitis. No acute inflammation demonstrated at this time. COMMENTS: Consistent with the [employer]'s Incidental Findings Committee white paper (J Am Jared Radiol 2018): Any incidental cystic renal lesion classified in this report as too small to characterize or simple appearing is likely a benign cyst. No follow-up imaging is recommended for these lesions per consensus recommendations based on imaging criteria. Electronically signed by: Brennan Lorenzo On 01/30/2020 19:36:49 PM
[2020-01-30] MEDS ORDERED: LIDOCAINE 5% (LIDODERM) PATCH TD ONE (20:00)
[2020-01-30] MEDS ORDERED: LOPERAMIDE 2 MG CAPLET PO PRN (20:30)
[2020-01-30] MEDS ORDERED: MECLIZINE 25 MG TABLET PO PRN (20:30)
[2020-01-30] MEDS ORDERED: ONDANSETRON 4 MG ORAL DISINTEGRATING TAB (Q0162 PER 1MG) PO PRN (20:30)
[2020-01-30 21:15] VITALS: BP 193/83
[2020-01-30] MEDS: LATANOPROST 0.005% OPHTH SOLN 2.5 ML OS SCH (23:17)
[2020-01-30] MEDS: BRINZOLAMIDE 1 % OPHTH SUSP (AZOPT) 10ML OS SCH (23:17)
[2020-01-30] MEDS: DULoxetine 30 MG CAP (CYMBALTA) PO SCH (23:17)
[2020-01-30] MEDS: LACTOBACILLUS ACIDOPHILUS CAP (BACID) PO SCH (23:18)
[2020-01-30] MEDS: amLODIPine 5 MG TAB PO SCH (23:18)
[2020-01-30] MEDS: atenoloL 50 MG TAB PO SCH (23:18)
[2020-01-30] MEDS: allopurinoL 100 MG TAB PO SCH (23:19)
[2020-01-30] MEDS: LOSARTAN 50 MG TAB PO SCH (23:19)
[2020-01-30] MEDS: DOCUSATE SODIUM 100 MG CAP PO SCH (23:19)
[2020-01-30] MEDS: LEVOTHYROXINE 75MCG TABLET (0.075MG) PO SCH (23:19)
[2020-01-30] MEDS: VITAMIN D 1,000 INTERNATIONAL UNITS TABLET PO SCH (23:21)
[2020-01-30] MEDS ORDERED: DEXTROSE 50% 50 ML SYRINGE IV PRN (23:30)
[2020-01-30] MEDS ORDERED: GLUCAGON FOR INJ 1 MG VIAL (J1610) SC PRN (23:30)
[2020-01-30] MEDS ORDERED: GLUCOSE 4 GM CHEW TABLET PO PRN (23:30)
[2020-01-31] MEDS: HumaLOG INSULIN (NovoLOG) PER UNIT SC SCH ×5 (00:24→20:47)
[2020-01-31] MEDS: ENOXAPARIN 30 MG/0.3 ML SYR (J1650) SC SCH (05:20)
[2020-01-31 06:00] VITALS: BP 156/59
[2020-01-31 06:08] LABS: HEMATOCRIT 35.1 % (36.0-47.0); HEMOGLOBIN 11.1 g/dl (12.0-15.5); MEAN CORPUSCULAR HEMOGLOBIN 29.8 pg (27.0-33.0); MEAN CORPUSCULAR HGB CONC 31.6 g/dl (32.0-36.5); MEAN CORPUSCULAR VOLUME 94.4 fl (80.0-96.0); PLATELET COUNT, AUTOMATED 266 10^3/uL (150-450); RED BLOOD COUNT 3.72 10^6/uL (4.00-5.40); WHITE BLOOD COUNT 12.6 10^3/uL (4.0-10.0)
[2020-01-31 06:28] LABS: CALCIUM LEVEL 8.8 MG/DL (8.8-10.2); CREATININE FOR GFR 1.09 MG/DL (0.55-1.30); GLOMERULAR FILTRATION RATE 50.9 (>32); POTASSIUM SERUM 3.3 MEQ/L (3.5-5.1)
[2020-01-31] MEDS ORDERED: POTASSIUM CHLORIDE 10 MEQ SR TABLET PO ONE (08:00)
[2020-01-31] MEDS: ACETAMINOPHEN TAB 650MG DOSE (2X325MG) PO SCH ×4 (08:08→20:47)
[2020-01-31] MEDS: atenoloL 50 MG TAB PO SCH ×2 (08:08→20:46)
[2020-01-31] MEDS: DOCUSATE SODIUM 100 MG CAP PO SCH ×3 (08:08→20:47)
[2020-01-31] MEDS: LOSARTAN 50 MG TAB PO SCH ×2 (08:09→20:46)
[2020-01-31] MEDS: BRINZOLAMIDE 1 % OPHTH SUSP (AZOPT) 10ML OS SCH ×2 (08:09→20:48)
[2020-01-31] MEDS ORDERED: **NOTE PATIENT COMMENT** MISC XX ONE (09:00)
--- NOTE | 2020-01-31 11:43 | REP ---
Renal ultrasound to evaluate renal cysts identified on CT: Comparison is the abdomen/pelvis CT dated 01/30/2020. Right kidney. Right kidney measures 8.6 x 5.8 x 5.5 cm and is atrophic size. There are six cysts measuring up to 2.1 cm, similar to the comparison CT. All of the cysts are Bosniak type 1 cysts. No solid renal masses are identified. No renal calculi are identified. There is no hydronephrosis. Left kidney: The left kidney measures 11.4 by 5.6 x 5.5 cm and is normal size. There are five cysts. The largest is at the lower pole measuring 5.9 x 5.0 cm. The other cysts measure up to 1.6 cm. All cysts are Bosniak type 1 cysts. No solid masses are identified. No renal calculi are identified. There is no hydronephrosis. Bladder: The bladder is empty and cannot be evaluated. Impression: Multiple renal cysts bilaterally as described. All cysts are Bosniak type 1 cysts. There are no solid masses. There is no hydronephrosis. No renal calculi are identified. Electronically Signed by Balta Hensley MD 01/31/2020 11:36 A
[2020-01-31 14:00] VITALS: BP 167/68
[2020-01-31] MEDS ORDERED: PERCOCET 5MG/325MG TAB PO PRN (14:30)
[2020-01-31] MEDS: LEVOTHYROXINE 75MCG TABLET (0.075MG) PO SCH (20:46)
[2020-01-31] MEDS: allopurinoL 100 MG TAB PO SCH (20:46)
[2020-01-31] MEDS: amLODIPine 5 MG TAB PO SCH (20:46)
[2020-01-31] MEDS: DULoxetine 30 MG CAP (CYMBALTA) PO SCH (20:47)
[2020-01-31] MEDS: VITAMIN D 1,000 INTERNATIONAL UNITS TABLET PO SCH (20:47)
[2020-01-31] MEDS: LACTOBACILLUS ACIDOPHILUS CAP (BACID) PO SCH (20:47)
[2020-01-31] MEDS: LATANOPROST 0.005% OPHTH SOLN 2.5 ML OS SCH (20:48)
[2020-01-31 22:00] VITALS: BP 148/51
[2020-02-01 06:00] VITALS: BP 147/54
[2020-02-01 06:11] LABS: HEMATOCRIT 39.9 % (36.0-47.0); HEMOGLOBIN 11.9 g/dl (12.0-15.5); MEAN CORPUSCULAR HEMOGLOBIN 29.9 pg (27.0-33.0); MEAN CORPUSCULAR HGB CONC 29.8 g/dl (32.0-36.5); MEAN CORPUSCULAR VOLUME 100.3 fl (80.0-96.0); PLATELET COUNT, AUTOMATED 237 10^3/uL (150-450); RED BLOOD COUNT 3.98 10^6/uL (4.00-5.40); WHITE BLOOD COUNT 12.4 10^3/uL (4.0-10.0)
[2020-02-01 06:29] LABS: CALCIUM LEVEL 8.5 MG/DL (8.8-10.2); CREATININE FOR GFR 1.19 MG/DL (0.55-1.30); MAGNESIUM LEVEL 1.6 MG/DL (1.8-2.4); POTASSIUM SERUM 3.5 MEQ/L (3.5-5.1)
[2020-02-01] MEDS: ENOXAPARIN 30 MG/0.3 ML SYR (J1650) SC SCH (07:11)
[2020-02-01] MEDS: HumaLOG INSULIN (NovoLOG) PER UNIT SC SCH ×4 (07:30→20:14)
[2020-02-01] MEDS: ACETAMINOPHEN TAB 650MG DOSE (2X325MG) PO SCH ×4 (08:36→20:13)
[2020-02-01] MEDS: LOSARTAN 50 MG TAB PO SCH ×2 (08:37→20:12)
[2020-02-01] MEDS: DOCUSATE SODIUM 100 MG CAP PO SCH ×2 (08:37→20:12)
[2020-02-01] MEDS: atenoloL 50 MG TAB PO SCH ×2 (08:37→20:13)
[2020-02-01] MEDS: BRINZOLAMIDE 1 % OPHTH SUSP (AZOPT) 10ML OS SCH ×2 (08:38→20:14)
--- NOTE | 2020-02-01 11:36 | IPN ---
DATE OF SERVICE: 01/31/2020 The patient said that she has 2/10 pain on her back when she is sitting watching television. She said she is significantly improved from yesterday. There is no radiation of the pain. Denies dysuria, urgency, frequency, fever, chills, flank pain. Vital signs: Temperature 97.6, pulse 57, respiratory rate 18, blood pressure 167/68, 98% on room air. Generally, awake, alert, oriented to herself only. Pleasant. Answering questions appropriately. No conversational dyspnea. Very hard of hearing. No pallor or icterus. No jugular venous distention (JVD) or thyromegaly. Lungs are clear to auscultation. No wheezing, rales, or rhonchi. Heart: S1, S2, sinus rhythm. Abdomen: Obese, soft, nontender, nondistended. Positive bowel sounds. Extremities: No cyanosis, clubbing, or any pitting edema. The patient has 5/5 motor function bilateral upper extremities. Gait has not been tested. LABORATORY DATA: White count 12, hemoglobin 11, hematocrit 35, platelet count 266. Sodium 140, potassium 3.3, chloride 112, bicarbonate 23, BUN 22, creatinine 1, glucose of 129. Renal ultrasound: No hydronephrosis. Multiple renal cysts. All cysts are Bosniak type cysts. No solid masses. No renal calculi are identified. CT abdomen and pelvis 01/30/2020: Severe spinal stenosis L4-L5 with bulging annulus L5-S1. Abdominal wall hernia containing fat with no protrusion of bowel into the hernia. Diverticulosis. Cholecystectomy. Diffuse pancreatic atrophy. Hysterectomy. ASSESSMENT AND PLAN: This is an 85-year-old female with history of lumbar spinal stenosis, lumbar disc bulging, and diabetes, hearing loss, hypothyroidism, hernia, gout, ulcerative colitis, cerebrovascular accident (CVA), colonic polyps, presented to emergency room with intractable back pain, unable to ambulate. IMPRESSION: 1. Lumbar radiculopathy secondary to severe spinal stenosis. Currently on Tylenol by mouth (dictation cut off). Percocet for severe pain. Monitor for mental status changes. The patient may benefit from pain management consultation for outpatient steroid injection. Acute rehabilitation unit (ARU) has been consulted for possible rehabilitation services. 2. History of cerebrovascular accident. Not on any aspirin. 3. Hypertension. Atenolol 50 twice a day. On Norvasc nightly. On Cozaar. 4. Gout. On allopurinol. 5. Deep venous thrombosis (DVT) prophylaxis with Lovenox. 6. Hypothyroidism. On chronic Synthroid. 7. Hypokalemia. Potassium has been supplemented. DISPOSITION: Pending clinical safety evaluation and pain control. 2-3 days. May need rehabilitation.
[2020-02-01] MEDS ORDERED: MAG SULF 1GM/100ML (MAG RUN) 1 GM in IV 1 EA IV ONE (12:45)
[2020-02-01 14:00] VITALS: BP 150/62
--- NOTE | 2020-02-01 16:24 | IPN ---
DATE: 02/01/2020 Patient is ambulating well and has passed a home safety evaluation. Her pain is controlled, 0/10 when she is not moving, 2/10 when she is moving. Tolerating her pain well with pain medications on board. No other issues per nursing. Patient is reluctant to go home, as she is left alone most of the day, and is requesting [facility] facility (SNF) placement. Patient and family services (PFS) has been consulted. Temperature 98.6, pulse 65, respiratory rate 18, blood pressure 147/54, 98% on room air. GENERAL: Awake, alert, oriented to person and place, answering questions appropriately. LUNGS: Clear to auscultation. No wheezes, rales, or rhonchi. HEART: S1, S2, sinus rhythm. ABDOMEN: Soft, nontender, nondistended. EXTREMITIES: No clubbing, cyanosis, or edema. White count 12.4, hemoglobin 11, hematocrit 39, platelet count 237. Sodium 144, potassium 3.5, chloride 115, bicarbonate 22, BUN 23, creatinine 1.19, glucose 98, magnesium 1.6. Microbiology and imaging studies have been reviewed. ASSESSMENT AND PLAN: This is an 85-year-old female with history of chronic dementia. Lives at home with her daughter, who works and leaves her alone most of the day, with severe spinal stenosis at L4-5 and disc bulbing. History of diabetes, lumbar disc bulging, hearing loss, hypothyroidism, cerebrovascular accident (CVA), colonic polyps, ulcerative colitis, hernia, gout. Presented to the emergency room with intractable back pain. Unable to ambulate. CURRENT ISSUES: 1. Lumbar radiculopathy secondary to severe spinal stenosis. Pain is well controlled. She has passed home safety evaluation, but patient wants to be placed in a residential. Defer to PFS. 2. History of CVA. Not on any aspirin. On atenolol, Norvasc, and Cozaar. Doing well. No changes in dosing. 3. Gout, on allopurinol. 4. Hypothyroidism, on Synthroid. 5. Hypomagnesemia, repleted. DISPOSITION: Patient requested placement in a residential despite having passed home safety evaluation.
[2020-02-01] MEDS: VITAMIN D 1,000 INTERNATIONAL UNITS TABLET PO SCH (20:12)
[2020-02-01] MEDS: DULoxetine 30 MG CAP (CYMBALTA) PO SCH (20:12)
[2020-02-01] MEDS: amLODIPine 5 MG TAB PO SCH (20:13)
[2020-02-01] MEDS: LACTOBACILLUS ACIDOPHILUS CAP (BACID) PO SCH (20:13)
[2020-02-01] MEDS: allopurinoL 100 MG TAB PO SCH (20:14)
[2020-02-01] MEDS: LEVOTHYROXINE 75MCG TABLET (0.075MG) PO SCH (20:14)
[2020-02-01] MEDS: LATANOPROST 0.005% OPHTH SOLN 2.5 ML OS SCH (20:14)
[2020-02-01 22:00] VITALS: BP 148/62
[2020-02-02 02:00] VITALS: BP 104/53
[2020-02-02] MEDS: ENOXAPARIN 30 MG/0.3 ML SYR (J1650) SC SCH (05:45)
[2020-02-02 06:00] VITALS: BP 150/70
[2020-02-02 06:37] LABS: HEMATOCRIT 36.5 % (36.0-47.0); HEMOGLOBIN 11.9 g/dl (12.0-15.5); MEAN CORPUSCULAR HEMOGLOBIN 30.7 pg (27.0-33.0); MEAN CORPUSCULAR HGB CONC 32.6 g/dl (32.0-36.5); MEAN CORPUSCULAR VOLUME 94.3 fl (80.0-96.0); PLATELET COUNT, AUTOMATED 288 10^3/uL (150-450); RED BLOOD COUNT 3.87 10^6/uL (4.00-5.40); WHITE BLOOD COUNT 14.5 10^3/uL (4.0-10.0)
[2020-02-02 07:08] LABS: CALCIUM LEVEL 8.9 MG/DL (8.8-10.2); CREATININE FOR GFR 1.23 MG/DL (0.55-1.30); GLOMERULAR FILTRATION RATE 44.3 (>32); MAGNESIUM LEVEL 1.9 MG/DL (1.8-2.4); POTASSIUM SERUM 3.9 MEQ/L (3.5-5.1)
[2020-02-02] MEDS: HumaLOG INSULIN (NovoLOG) PER UNIT SC SCH ×2 (07:30→13:21)
[2020-02-02] MEDS: DOCUSATE SODIUM 100 MG CAP PO SCH (09:01)
[2020-02-02] MEDS: LOSARTAN 50 MG TAB PO SCH (09:02)
[2020-02-02] MEDS: ACETAMINOPHEN TAB 650MG DOSE (2X325MG) PO SCH ×2 (09:02→13:21)
[2020-02-02 09:03] VITALS: BP 150/70
[2020-02-02] MEDS: BRINZOLAMIDE 1 % OPHTH SUSP (AZOPT) 10ML OS SCH (09:03)
[2020-02-02] MEDS: atenoloL 50 MG TAB PO SCH (09:03)
--- NOTE | 2020-02-02 11:26 | IPNPDOC ---
Subjective Date Seen The patient was seen on 02/02/20. Subjective Chief Complaint/HPI Trish is well and sitting in a chair, she is not experiencing any acute pain Objective Physical Examination General Exam: Positive: Alert, Cooperative Eye Exam: Positive: Conjunctiva & lids normal; Negative: Sclera icteric ENT Exam: Positive: Mucous membr. moist/pink Chest Exam: Positive: Clear to auscultation Heart Exam: Positive: Rate Normal Abdomen Exam: Positive: Normal bowel sounds Extremity Exam: Negative: Clubbing, Cyanosis, Edema Neuro Exam: Positive: Normal Speech, Normal Tone Psych Exam: Positive: Mental status NL Assessment /Plan Assessment # Lumbar radiculopathy secondary to severe spinal stenosis - pain controlled - home today with home health # Hypomagnesemia - corrected Plan/VTE VTE Prophylaxis Ordered?: Yes VS, I&O, 24H, Fishbone Vital Signs/I&O Vital Signs Date Time Temp Pulse Resp B/P (MAP) Pulse Ox O2 Delivery O2 Flow Rate FiO2 02/02/20 09:03 77 150/70 02/02/20 06:00 98.7 18 98 Room Air I&O- Last 24 Hours up to 6 AM 02/02/20 05:59 Intake Total 1740 ml Output Total 0 ml Balance 1740 ml Laboratory Data 24H LABS Laboratory Tests 2 02/01/20 16:20: Bedside Glucose (Misc Panel) 86 02/01/20 19:50: Bedside Glucose (Misc Panel) 122H 02/02/20 06:01: Nucleated Red Blood Cells % (auto) 0.0, Anion Gap 6L, Glomerular Filtration Rate 44.3, Calcium Level 8.9, Magnesium Level 1.9 CBC/BMP Laboratory Tests 02/02/20 06:01 Microbiology Microbiology 01/30/20 Blood Culture - Preliminary, Resulted No Growth after 48 hours. All Specime... 01/30/20 Blood Culture - Preliminary, Resulted No Growth after 48 hours. All Specime... RISSA LAW MD Feb 02, 2020 11:26
--- NOTE | 2020-02-03 10:36 | DSES ---
DATE OF ADMISSION: 01/30/2020 DATE OF DISCHARGE: 02/02/2020 DISCHARGE DIAGNOSES: Are the followin. Lumbar radiculopathy secondary to severe spinal stenosis causing inability to walk. 2. Hypomagnesemia. PROCEDURES PERFORMED DURING THIS HOSPITALIZATION: Were none. CONSULTANTS ON THE CASE: Were none. DISPOSITION: The patient is discharged home with home health. LABORATORIES: That are pending at the time of discharge are none. DISCHARGE INSTRUCTIONS: The patient is instructed to comply with home health, including physical therapy (PT) and occupational therapy (OT). She is to followup with her primary care provider in 1 week and take medications as prescribed. CONDITION AT DISCHARGE: Improved from admission. RELEVANT LABORATORIES: Are the following: Blood cultures times two grew out no organisms. White count is 14.5, hemoglobin is 11.9, hematocrit 36.5, platelet counts are 288. PT is 15, INR is 1.21. Sodium is 142, potassium 3.9, chloride 113, bicarbonate is 23, BUN is 26, creatinine is 1.23, calcium is 8.9, magnesium is 1.9 following correction, previously 1.6. Initial troponin marker is negative, CPK is 21, lipase was 230, amylase 74. Urinalysis was otherwise unremarkable for any evidence of infection. IMAGING STUDIES: Are the following: Chest x-ray, one view: Showed cardiomegaly without any evidence of cardiopulmonary process. CT scan of the head: Showed age-related parenchymal volume loss with no acute findings. CT of the abdomen and pelvis without contrast: Showed diffuse pancreatic atrophy, high density lesions demonstrated in both kidneys as described above measuring up to 1.9 cm in the left kidney. These likely represent hyperdense cysts. Ultrasound correlation is recommended to exclude solid masses. There has been a hysterectomy. Complex mid ventral anterior abdominal wall hernia containing fat with no protrusion of bowel into the hernia. Mild diverticulosis is present in the left colon. Mural stratification in the distal left colon demonstrating a haustral appearance, findings which may be related to incomplete distention or changes secondary to chronic colitis. No acute inflammatory changes are demonstrated at this time. Renal ultrasound: Which showed the bladder is empty and cannot be evaluated. Multiple renal cysts bilaterally as described. All cysts are Bosniak type 1 cysts. There are no solid masses. There is no hydronephrosis. No renal calculi are identified. DISCHARGE MEDICATIONS: Are the following: - Tylenol 650 every 8 hours for pain - allopurinol 100 mg at bedtime - Norvasc 5 mg at bedtime - atenolol 50 mg twice a day - Combigan 0.2%/0.5% eyedrops one drop left eye (OS) twice a day - Azopt 1% one drop OS twice a day - cholecalciferol 1000 units two tablets at bedtime - duloxetine 60 mg at bedtime - glipizide 5 mg at bedtime - lactobacillus one tablet at bedtime - latanoprost 0.005% solution one drop OS at bedtime - levothyroxine 75 mg at bedtime - loperamide 2 mg as needed after loose stool - losartan 50 mg twice a day - meclizine 25 mg every 8 hours as needed for dizziness - Zofran 4 mg by mouth three times a day as needed for nausea HOSPITAL COURSE: Mrs. Simons is an 85-year-old woman who has severe spinal stenosis. She had been out at the grocery store and developed acute pain with inability to walk. She was subsequently transferred to home by private vehicle; and as her pain intensified, there was concern. Emergency medical services (EMS) was consulted. She was brought to the emergency room, where she was fully worked up with no acute findings. She was admitted to the hospitalist service for pain control. Over time, the patient's symptoms resolved. Physical therapy (PT) and occupational therapy (OT) cleared to safely be discharged home and was discharged with home health. A total of 30 minutes was spent in completing all discharge paperwork.
== END 2020-02-02 14:30 | disposition home health service (06) | DRG 552 ==
LOC: M ED 15:31 → EDBD 15:31 → M ED INP 19:24 → ENRESERV 19:38 → M MS5PR 21:07
PROVIDERS: ADMIT Internal Medicine; ATTEND Internal Medicine
DX: M48.061 Spinal stenosis, lumbar region without neurogenic claudication (principal); K51.90 Ulcerative colitis, unspecified, without complications; M54.16 Radiculopathy, lumbar region; R26.9 Unspecified abnormalities of gait and mobility; E11.9 Type 2 diabetes mellitus without complications; H91.90 Unspecified hearing loss, unspecified ear; E03.9 Hypothyroidism, unspecified; I10 Essential (primary) hypertension; M10.9 Gout, unspecified; K21.9 Gastro-esophageal reflux disease without esophagitis; Z86.73 Personal history of transient ischemic attack (TIA), and cerebral infarction without residual deficits; G25.81 Restless legs syndrome; Z90.49 Acquired absence of other specified parts of digestive tract; Z90.79 Acquired absence of other genital organ(s); Z87.891 Personal history of nicotine dependence; J44.9 Chronic obstructive pulmonary disease, unspecified; M79.604 Pain in right leg; M79.605 Pain in left leg; D72.829 Elevated white blood cell count, unspecified; K43.9 Ventral hernia without obstruction or gangrene; N28.1 Cyst of kidney, acquired; Z88.0 Allergy status to penicillin; Z88.1 Allergy status to other antibiotic agents; Z88.2 Allergy status to sulfonamides; Z91.013 Allergy to seafood; Z91.040 Latex allergy status; Z88.5 Allergy status to narcotic agent; Z88.8 Allergy status to other drugs, medicaments and biological substances; E87.6 Hypokalemia; M51.26 Other intervertebral disc displacement, lumbar region; E83.42 Hypomagnesemia; Z79.899 Other long term (current) drug therapy

== ENCOUNTER 2020-02-08 14:49 | Observation (INO) | payer MEDICARE ==
[~2020-02-08] VITALS: Ht 152.4 cm; Wt 67.3 kg
[~2020-02-08 14:49] MED LIST changes: +VITAD1000T PO
[2020-02-08 16:50] LABS: BASO # 0.1 10^3/uL (0.0-0.2); BASO % 0.4 % (0.0-1.0); EOS # 0.6 10^3/uL (0.0-0.5); EOS % 4.3 % (0.0-3.0); HEMATOCRIT 38.8 % (36.0-47.0); HEMOGLOBIN 12.2 g/dl (12.0-15.5); LYMPH # 2.5 10^3/uL (1.5-5.0); LYMPH % 17.2 % (24.0-44.0); MEAN CORPUSCULAR HGB CONC 31.4 g/dl (32.0-36.5); MEAN CORPUSCULAR VOLUME 95.6 fl (80.0-96.0); MONO # 0.8 10^3/uL (0.0-0.8); MONO % 5.6 % (0.0-5.0); NEUTROPHILS # 10.7 10^3/uL (1.5-8.5); NEUTROPHILS % 72.2 % (36.0-66.0); PLATELET COUNT, AUTOMATED 323 10^3/uL (150-450); RED BLOOD COUNT 4.06 10^6/uL (4.00-5.40); WHITE BLOOD COUNT 14.8 10^3/uL (4.0-10.0)
[2020-02-08 17:12] LABS: ALBUMIN 2.8 GM/DL (3.2-5.2); BILIRUBIN,DIRECT 0.1 MG/DL (0.0-0.2); BILIRUBIN,TOTAL 0.4 MG/DL (0.2-1.0); CALCIUM LEVEL 9.5 MG/DL (8.8-10.2); CREATININE FOR GFR 1.22 MG/DL (0.55-1.30); GLOMERULAR FILTRATION RATE 44.7 (>32); POTASSIUM SERUM 3.3 MEQ/L (3.5-5.1); TOTAL PROTEIN 6.4 GM/DL (6.4-8.2)
[2020-02-08] MEDS ORDERED: POTASSIUM CHLORIDE 10 MEQ SR TABLET PO ONE ×2 (17:30→22:00)
[2020-02-08] MEDS ORDERED: POTA10TA67 PO (18:03)
[2020-02-08] MEDS ORDERED: ZANT150T40 PO (18:03)
--- NOTE | 2020-02-08 18:07 | REPVR ---
PROCEDURE INFORMATION: Exam: CT Abdomen And Pelvis Without Contrast Exam date and time: 02/08/2020 5:32 PM Age: 85 years old Clinical indication: Abdominal pain; Additional info: Gen abd pain TECHNIQUE: Imaging protocol: Computed tomography of the abdomen and pelvis without contrast. Radiation optimization: All CT scans at this facility use at least one of these dose optimization techniques: automated exposure control; mA and/or kV adjustment per patient size (includes targeted exams where dose is matched to clinical indication); or iterative reconstruction. COMPARISON: CT ABD PELVIS W/O CONTRAST 01/30/2020 6:54 PM FINDINGS: Lungs: Mild bibasilar dependent atelectasis of the lung bases. Liver: Unremarkable. Gallbladder and bile ducts: The gallbladder is surgically absent. Pancreas: Unremarkable. No ductal dilation. Spleen: Unremarkable. Adrenals: Unremarkable. Kidneys and ureters: Bilateral low-density renal cysts, largest on the left measuring 5.4 cm. Additional numerous bilateral isodense and hyperdense renal cysts, most likely reflecting proteinaceous versus hemorrhagic cysts. Stomach and bowel: Scattered colonic diverticulosis without evidence of diverticulitis. Small bowel loops are unremarkable. Appendix: No evidence of appendicitis. Intraperitoneal space: No pneumoperitoneum. No significant fluid collection. Vasculature: Atherosclerotic calcifications of the aorta and major branches. Multifocal areas of ectasia of the infrarenal abdominal aorta measuring up to 2.5 cm in maximal diameter. Lymph nodes: No enlarged lymph nodes. Bladder: Generalized wall thickening of the urinary bladder with adjacent fat stranding. Reproductive: Unremarkable as visualized. Bones/joints: Multilevel degenerative changes of the visualized spine. No acute osseous lesion or fracture. Soft tissues: 5 cm fat containing right parasagittal ventral abdominal wall hernia. IMPRESSION: 1. Generalized wall thickening of the urinary bladder with adjacent fat stranding. Correlate clinically with urinalysis to assess for cystitis. 2. 5 cm fat containing right parasagittal ventral abdominal wall hernia. 3. Additional numerous bilateral isodense and hyperdense renal cysts, most likely reflecting proteinaceous versus hemorrhagic cysts. Recommend further evaluation with nonemergent CT or MRI using renal mass protocol. 4. Other chronic findings, as above. Electronically signed by: Sven Don On 02/08/2020 18:06:52 PM
[2020-02-08] MEDS ORDERED: LevoFLOXacin IV 750 MG in IV 1 EA IV ONE (19:00)
[2020-02-08] MEDS ORDERED: GLUCOSE 4 GM CHEW TABLET PO PRN (21:00)
[2020-02-08] MEDS: HumaLOG INSULIN (NovoLOG) PER UNIT SC SCH (21:00)
[2020-02-08] MEDS ORDERED: MECLIZINE 25 MG TABLET PO PRN (21:00)
[2020-02-08] MEDS ORDERED: FAMOTIDINE 20 MG TAB PO PRN (21:00)
[2020-02-08] MEDS ORDERED: DEXTROSE 50% 50 ML SYRINGE IV PRN (21:00)
[2020-02-08] MEDS ORDERED: GLUCAGON FOR INJ 1 MG VIAL (J1610) SC PRN (21:00)
--- NOTE | 2020-02-08 21:02 | HPEPDOC ---
[facility] Medical History & Physical Date of Admission Feb 08, 2020 Date of Service: Feb 08, 2020 Attending Physician: MAHESH DE JESUS MD History and Physical CHIEF COMPLAINT: Burning with urination HISTORY OF PRESENT ILLNESS: 85-year-old female with extensive past medical history including spinal stenosis, hypertension, diabetes mellitus and hyperlipidemia presents with pain/burning with urination. Patient was recently admitted for back pain secondary to severe spinal stenosis, was discharged one to 2 weeks ago. She reports feeling well up until a few days ago when she started experiencing fatigue and pain/burning with urination. She has no other associated symptoms. She denies any change in frequency, fever, nausea, vomiting, chest pain, abdominal pain, diarrhea or constipation. She is very hard of hearing and has no additional complaints at this time. 10 point review of system is negative except for above PAST MEDICAL HISTORY: 1. Severe spinal stenosis. 2. Hypertension. 3. . Diabetes mellitus. 4. Hyperlipidemia. 5. Hard of hearing PAST SURGICAL HISTORY: 1. Cholecystectomy. 2. , Hysterectomy. SOCIAL HISTORY: Previous smoker. Denies alcohol use. Denies drug use FAMILY HISTORY: Positive for heart disease ALLERGIES: Please see below. HOME MEDICATIONS: Please see below. PHYSICAL EXAMINATION: VITAL SIGNS: Please see below. GENERAL: No distress, hard of hearing HEENT: Normocephalic, atraumatic, moist mucous membranes NECK: Supple CARDIOVASCULAR EXAMINATION: S1, S2, no murmurs RESPIRATORY EXAMINATION: Clear to auscultation, no wheezing ABDOMINAL EXAMINATION: Soft, mild suprapubic tenderness, nondistended, positive bowel sounds EXTREMITIES: Range of motion intact SKIN: No rash NEUROLOGICAL EXAMINATION: Alert and oriented 3, no focal deficits PSYCHIATRIC EXAMINATION: Calm and cooperative LABORATORY DATA: See below. IMAGING: CT abdomen and pelvis showing bladder wall thickening concerning for cystitis MICROBIOLOGY: Please see below. ASSESSMENT: 85-year-old female with an extensive past medical history is being admitted for UTI. . PLAN: 1. UTI. Continue Levaquin, urine culture pending, gentle IV hydration. 2. Hypertension. Continue home atenolol, Norvasc and losartan 3. Hypokalemia. Supplemented by mouth . 4. Hypothyroidism. Continue levothyroxine DVT prophylaxis: Heparin subcutaneous GI prophylaxis: Not needed Vital Signs Vital Signs Date Time Temp Pulse Resp B/P (MAP) Pulse Ox O2 Delivery O2 Flow Rate FiO2 02/08/20 19:06 97.5 68 18 186/85 (118) 96 Room Air Laboratory Data Labs 24H Laboratory Tests 2 02/08/20 16:23: Anion Gap 6L, Glomerular Filtration Rate 44.7, Calcium Level 9.5, Total Bilirubin 0.4, Direct Bilirubin 0.1, Aspartate Amino Transf (AST/SGOT) 16, Alanine Aminotransferase (ALT/SGPT) 22, Alkaline Phosphatase 100, Total Protein 6.4, Albumin 2.8L, Albumin/Globulin Ratio 0.78L, Lipase 172 02/08/20 16:24: Immature Granulocyte % (Auto) 0.3, Neutrophils (%) (Auto) 72.2H, Lymphocytes (%) (Auto) 17.2L, Monocytes (%) (Auto) 5.6H, Eosinophils (%) (Auto) 4.3H, Basophils (%) (Auto) 0.4, Neutrophils # (Auto) 10.7H, Lymphocytes # (Auto) 2.5, Monocytes # (Auto) 0.8, Eosinophils # (Auto) 0.6H, Basophils # (Auto) 0.1, Nucleated Red Blood Cells % (auto) 0.0, Urine Color YELLOW, Urine Appearance CLOUDYH, Urine pH 5.0, Urine Specific [place] 1.013, Urine Protein 3+H, Urine Glucose (UA) NEGATIVE, Urine Ketones NEGATIVE, Urine Blood NEGATIVE, Urine Nitrite NEGATIVE, Urine Bilirubin NEGATIVE, Urine Urobilinogen 0.2, Urine Leukocyte Esterase 3+H, Urine WBC (Auto) TNTCH, Urine RBC (Auto) 9H, Urine Hyaline Casts (Auto) 0, Urine Bacteria (Auto) 3+H, Urine Squamous Epithelial Cells 0, Urine Mucus (Auto) SMALL, Urine Sperm (Auto) CBC/BMP Laboratory Tests 02/08/20 16:23 02/08/20 16:24 Microbiology Microbiology 02/08/20 Urine Culture, Received Pending Home Medications Scheduled Allopurinol (Allopurinol) 100 Mg Tab, 100 MG PO BID Amlodipine Besylate (Amlodipine Besylate) 5 Mg Tablet, 5 MG PO DAILY Atenolol (Atenolol) 50 Mg Tab, 50 MG PO BID Brimonidine Tartrate/Timolol (Combigan 0.2%-0.5% Eye Drops) 1 Lilly Lilly, 1 DROP OS BID Brinzolamide (Azopt) 1 % Melissa, 1 DROP OS BID Cholecalciferol (Vitamin D3) (Vitamin D3) 1,000 Unit Tablet, 2,000 UNITS PO DAILY Duloxetine Hcl (Cymbalta) 60 Mg Capsule.dr, 60 MG PO QHS Glipizide (Glipizide ER) 5 Mg Tab.er.24, 5 MG PO DAILY Lactobacillus Combo No.10 (Probiotic) 1 Each Capsule, 1 TAB PO DAILY Latanoprost (Xalatan) 0.005 % Lilly, 1 DROP OS QHS Levothyroxine Sodium (Levothyroxine Sodium) 75 Mcg Tab, 75 MCG PO DAILY Losartan Potassium (Losartan Potassium) 50 Mg Tablet, 50 MG PO BID ON 02/03/2020 RX FOR 100MG DAILY Potassium Chloride (Potassium Chloride) 10 Meq Tab.er.prt, 10 MEQ PO QHS Scheduled PRN Acetaminophen (Pain Reliever) 650 Mg Tab, 650 MG PO Q8H PRN for PAIN Loperamide HCl (Loperamide) 2 Mg Capsule, 2 MG PO Q4H PRN for AFTER EACH LOOSE STOOL Meclizine HCl (Meclizine HCl) 25 Mg Tab, 25 MG PO Q8H PRN for DIZZINESS Ondansetron (Ondansetron Odt) 4 Mg Tab, 4 MG PO TID PRN for NAUSEA Ranitidine Hcl (Zantac) 150 Mg Tablet, 1 TAB PO DAILY PRN for HEARTBURN Allergies Coded Allergies: sulfasalazine (Verified Allergy, Severe, hives, hematemesis,difficulty breathing, 03/17/19) Penicillins (Verified Allergy, Intermediate, SWELLING/RASH, 03/17/19) Sulfa (Sulfonamide Antibiotics) (Verified Allergy, Mild, RASH, 03/17/19) clavulanic acid (Verified Allergy, Mild, PRURITIS, 03/17/19) doxycycline (Verified Allergy, Mild, RASH, 03/17/19) Contrast Media (Verified Allergy, Unknown, 08/10/14) TAPE (Verified Allergy, Unknown, BANDAIDS, 08/10/14) benzalkonium chloride (Verified Allergy, Unknown, 03/17/19) shellfish derived (Verified Allergy, Unknown, 03/17/19) timolol (Verified Allergy, Unknown, OPTHALMIC DROPS, 03/17/19) travoprost (Verified Allergy, Unknown, 03/17/19) Ddtyraf-Mfp-Lmn Reductase Inhibitor (Verified Adverse Reaction, Intermediate, MUSCLE ACHES, 03/17/19) oxycodone (Verified Adverse Reaction, Intermediate, HX OF AMS W/FALL ON SCHEDULED PERCOCET 5/325, 03/09/19) HX OF AMS W/FALL ON SCHEDULED PERCOCET 5/325 IN JANUARY 2019 prednisone (Verified Adverse Reaction, Intermediate, INCREASED INTRAOCCULAR PRESSURES, 03/17/19) diatrizoate meglumine (Verified Adverse Reaction, Mild, ABDOMINAL PAIN, 03/17/19) diatrizoate sodium (Verified Adverse Reaction, Mild, ABDOMINAL PAIN, 03/17/19) diltiazem (Verified Adverse Reaction, Mild, N,V,D, 03/17/19) gemfibrozil (Verified Adverse Reaction, Mild, PAIN, 03/17/19) metoprolol (Verified Adverse Reaction, Mild, DIZZINESS, 03/17/19) A-FIB/CHADSVASC A-FIB History Current/History of A-Fib/PAF?: No MAHESH DE JESUS MD Feb 08, 2020 21:02
[2020-02-08 22:00] VITALS: BP 185/69
[2020-02-08] MEDS: ACETAMINOPHEN 650MG ER TAB (TYLENOL ARTHRITIS) PO PRN (23:17)
[2020-02-08] MEDS: NS 1,000 ML IV SCH (23:17)
[2020-02-08] MEDS: LOSARTAN 50 MG TAB PO SCH (23:18)
[2020-02-08] MEDS: DULoxetine 30 MG CAP (CYMBALTA) PO SCH (23:18)
[2020-02-08] MEDS: atenoloL 50 MG TAB PO SCH (23:19)
[2020-02-08] MEDS: allopurinoL 100 MG TAB PO SCH (23:19)
[2020-02-08] MEDS: HEPARIN SOD (PORCINE) 5000 UNITS/ML VIAL (J1644 PER 1000UNITS) SC SCH (23:19)
[2020-02-09] MEDS: BRINZOLAMIDE 1 % OPHTH SUSP (AZOPT) 10ML OS SCH ×3 (00:54→20:19)
[2020-02-09] MEDS: LATANOPROST 0.005% OPHTH SOLN 2.5 ML OS SCH ×2 (00:54→20:22)
[2020-02-09] MEDS: LEVOTHYROXINE 75MCG TABLET (0.075MG) PO SCH (05:04)
[2020-02-09 06:00] VITALS: BP 174/69
[2020-02-09 06:08] LABS: HEMOGLOBIN 11.9 g/dl (12.0-15.5); MEAN CORPUSCULAR HEMOGLOBIN 30.1 pg (27.0-33.0); MEAN CORPUSCULAR HGB CONC 31.3 g/dl (32.0-36.5); MEAN CORPUSCULAR VOLUME 96.2 fl (80.0-96.0); PLATELET COUNT, AUTOMATED 309 10^3/uL (150-450); RED BLOOD COUNT 3.95 10^6/uL (4.00-5.40)
[2020-02-09 06:46] LABS: ALBUMIN 2.6 GM/DL (3.2-5.2); BILIRUBIN,TOTAL 0.4 MG/DL (0.2-1.0); CALCIUM LEVEL 9.4 MG/DL (8.8-10.2); CREATININE FOR GFR 1.14 MG/DL (0.55-1.30); GLOMERULAR FILTRATION RATE 48.3 (>32); MAGNESIUM LEVEL 1.7 MG/DL (1.8-2.4); POTASSIUM SERUM 4.6 MEQ/L (3.5-5.1); TOTAL PROTEIN 6.1 GM/DL (6.4-8.2)
[2020-02-09] MEDS: allopurinoL 100 MG TAB PO SCH ×2 (08:20→20:20)
[2020-02-09] MEDS: atenoloL 50 MG TAB PO SCH ×2 (08:20→20:21)
[2020-02-09] MEDS: HEPARIN SOD (PORCINE) 5000 UNITS/ML VIAL (J1644 PER 1000UNITS) SC SCH ×2 (08:21→20:22)
[2020-02-09] MEDS: VITAMIN D 1,000 INTERNATIONAL UNITS TABLET PO SCH (08:21)
[2020-02-09] MEDS: NS 1,000 ML IV SCH ×2 (08:21→19:44)
[2020-02-09] MEDS: LOSARTAN 50 MG TAB PO SCH ×2 (08:21→20:20)
[2020-02-09] MEDS: HumaLOG INSULIN (NovoLOG) PER UNIT SC SCH ×4 (08:22→21:00)
[2020-02-09] MEDS ORDERED: amLODIPine 5 MG TAB PO SCH (09:00)
[2020-02-09] MEDS: PHENAZOPYRIDINE 100 MG TAB PO SCH ×3 (09:56→20:21)
[2020-02-09] MEDS ORDERED: LEVA750T7 PO (09:58)
[2020-02-09] MEDS ORDERED: AMLO10TA5 PO (09:58)
[2020-02-09] MEDS ORDERED: amLODIPine 5 MG TAB PO ONE (10:00)
[2020-02-09] MEDS ORDERED: MAG SULF 1GM/100ML (MAG RUN) 1 GM in IV 1 EA IV ONE (11:30)
--- NOTE | 2020-02-09 11:48 | IPN ---
DATE OF SERVICE: 02/09/2020 The patient says that she is very hard of hearing without her hearing aid. She has no fever. She complains of some dysuria when she urinates. No frequency or urgency. No chills. No flank pain. No back pain. No hematuria. Urine culture is pending. Currently on Levaquin renally dosed. The patient is requesting placement as her daughter says that she cannot be alone at home. Patient and family services (PFS) has been consulted. Vital Signs: Temperature 97.9, pulse 72, respiratory rate 18, blood pressure 172/64, 98% on room air. Generally very hard of hearing, awake, alert, oriented to herself. Answers questions appropriately. Face is symmetric. Tongue is midline. The patient has no use of respiratory accessory muscles. Lungs are clear to auscultation. No wheezing, rales or rhonchi. Heart: S1, S2, sinus rhythm. No murmurs, rubs or gallops. Abdomen is obese, soft, nontender, nondistended. Positive bowel sounds. Extremities: No cyanosis, clubbing or any pitting edema. LABORATORY DATA: White count 14, hemoglobin 11, hematocrit 38, platelet count 309. Sodium 144, potassium 4.6, chloride 114, bicarbonate 26, BUN 19, creatinine 1.1, glucose 118. Magnesium 1.7. CT abdomen and pelvis: Cystitis with generalized wall thickening of the urinary bladder with adjacent fat stranding. Renal cyst reflecting proteinaceous versus hemorrhagic cyst. Recommend non-emergent CT or MRI using renal protocol other chronic findings. ASSESSMENT AND PLAN: 85-year-old female with severe spinal stenosis, hypertension, diabetes, hard of hearing, hyperlipidemia presents with dysuria found to have abnormal urinalysis started on renally dosed Levaquin and IV fluid hydration. IMPRESSION: 1. Urinary tract infection (UTI) present on hospital admission on oral Levaquin renally dosed. Sensitivity results are still pending. Status post IV fluids overnight. 2. Hypothyroidism. Continued on levothyroxine. 3. Electrolytes abnormalities with hypokalemia and hypomagnesemia have been repleted. 4. Hypertension. On Norvasc. Will start on atenolol. DISPOSITION: Physical therapy (PT) home safety evaluation. The patient is requesting placement. PFS has been consulted. Awaiting urine culture results. Once finalized the patient may be discharged home if cleared by physical therapy. MTDD
[2020-02-09 14:00] VITALS: BP 159/65
[2020-02-09] MEDS: DULoxetine 30 MG CAP (CYMBALTA) PO SCH (20:19)
[2020-02-09] MEDS: ACETAMINOPHEN 650MG ER TAB (TYLENOL ARTHRITIS) PO PRN (20:21)
[2020-02-09 22:00] VITALS: BP 170/76
[2020-02-10] MEDS: LEVOTHYROXINE 75MCG TABLET (0.075MG) PO SCH (05:14)
[2020-02-10 05:45] VITALS: BP 166/73
[2020-02-10] MEDS ORDERED: LevoFLOXacin 750 MG TABLET PO SCH (06:00)
[2020-02-10] MEDS: HumaLOG INSULIN (NovoLOG) PER UNIT SC SCH (07:30)
[2020-02-10 08:13] VITALS: BP 166/73
[2020-02-10] MEDS: LOSARTAN 50 MG TAB PO SCH (08:13)
[2020-02-10] MEDS: allopurinoL 100 MG TAB PO SCH (08:13)
[2020-02-10] MEDS: PHENAZOPYRIDINE 100 MG TAB PO SCH (08:13)
[2020-02-10] MEDS: atenoloL 50 MG TAB PO SCH (08:13)
[2020-02-10] MEDS: BRINZOLAMIDE 1 % OPHTH SUSP (AZOPT) 10ML OS SCH (08:14)
[2020-02-10] MEDS: VITAMIN D 1,000 INTERNATIONAL UNITS TABLET PO SCH (08:14)
[2020-02-10] MEDS: ACETAMINOPHEN 650MG ER TAB (TYLENOL ARTHRITIS) PO PRN (08:14)
[2020-02-10] MEDS: HEPARIN SOD (PORCINE) 5000 UNITS/ML VIAL (J1644 PER 1000UNITS) SC SCH (08:14)
[2020-02-10] MEDS ORDERED: amLODIPine 10 MG TAB PO SCH (09:00)
[2020-02-10] MEDS ORDERED: FOSFOMYCIN TROMETHAMINE 3 GM POWDER PACKET (MONUROL) PO ONE (09:15)
[2020-02-10] MEDS ORDERED: MAG SULF 1GM/100ML (MAG RUN) 1 GM in IV 1 EA IV ONE (09:45)
[2020-02-10 10:03] LABS: BASO # 0.1 10^3/uL (0.0-0.2); BASO % 0.4 % (0.0-1.0); EOS # 0.5 10^3/uL (0.0-0.5); EOS % 4.5 % (0.0-3.0); HEMATOCRIT 36.6 % (36.0-47.0); HEMOGLOBIN 11.4 g/dl (12.0-15.5); LYMPH # 1.9 10^3/uL (1.5-5.0); LYMPH % 15.7 % (24.0-44.0); MEAN CORPUSCULAR HEMOGLOBIN 30.2 pg (27.0-33.0); MEAN CORPUSCULAR HGB CONC 31.1 g/dl (32.0-36.5); MEAN CORPUSCULAR VOLUME 96.8 fl (80.0-96.0); MONO # 0.6 10^3/uL (0.0-0.8); NEUTROPHILS # 8.8 10^3/uL (1.5-8.5); NEUTROPHILS % 73.7 % (36.0-66.0); PLATELET COUNT, AUTOMATED 300 10^3/uL (150-450); RED BLOOD COUNT 3.78 10^6/uL (4.00-5.40)
[2020-02-10 10:24] LABS: CALCIUM LEVEL 9.3 MG/DL (8.8-10.2); CREATININE FOR GFR 1.12 MG/DL (0.55-1.30); GLOMERULAR FILTRATION RATE 49.3 (>32); POTASSIUM SERUM 4.4 MEQ/L (3.5-5.1)
--- NOTE | 2020-02-10 19:00 | DSES ---
DATE OF ADMISSION: 02/08/2020 DATE OF DISCHARGE: 02/10/2020 PRIMARY CARE PROVIDER: Dr. Gely Mancera PRIMARY DISCHARGE DIAGNOSES: 1. Escherichia (E) coli urinary tract infection (UTI) resistant to Levaquin. 2. Uncontrolled hypertension. 3. Hypothyroidism. 4. Hypokalemia. 5. Hypomagnesemia. DISCHARGE MEDICATIONS: - Norvasc 10 mg daily - the patient received a dose of fosfomycin, no subsequent antibiotics needed as an outpatient - acetaminophen 650 mg every 8 hours as needed - allopurinol 100 mg twice a day - atenolol 50 mg twice a day - Combigan one drop OS twice a day - Azopt one drop OS twice a day - vitamin D 2000 units daily - Cymbalta 60 mg at night - probiotic one tablet daily - Xalatan one drop OS at night - levothyroxine 75 mcg daily - loperamide 2 mg as needed - losartan 50 mg twice a day - meclizine 25 mg every 8 hours as needed - Zofran 4 mg three times a day as needed - potassium 10 mEq at night - Zantac one tablet daily as needed DISCHARGE INSTRUCTIONS: The patient is to followup with primary care provider. Home care referral has been made. HOSPITAL COURSE: This is an 85-year-old female who lives with her daughter, who works most of the day. She is left alone. She presents to the emergency room with complaints of not feeling well, fatigue and dysuria. THe patient was found to have a urinary tract infection (UTI) and was started on Levaquin, which was renally dosed. Urine culture however showed Escherichia (E) coli , which is resistant to ampicillin, gentamicin, Levaquin, and Bactrim. The patient was subsequently given a dose of fosfomycin since the Levaquin was inadequate. Her white count decreased from admission of 14.8 to a white count of 12 on the day of discharge. She remained afebrile with improvement in symptoms when she was given some Pyridium. PHYSICAL EXAMINATION: On discharge: VITAL SIGNS: Temperature 98.3, pulse 65, respiratory rate 17, blood pressure 166/73, 96% on room air. GENERAL: Awake, alert, oriented to person. She is very hard of hearing. LUNGS: Clear to auscultation. No wheezing, rales or rhonchi. HEART: S1, S2. Sinus rhythm. ABDOMEN: Soft, nontender, nondistended. Positive bowel sounds. EXTREMITIES: No cyanosis, clubbing or pitting edema. LABORATORY DATA: On discharge: White count 12, hemoglobin 11, hematocrit 36, platelet count 300. Sodium 142, potassium 4.4, chloride 112, bicarbonate 25, BUN 21, creatinine 1.1, glucose 120. Urine culture grew E coli, resistant to ampicillin, gentamicin, Levaquin, and Bactrim, sensitive to ampicillin, cefazolin, cefepime, ceftazidime, ceftriaxone, ertapenem, meropenem, nitrofurantoin, piperacillin, tazobactam, tigecycline, tobramycin. IMAGING STUDIES: CT of the abdomen and pelvis showed generalized wall thickening of the urinary bladder with adjacent fat stranding, correlate with UA to assess for cystitis, 5 cm fat containing right parasagittal ventral abdominal wall hernia, additional numerous bilateral isodense and hypodense renal cysts reflecting proteinaceous versus hemorrhagic cysts, chronic findings as above. Time spent on discharge: 30 minutes.
== END 2020-02-10 11:46 | disposition home health service (06) ==
LOC: EDBD 14:49 → M ED 14:49 → M ED INP 14:50 → ENRESERV 22:06 → M MS5PR 22:50
PROVIDERS: ADMIT Internal Medicine; ATTEND General Practice
DX: N39.0 Urinary tract infection, site not specified (principal); B96.20 Unspecified Escherichia coli [E. coli] as the cause of diseases classified elsewhere; Z16.24 Resistance to multiple antibiotics; I10 Essential (primary) hypertension; E03.9 Hypothyroidism, unspecified; E87.6 Hypokalemia; E83.42 Hypomagnesemia; E78.49 Other hyperlipidemia; E11.9 Type 2 diabetes mellitus without complications; M48.061 Spinal stenosis, lumbar region without neurogenic claudication; Z87.891 Personal history of nicotine dependence; Z79.84 Long term (current) use of oral hypoglycemic drugs; Z79.899 Other long term (current) drug therapy; Z88.0 Allergy status to penicillin; Z88.2 Allergy status to sulfonamides; Z91.041 Radiographic dye allergy status; Z91.013 Allergy to seafood; Z88.5 Allergy status to narcotic agent
CPT/HCPCS: 36415; 51701; 74176; 80048; 80053; 80076; 81001; 83690; 83735; 84145; 85025; 85027; 87088; 87186; 96361; 96365; 96366; 96372; 97161; 99285; G0378; J1644; J1956; J3475

== ENCOUNTER → 2020-02-25 | Outpatient (REF) | payer MEDICARE ==
[~2020-02-25] MED LIST changes: +LEVA750T7 PO; +POTA10TA67 PO; +ZANT150T40 PO
[2020-02-25 12:52] LABS: HEMATOCRIT 35.9 % (36.0-47.0); HEMOGLOBIN 11.3 g/dl (12.0-15.5); MEAN CORPUSCULAR HEMOGLOBIN 30.5 pg (27.0-33.0); MEAN CORPUSCULAR HGB CONC 31.5 g/dl (32.0-36.5); PLATELET COUNT, AUTOMATED 330 10^3/uL (150-450)
[2020-02-25 13:23] LABS: CALCIUM LEVEL 8.7 MG/DL (8.8-10.2); CREATININE FOR GFR 1.19 MG/DL (0.55-1.30); MAGNESIUM LEVEL 1.6 MG/DL (1.8-2.4); POTASSIUM SERUM 3.6 MEQ/L (3.5-5.1); THYROID STIMULATING HORMONE 1.61 uIU/ML (0.358-3.740)
== END ==
LOC: M SHH 12:38
PROVIDERS: ATTEND Internal Medicine
DX: K51.90 Ulcerative colitis, unspecified, without complications (principal); E11.22 Type 2 diabetes mellitus with diabetic chronic kidney disease; E03.9 Hypothyroidism, unspecified

== ENCOUNTER → 2020-03-08 | Outpatient (REF) | payer MEDICARE ==
[~2020-03-08] MED LIST changes: +CYCL-707 PO; -CYCL10TA PO
[2020-03-08 14:51] LABS: MAGNESIUM LEVEL 1.7 MG/DL (1.8-2.4); POTASSIUM SERUM 3.3 MEQ/L (3.5-5.1)
== END ==
LOC: M SHH 13:47
PROVIDERS: ATTEND Internal Medicine
DX: E87.6 Hypokalemia (principal); E83.42 Hypomagnesemia

== ENCOUNTER → 2020-03-15 | Outpatient (REF) | payer MEDICARE ==
[2020-03-15 14:58] LABS: CALCIUM LEVEL 9.1 MG/DL (8.8-10.2); CREATININE FOR GFR 1.31 MG/DL (0.55-1.30); GLOMERULAR FILTRATION RATE 41.2 (>32); MAGNESIUM LEVEL 1.7 MG/DL (1.8-2.4); POTASSIUM SERUM 4.4 MEQ/L (3.5-5.1)
== END ==
LOC: M SHH 13:41
PROVIDERS: ATTEND Internal Medicine
DX: I50.32 Chronic diastolic (congestive) heart failure (principal); I13.0 Hypertensive heart and chronic kidney disease with heart failure and stage 1 through stage 4 chronic kidney disease, or unspecified chronic kidney disease

== ENCOUNTER → 2020-03-21 | Outpatient (REF) | payer MEDICARE ==
[2020-03-21 11:23] LABS: HEMATOCRIT 38.4 % (36.0-47.0); HEMOGLOBIN 11.9 g/dl (12.0-15.5); MEAN CORPUSCULAR HEMOGLOBIN 30.4 pg (27.0-33.0); MEAN CORPUSCULAR VOLUME 98.2 fl (80.0-96.0); PLATELET COUNT, AUTOMATED 324 10^3/uL (150-450); RED BLOOD COUNT 3.91 10^6/uL (4.00-5.40); WHITE BLOOD COUNT 13.1 10^3/uL (4.0-10.0)
[2020-03-21 11:52] LABS: CALCIUM LEVEL 9.5 MG/DL (8.8-10.2); CREATININE FOR GFR 1.48 MG/DL (0.55-1.30); GLOMERULAR FILTRATION RATE 35.8 (>32); MAGNESIUM LEVEL 2.1 MG/DL (1.8-2.4); POTASSIUM SERUM 4.6 MEQ/L (3.5-5.1)
== END ==
LOC: M SHH 10:40
PROVIDERS: ATTEND Internal Medicine
DX: N18.3 Chronic kidney disease, stage 3 (moderate) (principal); E83.42 Hypomagnesemia

== ENCOUNTER → 2020-03-29 | Outpatient (REF) | payer MEDICARE ==
[~2020-03-29] MED LIST changes: -DELZ400C PO; +DELZ400C5 PO
[2020-03-29 13:37] LABS: CREATININE FOR GFR 1.34 MG/DL (0.55-1.30); GLOMERULAR FILTRATION RATE 40.1 (>32); MAGNESIUM LEVEL 2.1 MG/DL (1.8-2.4); POTASSIUM SERUM 4.3 MEQ/L (3.5-5.1)
== END ==
LOC: M SHH 12:53
PROVIDERS: ATTEND Internal Medicine
DX: I13.0 Hypertensive heart and chronic kidney disease with heart failure and stage 1 through stage 4 chronic kidney disease, or unspecified chronic kidney disease (principal); N18.9 Chronic kidney disease, unspecified

== ENCOUNTER 2020-05-25 17:21 | Emergency (ER) | payer MEDICARE ==
[~2020-05-25] VITALS: Ht 152.4 cm; Wt 72.7 kg
[2020-05-25 17:54] LABS: BASO % 0.2 % (0.0-1.0); EOS # 0.2 10^3/uL (0.0-0.5); EOS % 1.3 % (0.0-3.0); HEMATOCRIT 33.2 % (36.0-47.0); HEMOGLOBIN 10.4 g/dl (12.0-15.5); LYMPH # 2.2 10^3/uL (1.5-5.0); LYMPH % 13.8 % (24.0-44.0); MEAN CORPUSCULAR HEMOGLOBIN 30.7 pg (27.0-33.0); MEAN CORPUSCULAR HGB CONC 31.3 g/dl (32.0-36.5); MEAN CORPUSCULAR VOLUME 97.9 fl (80.0-96.0); MONO # 1.1 10^3/uL (0.0-0.8); MONO % 7.2 % (0.0-5.0); NEUTROPHILS # 12.1 10^3/uL (1.5-8.5); NEUTROPHILS % 77.1 % (36.0-66.0); PLATELET COUNT, AUTOMATED 304 10^3/uL (150-450); RED BLOOD COUNT 3.39 10^6/uL (4.00-5.40); WHITE BLOOD COUNT 15.7 10^3/uL (4.0-10.0)
--- NOTE | 2020-05-25 18:17 | REP ---
Clinical: Lower chest and abdominal pain . Comparison: 01/30/2020 . Findings: The mediastinum and cardiac silhouette are stable and cardiomegaly is again noted. The lung evangelista demonstrate chronic changes without acute consolidation, effusion, or pneumothorax. Skeletal structures are intact. Impression: No acute cardiopulmonary process appreciated. Electronically Signed by Brayan Robertson MD 05/25/2020 06:08 P
[2020-05-25] MEDS: NS 500 ML IV ONE ×2 (18:24→19:09)
[2020-05-25 18:27] LABS: ALBUMIN 2.6 GM/DL (3.2-5.2); ALT/SGPT 22 U/L (12-78); BILIRUBIN,DIRECT 0.2 MG/DL (0.0-0.2); BILIRUBIN,TOTAL 0.7 MG/DL (0.2-1.0); CK-MB VALUE MASS < 1.0 NG/ML (<3.6); CPK CREATINE PHOSPHOKINASE 20 U/L (26-192); LIPASE 228 U/L (73-393); TOTAL PROTEIN 6.4 GM/DL (6.4-8.2); TROPONIN I < 0.02 NG/ML (< 0.10)
[2020-05-25] MEDS ORDERED: CLOP75TA2 PO (18:47)
[2020-05-25] MEDS ORDERED: FURO20TA2 PO (18:47)
[2020-05-25] MEDS ORDERED: BUSP5TAB81 PO (18:47)
--- NOTE | 2020-05-25 19:17 | REPVR ---
PROCEDURE INFORMATION: Exam: CT Abdomen And Pelvis Without Contrast Exam date and time: 05/25/2020 6:26 PM Age: 85 years old Clinical indication: Abdominal pain; Localized; Right lower quadrant (rlq); Additional info: Abd pain, rlq, contrast allergy TECHNIQUE: Imaging protocol: Computed tomography of the abdomen and pelvis without contrast. Radiation optimization: All CT scans at this facility use at least one of these dose optimization techniques: automated exposure control; mA and/or kV adjustment per patient size (includes targeted exams where dose is matched to clinical indication); or iterative reconstruction. COMPARISON: CT ABD PELVIS W/O CONTRAST 02/08/2020 5:29 PM FINDINGS: Lungs: Thin linear opacity right middle lobe. Heart: Moderate cardiomegaly. Liver: Normal. No mass. Gallbladder and bile ducts: Surgical clips in the gallbladder fossa. The gallbladder is absent. Pancreas: Normal. No ductal dilation. Spleen: Normal. No splenomegaly. Adrenals: Normal. No mass. Kidneys and ureters: 5.7 cm low-density lesion (9 H) lower pole left kidney 16 cm hyperdense exophytic lesion mid left kidney (32 H) 2.1 cm hyperdense lesion upper pole left kidney (68 H). 1.5 cm hyperdense lesion mid right kidney (39 H. 1.8 cm hyperdense lesion upper pole right kidney (51 H 4 cm cyst mid left kidney medially. nonobstructing calcifications in the carie of both kidneys likely vascular in nature. No hydronephrosis in either kidney. Stomach and bowel: Scattered colonic diverticula. Moderate amount of stool in the colon. Appendix: Appendix not seen as a separate structure. Intraperitoneal space: Unremarkable. No free air. No significant fluid collection. Vasculature: Coronary artery calcification. Arterial sclerosis of the abdominal aorta without aneurysm. Lymph nodes: Unremarkable. No enlarged lymph nodes. Bladder: Unremarkable as visualized. Reproductive: Uterus is absent. Ovaries not seen as separate structures. Bones/joints: Grade 1 spondylolisthesis at L4-L5 with 4 mm retrolisthesis of L5 with respect L4. Soft tissues: Incisional hernia containing fat in the mid anterior abdominal wall. No signs of strangulation. IMPRESSION: 1. No acute findings. 2. Bilateral renal lesions of low and high density unchanged from previous and not fully characterized on this examination. 3. Scattered colonic diverticula. No diverticulitis. 4. No bowel wall thickening. Appearance of the bowel is unchanged from previous Moderate amount of stool in the colon. 5. Incisional hernia containing fat in the anterior abdominal wall. No signs of strangulation. Electronically signed by: Annamarie Nicole On 05/25/2020 19:16:48 PM
[2020-05-25] MEDS ORDERED: MIRA3350 PO (21:02)
[2020-05-25 21:15] VITALS: BP 189/94
--- NOTE | 2020-05-26 00:52 | ECGEPIP ---
[facility] - ED Test Date: 2020-05-25 Pat Name: ARTURO OCASIO Department: Room: - Gender: Female Test Baker: thom aj : 1935 Requested By: BABAR Webb Order Number: [id number] Reading MD: Babar Li Measurements Intervals Leonard Rate: 74 P: -11 AR: 160 QRS: 57 QRSD: 88 T: 58 QT: 358 QTc: 398 Interpretive Statements SINUS RHYTHM Baseline artifact Similar to tracing done 01-30-20 Electronically Signed on 05-26-2020 0:51:35 EDT by Babar Li
== END 2020-05-25 21:45 | disposition home or self-care (01) ==
LOC: EDBD 17:21 → M ED 17:21
DX: R10.31 Right lower quadrant pain (principal); E11.9 Type 2 diabetes mellitus without complications; I10 Essential (primary) hypertension; E78.5 Hyperlipidemia, unspecified; M48.00 Spinal stenosis, site unspecified; Z79.899 Other long term (current) drug therapy; Z79.01 Long term (current) use of anticoagulants; Z88.0 Allergy status to penicillin; Z88.1 Allergy status to other antibiotic agents; Z88.2 Allergy status to sulfonamides; Z88.8 Allergy status to other drugs, medicaments and biological substances; Z91.041 Radiographic dye allergy status; Z91.048 Other nonmedicinal substance allergy status; Z87.891 Personal history of nicotine dependence

== ENCOUNTER 2020-10-20 12:42 | Inpatient (IN) | payer MEDICARE ==
[~2020-10-20 12:42] MED LIST changes: -AMLO10TA5 PO; +AMLO1TAB24 PO; +AMLO1TAB25 PO; -AMLO5TAB6 PO; -ASPI81TA85 PO; +ASPI81TA86 PO; +BUSP5TAB81 PO; +D31000TA2 PO; +MIRA3350 PO; +PANT40TA29 PO; -PANT40TA3 PO; -VITAD1000T PO
[2020-10-20] MEDS ORDERED: NS 1,000 ML IV SCH (12:56)
[2020-10-20] MEDS ORDERED: PANTOPRAZOLE 40MG VIAL (C9113 PER 1) IV ONE (13:00)
[2020-10-20] MEDS ORDERED: GLIP5TAB20 PO (13:03)
[2020-10-20] MEDS ORDERED: ENTY1INJ IV (13:03)
[2020-10-20] MEDS ORDERED: LABETALOL 100MG/20ML VIAL IV STA ×2 (13:04→14:00)
[2020-10-20 13:32] LABS: BASO % 0.4 % (0.0-1.0); EOS # 0.4 10^3/uL (0.0-0.5); EOS % 5.1 % (0.0-3.0); HEMATOCRIT 36.5 % (36.0-47.0); LYMPH # 1.6 10^3/uL (1.5-5.0); LYMPH % 18.5 % (24.0-44.0); MEAN CORPUSCULAR HGB CONC 30.1 g/dl (32.0-36.5); MEAN CORPUSCULAR VOLUME 96.3 fl (80.0-96.0); MONO # 0.7 10^3/uL (0.0-0.8); MONO % 8.5 % (0.0-5.0); NEUTROPHILS # 5.6 10^3/uL (1.5-8.5); NEUTROPHILS % 67.1 % (36.0-66.0); PLATELET COUNT, AUTOMATED 267 10^3/uL (150-450); RED BLOOD COUNT 3.79 10^6/uL (4.00-5.40); WHITE BLOOD COUNT 8.4 10^3/uL (4.0-10.0)
[2020-10-20 13:52] LABS: ALBUMIN 2.8 GM/DL (3.2-5.2); ALT/SGPT 10 U/L (12-78); BILIRUBIN,DIRECT 0.1 MG/DL (0.0-0.2); BILIRUBIN,TOTAL 0.4 MG/DL (0.2-1.0); BLOOD UREA NITROGEN 23 MG/DL (7-18); CALCIUM LEVEL 9.1 MG/DL (8.8-10.2); CARBON DIOXIDE LEVEL 26 MEQ/L (21-32); CHLORIDE LEVEL 111 MEQ/L (98-107); CK-MB VALUE MASS < 1.0 NG/ML (<3.6); CPK CREATINE PHOSPHOKINASE 15 U/L (26-192); CREATININE FOR GFR 1.44 MG/DL (0.55-1.30); GLOMERULAR FILTRATION RATE 36.9 (>32); GLUCOSE, FASTING 95 MG/DL (70-100); LIPASE 232 U/L (73-393); MB/CK RELATIVE INDEX 6.67 (< OR =4); POTASSIUM SERUM 3.6 MEQ/L (3.5-5.1); SODIUM LEVEL 143 MEQ/L (136-145); TOTAL PROTEIN 6.5 GM/DL (6.4-8.2); TROPONIN I < 0.02 NG/ML (< 0.10)
--- NOTE | 2020-10-20 13:53 | REP ---
INDICATION: Abdominal Pain COMPARISON: None. TECHNIQUE: Supine views of the chest, abdomen, and pelvis with cross-table lateral view of the abdomen. FINDINGS: Frontal view of the chest demonstrates cardiomegaly and chronic changes. Bowel gas pattern is nonspecific although ileus cannot be excluded. No obvious obstruction or perforation. No organomegaly. Skeletal structures demonstrate age-related degenerative changes. IMPRESSION: Relatively nonspecific bowel gas pattern. <Electronically signed by Brayan Robertson > 10/20/20 [id number]
[2020-10-20] MEDS ORDERED: GLUCAGON INJ 1MG VIAL SC PRN (15:30)
[2020-10-20] MEDS ORDERED: hydrALAZINE 20MG/ML 1ML VIAL (J0360 PER 20MG) IV PRN (15:30)
[2020-10-20] MEDS ORDERED: DEXTROSE 50% 50 ML SYRINGE IV PRN (15:30)
[2020-10-20] MEDS ORDERED: GLUCOSE 4GM CHEW TABLET PO PRN (15:30)
[2020-10-20] MEDS ORDERED: CAPTOpril 6.25 MG PER 1/2 TABLET PO SCH ×2 (15:30→17:00)
--- NOTE | 2020-10-20 15:48 | HPEPDOC ---
General Date of Admission 10/20/20 Date of Service: Oct 20, 2020 Chief Complaint The patient is a 85-year-old female admitted with a reason for visit of General Weakness. Source: Patient Exam Limitations: No limitations Timing/Duration: Day(s) Severity: Moderate Associated Symptoms: Weakness History of Present Illness Patient is 85-year-old female with past medical history including spinal stenosis, hypertension, diabetes mellitus and hyperlipidemia presents with generalized weakness. Patient stated that she's been feeling weak for past few days. She denies fever, chills, nausea, vomiting, diarrhea or dysuria. In ER patient was found to have blood pressure of 202/92. Patient stated that she took her morning meds. Labs pertinent for creatinine 1.4. EKG did not show any acute ischemic changes. Abdominal x-ray negative for acute pathology. Home Medications Scheduled Allopurinol (Allopurinol) 100 Mg Tab, 100 MG PO DAILY, (Reported) Amlodipine Besylate (Amlodipine Besylate) 10 Mg Tablet, 10 MG PO DAILY Atenolol (Atenolol) 50 Mg Tab, 50 MG PO BID, (Reported) Brimonidine Tartrate/Timolol (Combigan 0.2%-0.5% Eye Drops) 1 Lilly Lilly, 1 DROP OS BID, (Reported) Brinzolamide (Azopt) 1 % Melissa, 1 DROP OS BID, (Reported) Buspirone HCl (Buspirone HCl) 5 Mg Tablet, 5 MG PO QAM, (Reported) Cholecalciferol (Vitamin D3) (Vitamin D3) 1,000 Unit Tablet, 2,000 UNITS PO DAILY, (Reported) Clopidogrel Bisulfate (Clopidogrel) 75 Mg Tablet, 1 TAB PO DAILY, (Reported) Duloxetine Hcl (Cymbalta) 60 Mg Capsule.dr, 60 MG PO QHS, (Reported) Furosemide (Furosemide) 20 Mg Tablet, 1 TAB PO DAILY, (Reported) Glipizide (Glipizide ER) 5 Mg Tab.er.24, 1 TAB PO DAILY, (Reported) Lactobacillus Combo No.10 (Probiotic) 1 Each Capsule, 1 TAB PO DAILY, (Reported) Latanoprost (Xalatan) 0.005 % Lilly, 1 DROP OS QHS, (Reported) Levothyroxine Sodium (Levothyroxine Sodium) 75 Mcg Tab, 75 MCG PO DAILY, (Reported) Losartan Potassium (Losartan Potassium) 50 Mg Tablet, 100 MG PO DAILY, (Reported) ON 02/03/2020 RX FOR 100MG DAILY Potassium Chloride (Potassium Chloride) 10 Meq Tab.er.prt, 10 MEQ PO QHS, (Reported) Vedolizumab (Entyvio) 300 Mg Vial, 300 MG IV [id number], (Reported) Scheduled PRN Acetaminophen (Pain Reliever) 650 Mg Tab, 650 MG PO Q8H PRN for PAIN, (Reported) Loperamide HCl (Loperamide) 2 Mg Capsule, 2 MG PO Q4H PRN for AFTER EACH LOOSE STOOL, (Reported) Meclizine HCl (Meclizine HCl) 25 Mg Tab, 25 MG PO Q8H PRN for DIZZINESS, (R eported) Ondansetron (Ondansetron Odt) 4 Mg Tab, 4 MG PO TID PRN for NAUSEA, (Reported) Polyethylene Glycol 3350 (Miralax) 119 Gm Powder, 17 GM PO DAILY PRN for CONSTIPATION dilute in 8 ounces of water or juice- adjust dose to achieve 2-3 loose BMs per day Allergies Coded Allergies: sulfasalazine (Verified Allergy, Severe, hives, hematemesis,difficulty breathing, 10/20/20) Penicillins (Verified Allergy, Intermediate, SWELLING/RASH, 10/20/20) Sulfa (Sulfonamide Antibiotics) (Verified Allergy, Mild, RASH, 10/20/20) clavulanic acid (Verified Allergy, Mild, PRURITIS, 10/20/20) doxycycline (Verified Allergy, Mild, RASH, 10/20/20) Contrast Media (Verified Allergy, Unknown, 10/20/20) TAPE (Verified Allergy, Unknown, BANDAIDS, 10/20/20) benzalkonium chloride (Verified Allergy, Unknown, 10/20/20) shellfish derived (Verified Allergy, Unknown, 10/20/20) timolol (Verified Allergy, Unknown, OPTHALMIC DROPS, 10/20/20) travoprost (Verified Allergy, Unknown, 10/20/20) Gjllcvw-Xsm-Kiv Reductase Inhibitor (Verified Adverse Reaction, Intermediate, MUSCLE ACHES, 10/20/20) oxycodone (Verified Adverse Reaction, Intermediate, HX OF AMS W/FALL ON SCHEDULED PERCOCET 5/325, 10/20/20) HX OF AMS W/FALL ON SCHEDULED PERCOCET 5/325 IN JANUARY 2019 prednisone (Verified Adverse Reaction, Intermediate, INCREASED INTRAOCCULA R PRESSURES, 10/20/20) diatrizoate meglumine (Verified Adverse Reaction, Mild, ABDOMINAL PAIN, 10/20/20) diatrizoate sodium (Verified Adverse Reaction, Mild, ABDOMINAL PAIN, 10/20/20) diltiazem (Verified Adverse Reaction, Mild, N,V,D, 10/20/20) gemfibrozil (Verified Adverse Reaction, Mild, PAIN, 10/20/20) metoprolol (Verified Adverse Reaction, Mild, DIZZINESS, 10/20/20) Past Medical History Medical History 1. Severe spinal stenosis. 2. Hypertension. 3. . Diabetes mellitus. 4. Hyperlipidemia. 5. Hard of hearing Surgical History 1. Cholecystectomy. 2.Hysterectomy. Family History Positive for heart disease Social History * Smoker: Denies Alcohol: Denies Drugs: denies A-FIB/CHADSVASC A-FIB History Current/History of A-Fib/PAF?: No Current PO Anticoag Therapy: No Review of Systems Constitutional: Reports: Fatigue; Denies: Chills, Fever Eyes: Denies: Pain ENT: Denies: Head Aches Skin: Denies: Lesions Pulmonary: Denies: Dyspnea Cardiovascular: Denies: Chest Pain Gastrointestinal: Denies: Nausea, Vomiting Genitourinary: Denies: Dysuria Hematologic: Denies: Bruising Endocrine: Denies: Polydipsia Musculoskeletal: Denies: Neck Pain Neurological: Denies: Weakness Psych: Reports: Mood Normal Physical Examination General Exam: Positive: Alert, Cooperative Eye Exam: Positive: PERRLA Neck Exam: Positive: Supple; Negative: JVD Chest Exam: Positive: Clear to auscultation Heart Exam: Positive: Rate Normal Telemetry: Positive: No significant arrhythmia Abdomen Exam: Positive: Normal bowel sounds Extremity Exam: Negative: Clubbing Skin Exam: Positive: Nl turgor and temperature Neuro Exam: Positive: Strength at 5/5 X4 ext, Cranial Nerves 3-12 NL Psych Exam: Positive: Mental status NL Vital Signs Vital Signs Date Time Temp Pulse Resp B/P (MAP) Pulse Ox O2 Delivery O2 Flow Rate FiO2 10/20/20 12:56 97.9 76 18 202/91 (128) 99 Room Air Laboratory Data Labs 24H Laboratory Tests 2 10/20/20 13:07: Immature Granulocyte % (Auto) 0.4, Neutrophils (%) (Auto) 67.1H, Lymphocytes (%) (Auto) 18.5L, Monocytes (%) (Auto) 8.5H, Eosinophils (%) (Auto) 5.1H, Basophils (%) (Auto) 0.4, Neutrophils # (Auto) 5.6, Lymphocytes # (Auto) 1.6, Monocytes # (Auto) 0.7, Eosinophils # (Auto) 0.4, Basophils # (Auto) 0.0, Nucleated Red Blood Cells % (auto) 0.0, Anion Gap 6L, Glomerular Filtration Rate 36.9, Lactic Acid Level 1.0, Calcium Level 9.1, Total Bilirubin 0.4, Direct Bilirubin 0.1, Aspartate Amino Transf (AST/SGOT) 9, Alanine Aminotransferase (ALT/SGPT) 10L, Alkaline Phosphatase 88, Total Creatine Kinase 15L, Creatine Kinase MB < 1.0, Creatine Kinase MB Relative Index 6.67H, Troponin I < 0.02, Total Protein 6.5, Albumin 2.8L, Albumin/Globulin Ratio 0.8L, Lipase 232 CBC/BMP Laboratory Tests 10/20/20 13:07 Assessment/Plan Patient is 85-year-old female with past medical history including spinal stenosis, hypertension, diabetes mellitus and hyperlipidemia presents with generalized weakness. Patient stated that she's been feeling weak for past few days. She denies fever, chills, nausea, vomiting, diarrhea or dysuria. In ER patient was found to have blood pressure of 202/92. Patient stated that she took her morning meds. Labs pertinent for creatinine 1.4. EKG did not show any acute ischemic changes. Abdominal x-ray negative for acute pathology. Problems (1) Hypertensive urgency Status: Acute Problem Text: Captopril 6.25 with parameters Continue home cardioprotective medications Hydralazine IV with parameters (2) Acute kidney injury superimposed on CKD Status: Acute Problem Text: Most likely secondary to hypertensive urgency Creatinine Close to her baseline Continue to monitor (3) Hypothyroidism Status: Chronic Problem Text: Continues Synthroid (4) Diabetes mellitus Problem Text: Insulin sliding scale Diabetes diet Plan / VTE VTE Prophylaxis Ordered?: Yes COURTNEY MCKNIGHT DO Oct 20, 2020 15:48
[2020-10-20] MEDS ORDERED: ONDANSETRON 4 MG ORAL DISINTEGRATING TAB PO PRN (16:00)
[2020-10-20] MEDS ORDERED: ACETAMINOPHEN TAB 650MG DOSE (2X325MG) PO PRN (16:00)
[2020-10-20] MEDS ORDERED: MECLIZINE 25 MG TABLET PO PRN (16:00)
[2020-10-20] MEDS ORDERED: AMLO1TAB25 PO (16:01)
[2020-10-20] MEDS ORDERED: LOSA100T50 PO (16:01)
--- NOTE | 2020-10-20 19:22 | ECGEPIP ---
[facility] - ED Test Date: 2020-10-20 Pat Name: ARTURO OCASIO Department: Room: - Gender: Female High Heel Builder: joaquin : 1935 Requested By: DAVON SUTTON Order Number: [id number] Reading MD: Wes Castillo Measurements Intervals Ware Rate: 76 P: -25 WI: 155 QRS: 71 QRSD: 92 T: 73 QT: 377 QTc: 425 Interpretive Statements SINUS RHYTHM POOR R WAVE PROGRESSION NONSPECIFIC ST T WAVE CHANGES CW 05/25/[address] T WAVE CHANGES Electronically Signed on 10-20-2020 19:22:50 EST by Wes Castillo
[2020-10-20 22:10] VITALS: BP 210/80
[2020-10-20 23:07] VITALS: BP 210/82
[2020-10-20] MEDS: HumaLOG INSULIN (NovoLOG) PER UNIT SC SCH ×2 (23:12)
[2020-10-21] VITALS (8 sets, daily range): BP systolic 137–184; BP diastolic 54–79
[2020-10-21] MEDS: HEPARIN SOD (PORCINE) 5000UNITS/ML 1ML VIAL/SYRINGE SC SCH ×3 (01:00→21:38)
[2020-10-21] MEDS: LATANOPROST 0.005% OPHTH SOLN 2.5 ML OS SCH ×2 (01:00→21:39)
[2020-10-21] MEDS: BRINZOLAMIDE 1 % OPHTH SUSP (AZOPT) 10ML OS SCH ×2 (01:00→21:40)
[2020-10-21 05:20] LABS: HEMATOCRIT 35.5 % (36.0-47.0); MEAN CORPUSCULAR HEMOGLOBIN 29.5 pg (27.0-33.0); MEAN CORPUSCULAR VOLUME 95.2 fl (80.0-96.0); PLATELET COUNT, AUTOMATED 247 10^3/uL (150-450); RED BLOOD COUNT 3.73 10^6/uL (4.00-5.40); WHITE BLOOD COUNT 10.6 10^3/uL (4.0-10.0)
[2020-10-21 05:56] LABS: ALBUMIN 2.5 GM/DL (3.2-5.2); BILIRUBIN,TOTAL 0.7 MG/DL (0.2-1.0); CALCIUM LEVEL 8.8 MG/DL (8.8-10.2); CREATININE FOR GFR 1.26 MG/DL (0.55-1.30); GLOMERULAR FILTRATION RATE 43.1 (>32); MAGNESIUM LEVEL 1.6 MG/DL (1.8-2.4); POTASSIUM SERUM 3.4 MEQ/L (3.5-5.1); TOTAL PROTEIN 5.9 GM/DL (6.4-8.2)
[2020-10-21] MEDS: LEVOTHYROXINE 75MCG TABLET (0.075MG) PO SCH (06:23)
[2020-10-21] MEDS: HumaLOG INSULIN (NovoLOG) PER UNIT SC SCH ×4 (07:30→21:00)
[2020-10-21] MEDS ORDERED: POTASSIUM CHLORIDE 10 MEQ SR TABLET PO ONE (08:00)
[2020-10-21] MEDS: CHLORTHALIDONE 25 MG TAB PO SCH (08:43)
[2020-10-21] MEDS: allopurinoL 100 MG TAB PO SCH (08:43)
[2020-10-21] MEDS: FUROSEMIDE 20 MG TAB PO SCH (08:44)
[2020-10-21] MEDS: DULoxetine 30 MG CAP (CYMBALTA) PO SCH (08:44)
[2020-10-21] MEDS: amLODIPine 10 MG TAB PO SCH (08:44)
[2020-10-21] MEDS: **hydrALAZINE** 10 MG TAB PO SCH ×3 (08:44→21:39)
[2020-10-21] MEDS: VITAMIN D 1,000 INTERNATIONAL UNITS TABLET PO SCH (08:45)
[2020-10-21] MEDS: atenoloL 50 MG TAB PO SCH (08:45)
[2020-10-21] MEDS: LOSARTAN 50MG TABLET PO SCH (08:45)
[2020-10-21] MEDS: POTASSIUM CHLORIDE 10 MEQ SR TABLET PO SCH (08:46)
--- NOTE | 2020-10-21 09:47 | IPNPDOC ---
Text Note Date of Service The patient was seen on 10/21/20. NOTE Subjective: No any acute events overnight. In the morning her systolic blood pressure is of 180 Objective: GENERAL APPEARANCE: NAD HEENT: no scleral icterus, no JVD, EOMI CARDIOVASCULAR: S1S2 LUNGS: Diminished lung sounds bilaterally ABDOMEN: soft & not tender w palpitation MUSCULOSKELETAL: no cyanosis, no swelling INTEGUMENT: no generalized palor NEUROLOGICAL: cranial nerve function from 2-12 intact intact, follows commands, speech not dysarthric Assessment/Plan Patient is 85-year-old female with past medical history including spinal stenosis, hypertension, diabetes mellitus and hyperlipidemia presents with generalized weakness. Patient stated that she's been feeling weak for past few days. She denies fever, chills, nausea, vomiting, diarrhea or dysuria. In ER patient was found to have blood pressure of 202/92. Patient stated that she took her morning meds. Labs pertinent for creatinine 1.4. EKG did not show any acute ischemic changes. Abdominal x-ray negative for acute pathology. Problems (1) Hypertensive urgency Continue home cardioprotective medications Hydralazine IV with parameters I added chlorthalidone and hydralazine 3 times a day (2) Acute kidney injury superimposed on CKD Resolved Most likely secondary to hypertensive urgency Creatinine Close to her baseline Continue to monitor (3) Hypothyroidism Continues Synthroid (4) Diabetes mellitus Insulin sliding scale Diabetes diet VS,Fishbone, I+O VS, Fishbone, I+O Laboratory Tests 10/20/20 13:07 10/21/20 05:05 Vital Signs Date Time Temp Pulse Resp B/P (MAP) Pulse Ox O2 Delivery O2 Flow Rate FiO2 10/21/20 08:45 184/54 10/21/20 08:45 89 10/21/20 07:37 98.3 20 98 Room Air I&O- Last 24 Hours up to 6 AM 10/21/20 06:00 Intake Total 200 ml Output Total 200 ml Balance 0 ml COURTNEY MCKNIGHT DO Oct 21, 2020 09:47
[2020-10-22] VITALS: BP 164/74
[2020-10-22 04:00] VITALS: BP 154/73
[2020-10-22] MEDS: LEVOTHYROXINE 75MCG TABLET (0.075MG) PO SCH (05:23)
[2020-10-22 08:00] VITALS: BP 146/83
[2020-10-22] MEDS: amLODIPine 10 MG TAB PO SCH (08:54)
[2020-10-22] MEDS: VITAMIN D 1,000 INTERNATIONAL UNITS TABLET PO SCH (08:55)
[2020-10-22] MEDS: atenoloL 50 MG TAB PO SCH ×2 (08:55→09:00)
[2020-10-22] MEDS: DULoxetine 30 MG CAP (CYMBALTA) PO SCH (08:55)
[2020-10-22] MEDS: allopurinoL 100 MG TAB PO SCH (08:55)
[2020-10-22] MEDS: POTASSIUM CHLORIDE 10 MEQ SR TABLET PO SCH (08:55)
[2020-10-22] MEDS: LOSARTAN 50MG TABLET PO SCH (08:56)
[2020-10-22] MEDS: **hydrALAZINE** 10 MG TAB PO SCH ×3 (08:56→21:33)
[2020-10-22] MEDS: FUROSEMIDE 20 MG TAB PO SCH (08:57)
[2020-10-22] MEDS: CHLORTHALIDONE 25 MG TAB PO SCH (08:57)
[2020-10-22] MEDS: HumaLOG INSULIN (NovoLOG) PER UNIT SC SCH ×4 (08:57→21:00)
[2020-10-22] MEDS: HEPARIN SOD (PORCINE) 5000UNITS/ML 1ML VIAL/SYRINGE SC SCH ×2 (08:58→21:33)
--- NOTE | 2020-10-22 09:44 | IPNPDOC ---
Text Note Date of Service The patient was seen on 10/22/20. NOTE Subjective: No any acute events overnight. Her blood pressure was stabilized. Objective: GENERAL APPEARANCE: NAD HEENT: no scleral icterus, no JVD, EOMI CARDIOVASCULAR: S1S2 LUNGS: Diminished lung sounds bilaterally ABDOMEN: soft & not tender w palpitation MUSCULOSKELETAL: no cyanosis, no swelling INTEGUMENT: no generalized palor NEUROLOGICAL: cranial nerve function from 2-12 intact intact, follows commands, speech not dysarthric Assessment/Plan Patient is 85-year-old female with past medical history including spinal stenosis, hypertension, diabetes mellitus and hyperlipidemia presents with generalized weakness. Patient stated that she's been feeling weak for past few days. She denies fever, chills, nausea, vomiting, diarrhea or dysuria. In ER pat keri was found to have blood pressure of 202/92. Patient stated that she took her morning meds. Labs pertinent for creatinine 1.4. EKG did not show any acute ischemic changes. Abdominal x-ray negative for acute pathology. Problems (1) Hypertensive urgency/ hypertension Continue home cardioprotective medications Hydralazine IV with parameters I added chlorthalidone and hydralazine 3 times a day Her current blood pressure improved. There is question for compliance to medication at home settings (2) Acute kidney injury superimposed on CKD Resolved Most likely secondary to hypertensive urgency Creatinine Close to her baseline Continue to monitor (3) Hypothyroidism Continues Synthroid (4) Diabetes mellitus Insulin sliding scale Diabetes diet VS,Fishbone, I+O VS, Fishbone, I+O Vital Signs Date Time Temp Pulse Resp B/P (MAP) Pulse Ox O2 Delivery O2 Flow Rate FiO2 10/22/20 09:00 58 10/22/20 08:54 146/83 10/22/20 08:00 97.2 16 96 Room Air I&O- Last 24 Hours up to 6 AM 10/22/20 06:00 Intake Total 1040 ml Output Total 300 ml Balance 740 ml COURTNEY MCKNIGHT DO Oct 22, 2020 09:44
[2020-10-22 12:00] VITALS: BP 147/90
[2020-10-22 16:00] VITALS: BP 131/61
[2020-10-22 20:00] VITALS: BP 150/68
[2020-10-22] MEDS: BRINZOLAMIDE 1 % OPHTH SUSP (AZOPT) 10ML OS SCH (21:33)
[2020-10-22] MEDS: LATANOPROST 0.005% OPHTH SOLN 2.5 ML OS SCH (21:34)
[2020-10-23] VITALS (8 sets, daily range): BP systolic 120–154; BP diastolic 56–79
[2020-10-23] MEDS: LEVOTHYROXINE 75MCG TABLET (0.075MG) PO SCH (05:47)
[2020-10-23 06:08] LABS: HEMATOCRIT 36.6 % (36.0-47.0); HEMOGLOBIN 11.5 g/dl (12.0-15.5); MEAN CORPUSCULAR HEMOGLOBIN 29.9 pg (27.0-33.0); MEAN CORPUSCULAR HGB CONC 31.4 g/dl (32.0-36.5); MEAN CORPUSCULAR VOLUME 95.1 fl (80.0-96.0); PLATELET COUNT, AUTOMATED 283 10^3/uL (150-450); RED BLOOD COUNT 3.85 10^6/uL (4.00-5.40); WHITE BLOOD COUNT 10.4 10^3/uL (4.0-10.0)
[2020-10-23 06:30] LABS: CALCIUM LEVEL 9.1 MG/DL (8.8-10.2); CREATININE FOR GFR 1.63 MG/DL (0.55-1.30); MAGNESIUM LEVEL 1.8 MG/DL (1.8-2.4)
[2020-10-23] MEDS: HumaLOG INSULIN (NovoLOG) PER UNIT SC SCH ×4 (07:22→21:00)
[2020-10-23] MEDS: LOSARTAN 50MG TABLET PO SCH (09:28)
[2020-10-23] MEDS: atenoloL 50 MG TAB PO SCH (09:28)
[2020-10-23] MEDS: HEPARIN SOD (PORCINE) 5000UNITS/ML 1ML VIAL/SYRINGE SC SCH ×2 (09:28→21:13)
[2020-10-23] MEDS: VITAMIN D 1,000 INTERNATIONAL UNITS TABLET PO SCH (09:28)
[2020-10-23] MEDS: allopurinoL 100 MG TAB PO SCH (09:28)
[2020-10-23] MEDS: CHLORTHALIDONE 25 MG TAB PO SCH (09:28)
[2020-10-23] MEDS: FUROSEMIDE 20 MG TAB PO SCH (09:29)
[2020-10-23] MEDS: DULoxetine 30 MG CAP (CYMBALTA) PO SCH (09:29)
[2020-10-23] MEDS: **hydrALAZINE** 10 MG TAB PO SCH ×3 (09:30→21:12)
[2020-10-23] MEDS: POTASSIUM CHLORIDE 10 MEQ SR TABLET PO SCH (09:30)
[2020-10-23] MEDS: amLODIPine 10 MG TAB PO SCH (09:30)
--- NOTE | 2020-10-23 10:28 | IPNPDOC ---
Text Note Date of Service The patient was seen on 10/23/20. NOTE Subjective: No any acute events overnight. Patient denies fever, chills, nausea, diarrhea or dysuria Objective: GENERAL APPEARANCE: NAD HEENT: no scleral icterus, no JVD, EOMI CARDIOVASCULAR: S1S2 LUNGS: Diminished lung sounds bilaterally ABDOMEN: soft & not tender w palpitation MUSCULOSKELETAL: no cyanosis, no swelling INTEGUMENT: no generalized palor NEUROLOGICAL: cranial nerve function from 2-12 intact intact, follows commands, speech not dysarthric Assessment/Plan Patient is 85-year-old female with past medical history including spinal stenosis, hypertension, diabetes mellitus and hyperlipidemia presents with generalized weakness. Patient stated that she's been feeling weak for past few days. She denies fever, chills, nausea, vomiting, diarrhea or dysuria. In ER patient was found to have blood pressure of 202/92. Patient stated that she took her morning meds. Labs pertinent for creatinine 1.4. EKG did not show any acute ischemic changes. Abdominal x-ray negative for acute pathology. Problems (1) Hypertensive urgency/ hypertension Continue home cardioprotective medications Hydralazine IV with parameters I added chlorthalidone and hydralazine 3 times a day Her current blood pressure improved. There is question for compliance to medicat ion at home settings (2) Acute kidney injury superimposed on CKD Resolved Most likely secondary to hypertensive urgency Creatinine Close to her baseline Continue to monitor (3) Hypothyroidism Continues Synthroid (4) Diabetes mellitus Insulin sliding scale Diabetes diet Asymptomatic bacteriuria Urine culture positive for Klebsiella pneumonia Patient does not have suprapubic pain or dysuria According to guidelines treatment with antibiotics not indicated VS,Alex, I+O VS, Alex, I+O Laboratory Tests 10/23/20 05:47 Vital Signs Date Time Temp Pulse Resp B/P (MAP) Pulse Ox O2 Delivery O2 Flow Rate FiO2 10/23/20 09:30 151/68 10/23/20 09:30 56 10/23/20 07:47 97.2 18 96 Room Air I&O- Last 24 Hours up to 6 AM 10/23/20 06:00 Intake Total 600 ml Output Total 300 ml Balance 300 ml COURTNEY MCKNIGHT DO Oct 23, 2020 10:28
[2020-10-23] MEDS: LATANOPROST 0.005% OPHTH SOLN 2.5 ML OS SCH (21:11)
[2020-10-23] MEDS: BRINZOLAMIDE 1 % OPHTH SUSP (AZOPT) 10ML OS SCH (21:11)
[2020-10-23] MEDS: ACETAMINOPHEN TAB 650MG DOSE (2X325MG) PO PRN (21:12)
[2020-10-24] MEDS: LEVOTHYROXINE 75MCG TABLET (0.075MG) PO SCH (05:36)
[2020-10-24 06:00] VITALS: BP 136/54
[2020-10-24 06:41] LABS: HEMATOCRIT 37.6 % (36.0-47.0); HEMOGLOBIN 11.4 g/dl (12.0-15.5); MEAN CORPUSCULAR HEMOGLOBIN 28.7 pg (27.0-33.0); MEAN CORPUSCULAR HGB CONC 30.3 g/dl (32.0-36.5); MEAN CORPUSCULAR VOLUME 94.7 fl (80.0-96.0); PLATELET COUNT, AUTOMATED 302 10^3/uL (150-450); RED BLOOD COUNT 3.97 10^6/uL (4.00-5.40); WHITE BLOOD COUNT 10.7 10^3/uL (4.0-10.0)
[2020-10-24 06:54] LABS: CALCIUM LEVEL 9.6 MG/DL (8.8-10.2); CREATININE FOR GFR 1.91 MG/DL (0.55-1.30); GLOMERULAR FILTRATION RATE 26.6 (>32); MAGNESIUM LEVEL 1.9 MG/DL (1.8-2.4); POTASSIUM SERUM 3.9 MEQ/L (3.5-5.1)
[2020-10-24] MEDS: HumaLOG INSULIN (NovoLOG) PER UNIT SC SCH ×4 (07:23→20:23)
[2020-10-24] MEDS: amLODIPine 10 MG TAB PO SCH (09:00)
[2020-10-24] MEDS: VITAMIN D 1,000 INTERNATIONAL UNITS TABLET PO SCH (09:00)
[2020-10-24] MEDS: LOSARTAN 50MG TABLET PO SCH (09:00)
[2020-10-24] MEDS: DULoxetine 30 MG CAP (CYMBALTA) PO SCH (09:00)
[2020-10-24] MEDS: FUROSEMIDE 20 MG TAB PO SCH (09:00)
[2020-10-24] MEDS: POTASSIUM CHLORIDE 10 MEQ SR TABLET PO SCH (09:00)
[2020-10-24] MEDS: **hydrALAZINE** 10 MG TAB PO SCH (09:00)
[2020-10-24] MEDS: atenoloL 50 MG TAB PO SCH (09:00)
[2020-10-24] MEDS: allopurinoL 100 MG TAB PO SCH (09:00)
[2020-10-24] MEDS: CHLORTHALIDONE 25 MG TAB PO SCH (09:00)
[2020-10-24] MEDS: HEPARIN SOD (PORCINE) 5000UNITS/ML 1ML VIAL/SYRINGE SC SCH ×2 (09:00→20:22)
--- NOTE | 2020-10-24 12:18 | IPNPDOC ---
Text Note Date of Service The patient was seen on 10/24/20. NOTE Subjective: Patient seems somewhat confused in the morning. She does not jose mber that she refused to take morning pills. After I talked to her she agreed to take it GENERAL APPEARANCE: NAD HEENT: no scleral icterus, no JVD, EOMI CARDIOVASCULAR: S1S2 LUNGS: Diminished lung sounds bilaterally ABDOMEN: soft & not tender w palpitation MUSCULOSKELETAL: no cyanosis, no swelling INTEGUMENT: no generalized palor NEUROLOGICAL: cranial nerve function from 2-12 intact intact, follows commands, speech not dysarthric Assessment/Plan Patient is 85-year-old female with past medical history including spinal stenosis, hypertension, diabetes mellitus and hyperlipidemia presents with generalized weakness. Patient stated that she's been feeling weak for past few days. She denies fever, chills, nausea, vomiting, diarrhea or dysuria. In ER patient was found to have blood pressure of 202/92. Patient stated that she took her morning meds. Labs pertinent for creatinine 1.4. EKG did not show any acute ischemic changes. Abdominal x-ray negative for acute pathology. Problems (1) Hypertensive urgency/ hypertension Continue home cardioprotective medications Hydralazine IV with parameters I added chlorthalidone and hydralazine 3 times a day Her current blood pressure improved. There is question for compliance to medication at home settings (2) Acute kidney injury superimposed on CKD Worsening today. DC Lasix Continue to monitor (3) Hypothyroidism Continues Synthroid (4) Diabetes mellitus Insulin sliding scale Diabetes diet UTI Patient more forgetful in the morning and slightly confused Can be signs of UTI, Urine culture positive for Klebsiella pneumonia Levofloxacin by mouth for 3 days VS,Manne, I+O VS, Fishbone, I+O Laboratory Tests 10/24/20 06:26 Vital Signs Date Time Temp Pulse Resp B/P (MAP) Pulse Ox O2 Delivery O2 Flow Rate FiO2 10/24/20 07:45 2.0 10/24/20 06:00 97.6 70 18 136/54 (81) 96 Room Air I&O- Last 24 Hours up to 6 AM 10/24/20 06:00 Intake Total 400 ml Output Total 450 ml Balance -50 ml COURTNEY MCKNIGHT DO Oct 24, 2020 12:18
[2020-10-24] MEDS: LevoFLOXacin 250 MG TABLET PO SCH (13:57)
[2020-10-24 14:00] VITALS: BP 131/62
[2020-10-24] MEDS: LATANOPROST 0.005% OPHTH SOLN 2.5 ML OS SCH (20:21)
[2020-10-24] MEDS: BRINZOLAMIDE 1 % OPHTH SUSP (AZOPT) 10ML OS SCH (20:21)
[2020-10-24] MEDS: ACETAMINOPHEN TAB 650MG DOSE (2X325MG) PO PRN (20:21)
[2020-10-24 22:00] VITALS: BP 130/56
[2020-10-25] MEDS: LEVOTHYROXINE 75MCG TABLET (0.075MG) PO SCH (05:43)
[2020-10-25] MEDS: LevoFLOXacin 250 MG TABLET PO SCH (05:43)
[2020-10-25 06:00] VITALS: BP 139/63
[2020-10-25] MEDS: HumaLOG INSULIN (NovoLOG) PER UNIT SC SCH ×4 (07:30→20:32)
[2020-10-25 08:12] LABS: HEMATOCRIT 36.2 % (36.0-47.0); HEMOGLOBIN 11.3 g/dl (12.0-15.5); MEAN CORPUSCULAR HEMOGLOBIN 29.6 pg (27.0-33.0); MEAN CORPUSCULAR HGB CONC 31.2 g/dl (32.0-36.5); MEAN CORPUSCULAR VOLUME 94.8 fl (80.0-96.0); PLATELET COUNT, AUTOMATED 302 10^3/uL (150-450); RED BLOOD COUNT 3.82 10^6/uL (4.00-5.40); WHITE BLOOD COUNT 10.1 10^3/uL (4.0-10.0)
[2020-10-25 08:36] LABS: CREATININE FOR GFR 2.03 MG/DL (0.55-1.30); GLOMERULAR FILTRATION RATE 24.8 (>32); POTASSIUM SERUM 4.2 MEQ/L (3.5-5.1)
[2020-10-25] MEDS: HEPARIN SOD (PORCINE) 5000UNITS/ML 1ML VIAL/SYRINGE SC SCH ×2 (08:44→20:35)
[2020-10-25] MEDS: VITAMIN D 1,000 INTERNATIONAL UNITS TABLET PO SCH (08:44)
[2020-10-25] MEDS: LOSARTAN 50MG TABLET PO SCH (08:45)
[2020-10-25] MEDS: atenoloL 50 MG TAB PO SCH (08:46)
[2020-10-25] MEDS: POTASSIUM CHLORIDE 10 MEQ SR TABLET PO SCH (08:46)
[2020-10-25] MEDS: DULoxetine 30 MG CAP (CYMBALTA) PO SCH (08:46)
[2020-10-25] MEDS: amLODIPine 10 MG TAB PO SCH (08:46)
[2020-10-25] MEDS: CHLORTHALIDONE 25 MG TAB PO SCH (08:46)
[2020-10-25] MEDS: allopurinoL 100 MG TAB PO SCH (08:46)
--- NOTE | 2020-10-25 13:09 | IPNPDOC ---
Text Note Date of Service The patient was seen on 10/25/20. NOTE Subjective: No any acute events overnight. Patient denies fever, chills, nausea, diarrhea or dysuria. Patient alert and oriented GENERAL APPEARANCE: NAD HEENT: no scleral icterus, no JVD, EOMI CARDIOVASCULAR: S1S2 LUNGS: Diminished lung sounds bilaterally ABDOMEN: soft & not tender w palpitation MUSCULOSKELETAL: no cyanosis, no swelling INTEGUMENT: no generalized palor NEUROLOGICAL: cranial nerve function from 2-12 intact intact, follows commands, speech not dysarthric Assessment/Plan Patient is 85-year-old female with past medical history including spinal stenosis, hypertension, diabetes mellitus and hyperlipidemia presents with generalized weakness. Patient stated that she's been feeling weak for past few days. She denies fever, chills, nausea, vomiting, diarrhea or dysuria. In ER patient was found to have blood pressure of 202/92. Patient stated that she took her morning meds. Labs pertinent for creatinine 1.4. EKG did not show any acute ischemic changes. Abdominal x-ray negative for acute pathology. Problems (1) Hypertensive urgency/ hypertension Continue home cardioprotective medications Hydralazine IV with parameters I added chlorthalidone and hydralazine 3 times a day Her current blood pressure improved. There is question for compliance to medication at home settings (2) Acute kidney injury superimposed on CKD Worsening today. DC Lasix DC chlorthalidone Continue to monitor (3) Hypothyroidism Continues Synthroid (4) Diabetes mellitus Insulin sliding scale Diabetes diet UTI Can be signs of UTI, Urine culture positive for Klebsiella pneumonia Continue with Levofloxacin by mouth for 3 days VS,Fishbone, I+O VS, Fishbone, I+O Laboratory Tests 10/25/20 07:30 Vital Signs Date Time Temp Pulse Resp B/P (MAP) Pulse Ox O2 Delivery O2 Flow Rate FiO2 10/25/20 08:46 60 137/52 10/25/20 06:00 99.1 18 95 Room Air 10/24/20 07:45 2.0 I&O- Last 24 Hours up to 6 AM 10/25/20 06:00 Intake Total 1400 ml Output Total 0 ml Balance 1400 ml COURTNEY MCKNIGHT DO Oct 25, 2020 13:09
[2020-10-25 14:30] VITALS: BP 125/44
[2020-10-25 20:00] VITALS: BP 139/65
[2020-10-25] MEDS: BRINZOLAMIDE 1 % OPHTH SUSP (AZOPT) 10ML OS SCH (20:35)
[2020-10-25] MEDS: LATANOPROST 0.005% OPHTH SOLN 2.5 ML OS SCH (20:35)
[2020-10-26 06:00] VITALS: BP 145/77
[2020-10-26] MEDS: LevoFLOXacin 250 MG TABLET PO SCH (06:12)
[2020-10-26] MEDS: LEVOTHYROXINE 75MCG TABLET (0.075MG) PO SCH (06:12)
[2020-10-26] MEDS: HumaLOG INSULIN (NovoLOG) PER UNIT SC SCH ×4 (08:16→20:59)
[2020-10-26] MEDS: POTASSIUM CHLORIDE 10 MEQ SR TABLET PO SCH (08:17)
[2020-10-26] MEDS: DULoxetine 30 MG CAP (CYMBALTA) PO SCH (08:17)
[2020-10-26] MEDS: VITAMIN D 1,000 INTERNATIONAL UNITS TABLET PO SCH (08:17)
[2020-10-26] MEDS: atenoloL 50 MG TAB PO SCH (08:18)
[2020-10-26] MEDS: LOSARTAN 50MG TABLET PO SCH (08:19)
[2020-10-26] MEDS: amLODIPine 10 MG TAB PO SCH (08:19)
[2020-10-26] MEDS: HEPARIN SOD (PORCINE) 5000UNITS/ML 1ML VIAL/SYRINGE SC SCH ×2 (08:20→20:45)
[2020-10-26 14:00] VITALS: BP 141/77
[2020-10-26] MEDS: BRINZOLAMIDE 1 % OPHTH SUSP (AZOPT) 10ML OS SCH (20:45)
[2020-10-26] MEDS: LATANOPROST 0.005% OPHTH SOLN 2.5 ML OS SCH (20:45)
[2020-10-26 22:00] VITALS: BP 125/46
[2020-10-27] MEDS: LEVOTHYROXINE 75MCG TABLET (0.075MG) PO SCH (05:47)
[2020-10-27] MEDS: ACETAMINOPHEN TAB 650MG DOSE (2X325MG) PO PRN ×3 (05:47→21:21)
[2020-10-27 06:00] VITALS: BP 136/50
[2020-10-27] MEDS: HumaLOG INSULIN (NovoLOG) PER UNIT SC SCH ×4 (07:30→21:00)
[2020-10-27] MEDS: LOSARTAN 50MG TABLET PO SCH (09:31)
[2020-10-27] MEDS: POTASSIUM CHLORIDE 10 MEQ SR TABLET PO SCH (09:32)
[2020-10-27] MEDS: DULoxetine 30 MG CAP (CYMBALTA) PO SCH (09:32)
[2020-10-27] MEDS: VITAMIN D 1,000 INTERNATIONAL UNITS TABLET PO SCH (09:32)
[2020-10-27] MEDS: amLODIPine 10 MG TAB PO SCH (09:33)
[2020-10-27] MEDS: atenoloL 50 MG TAB PO SCH (09:33)
[2020-10-27] MEDS: HEPARIN SOD (PORCINE) 5000UNITS/ML 1ML VIAL/SYRINGE SC SCH ×2 (09:34→21:22)
[2020-10-27] MEDS ORDERED: BISACODYL 10 MG SUPP PR PRN (17:15)
[2020-10-27] MEDS: BRINZOLAMIDE 1 % OPHTH SUSP (AZOPT) 10ML OS SCH (21:22)
[2020-10-27] MEDS: LATANOPROST 0.005% OPHTH SOLN 2.5 ML OS SCH (21:22)
[2020-10-27 22:00] VITALS: BP 138/63
[2020-10-28] MEDS: LEVOTHYROXINE 75MCG TABLET (0.075MG) PO SCH (05:31)
[2020-10-28 06:00] VITALS: BP 140/63
[2020-10-28] MEDS: HumaLOG INSULIN (NovoLOG) PER UNIT SC SCH ×4 (07:30→20:19)
[2020-10-28] MEDS: DULoxetine 30 MG CAP (CYMBALTA) PO SCH (10:00)
[2020-10-28] MEDS: HEPARIN SOD (PORCINE) 5000UNITS/ML 1ML VIAL/SYRINGE SC SCH ×2 (10:00→20:21)
[2020-10-28] MEDS: ACETAMINOPHEN TAB 650MG DOSE (2X325MG) PO PRN ×2 (10:01→20:21)
[2020-10-28] MEDS: LOSARTAN 50MG TABLET PO SCH (10:02)
[2020-10-28] MEDS: VITAMIN D 1,000 INTERNATIONAL UNITS TABLET PO SCH (10:02)
[2020-10-28] MEDS: atenoloL 50 MG TAB PO SCH (10:02)
[2020-10-28] MEDS: amLODIPine 10 MG TAB PO SCH (10:03)
[2020-10-28] MEDS: POTASSIUM CHLORIDE 10 MEQ SR TABLET PO SCH (10:03)
[2020-10-28] MEDS: BRINZOLAMIDE 1 % OPHTH SUSP (AZOPT) 10ML OS SCH (20:20)
[2020-10-28] MEDS: LATANOPROST 0.005% OPHTH SOLN 2.5 ML OS SCH (20:20)
[2020-10-29 06:00] VITALS: BP 146/67
[2020-10-29] MEDS: LEVOTHYROXINE 75MCG TABLET (0.075MG) PO SCH (06:13)
[2020-10-29] MEDS: HumaLOG INSULIN (NovoLOG) PER UNIT SC SCH ×4 (06:57→20:54)
[2020-10-29] MEDS: DULoxetine 30 MG CAP (CYMBALTA) PO SCH (09:59)
[2020-10-29] MEDS: POTASSIUM CHLORIDE 10 MEQ SR TABLET PO SCH (09:59)
[2020-10-29] MEDS: VITAMIN D 1,000 INTERNATIONAL UNITS TABLET PO SCH (09:59)
[2020-10-29] MEDS: amLODIPine 10 MG TAB PO SCH (10:00)
[2020-10-29] MEDS: LOSARTAN 50MG TABLET PO SCH (10:00)
[2020-10-29] MEDS: HEPARIN SOD (PORCINE) 5000UNITS/ML 1ML VIAL/SYRINGE SC SCH ×2 (10:01→20:56)
[2020-10-29] MEDS: atenoloL 50 MG TAB PO SCH (10:01)
[2020-10-29] MEDS: BRINZOLAMIDE 1 % OPHTH SUSP (AZOPT) 10ML OS SCH (20:55)
[2020-10-29] MEDS: LATANOPROST 0.005% OPHTH SOLN 2.5 ML OS SCH (20:55)
[2020-10-29] MEDS: ACETAMINOPHEN TAB 650MG DOSE (2X325MG) PO PRN (20:55)
[2020-10-30] MEDS: LEVOTHYROXINE 75MCG TABLET (0.075MG) PO SCH (05:06)
[2020-10-30 06:00] VITALS: BP 138/66
[2020-10-30] MEDS: HumaLOG INSULIN (NovoLOG) PER UNIT SC SCH ×4 (07:09→21:00)
[2020-10-30] MEDS: VITAMIN D 1,000 INTERNATIONAL UNITS TABLET PO SCH (09:28)
[2020-10-30] MEDS: LOSARTAN 50MG TABLET PO SCH (09:28)
[2020-10-30] MEDS: atenoloL 50 MG TAB PO SCH (09:29)
[2020-10-30] MEDS: POTASSIUM CHLORIDE 10 MEQ SR TABLET PO SCH (09:29)
[2020-10-30] MEDS: HEPARIN SOD (PORCINE) 5000UNITS/ML 1ML VIAL/SYRINGE SC SCH ×2 (09:29→21:10)
[2020-10-30] MEDS: DULoxetine 30 MG CAP (CYMBALTA) PO SCH (09:30)
[2020-10-30] MEDS: amLODIPine 10 MG TAB PO SCH (09:30)
[2020-10-30] MEDS: LATANOPROST 0.005% OPHTH SOLN 2.5 ML OS SCH (21:11)
[2020-10-30] MEDS: BRINZOLAMIDE 1 % OPHTH SUSP (AZOPT) 10ML OS SCH (21:11)
[2020-10-31] MEDS: LEVOTHYROXINE 75MCG TABLET (0.075MG) PO SCH (05:34)
[2020-10-31 05:48] VITALS: BP 140/69
[2020-10-31] MEDS: HEPARIN SOD (PORCINE) 5000UNITS/ML 1ML VIAL/SYRINGE SC SCH ×2 (07:59→22:22)
[2020-10-31] MEDS: VITAMIN D 1,000 INTERNATIONAL UNITS TABLET PO SCH (08:01)
[2020-10-31] MEDS: HumaLOG INSULIN (NovoLOG) PER UNIT SC SCH ×4 (08:01→21:00)
[2020-10-31] MEDS: DULoxetine 30 MG CAP (CYMBALTA) PO SCH (08:02)
[2020-10-31] MEDS: POTASSIUM CHLORIDE 10 MEQ SR TABLET PO SCH (08:02)
[2020-10-31] MEDS: LOSARTAN 50MG TABLET PO SCH (08:02)
[2020-10-31] MEDS: allopurinoL 100 MG TAB PO SCH (08:02)
[2020-10-31] MEDS: amLODIPine 10 MG TAB PO SCH (08:03)
[2020-10-31] MEDS: atenoloL 50 MG TAB PO SCH (08:03)
[2020-10-31] MEDS: LATANOPROST 0.005% OPHTH SOLN 2.5 ML OS SCH (22:22)
[2020-10-31] MEDS: BRINZOLAMIDE 1 % OPHTH SUSP (AZOPT) 10ML OS SCH (22:22)
[2020-11-01 06:00] VITALS: BP 134/53
[2020-11-01] MEDS: LEVOTHYROXINE 75MCG TABLET (0.075MG) PO SCH (06:16)
[2020-11-01] MEDS: HumaLOG INSULIN (NovoLOG) PER UNIT SC SCH (07:30)
[2020-11-01] MEDS: HEPARIN SOD (PORCINE) 5000UNITS/ML 1ML VIAL/SYRINGE SC SCH (09:29)
[2020-11-01] MEDS: VITAMIN D 1,000 INTERNATIONAL UNITS TABLET PO SCH (09:29)
[2020-11-01] MEDS: POTASSIUM CHLORIDE 10 MEQ SR TABLET PO SCH (09:29)
[2020-11-01] MEDS: atenoloL 50 MG TAB PO SCH (09:30)
[2020-11-01 09:31] VITALS: BP 136/55
[2020-11-01] MEDS: allopurinoL 100 MG TAB PO SCH (09:31)
[2020-11-01] MEDS: DULoxetine 30 MG CAP (CYMBALTA) PO SCH (09:31)
[2020-11-01] MEDS: LOSARTAN 50MG TABLET PO SCH (09:31)
[2020-11-01] MEDS: amLODIPine 10 MG TAB PO SCH (09:31)
--- NOTE | 2020-11-01 10:29 | DS.PDOC ---
Discharge Summary General Date of Admission Oct 23, 2020 at 09:36 Date of Discharge 11/01/2020 Attending Physician: PARVIZ EDWARD MD Discharge Summary PROCEDURES PERFORMED DURING STAY: None ADMITTING DIAGNOSES: 1. Generalized weakness 2. Hypertensive urgency DISCHARGE DIAGNOSES: 1. Klebsiella UTI 2. Hypertensive urgency 3. REID on CKD 4. DM 5. HLD 6. Hypothyroidism 7. Physical deconditioning COMPLICATIONS/CHIEF COMPLAINT: Hypertensive. HISTORY OF PRESENT ILLNESS: 85-year-old W with a past medical history including spinal stenosis, hypertension, diabetes mellitus and hyperlipidemia who presented with generalized weakness. Patient stated that she's been feeling weak for a few days prior to presentation without noted fever, chills, nausea, vomiting, diarrhea or dysuria. HOSPITAL COURSE: In ER she was found to have blood pressure of 202/92 and labs were pertinent for creatinine of 1.4 while EKG did not show any acute ischemic changes. Abdominal x-ray negative for acute pathology and UA was positive with a urine cultures that eventually grew >100k klebsiella. She was treated for a UTI to completion, and BP was normalized by restarting her antihypertensives and she worked with PT/OT with eventual recommendation for STR, for which she is now being di scharged to the [facility]. DISCHARGE MEDICATIONS: Please see below. ALLERGIES: Please see below. PHYSICAL EXAMINATION ON DISCHARGE: VITAL SIGNS: Please see below. GENERAL APPEARANCE: NAD HEENT: no scleral icterus, no JVD, EOMI CARDIOVASCULAR: S1S2 LUNGS: Diminished lung sounds bilaterally ABDOMEN: soft & not tender w palpitation MUSCULOSKELETAL: no cyanosis, no swelling INTEGUMENT: no generalized palor NEUROLOGICAL: cranial nerve function from 2-12 intact intact, follows commands, speech not dysarthric LABORATORY DATA: Please see below. IMAGING: AXR: Relatively nonspecific bowel gas pattern. PROGNOSIS: Good ACTIVITY: As tolerated DIET: consistent carbohydrate DISCHARGE PLAN: [facility] DISPOSITION: [facility] DISCHARGE INSTRUCTIONS: 1. [facility] ITEMS TO FOLLOWUP ON ON OUTPATIENT: 1. Physical deconditioning DISCHARGE CONDITION: Stable TIME SPENT ON DISCHARGE: 32 minutes. Vital Signs/I&Os Vital Signs Date Time Temp Pulse Resp B/P (MAP) Pulse Ox O2 Delivery O2 Flow Rate FiO2 11/01/20 09:31 136/55 11/01/20 09:30 65 11/01/20 06:00 98.7 18 94 Room Air I&O- Last 24 Hours up to 6 AM 11/01/20 06:00 Intake Total 390 ml Output Total 0 ml Balance 390 ml Laboratory Data Labs 24H Laboratory Tests 2 10/31/20 11:26: Bedside Glucose (Misc Panel) 97 10/31/20 16:43: Bedside Glucose (Misc Panel) 140H 10/31/20 21:33: Bedside Glucose (Misc Panel) 104 11/01/20 05:53: Bedside Glucose (Misc Panel) 93 FSBS Laboratory Tests Test 10/31/20 11:26 10/31/20 16:43 10/31/20 21:33 11/01/20 05:53 Range/Units Bedside Glucose (Misc Panel) 97 140 104 93 83-110 MG/DL Discharge Medications Scheduled Allopurinol (Allopurinol) 100 Mg Tab, 100 MG PO DAILY, (Reported) Amlodipine Besylate (Amlodipine Besylate) 10 Mg Tablet, 10 MG PO DAILY, (Reported) Atenolol (Atenolol) 50 Mg Tab, 100 MG PO DAILY, (Reported) Brimonidine Tartrate/Timolol (Combigan 0.2%-0.5% Eye Drops) 1 Lilly Lilly, 1 DROP OS QHS, (Reported) Brinzolamide (Azopt) 1 % Melissa, 1 DROP OS QHS, (Reported) Cholecalciferol (Vitamin D3) (Vitamin D3) 1,000 Unit Tablet, 2,000 UNITS PO DAILY, (Reported) Duloxetine Hcl (Cymbalta) 60 Mg Capsule.dr, 60 MG PO DAILY, (Reported) Furosemide (Furosemide) 20 Mg Tablet, 20 MG PO DAILY, (Reported) Glipizide (Glipizide ER) 5 Mg Tab.er.24, 5 MG PO DAILY, (Reported) Lactobacillus Combo No.10 (Probiotic) 1 Each Capsule, 1 TAB PO DAILY, (Reported) Latanoprost (Xalatan) 0.005 % Lilly, 1 DROP OS QHS, (Reported) Levothyroxine Sodium (Levothyroxine Sodium) 75 Mcg Tab, 75 MCG PO DAILY, (Reported) Losartan Potassium (Losartan Potassium) 100 Mg Tablet, 100 MG PO DAILY, (Reported) Potassium Chloride (Potassium Chloride) 10 Meq Tab.er.prt, 10 MEQ PO 3XW, (Reported) MON, WED, FRI Vedolizumab (Entyvio) 300 Mg Vial, 300 MG IV [id number], (Reported) Scheduled PRN Acetaminophen (Pain Reliever) 650 Mg Tab, 650 MG PO Q8H PRN for PAIN, (Reported) Loperamide HCl (Loperamide) 2 Mg Capsule, 2 MG PO Q4H PRN for AFTER EACH LOOSE STOOL, (Reported) Meclizine HCl (Meclizine HCl) 25 Mg Tab, 25 MG PO Q8H PRN for DIZZINESS, (Reported) Ondansetron (Ondansetron Odt) 4 Mg Tab, 4 MG PO TID PRN for NAUSEA, (Reported) Allergies Coded Allergies: sulfasalazine (Verified Allergy, Severe, hives, hematemesis,difficulty breathing, 10/20/20) Penicillins (Verified Allergy, Intermediate, SWELLING/RASH, 10/20/20) Sulfa (Sulfonamide Antibiotics) (Verified Allergy, Mild, RASH, 10/20/20) clavulanic acid (Verified Allergy, Mild, PRURITIS, 10/20/20) doxycycline (Verified Allergy, Mild, RASH, 10/20/20) Contrast Media (Verified Allergy, Unknown, 10/20/20) TAPE (Verified Allergy, Unknown, BANDAIDS, 10/20/20) benzalkonium chloride (Verified Allergy, Unknown, 10/20/20) shellfish derived (Verified Allergy, Unknown, 10/20/20) timolol (Verified Allergy, Unknown, OPTHALMIC DROPS, 10/20/20) travoprost (Verified Allergy, Unknown, 10/20/20) Mamjhzw-Lvs-Meh Reductase Inhibitor (Verified Adverse Reaction, Intermediate, MUSCLE ACHES, 10/20/20) oxycodone (Verified Adverse Reaction, Intermediate, HX OF AMS W/FALL ON SCHEDULED PERCOCET 5/325, 10/20/20) HX OF AMS W/FALL ON SCHEDULED PERCOCET 5/325 IN JANUARY 2019 prednisone (Verified Adverse Reaction, Intermediate, INCREASED INTRAOCCULAR PRESSURES, 10/20/20) diatrizoate meglumine (Verified Adverse Reaction, Mild, ABDOMINAL PAIN, 10/20/20) diatrizoate sodium (Verified Adverse Reaction, Mild, ABDOMINAL PAIN, 10/20/20) diltiazem (Verified Adverse Reaction, Mild, N,V,D, 10/20/20) gemfibrozil (Verified Adverse Reaction, Mild, PAIN, 10/20/20) metoprolol (Verified Adverse Reaction, Mild, DIZZINESS, 10/20/20) PARVIZ EDWARD MD Nov 01, 2020 10:29
== END 2020-11-01 11:55 | DRG 690 ==
LOC: EDBD 12:42 → M ED 12:42 → M ED INP 12:43 → ENRESERV 19:49 → M PCU 22:13 → OBSVTOIN 10-23 09:36 → INTOOBSV 10-23 09:36 → M MS5PR 10-23 16:05
PROVIDERS: ADMIT Internal Medicine; ATTEND Internal Medicine
DX: N39.0 Urinary tract infection, site not specified (principal); N17.9 Acute kidney failure, unspecified; I16.0 Hypertensive urgency; E11.9 Type 2 diabetes mellitus without complications; N18.9 Chronic kidney disease, unspecified; E03.9 Hypothyroidism, unspecified; E78.5 Hyperlipidemia, unspecified; Z79.899 Other long term (current) drug therapy; Z88.0 Allergy status to penicillin; Z88.2 Allergy status to sulfonamides; Z88.8 Allergy status to other drugs, medicaments and biological substances; Z91.041 Radiographic dye allergy status; Z91.013 Allergy to seafood; Z88.5 Allergy status to narcotic agent

== ENCOUNTER → 2020-11-01 | Outpatient (REF) ==
[2020-11-01 15:49] LABS: HEMATOCRIT 38.3 % (36.0-47.0); HEMOGLOBIN 11.5 g/dl (12.0-15.5); MEAN CORPUSCULAR HEMOGLOBIN 29.6 pg (27.0-33.0); MEAN CORPUSCULAR VOLUME 98.7 fl (80.0-96.0); PLATELET COUNT, AUTOMATED 316 10^3/uL (150-450); RED BLOOD COUNT 3.88 10^6/uL (4.00-5.40)
[2020-11-01 16:21] LABS: BILIRUBIN,TOTAL 0.4 MG/DL (0.2-1.0); CALCIUM LEVEL 9.2 MG/DL (8.8-10.2); CREATININE FOR GFR 1.58 MG/DL (0.55-1.30); GLOMERULAR FILTRATION RATE 33.2 (>32); MAGNESIUM LEVEL 2.4 MG/DL (1.8-2.4); POTASSIUM SERUM 5.8 MEQ/L (3.5-5.1); TOTAL PROTEIN 6.6 GM/DL (6.4-8.2)
== END ==
PROVIDERS: ATTEND Internal Medicine
DX: N18.9 Chronic kidney disease, unspecified (principal)

== ENCOUNTER → 2020-11-02 | Outpatient (REF) | PROVIDERS: ATTEND Internal Medicine | DX: E87.5 Hyperkalemia (principal) ==

== ENCOUNTER → 2020-11-03 | Outpatient (REF) | PROVIDERS: ATTEND Physician Assistant | DX: E87.5 Hyperkalemia (principal) ==

== ENCOUNTER → 2020-11-05 | Outpatient (REF) | PROVIDERS: ATTEND Internal Medicine | DX: Z20.828 Contact with and (suspected) exposure to other viral communicable diseases (principal) ==

== ENCOUNTER → 2020-11-07 | Outpatient (REF) ==
[2020-11-07 11:23] LABS: HEMATOCRIT 38.2 % (36.0-47.0); HEMOGLOBIN 11.4 g/dl (12.0-15.5); MEAN CORPUSCULAR HEMOGLOBIN 29.4 pg (27.0-33.0); MEAN CORPUSCULAR HGB CONC 29.8 g/dl (32.0-36.5); MEAN CORPUSCULAR VOLUME 98.5 fl (80.0-96.0); PLATELET COUNT, AUTOMATED 354 10^3/uL (150-450); RED BLOOD COUNT 3.88 10^6/uL (4.00-5.40); WHITE BLOOD COUNT 12.5 10^3/uL (4.0-10.0)
[2020-11-07 11:51] LABS: CALCIUM LEVEL 9.5 MG/DL (8.8-10.2); CREATININE FOR GFR 1.55 MG/DL (0.55-1.30); GLOMERULAR FILTRATION RATE 33.9 (>32); POTASSIUM SERUM 4.5 MEQ/L (3.5-5.1)
== END ==
PROVIDERS: ATTEND Physician Assistant
DX: N17.9 Acute kidney failure, unspecified (principal)

== ENCOUNTER → 2020-11-09 | Outpatient (REF) | PROVIDERS: ATTEND Internal Medicine | DX: Z20.828 Contact with and (suspected) exposure to other viral communicable diseases (principal) ==

== ENCOUNTER → 2020-11-15 | Outpatient (REF) | payer MEDICARE | PROVIDERS: ATTEND Internal Medicine | DX: Z20.828 Contact with and (suspected) exposure to other viral communicable diseases (principal) ==

== ENCOUNTER → 2020-11-21 | Outpatient (REF) | payer MEDICARE | PROVIDERS: ATTEND Internal Medicine | DX: Z20.828 Contact with and (suspected) exposure to other viral communicable diseases (principal) ==

== ENCOUNTER → 2020-11-27 | Outpatient (REF) | payer MEDICARE | PROVIDERS: ATTEND Internal Medicine | DX: Z20.822 Contact with and (suspected) exposure to COVID-19 (principal) ==

== ENCOUNTER → 2020-12-01 | Outpatient (REF) | payer MEDICARE | PROVIDERS: ATTEND Internal Medicine | DX: Z20.822 Contact with and (suspected) exposure to COVID-19 (principal) ==

== ENCOUNTER → 2020-12-06 | Outpatient (REF) | payer MEDICARE | PROVIDERS: ATTEND Internal Medicine | DX: Z20.822 Contact with and (suspected) exposure to COVID-19 (principal) ==

== ENCOUNTER → 2020-12-13 | Outpatient (REF) | payer MEDICARE | PROVIDERS: ATTEND Internal Medicine | DX: Z20.822 Contact with and (suspected) exposure to COVID-19 (principal) ==

== ENCOUNTER → 2020-12-20 | Outpatient (REF) | payer MEDICARE | PROVIDERS: ATTEND Internal Medicine | DX: Z20.822 Contact with and (suspected) exposure to COVID-19 (principal) ==

== ENCOUNTER → 2020-12-27 | Outpatient (REF) | payer MEDICARE | PROVIDERS: ATTEND Internal Medicine | DX: Z20.822 Contact with and (suspected) exposure to COVID-19 (principal) ==

== ENCOUNTER → 2021-01-03 | Outpatient (REF) | payer MEDICARE | PROVIDERS: ATTEND Internal Medicine | DX: Z20.822 Contact with and (suspected) exposure to COVID-19 (principal) ==

== ENCOUNTER → 2021-01-10 | Outpatient (REF) | payer MEDICARE | PROVIDERS: ATTEND Internal Medicine | DX: Z20.822 Contact with and (suspected) exposure to COVID-19 (principal) ==

== ENCOUNTER → 2021-01-17 | Outpatient (REF) | payer MEDICARE ==
[~2021-01-17] MED LIST changes: +ASPI-569 PO; -ASPI81TAEC PO
== END ==
PROVIDERS: ATTEND Internal Medicine
DX: Z20.822 Contact with and (suspected) exposure to COVID-19 (principal)

== ENCOUNTER → 2021-01-24 | Outpatient (REF) | payer MEDICARE | PROVIDERS: ATTEND Internal Medicine | DX: Z20.822 Contact with and (suspected) exposure to COVID-19 (principal) ==

== ENCOUNTER → 2021-01-31 | Outpatient (REF) | payer MEDICARE | PROVIDERS: ATTEND Internal Medicine | DX: Z11.52 Encounter for screening for COVID-19 (principal) ==

== ENCOUNTER → 2021-02-02 | Outpatient (REF) | payer MEDICARE ==
[2021-02-02 14:52] LABS: HEMOGLOBIN 10.7 g/dl (12.0-15.5); MEAN CORPUSCULAR HEMOGLOBIN 30.2 pg (27.0-33.0); MEAN CORPUSCULAR HGB CONC 30.6 g/dl (32.0-36.5); MEAN CORPUSCULAR VOLUME 98.9 fl (80.0-96.0); PLATELET COUNT, AUTOMATED 312 10^3/uL (150-450); RED BLOOD COUNT 3.54 10^6/uL (4.00-5.40); WHITE BLOOD COUNT 9.8 10^3/uL (4.0-10.0)
[2021-02-02 15:11] LABS: HEMOGLOBIN A1c 5.8 %
[2021-02-02 15:29] LABS: ALBUMIN 2.9 GM/DL (3.2-5.2); ALT/SGPT 15 U/L (12-78); BILIRUBIN,TOTAL 0.4 MG/DL (0.2-1.0); BLOOD UREA NITROGEN 37 MG/DL (7-18); CALCIUM LEVEL 9.3 MG/DL (8.8-10.2); CARBON DIOXIDE LEVEL 27 MEQ/L (21-32); CHLORIDE LEVEL 105 MEQ/L (98-107); CHOLESTEROL LEVEL 169 MG/DL (<200); CREATININE FOR GFR 1.59 MG/DL (0.55-1.30); GLOMERULAR FILTRATION RATE 32.8 (>32); GLUCOSE, FASTING 186 MG/DL (70-100); HDL CHOLESTEROL 34 MG/DL (>40); MAGNESIUM LEVEL 2.3 MG/DL (1.8-2.4); NON-HDL-C 135 MG/DL; NT-PRO BNP 542 PG/ML (<450); PHOSPHORUS LEVEL 4.9 MG/DL (2.5-4.9); POTASSIUM SERUM 4.7 MEQ/L (3.5-5.1); SODIUM LEVEL 138 MEQ/L (136-145); TOTAL PROTEIN 6.5 GM/DL (6.4-8.2); TRIGLYCERIDES LEVEL 450 MG/DL (<150); URIC ACID 7.2 MG/DL (2.6-6.0)
[2021-02-02 16:40] LABS: PTH INTACT 188.9 PG/ML (18.5-88.0)
== END ==
PROVIDERS: ATTEND Internal Medicine
DX: I50.9 Heart failure, unspecified (principal); Z79.899 Other long term (current) drug therapy

== ENCOUNTER → 2021-02-08 | Outpatient (REF) | payer MEDICARE ==
[2021-02-08 09:17] LABS: CALCIUM LEVEL 9.2 MG/DL (8.8-10.2); CREATININE FOR GFR 1.52 MG/DL (0.55-1.30); GLOMERULAR FILTRATION RATE 34.6 (>32); POTASSIUM SERUM 4.6 MEQ/L (3.5-5.1)
== END ==
PROVIDERS: ATTEND Internal Medicine
DX: I50.9 Heart failure, unspecified (principal)

== ENCOUNTER → 2021-02-15 | Outpatient (REF) | payer MEDICARE | PROVIDERS: ATTEND Internal Medicine | DX: I50.9 Heart failure, unspecified (principal) ==

== ENCOUNTER → 2021-03-01 | Outpatient (REF) | payer MEDICARE ==
[~2021-03-01] MED LIST changes: +FERR324T21 PO; -FERR325T16 PO
[2021-03-01 08:48] LABS: BASO % 0.2 % (0.0-1.0); EOS # 0.2 10^3/uL (0.0-0.5); EOS % 0.8 % (0.0-3.0); HEMATOCRIT 36.2 % (36.0-47.0); HEMOGLOBIN 11.2 g/dl (12.0-15.5); MEAN CORPUSCULAR HEMOGLOBIN 29.7 pg (27.0-33.0); MEAN CORPUSCULAR HGB CONC 30.9 g/dl (32.0-36.5); MONO # 0.9 10^3/uL (0.0-0.8); MONO % 4.7 % (2.0-8.0); NEUTROPHILS # 16.4 10^3/uL (1.5-8.5); NEUTROPHILS % 83.7 % (36.0-66.0); PLATELET COUNT, AUTOMATED 329 10^3/uL (150-450); RED BLOOD COUNT 3.77 10^6/uL (4.00-5.40); WHITE BLOOD COUNT 19.5 10^3/uL (4.0-10.0)
[2021-03-01 09:17] LABS: ALBUMIN 3.1 GM/DL (3.2-5.2); CALCIUM LEVEL 9.7 MG/DL (8.8-10.2); CREATININE FOR GFR 1.43 MG/DL (0.55-1.30); GLOMERULAR FILTRATION RATE 37.1 (>32); PHOSPHORUS LEVEL 3.3 MG/DL (2.5-4.9); POTASSIUM SERUM 4.3 MEQ/L (3.5-5.1); URIC ACID 4.9 MG/DL (2.6-6.0)
[2021-03-01 09:54] LABS: TOTAL 25(OH) VITAMIN D 37.4 NG/ML (30.0-100.0)
== END ==
PROVIDERS: ATTEND Internal Medicine
DX: M10.9 Gout, unspecified (principal); Z79.899 Other long term (current) drug therapy

== ENCOUNTER → 2021-03-02 | Outpatient (REF) | payer MEDICARE ==
[~2021-03-02] MED LIST changes: -FERR324T21 PO; +FERR325T16 PO
[2021-03-02 15:46] LABS: INFLUENZA A AMPLIFICATION NEGATIVE (NEGATIVE); INFLUENZA B AMPLIFICATION NEGATIVE (NEGATIVE)
== END ==
PROVIDERS: ATTEND Internal Medicine
DX: Z11.52 Encounter for screening for COVID-19 (principal)

== ENCOUNTER → 2021-03-05 | Outpatient (CLI) | payer MEDICARE ==
[~2021-03-05] MED LIST changes: +FERR324T21 PO; -FERR325T16 PO
== END ==
LOC: M RAD 12:26
PROVIDERS: ATTEND Nurse Practitioner Adult Health
DX: Z53.20 Procedure and treatment not carried out because of patient's decision for unspecified reasons (principal)

== ENCOUNTER → 2021-03-05 | Outpatient (REF) | payer MEDICARE ==
--- NOTE | 2021-03-05 12:55 | REP ---
INDICATION: ELEVATED WHITE COUNTS. COMPARISON: Frontal view obtained as part of an abdominal series 10/20/2020 the latest prior TECHNIQUE: PA and lateral views FINDINGS: There is cardiomegaly. No acute patchy parenchymal opacities or pleural effusions have developed. There is thoracic aortic tortuosity and evidence of ectasia. There is no significant change in appearance of the osseous structures. IMPRESSION: Cardiomegaly without evidence of acute cardiopulmonary disease. <Electronically signed by Oli Hawkins > 03/05/21 [id number]
[2021-03-05 14:26] LABS: HEMATOCRIT 35.3 % (36.0-47.0); HEMOGLOBIN 10.6 g/dl (12.0-15.5); MEAN CORPUSCULAR HEMOGLOBIN 29.4 pg (27.0-33.0); MEAN CORPUSCULAR VOLUME 97.8 fl (80.0-96.0); PLATELET COUNT, AUTOMATED 315 10^3/uL (150-450); RED BLOOD COUNT 3.61 10^6/uL (4.00-5.40); WHITE BLOOD COUNT 11.6 10^3/uL (4.0-10.0)
[2021-03-05 18:29] LABS: APPEARANCE, URINE CLEAR (CLEAR); BACTERIA, URINE AUTO NEGATIVE (NEGATIVE); BILIRUBIN, URINE AUTO NEGATIVE (NEGATIVE); BLOOD, URINE BLOOD NEGATIVE (NEGATIVE); COLOR, URINE YELLOW (YELLOW); GLUCOSE, URINE (UA) AUTO NEGATIVE (NEGATIVE); KETONE, URINE AUTO NEGATIVE (NEGATIVE); LEUKOCYTE ESTERASE, URINE AUTO NEGATIVE (NEGATIVE); MUCUS, URINE SMALL (NEGATIVE); NITRITE, URINE AUTO NEGATIVE (NEGATIVE); PROTEIN, URINE AUTO 2+ mg/dL (NEGATIVE); RBC, URINE AUTO 3 /HPF (0-3); SQUAMOUS EPITHELIAL CELL UR AU 1 /HPF (0-6); UROBILINOGEN, URINE AUTO 0.2 mg/dL (0.0-2.0); WBC, URINE AUTO 2 /HPF (0-3)
== END ==
PROVIDERS: ATTEND Nurse Practitioner Adult Health
DX: I51.7 Cardiomegaly (principal); D72.829 Elevated white blood cell count, unspecified; Z79.899 Other long term (current) drug therapy

== ENCOUNTER → 2021-03-06 | Outpatient (REF) | payer MEDICARE | PROVIDERS: ATTEND Internal Medicine | DX: N18.9 Chronic kidney disease, unspecified (principal); N39.0 Urinary tract infection, site not specified ==

== ENCOUNTER → 2021-03-06 | Outpatient (REF) | payer MEDICARE ==
[2021-03-06 10:15] LABS: HEMATOCRIT 35.2 % (36.0-47.0); HEMOGLOBIN 10.6 g/dl (12.0-15.5); MEAN CORPUSCULAR HEMOGLOBIN 29.5 pg (27.0-33.0); MEAN CORPUSCULAR HGB CONC 30.1 g/dl (32.0-36.5); MEAN CORPUSCULAR VOLUME 98.1 fl (80.0-96.0); PLATELET COUNT, AUTOMATED 311 10^3/uL (150-450); RED BLOOD COUNT 3.59 10^6/uL (4.00-5.40); WHITE BLOOD COUNT 11.4 10^3/uL (4.0-10.0)
[2021-03-06 10:36] LABS: CALCIUM LEVEL 9.6 MG/DL (8.8-10.2); CREATININE FOR GFR 1.35 MG/DL (0.55-1.30); GLOMERULAR FILTRATION RATE 39.7 (>32); POTASSIUM SERUM 4.7 MEQ/L (3.5-5.1)
== END ==
PROVIDERS: ATTEND Internal Medicine
DX: N18.9 Chronic kidney disease, unspecified (principal); Z20.822 Contact with and (suspected) exposure to COVID-19
CPT/HCPCS: 36415; 80048; 85027; U0003

== ENCOUNTER → 2021-04-17 | Outpatient (REF) | payer MEDICARE ==
[2021-04-17 12:29] LABS: HEMATOCRIT 32.9 % (36.0-47.0); HEMOGLOBIN 9.8 g/dl (12.0-15.5); MEAN CORPUSCULAR HEMOGLOBIN 29.8 pg (27.0-33.0); MEAN CORPUSCULAR HGB CONC 29.8 g/dl (32.0-36.5); PLATELET COUNT, AUTOMATED 281 10^3/uL (150-450); RED BLOOD COUNT 3.29 10^6/uL (4.00-5.40)
[2021-04-17 13:06] LABS: CALCIUM LEVEL 8.7 MG/DL (8.8-10.2); CREATININE FOR GFR 1.41 MG/DL (0.55-1.30); GLOMERULAR FILTRATION RATE 37.7 (>32); POTASSIUM SERUM 4.2 MEQ/L (3.5-5.1)
== END ==
PROVIDERS: ATTEND Internal Medicine
DX: N18.9 Chronic kidney disease, unspecified (principal)

== ENCOUNTER → 2021-05-14 | Outpatient (REF) | payer MEDICARE ==
[~2021-05-14] MED LIST changes: +OMEP40CA4 PO; -OMEP40CA97 PO
[2021-05-14 09:42] LABS: HEMATOCRIT 28.1 % (36.0-47.0); HEMOGLOBIN 8.2 g/dl (12.0-15.5); MEAN CORPUSCULAR HEMOGLOBIN 29.9 pg (27.0-33.0); MEAN CORPUSCULAR HGB CONC 29.2 g/dl (32.0-36.5); MEAN CORPUSCULAR VOLUME 102.6 fl (80.0-96.0); PLATELET COUNT, AUTOMATED 353 10^3/uL (150-450); RED BLOOD COUNT 2.74 10^6/uL (4.00-5.40); WHITE BLOOD COUNT 14.6 10^3/uL (4.0-10.0)
[2021-05-14 10:05] LABS: CALCIUM LEVEL 9.1 MG/DL (8.8-10.2); CREATININE FOR GFR 1.52 MG/DL (0.55-1.30); GLOMERULAR FILTRATION RATE 34.6 (>32); POTASSIUM SERUM 5.2 MEQ/L (3.5-5.1)
== END ==
PROVIDERS: ATTEND Nurse Practitioner Adult Health
DX: I67.9 Cerebrovascular disease, unspecified (principal)

== ENCOUNTER → 2021-05-14 | Outpatient (REF) | payer MEDICARE ==
[2021-05-14 14:51] LABS: BASO # 0.1 10^3/uL (0.0-0.2); BASO % 0.4 % (0.0-1.0); EOS # 0.4 10^3/uL (0.0-0.5); EOS % 2.5 % (0.0-3.0); HEMATOCRIT 28.4 % (36.0-47.0); HEMOGLOBIN 8.3 g/dl (12.0-15.5); LYMPH # 2.1 10^3/uL (1.5-5.0); LYMPH % 14.8 % (24.0-44.0); MEAN CORPUSCULAR HEMOGLOBIN 29.7 pg (27.0-33.0); MEAN CORPUSCULAR HGB CONC 29.2 g/dl (32.0-36.5); MEAN CORPUSCULAR VOLUME 101.8 fl (80.0-96.0); MONO # 0.7 10^3/uL (0.0-0.8); MONO % 4.6 % (2.0-8.0); NEUTROPHILS # 10.8 10^3/uL (1.5-8.5); NEUTROPHILS % 76.2 % (36.0-66.0); PLATELET COUNT, AUTOMATED 377 10^3/uL (150-450); RED BLOOD COUNT 2.79 10^6/uL (4.00-5.40); WHITE BLOOD COUNT 14.2 10^3/uL (4.0-10.0)
[2021-05-14 15:22] LABS: ERYTHROCYTE SEDIMENTATION RATE 65 mm/hr (0-30)
[2021-05-14 16:04] LABS: C REACTIVE PROTEIN QUANTITATIV 0.32 MG/DL (0.00-0.30); CALCIUM LEVEL 8.8 MG/DL (8.8-10.2); CREATININE FOR GFR 1.58 MG/DL (0.55-1.30); GLOMERULAR FILTRATION RATE 33.1 (>32); POTASSIUM SERUM 5.1 MEQ/L (3.5-5.1)
[2021-05-14 16:15] LABS: AMORPHOUS SEDIMENT SMALL (NEGATIVE); APPEARANCE, URINE CLEAR (CLEAR); BACTERIA, URINE AUTO NEGATIVE (NEGATIVE); BILIRUBIN, URINE AUTO NEGATIVE (NEGATIVE); BLOOD, URINE BLOOD NEGATIVE (NEGATIVE); COLOR, URINE YELLOW (YELLOW); GLUCOSE, URINE (UA) AUTO NEGATIVE (NEGATIVE); KETONE, URINE AUTO NEGATIVE (NEGATIVE); LEUKOCYTE ESTERASE, URINE AUTO NEGATIVE (NEGATIVE); MUCUS, URINE SMALL (NEGATIVE); NITRITE, URINE AUTO NEGATIVE (NEGATIVE); PROTEIN, URINE AUTO 2+ mg/dL (NEGATIVE); RBC, URINE AUTO 0 /HPF (0-3); SPECIFIC GRAVITY URINE AUTO 1.011 (1.002-1.035); SQUAMOUS EPITHELIAL CELL UR AU 0 /HPF (0-6); UROBILINOGEN, URINE AUTO 0.2 mg/dL (0.0-2.0); WBC, URINE AUTO 1 /HPF (0-3)
== END ==
PROVIDERS: ATTEND Internal Medicine
DX: D72.829 Elevated white blood cell count, unspecified (principal); I67.9 Cerebrovascular disease, unspecified

== ENCOUNTER → 2021-05-15 | Outpatient (CLI) | payer MEDICARE ==
--- NOTE | 2021-05-15 15:23 | REP ---
INDICATION: ABD PAIN / PT IN CT HOLDING AREA COMPARISON: 05/25/2020. TECHNIQUE: CT Scan of the abdomen and pelvis was performed without intravenous contrast. Sagittal and coronal reconstruction images performed. FINDINGS: Lung bases: Unremarkable. Liver: Grossly unremarkable. Gallbladder: Prior cholecystectomy. Spleen: Grossly unremarkable. Adrenals: Normal. Pancreas: Grossly unremarkable.. Kidneys: No hydronephrosis or nephrolithiasis. Ureters demonstrate no dilatation or calculus. There are multiple bilateral renal cysts which appear unchanged, including several bilateral hyperdense cysts. Small and large bowel: Grossly unremarkable. No free air or obstruction. No significant bowel wall thickening or inflammation. Free fluid: None. Abdominal aorta: No aneurysm. Adenopathy: None. Appendix: Prior appendectomy. Osseous structures: There are degenerative changes of the spine without compression deformity. Pelvis: No mass. Prior hysterectomy. No bladder calculus seen. There is a small umbilical hernia containing fat, unchanged since the prior exam. Urinary bladder is significantly distended with fluid. IMPRESSION: Bladder is significantly distended compatible with urinary retention. No hydronephrosis. No other acute abnormality. <Electronically signed by Balta Green > 05/15/21 1520
== END ==
LOC: M RAD 14:41
PROVIDERS: ATTEND Nurse Practitioner Adult Health
DX: Q61.02 Congenital multiple renal cysts (principal); N32.89 Other specified disorders of bladder; R10.9 Unspecified abdominal pain; D72.829 Elevated white blood cell count, unspecified

== ENCOUNTER → 2021-05-15 | Outpatient (REF) | payer MEDICARE ==
[2021-05-15 10:30] LABS: HEMATOCRIT 27.6 % (36.0-47.0); HEMOGLOBIN 8.3 g/dl (12.0-15.5); MEAN CORPUSCULAR HEMOGLOBIN 30.6 pg (27.0-33.0); MEAN CORPUSCULAR HGB CONC 30.1 g/dl (32.0-36.5); MEAN CORPUSCULAR VOLUME 101.8 fl (80.0-96.0); PLATELET COUNT, AUTOMATED 369 10^3/uL (150-450); RED BLOOD COUNT 2.71 10^6/uL (4.00-5.40); WHITE BLOOD COUNT 16.3 10^3/uL (4.0-10.0)
[2021-05-15 10:56] LABS: CALCIUM LEVEL 9.1 MG/DL (8.8-10.2); CREATININE FOR GFR 1.62 MG/DL (0.55-1.30); GLOMERULAR FILTRATION RATE 32.1 (>32); POTASSIUM SERUM 5.2 MEQ/L (3.5-5.1)
== END ==
PROVIDERS: ATTEND Internal Medicine
DX: D72.829 Elevated white blood cell count, unspecified (principal)

== ENCOUNTER → 2021-05-21 | Outpatient (REF) | payer MEDICARE ==
[2021-05-21 09:51] LABS: HEMATOCRIT 29.2 % (36.0-47.0); HEMOGLOBIN 8.5 g/dl (12.0-15.5); MEAN CORPUSCULAR HEMOGLOBIN 30.2 pg (27.0-33.0); MEAN CORPUSCULAR HGB CONC 29.1 g/dl (32.0-36.5); MEAN CORPUSCULAR VOLUME 103.9 fl (80.0-96.0); PLATELET COUNT, AUTOMATED 345 10^3/uL (150-450); RED BLOOD COUNT 2.81 10^6/uL (4.00-5.40); WHITE BLOOD COUNT 13.6 10^3/uL (4.0-10.0)
[2021-05-21 10:14] LABS: CALCIUM LEVEL 8.9 MG/DL (8.8-10.2); CREATININE FOR GFR 1.72 MG/DL (0.55-1.30); POTASSIUM SERUM 5.2 MEQ/L (3.5-5.1)
== END ==
PROVIDERS: ATTEND Nurse Practitioner Adult Health
DX: I67.9 Cerebrovascular disease, unspecified (principal)

== ENCOUNTER → 2021-05-22 | Outpatient (REF) | payer MEDICARE | PROVIDERS: ATTEND Internal Medicine | DX: Z53.8 Procedure and treatment not carried out for other reasons (principal) ==

== ENCOUNTER → 2021-05-23 | Outpatient (REF) | payer MEDICARE | PROVIDERS: ATTEND Internal Medicine | DX: Z53.8 Procedure and treatment not carried out for other reasons (principal) ==

== ENCOUNTER → 2021-05-24 | Outpatient (REF) | payer MEDICARE ==
[2021-05-24 10:51] LABS: HEMATOCRIT 28.7 % (36.0-47.0); HEMOGLOBIN 8.5 g/dl (12.0-15.5); MEAN CORPUSCULAR HEMOGLOBIN 30.7 pg (27.0-33.0); MEAN CORPUSCULAR HGB CONC 29.6 g/dl (32.0-36.5); MEAN CORPUSCULAR VOLUME 103.6 fl (80.0-96.0); PLATELET COUNT, AUTOMATED 349 10^3/uL (150-450); RED BLOOD COUNT 2.77 10^6/uL (4.00-5.40); WHITE BLOOD COUNT 12.2 10^3/uL (4.0-10.0)
[2021-05-24 11:09] LABS: CALCIUM LEVEL 8.5 MG/DL (8.8-10.2); CREATININE FOR GFR 1.66 MG/DL (0.55-1.30); GLOMERULAR FILTRATION RATE 31.3 (>32)
== END ==
PROVIDERS: ATTEND Internal Medicine
DX: E87.5 Hyperkalemia (principal)

== ENCOUNTER → 2021-05-25 | Outpatient (CLI) | payer MEDICARE ==
--- NOTE | 2021-05-25 16:32 | REP ---
INDICATION: COOKIE SWALLOW. COMPARISON: NONE TECHNIQUE: The procedure was performed under the direct supervision of . The procedure was performed with Melanie Quick from speech pathology present. 5 CC aliquots of thin, nectar, pudding, mixed fruit and soft consistency barium as well as a barium pill were administered. 1.5 minutes of fluoroscopy time was utilized for this procedure. FINDINGS: With thin consistency barium there is laryngeal penetration. A detailed report of this examination will be provided by speech pathology. IMPRESSION: With thin consistency barium there is laryngeal penetration. A detailed report of this examination will be provided by speech pathology. <Electronically signed by Rodolfo Goff > 05/25/21 [id number] <Electronically signed by Mina Bob > 05/25/21 [id number]
== END ==
LOC: M ST 14:17
PROVIDERS: ATTEND Nurse Practitioner Adult Health
DX: I69.391 Dysphagia following cerebral infarction (principal)

== ENCOUNTER → 2021-05-28 | Outpatient (REF) | payer MEDICARE ==
[~2021-05-28] MED LIST changes: +ASPI-161 PO; +ATEN100T PO; +ATOR40TA75 PO; +BISA10SU27 PR; +CIPR-249 PO; +ENEMENE PR; +GLUC1VIA IM; +META28.32 PO; +METR375C3 PO; +MILKSUS5 PO; +MYRB25TA PO; +PROTPAK PO
== END ==
PROVIDERS: ATTEND Internal Medicine
DX: Z53.9 Procedure and treatment not carried out, unspecified reason (principal)

== ENCOUNTER → 2021-05-29 | Outpatient (REF) | payer MEDICARE ==
[~2021-05-29] MED LIST changes: -ASPI-161 PO; -ATEN100T PO; -ATOR40TA75 PO; -BISA10SU27 PR; -CIPR-249 PO; -ENEMENE PR; -GLUC1VIA IM; -META28.32 PO; -METR375C3 PO; -MILKSUS5 PO; -MYRB25TA PO; -PROTPAK PO
[2021-05-29 12:23] LABS: HEMOGLOBIN 8.1 g/dl (12.0-15.5); MEAN CORPUSCULAR HEMOGLOBIN 30.1 pg (27.0-33.0); MEAN CORPUSCULAR HGB CONC 28.9 g/dl (32.0-36.5); MEAN CORPUSCULAR VOLUME 104.1 fl (80.0-96.0); PLATELET COUNT, AUTOMATED 341 10^3/uL (150-450); RED BLOOD COUNT 2.69 10^6/uL (4.00-5.40); WHITE BLOOD COUNT 13.9 10^3/uL (4.0-10.0)
[2021-05-29 12:44] LABS: CALCIUM LEVEL 9.4 MG/DL (8.8-10.2); CREATININE FOR GFR 1.71 MG/DL (0.55-1.30); GLOMERULAR FILTRATION RATE 30.2 (>32)
== END ==
PROVIDERS: ATTEND Internal Medicine
DX: N18.9 Chronic kidney disease, unspecified (principal)

== ENCOUNTER 2021-06-11 12:31 | Inpatient (IN) | payer MEDICARE ==
[2021-06-11] VITALS (11 sets, daily range): BP systolic 112–133; BP diastolic 54–65
[~2021-06-11] VITALS: Ht 167.6 cm; Wt 67.8 kg
[~2021-06-11 12:31] MED LIST changes: -ASPI-161 PO; -ATEN100T PO; -ATOR40TA75 PO; -BISA10SU27 PR; -CIPR-249 PO; -ENEMENE PR; -GLUC1VIA IM; -META28.32 PO; -METR375C3 PO; -MILKSUS5 PO; -MYRB25TA PO; -PROTPAK PO
[2021-06-11 13:53] LABS: MEAN CORPUSCULAR HEMOGLOBIN 29.9 pg (27.0-33.0); MEAN CORPUSCULAR HGB CONC 29.7 g/dl (32.0-36.5); MEAN CORPUSCULAR VOLUME 100.6 fl (80.0-96.0); PLATELET COUNT, AUTOMATED 268 10^3/uL (150-450); RED BLOOD COUNT 1.54 10^6/uL (4.00-5.40)
[2021-06-11] MEDS ORDERED: LOSA50TA88 PO (13:55)
[2021-06-11] MEDS ORDERED: CLOP75TA2 PO (13:55)
[2021-06-11] MEDS ORDERED: ATEN100T PO (13:55)
[2021-06-11] MEDS ORDERED: META28.32 PO (13:55)
[2021-06-11] MEDS ORDERED: ASPI-161 PO (13:55)
[2021-06-11] MEDS ORDERED: BISA10SU27 PR (13:55)
[2021-06-11] MEDS ORDERED: ENEMENE PR (13:55)
[2021-06-11] MEDS ORDERED: MILKSUS5 PO (13:55)
[2021-06-11] MEDS ORDERED: ATOR40TA75 PO (13:55)
[2021-06-11] MEDS ORDERED: GLUC1VIA IM (13:55)
[2021-06-11] MEDS ORDERED: MYRB25TA PO (13:55)
[2021-06-11 14:01] LABS: HEMATOCRIT 15.5 % (36.0-47.0); WHITE BLOOD COUNT 31.4 10^3/uL (4.0-10.0)
[2021-06-11 14:02] LABS: HEMOGLOBIN 4.6 g/dl (12.0-15.5)
[2021-06-11 14:18] LABS: CALCIUM LEVEL 9.1 MG/DL (8.8-10.2); CREATININE FOR GFR 1.74 MG/DL (0.55-1.30); GLOMERULAR FILTRATION RATE 29.6 (>32); POTASSIUM SERUM 4.5 MEQ/L (3.5-5.1)
[2021-06-11 14:36] LABS: RSV AMPLIFICATION NEGATIVE (NEGATIVE)
[2021-06-11 14:49] LABS: LYMPHOCYTES 5 % (16-44); MONOCYTES 2 % (0-5); NEUTROPHILS 93 % (28-66)
[2021-06-11 14:52] LABS: HYPOCHROMASIA 1+; PLATELET ESTIMATE NORMAL (NORMAL)
--- NOTE | 2021-06-11 15:11 | REP ---
INDICATION: AMS; elevated WBC; ?pneumonia. COMPARISON: Comparison chest x-ray March 05, 2021. TECHNIQUE: Sitting AP portable chest x-ray. FINDINGS: EKG electrodes are seen. The patient is tilted somewhat to the left. Moderate cardiac enlargement is observed. Pulmonary vascular congestion is seen. No evidence of pulmonary edema. There is blunting of the left lateral pleural angle which may reflect a small quantity of left pleural fluid. The tip of the right lateral pleural angle is a it excluded from the field of view. No focal infiltrate seen. IMPRESSION: Moderate cardiac enlargement. Blunting of the left lateral pleural angle. Vascular congestion. No focal infiltrate seen. <Electronically signed by Mina Bob > 06/11/21 [id number]
[2021-06-11] MEDS ORDERED: CIPROFLOXACIN 400 MG in IV 1 EA IV ONE (16:10)
[2021-06-11] MEDS ORDERED: BISACODYL 10 MG SUPP PR PRN (16:55)
[2021-06-11] MEDS ORDERED: ACETAMINOPHEN TAB 650MG DOSE (2X325MG) PO PRN (16:55)
[2021-06-11] MEDS ORDERED: MOM 30ML SUSPENSION UDC PO PRN (16:55)
[2021-06-11] MEDS ORDERED: FLEET ENEMA PR PRN (16:55)
--- NOTE | 2021-06-11 17:08 | HPEPDOC ---
General Date of Admission 06/11/21 Date of Service: Jun 11, 2021 Chief Complaint The patient is a 86-year-old female admitted with a reason for visit of Abnormal Labs. Source: Family Exam Limitations: Clinical conditions History of Present Illness Patient is 86-year-old female with past medical history including spinal stenosis, CVA with left paraplegia on aspirin and Plavix, hypertension, diabetes mellitus and hyperlipidemia presents with generalized weakness. According to her daughter patient developed generalized weakness for the past few days associated with chills and mental confusion. Patient did not have any diarrhea. She has indwelling Cuello catheter after hemorrhagic CVA a few months ago. In ER patient was found to have white blood count of 31.4, hemoglobin 4.6, lactic acid 2.1, creatinine 1.7, UA shows pyuria. Stool was tested positive for blood. Chest x-ray showed Moderate cardiac enlargement. Blunting of the left lateral pleural angle. Vascular congestion. Home Medications Scheduled Allopurinol (Allopurinol) 100 Mg Tab, 200 MG PO DAILY, (Reported) Amlodipine Besylate (Amlodipine Besylate) 10 Mg Tablet, 10 MG PO DAILY, (Reported) Aspirin (Aspirin EC) 81 Mg Tablet.dr, 81 MG PO DAILY, (Reported) Atenolol (Atenolol) 100 Mg Tablet, 100 MG PO DAILY, (Reported) Atorvastatin Calcium (Atorvastatin Calcium) 40 Mg Tablet, 40 MG PO DAILY, (R eported) Brimonidine Tartrate/Timolol (Combigan 0.2%-0.5% Eye Drops) 1 Lilly Lilly, 1 DROP OS QHS, (Reported) Brinzolamide (Azopt) 1 % Melissa, 1 DROP OS QHS, (Reported) Clopidogrel Bisulfate (Clopidogrel) 75 Mg Tablet, 75 MG PO DAILY, (Reported) Duloxetine Hcl (Cymbalta) 60 Mg Capsule.dr, 60 MG PO DAILY, (Reported) Furosemide (Furosemide) 20 Mg Tablet, 20 MG PO DAILY, (Reported) Latanoprost (Xalatan) 0.005 % Lilly, 1 DROP OS QHS, (Reported) Levothyroxine Sodium (Levothyroxine Sodium) 75 Mcg Tab, 75 MCG PO DAILY, (Reported) Losartan Potassium (Losartan Potassium) 50 Mg Tablet, 50 MG PO DAILY, (Reported) Mirabegron (Myrbetriq) 25 Mg Tab.er.24h, 25 MG PO DAILY, (Reported) Psyllium Husk (with Sugar) (Metamucil Powder) 575 Gm Powder, 2 TBS PO DAILY, (Reported) Scheduled PRN Acetaminophen (Pain Reliever) 650 Mg Tab, 650 MG PO Q4H PRN for PAIN LEVEL 1-5, (Reported) Bisacodyl (Bisacodyl) 10 Mg Supp.rect, 10 MG SC DAILY PRN for CONSTIPATION, (Reported) Glucagon HCl (Glucagon Emergency Kit) 1 Mg Vial, 1 MG IM DAILY PRN for LOW BLOOD SUGAR, (Reported) Magnesium Hydroxide (Milk of Magnesia) 400 Mg/5 Ml Oral.susp, 30 ML PO DAILY PRN for CONSTIPATION, (Reported) Sodium Phosphate,Screven-Dibasic (Enema) 133 Ml Enema, 1 JOSUE SC DAILY PRN for CONSTIPATION, (Reported) Allergies Coded Allergies: sulfasalazine (Verified Allergy, Severe, hives, hematemesis,difficulty breathing, 10/20/20) Penicillins (Verified Allergy, Intermediate, SWELLING/RASH, 10/20/20) Sulfa (Sulfonamide Antibiotics) (Verified Allergy, Mild, RASH, 10/20/20) clavulanic acid (Verified Allergy, Mild, PRURITIS, 10/20/20) doxycycline (Verified Allergy, Mild, RASH, 10/20/20) Contrast Media (Verified Allergy, Unknown, 10/20/20) TAPE (Verified Allergy, Unknown, BANDAIDS, 10/20/20) benzalkonium chloride (Verified Allergy, Unknown, 10/20/20) shellfish derived (Verified Allergy, Unknown, 10/20/20) timolol (Verified Allergy, Unknown, OPTHALMIC DROPS, 10/20/20) travoprost (Verified Allergy, Unknown, 10/20/20) Kptwnct-Csr-Sbl Reductase Inhibitor (Verified Adverse Reaction, Intermediate, MUSCLE ACHES, 10/20/20) oxycodone (Verified Adverse Reaction, Intermediate, HX OF AMS W/FALL ON SCHEDULED PERCOCET 5/325, 10/20/20) HX OF AMS W/FALL ON SCHEDULED PERCOCET 5/325 IN JANUARY 2019 prednisone (Verified Adverse Reaction, Intermediate, INCREASED INTRAOCCULAR PRESSURES, 10/20/20) diatrizoate meglumine (Verified Adverse Reaction, Mild, ABDOMINAL PAIN, 10/20/20) diatrizoate sodium (Verified Adverse Reaction, Mild, ABDOMINAL PAIN, 10/20/20) diltiazem (Verified Adverse Reaction, Mild, N,V,D, 10/20/20) gemfibrozil (Verified Adverse Reaction, Mild, PAIN, 10/20/20) metoprolol (Verified Adverse Reaction, Mild, DIZZINESS, 10/20/20) Past Medical History Medical History CVA with left paraplegia, Severe spinal stenosis. Hypertension. Diabetes mellitus. Hyperlipidemia. Hard of hearing Ulcerative colitis Surgical History 1. Cholecystectomy. 2.Hysterectomy. Family History Positive for heart disease Social History * Smoker: Denies Alcohol: Denies Drugs: denies A-FIB/CHADSVASC A-FIB History Current/History of A-Fib/PAF?: No Current PO Anticoag Therapy: No Review of Systems Constitutional: Reports: Chills; Denies: Fever, Malaise Eyes: Denies: Pain ENT: Denies: Head Aches Skin: Denies: Rash, Lesions Pulmonary: Denies: Dyspnea Cardiovascular: Denies: Chest Pain, Palpitations Gastrointestinal: Denies: Nausea Genitourinary: Reports: Dysuria, Incontinence Hematologic: Denies: Bruising Endocrine: Denies: Polydipsia, Polyphagia Musculoskeletal: Denies: Neck Pain Neurological: Denies: Weakness Psych: Reports: Mood Normal Physical Examination General Exam: Positive: Moderate Distress Eye Exam: Positive: PERRLA ENT Exam: Positive: Atraumatic Neck Exam: Positive: Supple; Negative: JVD Chest Exam: Positive: Clear to auscultation Heart Exam: Positive: Rate Normal Telemetry: Positive: No significant arrhythmia Abdomen Exam: Positive: Normal bowel sounds Extremity Exam: Negative: Clubbing, Cyanosis Neuro Exam: Positive: Reflexes 2+ Psych Exam: Negative: Oriented x 3 Vital Signs Vital Signs Date Time Temp Pulse Resp B/P (MAP) Pulse Ox O2 Delivery O2 Flow Rate FiO2 06/11/21 15:45 98.8 76 21 118/58 98 Room Air Laboratory Data Labs 24H Laboratory Tests 2 06/11/21 13:40: Neutrophils (%) (Auto) , Nucleated Red Blood Cells % (auto) 0.1H, Neutrophils 93H, Lymphocytes (Manual) 5L, Monocytes (Manual) 2, Hypochromasia 1+, Platelet Estimate NORMAL, Anion Gap 8, Glomerular Filtration Rate 29.6L, Calcium Level 9.1, Coronavirus (COVID-19)(PCR) NEGATIVE, Influenza Type A (RT-PCR) NEGATIVE, Influenza Type B (RT-PCR) NEGATIVE, Respiratory Syncytial Virus (PCR) NEGATIVE 06/11/21 15:06: Lactic Acid Level 2.1*H 06/11/21 15:37: Urine Color YELLOW, Urine Appearance TURBIDH, Urine pH 5.0, Urine Specific [place] 1.012, Urine Protein 1+H, Urine Glucose (UA) NEGATIVE, Urine Ketones NEGATIVE, Urine Blood NEGATIVE, Urine Nitrite POSITIVEH, Urine Bilirubin NEGATIVE, Urine Urobilinogen 0.2, Urine Leukocyte Esterase 3+H, Urine WBC (Auto) TNTCH, Urine RBC (Auto) 66H, Urine Hyaline Casts (Auto) 0, Urine Bacteria (Auto) 3+H, Urine Squamous Epithelial Cells 1, Urine Yeast-Like Cells (Auto) LARGEH, Urine Sperm (Auto) CBC/BMP Laboratory Tests 06/11/21 13:40 Microbiology Microbiology 06/11/21 Urine Culture, Received Pending 06/11/21 Blood Culture, Received Pending 06/11/21 Blood Culture, Received Pending Assessment/Plan Patient is 86-year-old female with past medical history including spinal stenosis, CVA with left paraplegia on aspirin and Plavix, hypertension, diabetes mellitus and hyperlipidemia presents with generalized weakness. According to her daughter patient developed generalized weakness for the past few days associated with chills and mental confusion. Patient did not have any diarrhea. She has indwelling Cuello catheter after hemorrhagic CVA a few months ago. In ER patient was found to have white blood count of 31.4, hemoglobin 4.6, lactic acid 2.1, creatinine 1.7, UA shows pyuria. Stool was tested positive for blood. Chest x-ray showed Moderate cardiac enlargement. Blunting of the left lateral pleural angle. Vascular congestion. Problems (1) Acute anemia Status: Acute Problem Text: Secondary to GI bleed ER ordered 2 units of blood H&H every 6 hours PPI twice daily Clear liquid diet for now (2) Metabolic encephalopathy Status: Acute Problem Text: Secondary to UTI superimposed with dementia (3) Dementia with behavioral disturbance Status: Chronic Problem Text: Follow-up with neurologist in the outpatient settings Frequent reorientation (4) HTN (hypertension) Status: Chronic Problem Text: Continue home meds (5) UTI (urinary tract infection) Status: Acute Problem Text: Patient has indwelling Cuello catheter after CVA and multiple allergy Continue meropenem IV (6) Gout Status: Chronic Problem Text: Continue home meds (7) Diabetes mellitus Status: Chronic Problem Text: Insulin sliding scale (8) Acute kidney injury superimposed on CKD Status: Acute Problem Text: Secondary to volume depletion and anemia IV fluid (9) GI bleed Status: Acute Problem Text: Most likely secondary to dual antiplatelet therapy We will ask surgical team to evaluate patient for possible endoscopy and colonoscopy (10) History of CVA (cerebrovascular accident) Status: Chronic Problem Text: Left paraplegia High risk of aspiration Aspiration precaution Plavix and aspirin on hold due to GI bleed Plan / VTE VTE Prophylaxis Ordered?: No VTE Exclusion Pharmacological: Active Bleeding COURTNEY MCKNIGHT DO Jun 11, 2021 17:08
[2021-06-11] MEDS ORDERED: DEXTROSE 50% 50 ML SYRINGE IV PRN (17:20)
[2021-06-11] MEDS ORDERED: GLUCOSE 4GM CHEW TABLET PO PRN (17:20)
[2021-06-11] MEDS ORDERED: GLUCAGON INJ 1MG VIAL SC PRN (17:20)
[2021-06-11] MEDS: HumaLOG INSULIN (NovoLOG) PER UNIT SC SCH (17:30)
[2021-06-11] MEDS: ATORVASTATIN 20 MG TAB PO SCH (18:00)
--- NOTE | 2021-06-11 18:47 | REPVR ---
PROCEDURE INFORMATION: Exam: CT Abdomen And Pelvis Without Contrast Exam date and time: 06/11/2021 5:59 PM Age: 86 years old Clinical indication: Other: Gi bleed TECHNIQUE: Imaging protocol: Computed tomography of the abdomen and pelvis without contrast. Radiation optimization: All CT scans at this facility use at least one of these dose optimization techniques: automated exposure control; mA and/or kV adjustment per patient size (includes targeted exams where dose is matched to clinical indication); or iterative reconstruction. COMPARISON: CT ABD PELVIS W/O CONTRAST 05/15/2021 2:57 PM FINDINGS: Lungs: Bibasilar atelectasis. Heart: Cardiomegaly. Liver: Normal. No mass. Gallbladder and bile ducts: There has been a cholecystectomy. Pancreas: There is diffuse pancreatic atrophy. Spleen: Normal. No splenomegaly. Adrenal glands: Normal. No mass. Kidneys and ureters: Multiple bilateral renal cysts including simple cyst measuring up to 5.2 cm in the lower pole of the left kidney as well as multiple probable hyperdense or proteinaceous cysts measuring up to 1.9 cm in the left kidney. Confirmation with nonemergent ultrasound could be obtained if clinically desired. Stomach and bowel: Long segment ahaustral appearance of the sigmoid and rectum with mural stratification, findings consistent changes secondary to colitis. There is minimal pericolonic inflammation which in combination with absence of these features on the prior CT of 05/15/2021 suggests subacute to acute segmental colitis. Appendix: No evidence of appendicitis. Intraperitoneal space: Unremarkable. No free air. No significant fluid collection. Vasculature: The aortoiliac vessels demonstrate moderate atherosclerotic calcification. Lymph nodes: Unremarkable. No enlarged lymph nodes. Urinary bladder: Cuello catheter within a collapsed urinary bladder. Reproductive: There has been a hysterectomy. Bones/joints: Moderate to severe central spinal stenosis L3-L4. Mild anterolisthesis of L4 on L5. Severe central spinal stenosis L4-L5. Mild annular bulge L5-S1. Soft tissues: Unremarkable. IMPRESSION: 1. There is diffuse pancreatic atrophy. 2. There has been a cholecystectomy. 3. Multiple bilateral renal cysts including simple cyst measuring up to 5.2 cm in the lower pole of the left kidney as well as multiple probable hyperdense or proteinaceous cysts measuring up to 1.9 cm in the left kidney. Confirmation with nonemergent ultrasound could be obtained if clinically desired. 4. There has been a hysterectomy. 5. Long segment ahaustral appearance of the sigmoid and rectum with mural stratification, findings consistent changes secondary to colitis. There is minimal pericolonic inflammation which in combination with absence of these features on the prior CT of 05/15/2021 suggests subacute to acute segmental colitis. COMMENTS: Consistent with the [employer]'s Incidental Findings Committee white paper (J Am Jared Radiol 2018): Any incidental renal lesion less than 1 cm or classified as too small to characterize, or any incidental cystic renal lesion characterized as simple-appearing, is likely benign. No follow-up imaging is recommended for these lesions per consensus recommendations based on imaging criteria. Electronically signed by: Brennan Lorenzo On 06/11/2021 18:47:03 PM
[2021-06-11] MEDS: NS 1,000 ML IV SCH (20:37)
[2021-06-11] MEDS ORDERED: HumaLOG INSULIN (NovoLOG) PER UNIT SC SCH (21:00)
[2021-06-11] MEDS ORDERED: HEPARIN SOD (PORCINE) 5000UNITS/ML 1ML VIAL/SYRINGE SC SCH (21:00)
[2021-06-11] MEDS: LATANOPROST 0.005% OPHTH SOLN 2.5 ML OS SCH (21:00)
[2021-06-11] MEDS: BRINZOLAMIDE 1 % OPHTH SUSP (AZOPT) 10ML OS SCH (21:00)
[2021-06-11] MEDS ORDERED: MEROPENEM INJ 2 GM in NS 100 ML IV SCH (21:55)
--- NOTE | 2021-06-11 21:56 | IPNPDOC ---
Text Note Date of Service The patient was seen on 06/11/21. NOTE #Subacute to acute segmental colitis. CT ordered by reviewed Despite the absence of SIRS, the patient has Leukocytosis with a WBC# of 31, lactic acidosis and elevated procalcitonin. I suspect the patient doesnt' have tachycardia bc she is on a beta leo and a CCB. Plan: Per d/w nursing staff on 4 Pav will upgrade the patient to PCU / telemetry / [place] pending blood cx/ trend lactic acid VS,Fishbone, I+O VS, Fishbone, I+O Laboratory Tests 06/11/21 13:40 Vital Signs Date Time Temp Pulse Resp B/P (MAP) Pulse Ox O2 Delivery O2 Flow Rate FiO2 06/11/21 21:29 98.4 77 19 120/65 99 Room Air 06/11/21 20:35 100.0 BRYAN PARISH MD Jun 11, 2021 21:56
--- NOTE | 2021-06-11 22:05 | ECGEPIP ---
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
[2021-06-11] MEDS: PANTOPRAZOLE 40MG VIAL (C9113 PER 1) IV SCH (22:14)
[2021-06-11] MEDS: MEROPENEM INJ 1 GM in IV 1 EA IV SCH (22:14)
[2021-06-11 23:27] LABS: HEMATOCRIT 22.4 % (36.0-47.0)
[2021-06-11 23:33] LABS: HEMOGLOBIN 7.2 g/dl (12.0-15.5)
[2021-06-12] VITALS (11 sets, daily range): BP systolic 107–147; BP diastolic 53–65
[2021-06-12 03:19] LABS: HEMATOCRIT 21.8 % (36.0-47.0); HEMOGLOBIN 7.2 g/dl (12.0-15.5)
[2021-06-12] MEDS: MEROPENEM INJ 1 GM in IV 1 EA IV SCH ×3 (04:35→23:56)
[2021-06-12 04:48] LABS: HEMATOCRIT 21.9 % (36.0-47.0); MEAN CORPUSCULAR HEMOGLOBIN 29.5 pg (27.0-33.0); MEAN CORPUSCULAR VOLUME 92.4 fl (80.0-96.0); PLATELET COUNT, AUTOMATED 222 10^3/uL (150-450); RED BLOOD COUNT 2.37 10^6/uL (4.00-5.40); WHITE BLOOD COUNT 22.2 10^3/uL (4.0-10.0)
[2021-06-12 05:16] LABS: ALBUMIN 2.2 GM/DL (3.2-5.2); BILIRUBIN,TOTAL 0.8 MG/DL (0.2-1.0); CALCIUM LEVEL 8.4 MG/DL (8.8-10.2); CREATININE FOR GFR 1.55 MG/DL (0.55-1.30); GLOMERULAR FILTRATION RATE 33.8 (>32); MAGNESIUM LEVEL 2.3 MG/DL (1.8-2.4); POTASSIUM SERUM 4.2 MEQ/L (3.5-5.1); TOTAL PROTEIN 5.1 GM/DL (6.4-8.2)
[2021-06-12] MEDS: LEVOTHYROXINE 75MCG TABLET (0.075MG) PO SCH (06:54)
[2021-06-12] MEDS: HumaLOG INSULIN (NovoLOG) PER UNIT SC SCH ×4 (07:30→23:56)
[2021-06-12] MEDS: PANTOPRAZOLE 40MG VIAL (C9113 PER 1) IV SCH ×2 (08:50→20:33)
[2021-06-12] MEDS: DULoxetine 30 MG CAP (CYMBALTA) PO SCH (08:50)
[2021-06-12] MEDS: allopurinoL 100 MG TAB PO SCH (08:50)
[2021-06-12] MEDS: atenoloL 50 MG TAB PO SCH (08:50)
[2021-06-12] MEDS: NS 1,000 ML IV SCH (08:51)
[2021-06-12] MEDS: LOSARTAN 50MG TABLET PO SCH (08:51)
--- NOTE | 2021-06-12 11:56 | IPNPDOC ---
Text Note Date of Service The patient was seen on 06/12/21. NOTE Subjective: No any acute events overnight. Patient confused in the morning in place. No fever. Objective: GENERAL APPEARANCE: NAD HEENT: no scleral icterus, no JVD, EOMI CARDIOVASCULAR: S1S2 LUNGS: CTA ABDOMEN: soft & not tender w palpation MUSCULOSKELETAL: no cyanosis, no swelling INTEGUMENT: no generalized pallor NEUROLOGICAL: cranial nerve function from 2-12 intact i, follows commands, speech not dysarthric Assessment/Plan Patient is 86-year-old female with past medical history including spinal stenosis, CVA with left paraplegia on aspirin and Plavix, hypertension, diabetes mellitus and hyperlipidemia presents with generalized weakness. According to her daughter patient developed generalized weakness for the past few days associated with chills and mental confusion. Patient did not have any diarrhea. She has indwelling Cuello catheter after hemorrhagic CVA a few months ago. In ER patient was found to have white blood count of 31.4, hemoglobin 4.6, lactic acid 2.1, creatinine 1.7, UA shows pyuria. Stool was tested positive for blood. Chest x-ray showed Moderate cardiac enlargement. Blunting of the left lateral pleural angle. Vascular congestion. Problems (1) Acute anemia Secondary to GI bleed ER ordered 2 units of blood. Hemoglobin in the morning 7, I will give 2 additional units H&H every 6 hours PPI twice daily Clear liquid diet for now (2) Metabolic encephalopathy Secondary to UTI superimposed with dementia (3) Dementia with behavioral disturbance Follow-up with neurologist in the outpatient settings Frequent reorientation (4) HTN (hypertension) Continue home meds (5) UTI (urinary tract infection) Patient has indwelling Cuello catheter after CVA and multiple allergy Continue meropenem IV (6) Gout Continue home meds (7) Diabetes mellitus Insulin sliding scale (8) Acute kidney injury superimposed on CKD Secondary to volume depletion and anemia IV fluid (9) GI bleed/colitis Most likely secondary to dual antiplatelet therapy. Differential diagnosis includes peptic ulcer, gastritis, gastric ulcer CT showed Long segment ahaustral appearance of the sigmoid and rectum with mural stratification, findings consistent changes secondary to colitis. There is minimal pericolonic inflammation which in combination with absence of these features on the prior CT of 05/15/2021 suggests subacute to acute segmental colitis. Appreciate/agree with surgical consult (10) History of CVA (cerebrovascular accident) Left paraplegia High risk of aspiration Aspiration precaution Plavix and aspirin on hold due to GI bleed VS,Fishbone, I+O VS, Fishbone, I+O Laboratory Tests 06/11/21 13:40 06/11/21 23:09 06/12/21 02:56 06/12/21 04:35 06/12/21 09:03 Vital Signs Date Time Temp Pulse Resp B/P (MAP) Pulse Ox O2 Delivery O2 Flow Rate FiO2 06/12/21 11:20 97.9 78 18 140/60 98 Room Air 06/11/21 20:35 100.0 I&O- Last 24 Hours up to 6 AM 06/12/21 06:00 Intake Total 1280 ml Output Total 1050 ml Balance 230 ml COURTNEY MCKNIGHT DO Jun 12, 2021 11:56
[2021-06-12 16:54] LABS: HEMATOCRIT 30.4 % (36.0-47.0)
[2021-06-12 16:58] LABS: HEMOGLOBIN 9.8 g/dl (12.0-15.5)
[2021-06-12] MEDS: ATORVASTATIN 20 MG TAB PO SCH (17:16)
[2021-06-12] MEDS: LATANOPROST 0.005% OPHTH SOLN 2.5 ML OS SCH (20:34)
[2021-06-12] MEDS: BRINZOLAMIDE 1 % OPHTH SUSP (AZOPT) 10ML OS SCH (20:34)
--- NOTE | 2021-06-12 21:48 | CR ---
CONSULTATION DATE: 06/12/2021 REASON FOR CONSULTATION: Heme positive stools and CAT scan with evidence of colitis. BRIEF HISTORY OF PRESENT ILLNESS: The patient is an 86-year-old female who presents with generalized weakness for a few days, chills, mental confusion, and no reports of diarrhea. Although since she has been in the hospital, she has had several episodes of diarrhea and liquid stool with heme positive stools. She had an elevated white count of 31,000 and was anemic down to a hematocrit of 15.5 and has been transfused up throughout the day to 22 and has been stable at this. She has initially had a lactic acidosis that has cleared and I was asked to see her concerning this diagnosis of colitis and heme positive stool and recommendations for that. She has been on a clear liquid diet but really has not been taking much for p.o. given her other comorbidities, history of stroke, etc., and somewhat confused. PAST MEDICAL HISTORY: The patient's past medical history is significant for: 1. History of CVA with paraplegia. 2. History of severe spinal stenosis. 3. History of hypertension. 4. Diabetes mellitus. 5. Hyperlipidemia. 6. The patient is hard of hearing. 7. History of ulcerative colitis. PAST SURGICAL HISTORY: The patient's past surgical history is significant for: 1. History of cholecystectomy. 2. History of hysterectomy. MEDICATIONS: 1. Allopurinol. 2. Amlodipine. 3. Aspirin. 4. Atenolol. 5. Atorvastatin. 6. Combigan. 7. Azopt. 8. Clopidogrel. 9. Plavix. 10. Cymbalta. 11. Furosemide. 12. Xalatan. 13. Synthroid. 14. Losartan. 15. Myrbetriq. 16. Metamucil. 17. P.r.n. medications. PHYSICAL EXAMINATION: GENERAL APPEARANCE: An 86-year-old female who looks stated age, indeed has a left hemiplegia. She is able to shake my hand with the right hand and seems with good strength here. And is able to answer my questions although she is very hard of hearing and there is a question whether she hears everything I am asking her. But in general is not complaining of any abdominal pain, discussed, nausea or vomiting. LUNGS: Clear to auscultation. HEART: Regular. ABDOMEN: Soft, nondistended. However she does have some mild tenderness in the suprapubic area and in the left lower quadrant, consistent with this colitis. IMPRESSION AND PLAN: The patient has evidence of colitis of undetermined etiology. Now there is some report of ulcerative colitis and she has some allergies to medications such as Asacol, etc., that suggest that she may have had some ulcerative colitis in the past. Dr. Chew is her Rehab Spec and her last colonoscopy was in 2016 which revealed some edema in the colon but not any significant ulcerations or inflammation. And otherwise there was some significant inflammation in the rectum on the previous study. Thus the impression is most likely that this is an inflammatory bowel disease progression/exacerbation. Initially when this was first posed to me, I had some concerns given her age that this might be ischemic colitis or infectious colitis, given the elevated white count but in general, this is most likely an exacerbation of inflammatory bowel disease, and she might have had some bacterial overgrowth in addition, and thus I would recommend that GI be consulted and as for recommendations in addition, otherwise from a surgical standpoint, no intervention is necessary at this time. Obviously options that the review coordinator may suggest are things such as Entocort, Prednisone, etc.
[2021-06-12 23:13] LABS: HEMOGLOBIN 9.6 g/dl (12.0-15.5)
[2021-06-13] VITALS: BP 143/63
[2021-06-13] MEDS: NS 1,000 ML IV SCH ×3 (02:16→13:23)
[2021-06-13 04:00] VITALS: BP 132/60
[2021-06-13 05:57] LABS: HEMATOCRIT 30.7 % (36.0-47.0); HEMOGLOBIN 9.9 g/dl (12.0-15.5)
[2021-06-13] MEDS: HumaLOG INSULIN (NovoLOG) PER UNIT SC SCH ×4 (06:00→23:58)
[2021-06-13] MEDS: LEVOTHYROXINE 75MCG TABLET (0.075MG) PO SCH (06:03)
[2021-06-13 07:52] LABS: CREATININE FOR GFR 1.36 MG/DL (0.55-1.30); GLOMERULAR FILTRATION RATE 39.3 (>32)
[2021-06-13 07:53] LABS: ALBUMIN 2.3 GM/DL (3.2-5.2); BILIRUBIN,TOTAL 1.1 MG/DL (0.2-1.0); CALCIUM LEVEL 8.3 MG/DL (8.8-10.2); MAGNESIUM LEVEL 2.4 MG/DL (1.8-2.4); TOTAL PROTEIN 5.3 GM/DL (6.4-8.2)
[2021-06-13 08:00] VITALS: BP 135/64
[2021-06-13] MEDS: PANTOPRAZOLE 40MG VIAL (C9113 PER 1) IV SCH ×2 (08:39→21:13)
[2021-06-13] MEDS: DULoxetine 30 MG CAP (CYMBALTA) PO SCH (08:39)
[2021-06-13] MEDS: allopurinoL 100 MG TAB PO SCH (08:40)
[2021-06-13] MEDS: LOSARTAN 50MG TABLET PO SCH (08:40)
[2021-06-13] MEDS: atenoloL 50 MG TAB PO SCH (08:41)
[2021-06-13 08:49] LABS: BASO % 0.3 % (0.0-1.0); EOS # 0.4 10^3/uL (0.0-0.5); EOS % 2.3 % (0.0-3.0); LYMPH # 1.7 10^3/uL (1.5-5.0); MEAN CORPUSCULAR HEMOGLOBIN 30.1 pg (27.0-33.0); MEAN CORPUSCULAR HGB CONC 32.3 g/dl (32.0-36.5); MEAN CORPUSCULAR VOLUME 92.9 fl (80.0-96.0); MONO # 0.9 10^3/uL (0.0-0.8); MONO % 5.8 % (2.0-8.0); NEUTROPHILS # 12.3 10^3/uL (1.5-8.5); NEUTROPHILS % 80.1 % (36.0-66.0); PLATELET COUNT, AUTOMATED 219 10^3/uL (150-450); RED BLOOD COUNT 3.26 10^6/uL (4.00-5.40); WHITE BLOOD COUNT 15.3 10^3/uL (4.0-10.0)
[2021-06-13] MEDS ORDERED: CIPR-249 PO (10:03)
[2021-06-13] MEDS ORDERED: METR375C3 PO (10:03)
[2021-06-13] MEDS ORDERED: PROTPAK PO (10:03)
[2021-06-13 10:59] LABS: HEMATOCRIT 34.4 % (36.0-47.0)
[2021-06-13 12:00] VITALS: BP 131/60
[2021-06-13] MEDS: MEROPENEM INJ 1 GM in IV 1 EA IV SCH (12:18)
--- NOTE | 2021-06-13 13:34 | IPNPDOC ---
Text Note Date of Service The patient was seen on 06/13/21. NOTE Subjective: No any acute events overnight. No fever or chills. Objective: GENERAL APPEARANCE: NAD HEENT: no scleral icterus, no JVD, EOMI CARDIOVASCULAR: S1S2 LUNGS: CTA ABDOMEN: soft & not tender w palpation MUSCULOSKELETAL: no cyanosis, no swelling INTEGUMENT: no generalized pallor NEUROLOGICAL: Left-sided paraplegia, follows commands, speech not dysarthric Assessment/Plan Patient is 86-year-old female with past medical history including spinal stenosis, CVA with left paraplegia on aspirin and Plavix, hypertension, diabetes mellitus and hyperlipidemia presents with generalized weakness. According to her daughter patient developed generalized weakness for the past few days associated with chills and mental confusion. Patient did not have any diarrhea. She has indwelling Cuello catheter after hemorrhagic CVA a few months ago. In ER patient was found to have white blood count of 31.4, hemoglobin 4.6, lactic acid 2.1, creatinine 1.7, UA shows pyuria. Stool was tested positive for blood. Chest x-ray showed Moderate cardiac enlargement. Blunting of the left lateral pleural angle. Vascular congestion. Problems (1) Acute anemia Secondary to GI bleed Hemoglobin stable PPI twice daily Upgraded diet to soft mechanical (2) Metabolic encephalopathy Secondary to UTI superimposed with dementia. Resolved, baseline mental status (3) Dementia with behavioral disturbance Follow-up with neurologist in the outpatient settings Frequent reorientation (4) HTN (hypertension) Continue home meds (5) UTI (urinary tract infection) Patient has indwelling Cuello catheter after CVA and multiple allergy Continue meropenem IV (6) Gout Continue home meds (7) Diabetes mellitus Insulin sliding scale (8) Acute kidney injury superimposed on CKD Secondary to volume depletion and anemia Improved (9) GI bleed/colitis Could be secondary to dual antiplatelet therapy, stomach ulcer, peptic ulcer, ischemic colitis CT showed Long segment ahaustral appearance of the sigmoid and rectum with mural stratification, findings consistent changes secondary to colitis. There is minimal pericolonic inflammation which in combination with absence of these features on the prior CT of 05/15/2021 suggests subacute to acute segmental colitis. Surgical team consulted patient. No indication for surgical intervention or procedure. Also GI bleed could be attributed to ulcerative colitis exacerbation, ischemic colitis, infective colitis. Recommended follow-up with GI team next week. We do not have GI coverage this week. (10) History of CVA (cerebrovascular accident) Left paraplegia High risk of aspiration Aspiration precaution Plavix and aspirin on hold due to GI bleed VS,Fishbone, I+O VS, Fishbone, I+O Laboratory Tests 06/12/21 16:32 06/12/21 22:59 06/13/21 05:30 06/13/21 05:38 06/13/21 10:43 Vital Signs Date Time Temp Pulse Resp B/P (MAP) Pulse Ox O2 Delivery O2 Flow Rate FiO2 06/13/21 12:00 97.5 60 19 131/60 (83) 97 Room Air 06/11/21 20:35 100.0 I&O- Last 24 Hours up to 6 AM 06/13/21 06:00 Intake Total 2970 ml Output Total 2100 ml Balance 870 ml COURTNEY MCKNIGHT DO Jun 13, 2021 13:34
[2021-06-13 17:39] LABS: HEMATOCRIT 34.7 % (36.0-47.0); HEMOGLOBIN 11.1 g/dl (12.0-15.5)
[2021-06-13 17:45] VITALS: BP 146/72
[2021-06-13] MEDS: ATORVASTATIN 20 MG TAB PO SCH (17:58)
[2021-06-13] MEDS: LATANOPROST 0.005% OPHTH SOLN 2.5 ML OS SCH (21:13)
[2021-06-13] MEDS: BRINZOLAMIDE 1 % OPHTH SUSP (AZOPT) 10ML OS SCH (21:13)
[2021-06-13 22:00] VITALS: BP 141/61
[2021-06-14] MEDS: NS 1,000 ML IV SCH (00:15)
[2021-06-14] MEDS: MEROPENEM INJ 1 GM in IV 1 EA IV SCH (00:16)
[2021-06-14] MEDS: LEVOTHYROXINE 75MCG TABLET (0.075MG) PO SCH (05:34)
[2021-06-14 06:00] VITALS: BP 149/64
[2021-06-14 06:41] LABS: BASO % 0.2 % (0.0-1.0); EOS # 0.4 10^3/uL (0.0-0.5); EOS % 2.5 % (0.0-3.0); HEMATOCRIT 32.2 % (36.0-47.0); HEMOGLOBIN 10.2 g/dl (12.0-15.5); LYMPH # 1.7 10^3/uL (1.5-5.0); LYMPH % 10.4 % (24.0-44.0); MEAN CORPUSCULAR HEMOGLOBIN 29.5 pg (27.0-33.0); MEAN CORPUSCULAR HGB CONC 31.7 g/dl (32.0-36.5); MEAN CORPUSCULAR VOLUME 93.1 fl (80.0-96.0); NEUTROPHILS # 13.1 10^3/uL (1.5-8.5); NEUTROPHILS % 80.2 % (36.0-66.0); PLATELET COUNT, AUTOMATED 242 10^3/uL (150-450); RED BLOOD COUNT 3.46 10^6/uL (4.00-5.40); WHITE BLOOD COUNT 16.3 10^3/uL (4.0-10.0)
[2021-06-14 07:08] LABS: ALBUMIN 2.2 GM/DL (3.2-5.2); BILIRUBIN,TOTAL 1.1 MG/DL (0.2-1.0); CALCIUM LEVEL 8.6 MG/DL (8.8-10.2); CREATININE FOR GFR 1.22 MG/DL (0.55-1.30); GLOMERULAR FILTRATION RATE 44.6 (>32); MAGNESIUM LEVEL 2.2 MG/DL (1.8-2.4); TOTAL PROTEIN 5.7 GM/DL (6.4-8.2)
[2021-06-14] MEDS: HumaLOG INSULIN (NovoLOG) PER UNIT SC SCH ×3 (07:30→16:51)
[2021-06-14 08:57] VITALS: BP 148/65
[2021-06-14] MEDS: allopurinoL 100 MG TAB PO SCH (08:58)
[2021-06-14] MEDS: atenoloL 50 MG TAB PO SCH (08:59)
[2021-06-14] MEDS: PANTOPRAZOLE 40MG VIAL (C9113 PER 1) IV SCH (08:59)
[2021-06-14] MEDS: DULoxetine 30 MG CAP (CYMBALTA) PO SCH (08:59)
[2021-06-14] MEDS: LOSARTAN 50MG TABLET PO SCH (08:59)
--- NOTE | 2021-06-14 11:32 | IPNPDOC ---
Text Note Date of Service The patient was seen on 06/14/21. NOTE Subjective: Patient stated that she is doing better today. She denied any fever or chills. Objective: GENERAL APPEARANCE: NAD HEENT: no scleral icterus, no JVD, EOMI CARDIOVASCULAR: S1S2 LUNGS: CTA ABDOMEN: soft & not tender w palpation MUSCULOSKELETAL: no cyanosis, no swelling INTEGUMENT: no generalized pallor NEUROLOGICAL: Left-sided paraplegia, follows commands, speech not dysarthric Assessment/Plan Patient is 86-year-old female with past medical history including spinal stenosis, CVA with left paraplegia on aspirin and Plavix, hypertension, diabetes mellitus and hyperlipidemia presents with generalized weakness. According to her daughter patient developed generalized weakness for the past few days associated with chills and mental confusion. Patient did not have any diarrhea. She has indwelling Cuello catheter after hemorrhagic CVA a few months ago. In E R patient was found to have white blood count of 31.4, hemoglobin 4.6, lactic acid 2.1, creatinine 1.7, UA shows pyuria. Stool was tested positive for blood. Chest x-ray showed Moderate cardiac enlargement. Blunting of the left lateral pleural angle. Vascular congestion. Problems (1) Acute anemia Secondary to GI bleed Hemoglobin stable PPI p.o. Continue soft mechanical diet (2) Metabolic encephalopathy Secondary to UTI superimposed with dementia. Resolved, baseline mental status (3) Dementia with behavioral disturbance Follow-up with neurologist in the outpatient settings Frequent reorientation (4) HTN (hypertension) Continue home meds (5) UTI (urinary tract infection) Patient has indwelling Cuello catheter after CVA and multiple allergy UA positive for Klebsiella species and E. coli I changed antibiotics to ciprofloxacin p.o. (6) Gout Continue home meds (7) Diabetes mellitus Insulin sliding scale (8) Acute kidney injury superimposed on CKD Secondary to volume depletion and anemia Improved (9) GI bleed/colitis Could be secondary to dual antiplatelet therapy, stomach ulcer, peptic ulcer, ischemic colitis CT showed Long segment ahaustral appearance of the sigmoid and rectum with mural stratification, findings consistent changes secondary to colitis. There is minimal pericolonic inflammation which in combination with absence of these features on the prior CT of 05/15/2021 suggests subacute to acute segmental colitis. Surgical team consulted patient. No indication for surgical intervention or procedure. Also GI bleed could be attributed to ulcerative colitis exacerbation, ischemic colitis, infective colitis. Recommended follow-up with GI team next week. We do not have GI coverage this week. We continue antibiotic therapy with ciprofloxacin and metronidazole p.o. Procalcitonin level improved from 5.6 to 0.6 (10) History of CVA (cerebrovascular accident) Left paraplegia High risk of aspiration Aspiration precaution Plavix on hold due to recent GI bleed We will restart aspirin VS,Fishbone, I+O VS, Fishbone, I+O Laboratory Tests 06/13/21 17:18 06/14/21 06:20 Vital Signs Date Time Temp Pulse Resp B/P (MAP) Pulse Ox O2 Delivery O2 Flow Rate FiO2 06/14/21 08:57 73 148/65 (92) 06/14/21 06:00 97.7 17 94 Room Air 06/11/21 20:35 100.0 I&O- Last 24 Hours up to 6 AM 06/14/21 06:00 Intake Total 340 ml Output Total 1625 ml Balance -1285 ml COURTNEY MCKNIGHT DO Jun 14, 2021 11:32
[2021-06-14] MEDS: metroNIDAZOLE (FLAGYL) 500MG TABLET PO SCH ×3 (12:34→20:42)
[2021-06-14] MEDS: CIPROFLOXACIN 500MG TABLET PO SCH ×2 (12:39→17:01)
[2021-06-14] MEDS: FUROSEMIDE 20 MG TAB PO SCH (12:39)
[2021-06-14] MEDS: PANTOPRAZOLE 40MG TAB (PROTONIX) PO SCH (12:39)
[2021-06-14] MEDS: ASPIRIN 81MG ENTERIC TABLET PO SCH (12:40)
[2021-06-14] MEDS: ATORVASTATIN 20 MG TAB PO SCH (17:01)
[2021-06-14] MEDS: BRINZOLAMIDE 1 % OPHTH SUSP (AZOPT) 10ML OS SCH (20:42)
[2021-06-14] MEDS: LATANOPROST 0.005% OPHTH SOLN 2.5 ML OS SCH (20:47)
[2021-06-14] MEDS ORDERED: HumaLOG INSULIN (NovoLOG) PER UNIT SC SCH (21:00)
[2021-06-14 22:00] VITALS: BP 138/57
[2021-06-15] MEDS: LEVOTHYROXINE 75MCG TABLET (0.075MG) PO SCH (05:24)
[2021-06-15] MEDS: CIPROFLOXACIN 500MG TABLET PO SCH (05:24)
[2021-06-15 06:00] VITALS: BP 138/69
[2021-06-15 06:20] LABS: BASO % 0.1 % (0.0-1.0); EOS # 0.5 10^3/uL (0.0-0.5); EOS % 2.8 % (0.0-3.0); HEMATOCRIT 32.1 % (36.0-47.0); HEMOGLOBIN 10.2 g/dl (12.0-15.5); LYMPH # 1.8 10^3/uL (1.5-5.0); LYMPH % 11.1 % (24.0-44.0); MEAN CORPUSCULAR HEMOGLOBIN 29.9 pg (27.0-33.0); MEAN CORPUSCULAR HGB CONC 31.8 g/dl (32.0-36.5); MEAN CORPUSCULAR VOLUME 94.1 fl (80.0-96.0); MONO # 1.1 10^3/uL (0.0-0.8); MONO % 7.1 % (2.0-8.0); NEUTROPHILS # 12.4 10^3/uL (1.5-8.5); NEUTROPHILS % 78.2 % (36.0-66.0); PLATELET COUNT, AUTOMATED 238 10^3/uL (150-450); RED BLOOD COUNT 3.41 10^6/uL (4.00-5.40); WHITE BLOOD COUNT 15.9 10^3/uL (4.0-10.0)
[2021-06-15 06:49] LABS: ALBUMIN 2.4 GM/DL (3.2-5.2); BILIRUBIN,TOTAL 1.1 MG/DL (0.2-1.0); CALCIUM LEVEL 8.5 MG/DL (8.8-10.2); CREATININE FOR GFR 1.33 MG/DL (0.55-1.30); GLOMERULAR FILTRATION RATE 40.4 (>32); TOTAL PROTEIN 5.3 GM/DL (6.4-8.2)
[2021-06-15] MEDS: HumaLOG INSULIN (NovoLOG) PER UNIT SC SCH (07:30)
[2021-06-15 08:08] VITALS: BP 152/67
[2021-06-15 08:13] VITALS: BP 152/67
[2021-06-15] MEDS: atenoloL 50 MG TAB PO SCH (08:13)
[2021-06-15] MEDS: allopurinoL 100 MG TAB PO SCH (08:13)
[2021-06-15] MEDS: FUROSEMIDE 20 MG TAB PO SCH (08:13)
[2021-06-15] MEDS: PANTOPRAZOLE 40MG TAB (PROTONIX) PO SCH (08:14)
[2021-06-15] MEDS: metroNIDAZOLE (FLAGYL) 500MG TABLET PO SCH (08:14)
[2021-06-15] MEDS: DULoxetine 30 MG CAP (CYMBALTA) PO SCH (08:14)
[2021-06-15] MEDS: ASPIRIN 81MG ENTERIC TABLET PO SCH (08:14)
[2021-06-15] MEDS ORDERED: LOSARTAN 25 MG TAB PO SCH (09:00)
--- NOTE | 2021-06-15 13:52 | DS.PDOC ---
Discharge Summary General Date of Admission Jun 11, 2021 at 16:55 Date of Discharge 06/15/21 Discharge Summary PROCEDURES PERFORMED DURING STAY: [None]. ADMITTING DIAGNOSES: Acute anemia Metabolic encephalopathy Dementia with behavioral disturbance HTN (hypertension) UTI (urinary tract infection) Gout Diabetes mellitus Acute kidney injury superimposed on CKD GI bleed/colitis DISCHARGE DIAGNOSES: Acute anemia Metabolic encephalopathy Dementia with behavioral disturbance HTN (hypertension) UTI (urinary tract infection) Gout Diabetes mellitus Acute kidney injury superimposed on CKD GI bleed/colitis COMPLICATIONS/CHIEF COMPLAINT: Uti (Urinary Tract Infection). HISTORY OF PRESENT ILLNESS: Patient is 86-year-old female with past medical his tory including spinal stenosis, CVA with left paraplegia on aspirin and Plavix, hypertension, diabetes mellitus and hyperlipidemia presents with generalized weakness. According to her daughter patient developed generalized weakness for the past few days associated with chills and mental confusion. Patient did not have any diarrhea. She has indwelling Cuello catheter after hemorrhagic CVA a few months ago. In ER patient was found to have white blood count of 31.4, hemoglobin 4.6, lactic acid 2.1, creatinine 1.7, UA shows pyuria. Stool was tested positive for blood. Chest x-ray showed Moderate cardiac enlargement. Blunting of the left lateral pleural angle. Vascular congestion. HOSPITAL COURSE: During the hospital stay the following were addressed (1) Acute anemia Secondary to GI bleed Hemoglobin stable Patient received treatment with PPI p.o. Continue soft mechanical diet (2) Metabolic encephalopathy Secondary to UTI superimposed with dementia. Resolved, baseline mental status (3) Dementia with behavioral disturbance Follow-up with neurologist in the outpatient settings Frequent reorientation (4) HTN (hypertension) Continue home meds (5) UTI (urinary tract infection) Patient has indwelling Cuello catheter after CVA and multiple allergy UA positive for Klebsiella species and E. coli I changed antibiotics to ciprofloxacin p.o. (6) Gout Continue home meds (7) Diabetes mellitus Insulin sliding scale (8) Acute kidney injury superimposed on CKD Secondary to volume depletion and anemia Improved (9) GI bleed/colitis Could be secondary to dual antiplatelet therapy, stomach ulcer, peptic ulcer, ischemic colitis CT showed Long segment ahaustral appearance of the sigmoid and rectum with mural stratification, findings consistent changes secondary to colitis. There is minimal pericolonic inflammation which in combination with absence of these features on the prior CT of 05/15/2021 suggests subacute to acute segmental colitis. Surgical team consulted patient. No indication for surgical intervention or procedure. Also GI bleed could be attributed to ulcerative colitis exacerbation, ischemic colitis, infective colitis. Recommended follow-up with GI team next week. We do not have GI coverage this week. We continue antibiotic therapy with ciprofloxacin and metronidazole p.o. Procalcitonin level improved from 5.6 to 0.6 (10) History of CVA (cerebrovascular accident) Left paraplegia High risk of aspiration Aspiration precaution Plavix on hold due to recent GI bleed We will restart aspirin DISCHARGE MEDICATIONS: Please see below. ALLERGIES: Please see below. PHYSICAL EXAMINATION ON DISCHARGE: VITAL SIGNS: Please see below. GENERAL APPEARANCE: NAD HEENT: no scleral icterus, no JVD, EOMI CARDIOVASCULAR: S1S2 LUNGS: CTA ABDOMEN: soft & not tender w palpation MUSCULOSKELETAL: no cyanosis, no swelling INTEGUMENT: no generalized pallor NEUROLOGICAL: Left-sided paraplegia, follows commands, speech not dysarthric LABORATORY DATA: Please see below. PROGNOSIS: Fair ACTIVITY: [As tolerated]. DIET: Cardiac DISCHARGE PLAN: Follow-up with GI team next week, follow-up with PCP in 3 to 5 days DISPOSITION: [facility]. DISCHARGE INSTRUCTIONS: Restart Plavix after discussion with PCP and GI team DISCHARGE CONDITION: [Stable]. TIME SPENT ON DISCHARGE: 40minutes. Vital Signs/I&Os Vital Signs Date Time Temp Pulse Resp B/P (MAP) Pulse Ox O2 Delivery O2 Flow Rate FiO2 06/15/21 08:13 77 152/67 06/15/21 06:00 98.0 20 98 Room Air 06/11/21 20:35 100.0 I&O- Last 24 Hours up to 6 AM 06/15/21 06:00 Intake Total 1290 ml Output Total 2375 ml Balance -1085 ml Laboratory Data Labs 24H Laboratory Tests 2 06/14/21 16:20: Bedside Glucose (Misc Panel) 98 06/14/21 19:53: Bedside Glucose (Misc Panel) 106 06/15/21 05:45: Immature Granulocyte % (Auto) 0.7, Neutrophils (%) (Auto) 78.2H, Lymphocytes (%) (Auto) 11.1L, Monocytes (%) (Auto) 7.1, Eosinophils (%) (Auto) 2.8, Basophils (%) (Auto) 0.1, Neutrophils # (Auto) 12.4H, Lymphocytes # (Auto) 1.8, Monocytes # (Auto) 1.1H, Eosinophils # (Auto) 0.5, Basophils # (Auto) 0.0, Nucleated Red Blood Cells % (auto) 0.0, Anion Gap 9, Glomerular Filtration Rate 40.4, Calcium Level 8.5L, Magnesium Level 2.0, Total Bilirubin 1.1H, Aspartate Amino Transf (AST/SGOT) 38H, Alanine Aminotransferase (ALT/SGPT) 32, Alkaline Phosphatase 81, Total Protein 5.3L, Albumin 2.4L, Albumin/Globulin Ratio 0.8L 06/15/21 07:36: Coronavirus (COVID-19)(PCR) NEGATIVE CBC/BMP Laboratory Tests 06/15/21 05:45 FSBS Laboratory Tests Test 06/14/21 16:20 06/14/21 19:53 Range/Units Bedside Glucose (Misc Panel) 98 106 83-110 MG/DL Microbiology Microbiology 06/11/21 Urine Culture - Final, Complete Klebsiella Pneumoniae Escherichia Coli 06/11/21 Blood Culture - Preliminary, Resulted No Growth after 72 hours. All specime... 06/11/21 Blood Culture - Preliminary, Resulted No Growth after 72 hours. All specime... Discharge Medications Scheduled Allopurinol (Allopurinol) 100 Mg Tab, 200 MG PO DAILY, (Reported) Amlodipine Besylate (Amlodipine Besylate) 10 Mg Tablet, 10 MG PO DAILY, (Reported) Aspirin (Aspirin EC) 81 Mg Tablet.dr, 81 MG PO DAILY, (Reported) Atenolol (Atenolol) 100 Mg Tablet, 100 MG PO DAILY, (Reported) Atorvastatin Calcium (Atorvastatin Calcium) 40 Mg Tablet, 40 MG PO DAILY, (Reported) Brimonidine Tartrate/Timolol (Combigan 0.2%-0.5% Eye Drops) 1 Lilly Lilly, 1 DROP OS QHS, (Reported) Brinzolamide (Azopt) 1 % Melissa, 1 DROP OS QHS, (Reported) Ciprofloxacin HCl (Cipro) 500 Mg Tablet, 500 MG PO BID Duloxetine Hcl (Cymbalta) 60 Mg Capsule.dr, 60 MG PO DAILY, (Reported) Furosemide (Furosemide) 20 Mg Tablet, 20 MG PO DAILY, (Reported) Latanoprost (Xalatan) 0.005 % Lilly, 1 DROP OS QHS, (Reported) Levothyroxine Sodium (Levothyroxine Sodium) 75 Mcg Tab, 75 MCG PO DAILY, (Reported) Losartan Potassium (Losartan Potassium) 50 Mg Tablet, 50 MG PO DAILY, (Reported) Metronidazole (Metronidazole) 375 Mg Capsule, 1 CAP PO TID Mirabegron (Myrbetriq) 25 Mg Tab.er.24h, 25 MG PO DAILY, (Reported) Pantoprazole Sodium (Protonix) 40 Mg Granpkt.dr, 1 PKT PO DAILY Psyllium Husk (with Sugar) (Metamucil Powder) 575 Gm Powder, 2 TBS PO DAILY, (Reported) Scheduled PRN Acetaminophen (Pain Reliever) 650 Mg Tab, 650 MG PO Q4H PRN for PAIN LEVEL 1-5, (Reported) Bisacodyl (Bisacodyl) 10 Mg Supp.rect, 10 MG OK DAILY PRN for CONSTIPATION, (Reported) Glucagon HCl (Glucagon Emergency Kit) 1 Mg Vial, 1 MG IM DAILY PRN for LOW BLOOD SUGAR, (Reported) Magnesium Hydroxide (Milk of Magnesia) 400 Mg/5 Ml Oral.susp, 30 ML PO DAILY PRN for CONSTIPATION, (Reported) Sodium Phosphate,[place]-Dibasic (Enema) 133 Ml Enema, 1 JOSUE OK DAILY PRN for CONSTIPATION, (Reported) Allergies Coded Allergies: sulfasalazine (Verified Allergy, Severe, hives, hematemesis,difficulty breathing, 10/20/20) Penicillins (Verified Allergy, Intermediate, SWELLING/RASH, 10/20/20) Sulfa (Sulfonamide Antibiotics) (Verified Allergy, Mild, RASH, 10/20/20) clavulanic acid (Verified Allergy, Mild, PRURITIS, 10/20/20) doxycycline (Verified Allergy, Mild, RASH, 10/20/20) Contrast Media (Verified Allergy, Unknown, 10/20/20) TAPE (Verified Allergy, Unknown, BANDAIDS, 10/20/20) benzalkonium chloride (Verified Allergy, Unknown, 10/20/20) shellfish derived (Verified Allergy, Unknown, 10/20/20) timolol (Verified Allergy, Unknown, OPTHALMIC DROPS, 10/20/20) travoprost (Verified Allergy, Unknown, 10/20/20) Rolmidb-Wkp-Zdj Reductase Inhibitor (Verified Adverse Reaction, Intermediate, MUSCLE ACHES, 10/20/20) oxycodone (Verified Adverse Reaction, Intermediate, HX OF AMS W/FALL ON SCHEDULED PERCOCET 5/325, 10/20/20) HX OF AMS W/FALL ON SCHEDULED PERCOCET 5/325 IN JANUARY 2019 prednisone (Verified Adverse Reaction, Intermediate, INCREASED INTRAOCCULAR PRESSURES, 10/20/20) diatrizoate meglumine (Verified Adverse Reaction, Mild, ABDOMINAL PAIN, 10/20/20) diatrizoate sodium (Verified Adverse Reaction, Mild, ABDOMINAL PAIN, 10/20/20) diltiazem (Verified Adverse Reaction, Mild, N,V,D, 10/20/20) gemfibrozil (Verified Adverse Reaction, Mild, PAIN, 10/20/20) metoprolol (Verified Adverse Reaction, Mild, DIZZINESS, 10/20/20) COURTNEY MCKNIGHT DO Jun 15, 2021 13:52
== END 2021-06-15 08:35 | DRG 377 ==
LOC: EDBD 12:31 → M ED 12:31 → M ED INP 16:55 → M PCU 06-12 01:25 → M MSPAV 06-13 17:34
PROVIDERS: ADMIT Internal Medicine; ATTEND Internal Medicine
PROC: 30233N1 Transfusion of Nonautologous Red Blood Cells into Peripheral Vein, Percutaneous Approach (ICD-10-PCS; principal; 2021-06-11)
DX: K92.2 Gastrointestinal hemorrhage, unspecified (principal); G93.41 Metabolic encephalopathy; F03.91 Unspecified dementia, unspecified severity, with behavioral disturbance; N39.0 Urinary tract infection, site not specified; I69.354 Hemiplegia and hemiparesis following cerebral infarction affecting left non-dominant side; E87.2 Acidosis; D68.32 Hemorrhagic disorder due to extrinsic circulating anticoagulants; K55.1 Chronic vascular disorders of intestine; D62 Acute posthemorrhagic anemia; K52.9 Noninfective gastroenteritis and colitis, unspecified; I10 Essential (primary) hypertension; M10.9 Gout, unspecified; E11.9 Type 2 diabetes mellitus without complications; E78.5 Hyperlipidemia, unspecified; H91.93 Unspecified hearing loss, bilateral; Z66 Do not resuscitate; M48.00 Spinal stenosis, site unspecified; B96.20 Unspecified Escherichia coli [E. coli] as the cause of diseases classified elsewhere; B96.1 Klebsiella pneumoniae [K. pneumoniae] as the cause of diseases classified elsewhere; R53.1 Weakness; Z91.048 Other nonmedicinal substance allergy status; Z79.82 Long term (current) use of aspirin; Z79.899 Other long term (current) drug therapy; Z79.02 Long term (current) use of antithrombotics/antiplatelets; Z20.822 Contact with and (suspected) exposure to COVID-19; Z88.0 Allergy status to penicillin; Z88.2 Allergy status to sulfonamides; Z88.1 Allergy status to other antibiotic agents; Z88.5 Allergy status to narcotic agent; Z88.8 Allergy status to other drugs, medicaments and biological substances; Z91.041 Radiographic dye allergy status

== ENCOUNTER → 2021-06-11 | Outpatient (REF) | payer MEDICARE ==
[~2021-06-11] MED LIST changes: +ASPI-161 PO; +ASPI81CH33 PO; +ATEN100T PO; +ATOR40TA75 PO; +BISA10SU27 PR; +CIPR-249 PO; -CYMB60CA3 PO; +CYMB60CA4 PO; +ENEMENE PR; -FENO200C PO; +FENO200C19 PO; +GLUC1VIA IM; +ISOS20TA4 PO; -ISOS20TAB PO; -KLOR10TA76 PO; +LOSA100T45 PO; -LOSA100T50 PO; +LOSA50TA28 PO; -LOSA50TA88 PO; +META28.32 PO; +METR375C3 PO; +MILKSUS5 PO; +MYRB25TA PO; +POTA-136 PO; +PROTPAK PO
[2021-06-11 10:58] LABS: MEAN CORPUSCULAR HEMOGLOBIN 30.6 pg (27.0-33.0); MEAN CORPUSCULAR HGB CONC 29.3 g/dl (32.0-36.5); MEAN CORPUSCULAR VOLUME 104.5 fl (80.0-96.0); PLATELET COUNT, AUTOMATED 269 10^3/uL (150-450)
[2021-06-11 11:09] LABS: RED BLOOD COUNT 1.57 10^6/uL (4.00-5.40); WHITE BLOOD COUNT 33.4 10^3/uL (4.0-10.0)
[2021-06-11 11:10] LABS: HEMATOCRIT 16.4 % (36.0-47.0); HEMOGLOBIN 4.8 g/dl (12.0-15.5)
[2021-06-11 11:26] LABS: ALBUMIN 2.3 GM/DL (3.2-5.2); ALT/SGPT 21 U/L (12-78); BILIRUBIN,TOTAL 0.3 MG/DL (0.2-1.0); BLOOD UREA NITROGEN 87 MG/DL (7-18); CALCIUM LEVEL 8.8 MG/DL (8.8-10.2); CARBON DIOXIDE LEVEL 18 MEQ/L (21-32); CHLORIDE LEVEL 109 MEQ/L (98-107); CHOLESTEROL LEVEL 59 MG/DL (<200); CREATININE FOR GFR 1.78 MG/DL (0.55-1.30); GLOMERULAR FILTRATION RATE 28.8 (>32); GLUCOSE, FASTING 174 MG/DL (70-100); HDL CHOLESTEROL 25 MG/DL (>40); NON-HDL-C 34 MG/DL; POTASSIUM SERUM 4.4 MEQ/L (3.5-5.1); SODIUM LEVEL 142 MEQ/L (136-145); TOTAL PROTEIN 5.2 GM/DL (6.4-8.2); TRIGLYCERIDES LEVEL 195 MG/DL (<150); URIC ACID 5.1 MG/DL (2.6-6.0)
== END ==
PROVIDERS: ATTEND Nurse Practitioner Adult Health
DX: I67.9 Cerebrovascular disease, unspecified (principal); Z79.899 Other long term (current) drug therapy

== ENCOUNTER → 2021-06-11 | Outpatient (REF) | payer MEDICARE ==
[~2021-06-11] MED LIST changes: -ASPI81CH33 PO; +CYMB60CA3 PO; -CYMB60CA4 PO; +FENO200C PO; -FENO200C19 PO; -ISOS20TA4 PO; +ISOS20TAB PO; +KLOR10TA76 PO; -LOSA100T45 PO; +LOSA100T50 PO; -LOSA50TA28 PO; +LOSA50TA88 PO; -POTA-136 PO
== END ==
PROVIDERS: ATTEND Family Medicine
DX: I10 Essential (primary) hypertension (principal)

== ENCOUNTER → 2021-06-18 | Outpatient (REF) | payer MEDICARE ==
[~2021-06-18] MED LIST changes: +ASPI-161 PO; +ASPI81CH33 PO; +ATEN100T PO; +ATOR40TA75 PO; +BISA10SU27 PR; +CIPR-249 PO; -CYMB60CA3 PO; +CYMB60CA4 PO; +ENEMENE PR; -FENO200C PO; +FENO200C19 PO; +GLUC1VIA IM; +ISOS20TA4 PO; -ISOS20TAB PO; -KLOR10TA76 PO; +LOSA100T45 PO; -LOSA100T50 PO; +LOSA50TA28 PO; -LOSA50TA88 PO; +META28.32 PO; +METR375C3 PO; +MILKSUS5 PO; +MYRB25TA PO; +POTA-136 PO; +PROTPAK PO
[2021-06-18 11:23] LABS: HEMATOCRIT 31.7 % (36.0-47.0); HEMOGLOBIN 9.7 g/dl (12.0-15.5); MEAN CORPUSCULAR HEMOGLOBIN 29.6 pg (27.0-33.0); MEAN CORPUSCULAR HGB CONC 30.6 g/dl (32.0-36.5); MEAN CORPUSCULAR VOLUME 96.6 fl (80.0-96.0); PLATELET COUNT, AUTOMATED 287 10^3/uL (150-450); RED BLOOD COUNT 3.28 10^6/uL (4.00-5.40)
[2021-06-18 11:48] LABS: CALCIUM LEVEL 8.4 MG/DL (8.8-10.2); CREATININE FOR GFR 1.74 MG/DL (0.55-1.30); GLOMERULAR FILTRATION RATE 29.6 (>32); POTASSIUM SERUM 3.9 MEQ/L (3.5-5.1)
[2021-06-18 11:53] LABS: TOTAL 25(OH) VITAMIN D 40.6 NG/ML (30.0-100.0)
[2021-06-18 11:54] LABS: PTH INTACT 107.2 PG/ML (18.5-88.0)
== END ==
PROVIDERS: ATTEND Nurse Practitioner Adult Health
DX: I10 Essential (primary) hypertension (principal); Z79.899 Other long term (current) drug therapy

== ENCOUNTER → 2021-06-26 | Outpatient (REF) | payer MEDICARE ==
[2021-06-26 13:21] LABS: HEMATOCRIT 32.2 % (36.0-47.0); HEMOGLOBIN 9.9 g/dl (12.0-15.5); MEAN CORPUSCULAR HEMOGLOBIN 29.5 pg (27.0-33.0); MEAN CORPUSCULAR HGB CONC 30.7 g/dl (32.0-36.5); MEAN CORPUSCULAR VOLUME 95.8 fl (80.0-96.0); PLATELET COUNT, AUTOMATED 449 10^3/uL (150-450); RED BLOOD COUNT 3.36 10^6/uL (4.00-5.40); WHITE BLOOD COUNT 16.6 10^3/uL (4.0-10.0)
[2021-06-26 13:44] LABS: CALCIUM LEVEL 8.7 MG/DL (8.8-10.2); CREATININE FOR GFR 2.89 MG/DL (0.55-1.30); GLOMERULAR FILTRATION RATE 16.5 (>32); POTASSIUM SERUM 4.7 MEQ/L (3.5-5.1)
== END ==
PROVIDERS: ATTEND Internal Medicine
DX: I50.9 Heart failure, unspecified (principal)

== ENCOUNTER → 2021-06-28 | Outpatient (REF) | payer MEDICARE ==
[~2021-06-28] MED LIST changes: -ASPI81CH33 PO; +CYMB60CA3 PO; -CYMB60CA4 PO; +FENO200C PO; -FENO200C19 PO; -ISOS20TA4 PO; +ISOS20TAB PO; +KLOR10TA76 PO; -LOSA100T45 PO; +LOSA100T50 PO; -LOSA50TA28 PO; +LOSA50TA88 PO; -POTA-136 PO
[2021-06-28 11:05] LABS: HEMATOCRIT 33.8 % (36.0-47.0); HEMOGLOBIN 10.7 g/dl (12.0-15.5); MEAN CORPUSCULAR HEMOGLOBIN 30.1 pg (27.0-33.0); MEAN CORPUSCULAR HGB CONC 31.7 g/dl (32.0-36.5); MEAN CORPUSCULAR VOLUME 94.9 fl (80.0-96.0); PLATELET COUNT, AUTOMATED 463 10^3/uL (150-450); RED BLOOD COUNT 3.56 10^6/uL (4.00-5.40); WHITE BLOOD COUNT 15.4 10^3/uL (4.0-10.0)
[2021-06-28 11:40] LABS: CALCIUM LEVEL 8.9 MG/DL (8.8-10.2); CREATININE FOR GFR 2.75 MG/DL (0.55-1.30); GLOMERULAR FILTRATION RATE 17.5 (>32); POTASSIUM SERUM 6.5 MEQ/L (3.5-5.1)
== END ==
PROVIDERS: ATTEND Internal Medicine
DX: I50.9 Heart failure, unspecified (principal); N18.9 Chronic kidney disease, unspecified

== ENCOUNTER → 2021-06-29 | Outpatient (REF) | payer MEDICARE | PROVIDERS: ATTEND Nurse Practitioner Adult Health | DX: E87.5 Hyperkalemia (principal) ==

== ENCOUNTER → 2021-06-30 | Outpatient (REF) | payer MEDICARE | PROVIDERS: ATTEND Internal Medicine | DX: E87.5 Hyperkalemia (principal) ==

== ENCOUNTER → 2021-07-04 | Outpatient (REF) | payer MEDICARE ==
[2021-07-04 12:55] LABS: CALCIUM LEVEL 9.1 MG/DL (8.8-10.2); CREATININE FOR GFR 1.36 MG/DL (0.55-1.30); GLOMERULAR FILTRATION RATE 39.3 (>32); POTASSIUM SERUM 4.5 MEQ/L (3.5-5.1)
[2021-07-04 17:19] LABS: BASO % 0.3 % (0.0-1.0); EOS # 0.4 10^3/uL (0.0-0.5); EOS % 3.1 % (0.0-3.0); HEMATOCRIT 34.5 % (36.0-47.0); HEMOGLOBIN 10.4 g/dl (12.0-15.5); LYMPH # 1.6 10^3/uL (1.5-5.0); LYMPH % 12.3 % (24.0-44.0); MEAN CORPUSCULAR HEMOGLOBIN 28.8 pg (27.0-33.0); MEAN CORPUSCULAR HGB CONC 30.1 g/dl (32.0-36.5); MEAN CORPUSCULAR VOLUME 95.6 fl (80.0-96.0); MONO % 7.1 % (2.0-8.0); NEUTROPHILS # 10.2 10^3/uL (1.5-8.5); NEUTROPHILS % 76.6 % (36.0-66.0); PLATELET COUNT, AUTOMATED 352 10^3/uL (150-450); RED BLOOD COUNT 3.61 10^6/uL (4.00-5.40); WHITE BLOOD COUNT 13.3 10^3/uL (4.0-10.0)
[2021-07-04 17:54] LABS: ALBUMIN 2.4 GM/DL (3.2-5.2); ALT/SGPT 22 U/L (12-78); BILIRUBIN,TOTAL 0.4 MG/DL (0.2-1.0); BLOOD UREA NITROGEN 28 MG/DL (7-18); CARBON DIOXIDE LEVEL 28 MEQ/L (21-32); CHLORIDE LEVEL 107 MEQ/L (98-107); CREATININE FOR GFR 1.32 MG/DL (0.55-1.30); FERRITIN 127 NG/ML (8-252); GLOMERULAR FILTRATION RATE 40.7 (>32); GLUCOSE, FASTING 134 MG/DL (70-100); IRON (FE) 48 UG/DL (50-170); LDH LACTATE DEHYDROGENASE 168 U/L (84-246); PERCENT SATURATION 22.4 % (13.2-45.0); POTASSIUM SERUM 4.2 MEQ/L (3.5-5.1); SODIUM LEVEL 142 MEQ/L (136-145); TOTAL IRON BINDING CAPACITY 214 UG/DL (250-450); TOTAL PROTEIN 6.2 GM/DL (6.4-8.2)
[2021-07-04 18:02] LABS: FOLATE 10.4 NG/ML (>5.4); VITAMIN B12 LEVEL 850 PG/ML (247-911)
[2021-07-05 13:53] LABS: ALBUMIN 2.54 GM/DL (3.29-5.55); ALPHA-1-GLOBULIN % 7.2 % (2.9-4.9); ALPHA-1-GLOBULINS 0.45 GM/DL (0.17-0.41); ALPHA-2-GLOBULINS 1.18 GM/DL (0.42-0.99); ALPHA-2-GLOBULINS % 19.1 % (7.1-11.8); BETA-1-GLOBULINS 0.43 GM/DL (0.28-0.60); BETA-1-GLOBULINS % 6.9 % (4.7-7.2); BETA-2-GLOBULINS 0.45 GM/DL (0.19-0.55); BETA-2-GLOBULINS % 7.3 % (3.2-6.5); GAMMA GLOBULIN % 18.5 % (11.1-18.8); GAMMA GLOBULINS 1.15 GM/DL (0.65-1.58)
== END ==
PROVIDERS: ATTEND Internal Medicine
DX: N18.9 Chronic kidney disease, unspecified (principal)

== ENCOUNTER → 2021-07-13 | Outpatient (REF) | payer MEDICARE ==
[2021-07-13 11:03] LABS: ALBUMIN 2.3 GM/DL (3.2-5.2); BILIRUBIN,TOTAL 0.5 MG/DL (0.2-1.0); CALCIUM LEVEL 9.1 MG/DL (8.8-10.2); CREATININE FOR GFR 1.38 MG/DL (0.55-1.30); GLOMERULAR FILTRATION RATE 38.7 (>32); PHOSPHORUS LEVEL 3.5 MG/DL (2.5-4.9); POTASSIUM SERUM 4.2 MEQ/L (3.5-5.1); TOTAL PROTEIN 5.8 GM/DL (6.4-8.2)
== END ==
PROVIDERS: ATTEND Internal Medicine
DX: N18.9 Chronic kidney disease, unspecified (principal); E11.9 Type 2 diabetes mellitus without complications

== ENCOUNTER → 2021-07-16 | Outpatient (CLI) | payer MEDICARE ==
[~2021-07-16] MED LIST changes: +BARIUM SULFATE 700 MG TABLET (E-Z-DISK) As Ordered ONE; +E-Z-PAQUE 96% w/w SUSP 176GM BTL As Ordered ONE; +VARIBAR NECTAR 40% w/v 240ML SUSP BTL As Ordered ONE; +VARIBAR PUDDING 40% w/v 230ML TUBE As Ordered ONE
--- NOTE | 2021-07-22 21:53 | REP ---
INDICATION: DYSPHAGIA. COMPARISON: NONE TECHNIQUE: The procedure was performed under the direct supervision of . The procedure was performed with Hansa Lynn from speech pathology present. 2.5 minutes of fluoroscopy time was utilized for this procedure. FINDINGS: The patient was assessed upon entering the room. The patient is in an upright position and conversing appropriately. A video pharyngo esophagram was then performed. [place] consistency: Patient was able to form a bolus by cupping the tongue and initiating deglutition without delay. Patient did take a large bolus. There is laryngeal penetration. Passavant's pad sara and shifted anteriorly normally with no nasopharyngeal aspiration. Patient was then instructed to take a smaller bolus. With this there is laryngeal penetration. Thin consistency: Patient was given a 5 mL aliquot with a spoon. Patient was able to form a bolus by cupping the tongue and initiating deglutition without delay. There is no evidence of Laryngeal penetration or aspiration. Passavant's pad sara and shifted anteriorly normally with no nasopharyngeal aspiration. Patient was then instructed to take a swallow from a cup. There is laryngeal penetration. The patient was then instructed to take a swallow from Strong. With this there is laryngeal penetration. Pudding consistency: The patient was able to form a bolus by cupping of the tongue and manipulated the bolus well. The patient cleared the bolus immediately. Passavant's pad sara and shifted anteriorly normally with no nasopharyngeal aspiration. Mixed fruit consistency: The patient was able to form a bolus by cupping of the tongue and manipulated the bolus well. There is delay of triggering with pooling in the vallecula. This cleared completely with the initial mechanics of swallowing. Passavant's pad sara and shifted anteriorly normally with no nasopharyngeal aspiration. Soft consistency: The patient was able to form a bolus by cupping of the tongue and manipulated the bolus well. There is delay in triggering. Passavant's pad sara and shifted anteriorly normally with no nasopharyngeal aspiration. Solid consistency: The patient was able to form a bolus by cupping of the tongue and manipulated the bolus well. There is delay in triggering. There is pooling in the vallecular. This clears completely upon the initial mechanics of swallowing. Passavant's pad sara and shifted anteriorly normally with no nasopharyngeal aspiration. The patient was then given a barium pill with tap water. The barium pill passed without delay. A detailed report of this examination will be provided by speech pathology. IMPRESSION: With nectar and thin consistency barium there is laryngeal penetration. With fruit soft and solid consistency barium there is delay in triggering and pooling in the vallecula which clears upon the initial mechanics of swallowing. A detailed report of this examination will be provided by speech pathology. <Electronically signed by Rodolfo Goff > 07/16/21 [id number] <Electronically signed by Balta Green > 07/22/21 [id number]
== END ==
LOC: M RAD 10:58
PROVIDERS: ATTEND Internal Medicine
DX: R13.10 Dysphagia, unspecified (principal)

== ENCOUNTER → 2021-07-25 | Outpatient (REF) | payer MEDICARE ==
[~2021-07-25] MED LIST changes: +ASPI81CH33 PO; -BARIUM SULFATE 700 MG TABLET (E-Z-DISK) As Ordered ONE; -CYMB60CA3 PO; +CYMB60CA4 PO; -E-Z-PAQUE 96% w/w SUSP 176GM BTL As Ordered ONE; +ISOS20TA4 PO; -ISOS20TAB PO; -KLOR10TA76 PO; +LOSA100T45 PO; -LOSA100T50 PO; +LOSA50TA28 PO; -LOSA50TA88 PO; +POTA-136 PO; -VARIBAR NECTAR 40% w/v 240ML SUSP BTL As Ordered ONE; -VARIBAR PUDDING 40% w/v 230ML TUBE As Ordered ONE
[2021-07-25 16:56] LABS: BASO # 0.1 10^3/uL (0.0-0.2); BASO % 0.4 % (0.0-1.0); EOS # 0.7 10^3/uL (0.0-0.5); EOS % 6.2 % (0.0-3.0); HEMATOCRIT 31.6 % (36.0-47.0); HEMOGLOBIN 9.4 g/dl (12.0-15.5); LYMPH # 1.8 10^3/uL (1.5-5.0); LYMPH % 14.9 % (24.0-44.0); MEAN CORPUSCULAR HEMOGLOBIN 29.6 pg (27.0-33.0); MEAN CORPUSCULAR HGB CONC 29.7 g/dl (32.0-36.5); MEAN CORPUSCULAR VOLUME 99.4 fl (80.0-96.0); MONO # 0.7 10^3/uL (0.0-0.8); MONO % 5.9 % (2.0-8.0); NEUTROPHILS # 8.6 10^3/uL (1.5-8.5); NEUTROPHILS % 71.8 % (36.0-66.0); PLATELET COUNT, AUTOMATED 288 10^3/uL (150-450); RED BLOOD COUNT 3.18 10^6/uL (4.00-5.40)
[2021-07-25 17:11] LABS: ALBUMIN 2.2 GM/DL (3.2-5.2); BILIRUBIN,TOTAL 0.5 MG/DL (0.2-1.0); CALCIUM LEVEL 8.9 MG/DL (8.8-10.2); CREATININE FOR GFR 1.37 MG/DL (0.55-1.30); PERCENT SATURATION 19.1 % (13.2-45.0); POTASSIUM SERUM 4.4 MEQ/L (3.5-5.1); TOTAL PROTEIN 5.9 GM/DL (6.4-8.2)
== END ==
PROVIDERS: ATTEND Internal Medicine
DX: N18.9 Chronic kidney disease, unspecified (principal)

== ENCOUNTER → 2021-08-01 | Outpatient (REF) | payer MEDICARE ==
[~2021-08-01] MED LIST changes: +CYMB60CA3 PO; -CYMB60CA4 PO; -ISOS20TA4 PO; +ISOS20TAB PO; +KLOR10TA76 PO; -LOSA100T45 PO; +LOSA100T50 PO; -LOSA50TA28 PO; +LOSA50TA88 PO; -POTA-136 PO
[2021-08-01 16:45] LABS: ALBUMIN 2.2 GM/DL (3.2-5.2); CREATININE FOR GFR 1.3 MG/DL (0.55-1.30); GLOMERULAR FILTRATION RATE 41.4 (>32); PHOSPHORUS LEVEL 2.9 MG/DL (2.5-4.9)
[2021-08-01 16:50] LABS: CREATININE, URINE 16.9 MG/DL; MAU/CREAT RATIO 1727.8 MCG/MG (0.0-30.0)
[2021-08-01 16:51] LABS: BASO % 0.2 % (0.0-1.0); EOS # 0.7 10^3/uL (0.0-0.5); EOS % 5.5 % (0.0-3.0); HEMATOCRIT 32.3 % (36.0-47.0); HEMOGLOBIN 9.5 g/dl (12.0-15.5); LYMPH # 1.7 10^3/uL (1.5-5.0); LYMPH % 13.2 % (24.0-44.0); MEAN CORPUSCULAR HEMOGLOBIN 29.4 pg (27.0-33.0); MEAN CORPUSCULAR HGB CONC 29.4 g/dl (32.0-36.5); MONO # 0.7 10^3/uL (0.0-0.8); MONO % 5.9 % (2.0-8.0); NEUTROPHILS # 9.3 10^3/uL (1.5-8.5); NEUTROPHILS % 74.9 % (36.0-66.0); PLATELET COUNT, AUTOMATED 258 10^3/uL (150-450); RED BLOOD COUNT 3.23 10^6/uL (4.00-5.40); WHITE BLOOD COUNT 12.5 10^3/uL (4.0-10.0)
[2021-08-01 16:58] LABS: APPEARANCE, URINE HAZY (CLEAR); BACTERIA, URINE AUTO NEGATIVE (NEGATIVE); BILIRUBIN, URINE AUTO NEGATIVE (NEGATIVE); BLOOD, URINE BLOOD NEGATIVE (NEGATIVE); COLOR, URINE YELLOW (YELLOW); GLUCOSE, URINE (UA) AUTO NEGATIVE (NEGATIVE); KETONE, URINE AUTO NEGATIVE (NEGATIVE); LEUKOCYTE ESTERASE, URINE AUTO TRACE (NEGATIVE); NITRITE, URINE AUTO NEGATIVE (NEGATIVE); PROTEIN, URINE AUTO 1+ mg/dL (NEGATIVE); RBC, URINE AUTO 0 /HPF (0-3); SPECIFIC GRAVITY URINE AUTO 1.008 (1.002-1.035); SQUAMOUS EPITHELIAL CELL UR AU 0 /HPF (0-6); UROBILINOGEN, URINE AUTO 0.2 mg/dL (0.0-2.0); WBC, URINE AUTO 5 /HPF (0-3)
== END ==
PROVIDERS: ATTEND Nurse Practitioner Adult Health
DX: E11.22 Type 2 diabetes mellitus with diabetic chronic kidney disease (principal); I50.9 Heart failure, unspecified

== ENCOUNTER → 2021-08-15 | Outpatient (REF) | payer MEDICARE ==
[~2021-08-15] MED LIST changes: -KLOR10TA76 PO; +POTA-136 PO
[2021-08-15 10:47] LABS: BASO # 0.1 10^3/uL (0.0-0.2); BASO % 0.4 % (0.0-1.0); EOS % 7.2 % (0.0-3.0); HEMATOCRIT 37.6 % (36.0-47.0); HEMOGLOBIN 11.4 g/dl (12.0-15.5); LYMPH # 1.7 10^3/uL (1.5-5.0); LYMPH % 12.8 % (24.0-44.0); MEAN CORPUSCULAR HEMOGLOBIN 29.9 pg (27.0-33.0); MEAN CORPUSCULAR HGB CONC 30.3 g/dl (32.0-36.5); MEAN CORPUSCULAR VOLUME 98.7 fl (80.0-96.0); MONO # 0.8 10^3/uL (0.0-0.8); MONO % 5.6 % (2.0-8.0); NEUTROPHILS # 9.9 10^3/uL (1.5-8.5); NEUTROPHILS % 73.6 % (36.0-66.0); PLATELET COUNT, AUTOMATED 320 10^3/uL (150-450); RED BLOOD COUNT 3.81 10^6/uL (4.00-5.40); WHITE BLOOD COUNT 13.4 10^3/uL (4.0-10.0)
[2021-08-15 11:14] LABS: ALBUMIN 2.8 GM/DL (3.2-5.2); BILIRUBIN,TOTAL 0.6 MG/DL (0.2-1.0); CALCIUM LEVEL 10.2 MG/DL (8.8-10.2); CREATININE FOR GFR 1.55 MG/DL (0.55-1.30); GLOMERULAR FILTRATION RATE 33.8 (>32); PERCENT SATURATION 15.3 % (13.2-45.0); POTASSIUM SERUM 4.3 MEQ/L (3.5-5.1); TOTAL PROTEIN 6.7 GM/DL (6.4-8.2)
== END ==
PROVIDERS: ATTEND Internal Medicine
DX: N18.9 Chronic kidney disease, unspecified (principal); D63.1 Anemia in chronic kidney disease

== ENCOUNTER → 2021-09-10 | Outpatient (REF) | payer MEDICARE, MEDICAID ==
[~2021-09-10] MED LIST changes: -CYMB60CA3 PO; +CYMB60CA4 PO
[2021-09-10 15:04] LABS: HEMATOCRIT 30.9 % (36.0-47.0); HEMOGLOBIN 9.5 g/dl (12.0-15.5); MEAN CORPUSCULAR HGB CONC 30.7 g/dl (32.0-36.5); MEAN CORPUSCULAR VOLUME 97.5 fl (80.0-96.0); PLATELET COUNT, AUTOMATED 282 10^3/uL (150-450); RED BLOOD COUNT 3.17 10^6/uL (4.00-5.40); WHITE BLOOD COUNT 11.8 10^3/uL (4.0-10.0)
[2021-09-10 15:32] LABS: ALBUMIN 2.2 GM/DL (3.2-5.2); BILIRUBIN,TOTAL 0.5 MG/DL (0.2-1.0); CALCIUM LEVEL 9.2 MG/DL (8.8-10.2); CREATININE FOR GFR 1.25 MG/DL (0.55-1.30); GLOMERULAR FILTRATION RATE 43.4 (>32); POTASSIUM SERUM 3.7 MEQ/L (3.5-5.1); THYROID STIMULATING HORMONE 1.9 uIU/ML (0.358-3.740); TOTAL PROTEIN 5.8 GM/DL (6.4-8.2)
== END ==
PROVIDERS: ATTEND Nurse Practitioner Adult Health
DX: R41.82 Altered mental status, unspecified (principal)

== ENCOUNTER → 2021-09-10 | Outpatient (REF) | payer MEDICARE, MEDICAID | PROVIDERS: ATTEND Nurse Practitioner Adult Health | DX: R41.82 Altered mental status, unspecified (principal) ==

== ENCOUNTER → 2021-11-07 | Outpatient (REF) | payer MEDICARE, MEDICAID ==
[~2021-11-07] MED LIST changes: -FENO200C PO; +FENO200C19 PO; +ISOS20TA4 PO; -ISOS20TAB PO; +LOSA100T45 PO; -LOSA100T50 PO; +LOSA50TA28 PO; -LOSA50TA88 PO
[2021-11-07 11:01] LABS: BASO % 0.2 % (0.0-1.0); EOS # 0.8 10^3/uL (0.0-0.5); EOS % 5.2 % (0.0-3.0); HEMATOCRIT 37.4 % (36.0-47.0); HEMOGLOBIN 11.3 g/dl (12.0-15.5); LYMPH # 2.5 10^3/uL (1.5-5.0); LYMPH % 16.9 % (24.0-44.0); MEAN CORPUSCULAR HEMOGLOBIN 30.2 pg (27.0-33.0); MEAN CORPUSCULAR HGB CONC 30.2 g/dl (32.0-36.5); MONO # 1.2 10^3/uL (0.0-0.8); NEUTROPHILS # 10.2 10^3/uL (1.5-8.5); NEUTROPHILS % 69.4 % (36.0-66.0); PLATELET COUNT, AUTOMATED 225 10^3/uL (150-450); RED BLOOD COUNT 3.74 10^6/uL (4.00-5.40); WHITE BLOOD COUNT 14.7 10^3/uL (4.0-10.0)
[2021-11-07 11:30] LABS: CREATININE FOR GFR 2.22 MG/DL (0.55-1.30); GLOMERULAR FILTRATION RATE 22.3 (>32); POTASSIUM SERUM 3.7 MEQ/L (3.5-5.1)
[2021-11-07 11:31] LABS: ALBUMIN 2.6 GM/DL (3.2-5.2); CALCIUM LEVEL 10.4 MG/DL (8.8-10.2); MAGNESIUM LEVEL 2.4 MG/DL (1.8-2.4); PERCENT SATURATION 9.8 % (13.2-45.0); PHOSPHORUS LEVEL 4.1 MG/DL (2.5-4.9); URIC ACID 7.9 MG/DL (2.6-6.0)
== END ==
PROVIDERS: ATTEND Internal Medicine
DX: R60.9 Edema, unspecified (principal)

== ENCOUNTER → 2021-11-07 | Outpatient (CLI) | payer MEDICARE, MEDICAID ==
[~2021-11-07] MED LIST changes: +FENO200C PO; -FENO200C19 PO; -ISOS20TA4 PO; +ISOS20TAB PO; -LOSA100T45 PO; +LOSA100T50 PO; -LOSA50TA28 PO; +LOSA50TA88 PO
--- NOTE | 2021-11-07 16:30 | REP ---
INDICATION: LEUKOCYTOSIS. COMPARISON: Multiple the latest 06/11/2021 TECHNIQUE: Portable FINDINGS: The technique utilized in obtaining the radiograph has magnified the cardiac silhouette and accentuated the interstitial markings. Once again, there is cardiomegaly accentuated by technique. The lung evangelista appear stable. No acute patchy parenchymal opacities or pleural effusions have developed. There is left CP angle blunting status quo. There is no change in the osseous structures. IMPRESSION: Stable appearing chronic changes. <Electronically signed by Oli Hawkins > 11/07/21 1723
== END ==
PROVIDERS: ATTEND Internal Medicine
DX: D72.829 Elevated white blood cell count, unspecified (principal)

== ENCOUNTER → 2021-11-07 | Outpatient (REF) | payer MEDICARE, MEDICAID | PROVIDERS: ATTEND Internal Medicine | DX: D72.829 Elevated white blood cell count, unspecified (principal); Z79.899 Other long term (current) drug therapy ==

== ENCOUNTER → 2021-11-09 | Outpatient (REF) | payer MEDICARE, MEDICAID ==
[2021-11-09 12:08] LABS: BASO % 0.2 % (0.0-1.0); EOS # 0.7 10^3/uL (0.0-0.5); EOS % 5.7 % (0.0-3.0); HEMATOCRIT 33.9 % (36.0-47.0); HEMOGLOBIN 10.5 g/dl (12.0-15.5); LYMPH # 2.4 10^3/uL (1.5-5.0); LYMPH % 20.1 % (24.0-44.0); MEAN CORPUSCULAR HEMOGLOBIN 30.9 pg (27.0-33.0); MEAN CORPUSCULAR VOLUME 99.7 fl (80.0-96.0); MONO # 0.9 10^3/uL (0.0-0.8); MONO % 7.3 % (2.0-8.0); NEUTROPHILS # 8.1 10^3/uL (1.5-8.5); NEUTROPHILS % 66.4 % (36.0-66.0); PLATELET COUNT, AUTOMATED 220 10^3/uL (150-450); WHITE BLOOD COUNT 12.2 10^3/uL (4.0-10.0)
[2021-11-09 12:28] LABS: CALCIUM LEVEL 9.8 MG/DL (8.8-10.2); CREATININE FOR GFR 2.22 MG/DL (0.55-1.30); GLOMERULAR FILTRATION RATE 22.3 (>32); POTASSIUM SERUM 4.1 MEQ/L (3.5-5.1)
== END ==
PROVIDERS: ATTEND Internal Medicine
DX: D72.829 Elevated white blood cell count, unspecified (principal)

== ENCOUNTER → 2021-11-12 | Outpatient (REF) | payer MEDICARE, MEDICAID ==
[2021-11-12 11:20] LABS: HEMATOCRIT 38.1 % (36.0-47.0); HEMOGLOBIN 11.1 g/dl (12.0-15.5); MEAN CORPUSCULAR HEMOGLOBIN 30.2 pg (27.0-33.0); MEAN CORPUSCULAR HGB CONC 29.1 g/dl (32.0-36.5); MEAN CORPUSCULAR VOLUME 103.8 fl (80.0-96.0); PLATELET COUNT, AUTOMATED 226 10^3/uL (150-450); RED BLOOD COUNT 3.67 10^6/uL (4.00-5.40); WHITE BLOOD COUNT 16.2 10^3/uL (4.0-10.0)
[2021-11-12 12:04] LABS: CALCIUM LEVEL 10.3 MG/DL (8.8-10.2); CREATININE FOR GFR 1.91 MG/DL (0.55-1.30); GLOMERULAR FILTRATION RATE 26.6 (>32); POTASSIUM SERUM 4.1 MEQ/L (3.5-5.1)
== END ==
PROVIDERS: ATTEND Internal Medicine
DX: E86.0 Dehydration (principal)

== ENCOUNTER → 2021-11-13 | Outpatient (REF) | payer MEDICARE, MEDICAID ==
[2021-11-13 14:01] LABS: HEMATOCRIT 33.9 % (36.0-47.0); HEMOGLOBIN 10.1 g/dl (12.0-15.5); MEAN CORPUSCULAR HEMOGLOBIN 31.1 pg (27.0-33.0); MEAN CORPUSCULAR HGB CONC 29.8 g/dl (32.0-36.5); MEAN CORPUSCULAR VOLUME 104.3 fl (80.0-96.0); PLATELET COUNT, AUTOMATED 202 10^3/uL (150-450); RED BLOOD COUNT 3.25 10^6/uL (4.00-5.40)
[2021-11-13 14:20] LABS: CALCIUM LEVEL 9.3 MG/DL (8.8-10.2); CREATININE FOR GFR 1.49 MG/DL (0.55-1.30); GLOMERULAR FILTRATION RATE 35.4 (>32); POTASSIUM SERUM 3.2 MEQ/L (3.5-5.1)
== END ==
PROVIDERS: ATTEND Internal Medicine
DX: E87.1 Hypo-osmolality and hyponatremia (principal)

== ENCOUNTER → 2021-11-14 | Outpatient (REF) | payer MEDICARE, MEDICAID ==
[2021-11-14 12:18] LABS: CREATININE FOR GFR 1.39 MG/DL (0.55-1.30); GLOMERULAR FILTRATION RATE 38.4 (>32); POTASSIUM SERUM 3.5 MEQ/L (3.5-5.1)
== END ==
PROVIDERS: ATTEND Internal Medicine
DX: E87.1 Hypo-osmolality and hyponatremia (principal)

== ENCOUNTER → 2021-11-19 | Outpatient (REF) | payer MEDICARE, MEDICAID ==
[2021-11-19 11:47] LABS: HEMOGLOBIN 9.7 g/dl (12.0-15.5); MEAN CORPUSCULAR HEMOGLOBIN 31.2 pg (27.0-33.0); MEAN CORPUSCULAR HGB CONC 30.3 g/dl (32.0-36.5); MEAN CORPUSCULAR VOLUME 102.9 fl (80.0-96.0); PLATELET COUNT, AUTOMATED 183 10^3/uL (150-450); RED BLOOD COUNT 3.11 10^6/uL (4.00-5.40); WHITE BLOOD COUNT 11.1 10^3/uL (4.0-10.0)
[2021-11-19 12:17] LABS: CALCIUM LEVEL 8.9 MG/DL (8.8-10.2); CREATININE FOR GFR 1.34 MG/DL (0.55-1.30); POTASSIUM SERUM 3.4 MEQ/L (3.5-5.1)
== END ==
PROVIDERS: ATTEND Internal Medicine
DX: E87.1 Hypo-osmolality and hyponatremia (principal)